=== PATIENT | male | born 1970 | race Caucasian/White ===

== ENCOUNTER 2016-08-21 05:51 | Emergency (ER) | payer OTHER ==
[2016-08-21] VITALS (7 sets, daily range): BP systolic 111–150; BP diastolic 71–100; PULSE 51–78; RESP 16–18; TEMP 97.4; O2SAT 98–100
[~2016-08-21] VITALS: Ht 165.1 cm; Wt 75.0 kg
[~2016-08-21 05:51] MED LIST: PROM25SU8 PO
[2016-08-21] MEDS ORDERED: SODIUM CHLOR 0.9% 1000 ML INJ 1,000 ML IV ONE ×2 (05:57→07:00)
[2016-08-21] MEDS ORDERED: ONDANSETRON HCL 4 MG/2 ML VIAL IVP ONE (06:00)
[2016-08-21] MEDS ORDERED: MECLIZINE HCL 25 MG TAB PO ONE (06:00)
[2016-08-21] MEDS ORDERED: SODIUM CHLORIDE 0.9% FLUSH 5 ML FLUSH IVF PRN (06:00)
[2016-08-21 06:15] LABS: AUTOMATED NEUTROPHIL # 6.2 TH/MM3 (1.8-7.7); BASOPHIL # 0.1 TH/MM3 (0-0.2); BASOPHIL % 1.2 % (0.0-2.0); EOSINOPHIL # 0.7 TH/MM3 (0-0.4); EOSINOPHIL % 6.8 % (0.0-4.0); HEMATOCRIT 44.9 % (39.0-51.0); HEMO FLAGS DIFF FINAL; LYMPH % 31.2 % (9.0-44.0); LYMPHOCYTE # 3.4 TH/MM3 (1.0-4.8); MEAN CELL VOLUME 92.3 FL (80.0-100.0); MEAN CORPUSCULAR HEMOGLOBIN 30.7 PG (27.0-34.0); MEAN CORPUSCULAR HGB CONC 33.2 % (32.0-36.0); MONO % 5.6 % (0.0-8.0); NEUT % 55.2 % (16.0-70.0); PLATELET COUNT 372 TH/MM3 (150-450); RED BLOOD COUNT 4.86 MIL/MM3 (4.50-5.90); RED CELL DISTRIBUTION WIDTH 12.8 % (11.6-17.2)
[2016-08-21 06:21] LABS: CHLORIDE 107 MEQ/L (98-107); POTASSIUM 4.2 MEQ/L (3.5-5.1); SODIUM (NA) 143 MEQ/L (136-145)
[2016-08-21 06:25] LABS: ANION GAP 9 MEQ/L (5-15); APTT (PATIENT) 23.2 SEC (24.3-30.1); BICARBONATE 27.5 MEQ/L (21.0-32.0); BLOOD UREA NITROGEN 10 MG/DL (7-18); INTERNATIONAL NORMALIZED RATIO 0.9 RATIO; MAGNESIUM 2.1 MG/DL (1.5-2.5); PROTHROMBIN TIME - PATIENT 10.4 SEC (9.8-11.6)
[2016-08-21 06:28] LABS: ALT (GPT) 32 U/L (12-78); AST (GOT) 19 U/L (15-37); GLOMERULAR FILTRATION RATE 65 ML/MIN (>89)
[2016-08-21 06:29] LABS: TOTAL BILIRUBIN ADULT 0.2 MG/DL (0.2-1.0)
[2016-08-21 06:30] LABS: ALKALINE PHOSPHATASE 90 U/L (45-117)
--- NOTE | 2016-08-21 06:31 | PD ---
HPI Chief Complaint: General Weakness Time Seen by Provider: 05:57 Travel History International Travel<30 days: No Contact w/Intl Traveler<30days: No Traveled to known affect area: No History of Present Illness HPI 46-year-old male presents to the emergency department from home by EMS transport for complaint of dizziness and nausea. Patient states he has not felt right over the past several weeks since discontinuing tobacco use. Patient denies visual disturbance change in mentation difficulty with swallowing facial droop neck pain upper or lower extremity numbness tingling or weakness or ataxia of gait. Patient's had no chest pain or shortness of breath. Patient states he awakened this morning with left-sided headache. Patient rates headache 10 over 10 intensity. Patient went to bed last night approximately 9 PM and awakened just prior to arrival to the emergency Department with above-mentioned symptoms of dizziness nausea and intermittent left-sided headache. Patient's had no recent febrile illness sinus pressure drainage or sore throat. Patient states he felt off-balance that he nearly fell. Patient denies previous history of headaches. No family history of headaches however patient is adopted at age of 2. Patient denies personal history of hypertension dyslipidemia heart disease diabetes and denies alcohol use or substance use. Patient denies any referred neck jaw back shoulder arm or abdominal pain. PFSH Past Medical History Narrative Medical Adopted negative past medical history tonsillectomy previous tobacco use no alcohol use no substance use nursing notes reviewed Medical History: Denies Significant Hx Diminished Hearing: No Immunizations Current: Yes Tetanus Vaccination: > 5 Years Influenza Vaccination: No Past Surgical History Tonsillectomy: Yes Social History Alcohol Use: No Tobacco Use: No ("Quit 9 weeks ago") Substance Use: No Allergies-Medications (Allergen,Severity, Reaction): Coded Allergies: No Known Allergies (Verified , 08/21/16) Reported Meds & Prescriptions Reported Meds & Active Scripts Active Zofran Odt (Ondansetron Odt) 4 Mg Tab 4 Mg SL Q8HR PRN 5 Days Meclizine (Meclizine HCl) 25 Mg Tab 25 Mg PO TID PRN 3 Days Review of Systems Except as stated in HPI: all other systems reviewed are Neg General / Constitutional: No: Fever, Chills Eyes: No: Diploplia, Blurred Vision, Photophobia HENT: Positive: Headaches, Vertigo, No: Lightheadedness, Congestion, Neck Stiffness, Neck Pain Cardiovascular: No: Chest Pain or Discomfort, Palpitations, Syncope Respiratory: No: Cough, Shortness of Breath, Wheezing Gastrointestinal: Positive: Nausea, No: Vomiting, Abdominal Pain Genitourinary: No: Decreased Urinary Output, Flank Pain Musculoskeletal: No: Myalgias, Arthralgias, Edema Skin: No Rash Neurologic: Positive: Weakness, Dizziness, Headache, No: Syncope, Focal Abnormalities, Coordination Problem, Tremor, Ataxia, Change in Mentation, Slurred Speech, Paresthesia, Incontinence, Seizures Psychiatric: Positive: Anxiety, No: Depression, Substance Abuse Endocrine: No: Heat Intolerance Hematologic/Lymphatic: No: Easy Bruising Physical Exam Narrative GENERAL: Well-developed well-nourished male in no acute distress no respiratory distress; GCS 15. SKIN: Warm and dry. HEAD: Atraumatic. Normocephalic. EYES: Pupils equal and round. No scleral icterus. No injection or drainage. ENT: No nasal bleeding or discharge. Mucous membranes pink and moist. NECK: Trachea midline. No JVD. CARDIOVASCULAR: Regular rate and rhythm. RESPIRATORY: No accessory muscle use. Clear to auscultation. Breath sounds equal bilaterally. GASTROINTESTINAL: Abdomen soft, non-tender, nondistended. Hepatic and splenic margins not palpable. MUSCULOSKELETAL: Extremities without clubbing, cyanosis, or edema. No obvious deformities. NEUROLOGICAL: Awake and alert. No obvious cranial nerve deficits. Motor grossly within normal limits. Five out of 5 muscle strength in the arms and legs. Sensory exam intact motor strength 5 over 5 DTRs 2+ and equal no clonus no pronator drift no limb ataxia Normal speech. PSYCHIATRIC: Appropriate mood and affect; insight and judgment normal. Data Data Last Documented VS Vital Signs Date Time Temp Pulse Resp B/P Pulse Ox O2 Delivery O2 Flow Rate FiO2 08/21/16 10:57 58 16 129/82 100 Room Air 08/21/16 05:55 97.4 Orders Electrocardiogram (08/21/16 05:57) Complete Blood Count With Diff (08/21/16 05:57) Comprehensive Metabolic Panel (08/21/16 05:57) Magnesium (Mg) (08/21/16 05:57) Ckmb (Isoenzyme) Profile (08/21/16 05:57) Troponin I (08/21/16 05:57) Act Partial Throm Time (Ptt) (08/21/16 05:57) Prothrombin Time / Inr (Pt) (08/21/16 05:57) Urinalysis - C+S If Indicated (08/21/16 05:57) Chest, Single Ap (08/21/16 05:57) Ct Brain W/O Iv Contrast(Rout) (08/21/16 05:57) Blood Glucose (08/21/16 05:57) Ecg Monitoring (08/21/16 05:57) Iv Access Insert/Monitor (08/21/16 05:57) Oximetry (08/21/16 05:57) Meclizine (Antivert) (08/21/16 06:00) Ondansetron Inj (Zofran Inj) (08/21/16 06:00) Sodium Chloride 0.9% Flush (Ns Flush) (08/21/16 06:00) Sodium Chlor 0.9% 1000 Ml Inj (Ns 1000 M (08/21/16 05:57) Orthostatic Vital Signs (08/21/16 05:57) Metoclopramide Inj (Reglan Inj) (08/21/16 06:45) Sodium Chlor 0.9% 1000 Ml Inj (Ns 1000 M (08/21/16 07:00) Cta Brain W Iv Contrast W 3d (08/21/16 06:58) Cta Neck W Iv Contrast W 3d (08/21/16 06:58) Iohexol 350 Inj (Omnipaque 350 Inj) (08/21/16 07:43) Ondansetron Inj (Zofran Inj) (08/21/16 09:00) Haloperidol Inj (Haldol Inj) (08/21/16 09:15) Promethazine Inj (Phenergan Inj) (08/21/16 09:45) Labs Laboratory Tests Test 08/21/16 08/21/16 06:00 07:50 White Blood Count 11.0 TH/MM3 Red Blood Count 4.86 MIL/MM3 Hemoglobin 14.9 GM/DL Hematocrit 44.9 % Mean Corpuscular Volume 92.3 FL Mean Corpuscular Hemoglobin 30.7 PG Mean Corpuscular Hemoglobin 33.2 % Concent Red Cell Distribution Width 12.8 % Platelet Count 372 TH/MM3 Mean Platelet Volume 7.9 FL Neutrophils (%) (Auto) 55.2 % Lymphocytes (%) (Auto) 31.2 % Monocytes (%) (Auto) 5.6 % Eosinophils (%) (Auto) 6.8 % Basophils (%) (Auto) 1.2 % Neutrophils # (Auto) 6.2 TH/MM3 Lymphocytes # (Auto) 3.4 TH/MM3 Monocytes # (Auto) 0.6 TH/MM3 Eosinophils # (Auto) 0.7 TH/MM3 Basophils # (Auto) 0.1 TH/MM3 CBC Comment DIFF FINAL Differential Comment Prothrombin Time 10.4 SEC Prothromb Time International 0.9 RATIO Ratio Activated Partial 23.2 SEC Thromboplast Time Sodium Level 143 MEQ/L Potassium Level 4.2 MEQ/L Chloride Level 107 MEQ/L Carbon Dioxide Level 27.5 MEQ/L Anion Gap 9 MEQ/L Blood Urea Nitrogen 10 MG/DL Creatinine 1.20 MG/DL Estimat Glomerular Filtration 65 ML/MIN Rate Random Glucose 112 MG/DL Calcium Level 8.3 MG/DL Magnesium Level 2.1 MG/DL Total Bilirubin 0.2 MG/DL Aspartate Amino Transf 19 U/L (AST/SGOT) Alanine Aminotransferase 32 U/L (ALT/SGPT) Alkaline Phosphatase 90 U/L Total Creatine Kinase 93 U/L Troponin I LESS THAN 0.02 NG/ML Total Protein 7.0 GM/DL Albumin 3.5 GM/DL Urine Collection Type CLEAN CATCH Urine Color YELLOW Urine Turbidity CLEAR Urine pH 5.5 Urine Specific [place] 1.033 Urine Protein NEG mg/dL Urine Glucose (UA) NEG mg/dL Urine Ketones NEG mg/dL Urine Occult Blood SMALL Urine Nitrite NEG Urine Bilirubin NEG Urine Leukocyte Esterase NEG Urine RBC 4-9 /hpf Urine Squamous Epithelial 0-5 /hpf Cells Microscopic Urinalysis Comment CULT NOT INDICATED Urine Collection Time 07:50 [facility] Medical Decision Making Medical Screen Exam Complete: Yes Emergency Medical Condition: Yes Medical Record Reviewed: Yes Interpretation(s) EKG sinus bradycardia rate [address] elevation or injury pattern change or ectopy noted CBC & BMP Diagram 08/21/16 06:[address] 08/21/16 0557 Signed Impressions: Service Date/Time: Sunday, August 21, 2016 06:16 - CONCLUSION: No acute intracranial abnormality. Sinus disease. Ankit Gracia MD Chest X-Ray 08/21/16 0557 Signed Impressions: Service Date/Time: Sunday, August 21, 2016 06:31 - CONCLUSION: No evidence of acute cardiopulmonary disease. Ankit Gracia MD Vital Signs Date Time Temp Pulse Resp B/P Pulse Ox O2 Delivery O2 Flow Rate FiO2 08/21/16 06:46 63 18 128/81 98 Room Air 08/21/16 05:55 97.4 57 18 145/100 100 08/21/16 05:55 16 100 Room Air 08/21/16 05:55 100 Room Air Differential Diagnosis TIA CVA ICH dizziness and vertigo labyrinthitis arrhythmia electrolyte disturbance ACS aortic dissection viral syndrome PE Narrative Course Patient placed on alarm security or surveillance monitor IV access obtained specimens collected and sent for resulting patient administered Zofran 4 mg IV and Antivert 25 mg by mouth Patient return from CT with episode of vomiting given Reglan 10 mg IV Administered normal saline bolus Discussed in detail with patient with spouse at the bedside further evaluation of headache and left sided neck ache with the patient and need for further testing including LP; patient with spouse at the bedside refuses LP to be performed evene with detailed discussion regarding indication and risk of not having it performed as well as benefit of having the procedure performed. He again refuses LP/spinal tap. Will proceed with CTA of the brain and neck to evaluate for aneurysmal and dissection. EKG reveals no acute injury pattern change; troponin I less than 0.02, not elevated CK total 93, not elevated; Coagulation studies and normal range Care ki over to oncoming MD Dr Medina for follow up of imaging results and patient disposition. Diagnosis Primary Impression: Vertigo Scripts Ondansetron Odt (Zofran Odt)4 Mg Tab4 Mg SL Q8HR PRN (Nausea/Vomiting) 5 Days Ref 0 Prov:Danya Medina DO 08/21/16 Meclizine 25 Mg Tab25 Mg PO TID PRN (VERTIGO) 3 Days Ref 0 Prov:Danya Medina DO 08/21/16 Shanna Kearney MD Aug 21, 2016 06:31
[2016-08-21 06:32] LABS: CREATINE KINASE 93 U/L (39-308)
[2016-08-21] MEDS ORDERED: METOCLOPRAMIDE HCL 10 MG/2 ML VIAL IV PUSH ONE (06:45)
--- NOTE | 2016-08-21 06:46 | RADHPO ---
EXAM DATE/TIME: 08/21/2016 06:16 [facility] COMPARISON: No previous studies available for comparison. INDICATIONS : Dizziness with nausea and vomiting. RADIATION DOSE: 63.48 CTDIvol (mGy) MEDICAL HISTORY : None SURGICAL HISTORY : None. ENCOUNTER: Initial ACUITY: 1 day PAIN SCALE: 2/10 LOCATION: cranial TECHNIQUE: Multiple contiguous axial images were obtained of the head. Using automated exposure control and adj ustment of the mA and/or kV according to patient size, radiation dose was kept as low as reasonably a chievable to obtain optimal diagnostic quality images. FINDINGS: CEREBRUM: The ventricles are normal for age. No evidence of midline shift, mass lesion, hemorrhage or acute in farction. No extra-axial fluid collections are seen. POSTERIOR FOSSA: The cerebellum and brainstem are intact. The 4th ventricle is midline. The cerebellopontine angle i s unremarkable. EXTRACRANIAL: There is considerable mucoperiosteal thickening of the sphenoid, ethmoid and visualized maxillary air cells. SKULL: The calvaria is intact. No evidence of skull fracture. CONCLUSION: No acute intracranial abnormality. Sinus disease. Ankit Gracia MD on August 21, 2016 at 6:44 Board Certified Radiologist. This report was verified electronically.
--- NOTE | 2016-08-21 06:47 | RADHPO ---
EXAM DATE/TIME: 08/21/2016 06:31 [facility] COMPARISON: CHEST PA & LAT, December 22, 2014, 12:41. INDICATIONS : Palpitations. MEDICAL HISTORY : None. SURGICAL HISTORY : None. ENCOUNTER: Initial ACUITY: 1 day PAIN SCORE: 7/10 LOCATION: Bilateral chest FINDINGS: A single view of the chest demonstrates the lungs to be symmetrically aerated without evidence of mas s, infiltrate or effusion. The cardiomediastinal contours are unremarkable. Osseous structures are intact. CONCLUSION: No evidence of acute cardiopulmonary disease. Ankit Gracia MD on August 21, 2016 at 6:45 Board Certified Radiologist. This report was verified electronically.
[2016-08-21] MEDS ORDERED: IOHEXOL 350 MG/ML 10 ML VIAL (for RAD DIAG) IV ONE (07:43)
[2016-08-21 08:01] LABS: BLOOD, URINE SMALL (NEG); GLUCOSE,URINE NEG (NEG); KETONE, URINE NEG (NEG); NITRITE,URINE NEG (NEG); PH, URINE 5.5 (5.0-8.5)
[2016-08-21 08:10] LABS: METHOD OF COLLECTION CLEAN CATCH; URINE COLOR YELLOW (YELLW/STRAW)
[2016-08-21 08:11] LABS: COMMENT (UR) CULT NOT INDICATED; CULTURE IF INDICATED CULT NOT INDICATED; SQUAMOUS EPITHELIAL CELL URINE 0-5 /hpf (0-5)
--- NOTE | 2016-08-21 08:38 | RADHPO ---
EXAM DATE/TIME: 08/21/2016 07:25 [facility] COMPARISON: No previous studies available for comparison. INDICATIONS : Dizziness and left sided cephalgia today. IV CONTRAST: 85 cc Omnipaque 350 (iohexol) IV ; Cumulative dose for multiple exams. RADIATION DOSE: 42.28 CTDIvol (mGy) ; Combined studies MEDICAL HISTORY : None SURGICAL HISTORY : Tonsillectomy. ENCOUNTER: Initial ACUITY: 1 day PAIN SCALE: 8/10 LOCATION: Left head TECHNIQUE: Volumetric scanning was performed using a multi-row detector CT scanner. The data was post processed with a variety of visualization algorithms including full volume maximum intensity projection, multi -planar sliding thin slab reformation, curved planar reformation, and surface rendering techniques. Using automated exposure control and adjustment of the mA and/or kV according to patient size, radiat ion dose was kept as low as reasonably achievable to obtain optimal diagnostic quality images. FINDINGS: There is excellent visualization of the major intracranial arteries out to the second-order branch ve ssels. There is no evidence for aneurysm, vessel truncation and no evidence for vascular malformatio n. There appears to be a very short segment focal stenosis involving the M1 segment on the right just before the genu. This appears to be a focal mild to moderate stenosis. The A1 segment on the left is not present. This is a congenital variant. CONCLUSION: 1. Focal short segment mild to moderate stenosis involving the M1 segment on the right just before th e genu. 2. 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 Jomar Heredia MD on August 21, 2016 at 8:30 Board Certified Radiologist. This report was verified electronically.
--- NOTE | 2016-08-21 08:45 | RADHPO ---
EXAM DATE/TIME: 08/21/2016 07:25 [facility] COMPARISON: No previous studies available for comparison. INDICATIONS : Dizziness and left sided cephalgia today. IV CONTRAST: 85 cc Omnipaque 350 (iohexol) IV ; Cumulative dose for multiple exams. RADIATION DOSE: 42.28 CTDIvol (mGy) ; Combined studies MEDICAL HISTORY : None SURGICAL HISTORY : Tonsillectomy. ENCOUNTER: Initial ACUITY: 1 day PAIN SCALE: 8/10 LOCATION: Left head TECHNIQUE: Volumetric scanning was performed using a multirow detector CT scanner. The data was post processed with a variety of visualization algorithms including full-volume maximum intensity projection, multip lanar sliding thin-slab reformation, curved-planar reformation, and surface-rendering techniques. Us ing automated exposure control and adjustment of the mA and/or kV according to patient size, radiatio n dose was kept as low as reasonably achievable to obtain optimal diagnostic quality images. FINDINGS: AORTIC ARCH: There is a three-vessel origin of the great vessels from the aorta. No evidence of ostial narrowing. RIGHT CAROTID: The common carotid artery is intact. The carotid bulb has a normal configuration without ulceration o r narrowing. The internal carotid artery lumen is smooth without stenosis. The external carotid jai ry is intact. LEFT CAROTID: The common carotid artery is intact. The carotid bulb has a normal configuration without ulceration or narrowing. The internal carotid artery lumen is smooth without stenosis. The external carotid ar malka is intact. VERTEBRALS: The vertebral arteries have a symmetric diameter. No stenotic lesions are seen. CONCLUSION: Normal examination for a patient of this age. Jomar Heredia MD on August 21, 2016 at 8:41 Board Certified Radiologist. This report was verified electronically.
[2016-08-21] MEDS ORDERED: ONDANSETRON HCL 4 MG/2 ML VIAL IV PUSH ONE (09:00)
[2016-08-21] MEDS ORDERED: HALOPERIDOL LACTATE 5 MG/ML AMP IV ONE (09:15)
[2016-08-21] MEDS ORDERED: PROMETHAZINE INJ 25 MG/ML VIAL IM ONE (09:45)
[2016-08-21] MEDS ORDERED: MECL-62 PO (10:15)
[2016-08-21] MEDS ORDERED: ZOFR4TAB3 SL (10:15)
--- NOTE | 2016-08-21 10:15 | PD ---
Physical Exam Narrative Received sign out from previous team to follow up CT scans and reevaluate. 46yo M with dizziness and nausea today. States he feels dizzy when he moves too fast. No focal neurologic deficit. Pt did vomit again so haldol 2mg and phenergan 25mg given. Pt has not vomited since I gave him the medications. Pt states headache has resolved and still does not want lumbar puncture. Very low suspicion of SAH given that CTA brain is negative for aneurysm. CTA neck is normal. Return precautions given. Data Data Last Documented VS Vital Signs Date Time Temp Pulse Resp B/P Pulse Ox O2 Delivery O2 Flow Rate FiO2 08/21/16 10:57 58 16 129/82 100 Room Air 08/21/16 05:55 97.4 Orders Electrocardiogram (08/21/16 05:57) Complete Blood Count With Diff (08/21/16 05:57) Comprehensive Metabolic Panel (08/21/16 05:57) Magnesium (Mg) (08/21/16 05:57) Ckmb (Isoenzyme) Profile (08/21/16 05:57) Troponin I (08/21/16 05:57) Act Partial Throm Time (Ptt) (08/21/16 05:57) Prothrombin Time / Inr (Pt) (08/21/16 05:57) Urinalysis - C+S If Indicated (08/21/16 05:57) Chest, Single Ap (08/21/16 05:57) Ct Brain W/O Iv Contrast(Rout) (08/21/16 05:57) Blood Glucose (08/21/16 05:57) Ecg Monitoring (08/21/16 05:57) Iv Access Insert/Monitor (08/21/16 05:57) Oximetry (08/21/16 05:57) Meclizine (Antivert) (08/21/16 06:00) Ondansetron Inj (Zofran Inj) (08/21/16 06:00) Sodium Chloride 0.9% Flush (Ns Flush) (08/21/16 06:00) Sodium Chlor 0.9% 1000 Ml Inj (Ns 1000 M (08/21/16 05:57) Orthostatic Vital Signs (08/21/16 05:57) Metoclopramide Inj (Reglan Inj) (08/21/16 06:45) Sodium Chlor 0.9% 1000 Ml Inj (Ns 1000 M (08/21/16 07:00) Cta Brain W Iv Contrast W 3d (08/21/16 06:58) Cta Neck W Iv Contrast W 3d (08/21/16 06:58) Iohexol 350 Inj (Omnipaque 350 Inj) (08/21/16 07:43) Ondansetron Inj (Zofran Inj) (08/21/16 09:00) Haloperidol Inj (Haldol Inj) (08/21/16 09:15) Promethazine Inj (Phenergan Inj) (08/21/16 09:45) Labs Laboratory Tests Test 08/21/16 08/21/16 06:00 07:50 White Blood Count 11.0 TH/MM3 Red Blood Count 4.86 MIL/MM3 Hemoglobin 14.9 GM/DL Hematocrit 44.9 % Mean Corpuscular Volume 92.3 FL Mean Corpuscular Hemoglobin 30.7 PG Mean Corpuscular Hemoglobin 33.2 % Concent Red Cell Distribution Width 12.8 % Platelet Count 372 TH/MM3 Mean Platelet Volume 7.9 FL Neutrophils (%) (Auto) 55.2 % Lymphocytes (%) (Auto) 31.2 % Monocytes (%) (Auto) 5.6 % Eosinophils (%) (Auto) 6.8 % Basophils (%) (Auto) 1.2 % Neutrophils # (Auto) 6.2 TH/MM3 Lymphocytes # (Auto) 3.4 TH/MM3 Monocytes # (Auto) 0.6 TH/MM3 Eosinophils # (Auto) 0.7 TH/MM3 Basophils # (Auto) 0.1 TH/MM3 CBC Comment DIFF FINAL Differential Comment Prothrombin Time 10.4 SEC Prothromb Time International 0.9 RATIO Ratio Activated Partial 23.2 SEC Thromboplast Time Sodium Level 143 MEQ/L Potassium Level 4.2 MEQ/L Chloride Level 107 MEQ/L Carbon Dioxide Level 27.5 MEQ/L Anion Gap 9 MEQ/L Blood Urea Nitrogen 10 MG/DL Creatinine 1.20 MG/DL Estimat Glomerular Filtration 65 ML/MIN Rate Random Glucose 112 MG/DL Calcium Level 8.3 MG/DL Magnesium Level 2.1 MG/DL Total Bilirubin 0.2 MG/DL Aspartate Amino Transf 19 U/L (AST/SGOT) Alanine Aminotransferase 32 U/L (ALT/SGPT) Alkaline Phosphatase 90 U/L Total Creatine Kinase 93 U/L Troponin I LESS THAN 0.02 NG/ML Total Protein 7.0 GM/DL Albumin 3.5 GM/DL Urine Collection Type CLEAN CATCH Urine Color YELLOW Urine Turbidity CLEAR Urine pH 5.5 Urine Specific [employer] 1.033 Urine Protein NEG mg/dL Urine Glucose (UA) NEG mg/dL Urine Ketones NEG mg/dL Urine Occult Blood SMALL Urine Nitrite NEG Urine Bilirubin NEG Urine Leukocyte Esterase NEG Urine RBC 4-9 /hpf Urine Squamous Epithelial 0-5 /hpf Cells Microscopic Urinalysis Comment CULT NOT INDICATED Urine Collection Time 07:50 MDM Supervised Visit with VENANCIO: No Diagnosis Primary Impression: Vertigo Patient Instructions: General Instructions Departure Forms: Tests/Procedures Additional Instruction: Please follow up with your PMD in 3-7 days. CTA head showed focal short segment mild to moderate stenosis involving M1 segment on the right just before the genu. 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 No evidence of aneurysm or vascular malformation. Please return to the ED if symptoms worsen. Med/Other Pt SpecificInfo: Prescription(s) given Scripts Ondansetron Odt (Zofran Odt)4 Mg Tab4 Mg SL Q8HR PRN (Nausea/Vomiting) 5 Days Ref 0 Prov:Danya Medina DO 08/21/16 Meclizine 25 Mg Tab25 Mg PO TID PRN (VERTIGO) 3 Days Ref 0 Prov:Danya Medina DO 08/21/16 Disposition: 01 DISCHARGE HOME Condition: Stable Danya Medina DO Aug 21, 2016 10:15
--- NOTE | 2016-08-22 09:38 | EKG ---
Date Performed: 08/21/2016 Time Performed: 06:03:36 PTAGE: 46 years EKG: Sinus bradycardia. Poor R wave progression - probable normal variant Borderline ECG NO PREVIOUS TRACING DOCTOR: Geovanni Lopez Interpretating Date/Time 08/22/2016 09:36:15
[2016-10-21] MEDS ORDERED: CIPR-9 PO (09:02)
[2016-11-09] MEDS ORDERED: DOXY100C PO (10:31)
[2016-11-09] MEDS ORDERED: GABA300C5 PO (10:35)
== END 2016-08-21 11:23 | disposition home or self-care (01) ==
LOC: PHED 05:51
DX: R42 Dizziness and giddiness (principal); R11.0 Nausea; R51 Headache; R00.1 Bradycardia, unspecified; R53.1 Weakness; Z87.891 Personal history of nicotine dependence
CPT/HCPCS: 70450; 70496; 70498; 71010; 80053; 81001; 82550; 83735; 84484; 85025; 85610; 85730; 93005; 96361; 96372; 96374; 96375; 96376; 99285; J1630; J2405; J2550; J2765; J7030; Q9967

== ENCOUNTER 2016-08-23 07:45 | Emergency (ER) | payer OTHER ==
[~2016-08-23] VITALS: Ht 152.4 cm; Wt 76.0 kg
[~2016-08-23 07:45] MED LIST changes: +MECL-62 PO; -PROM25SU8 PO; +ZOFR4TAB3 SL
[2016-08-23 07:47] VITALS: BP 142/95; PULSE 84; RESP 16; TEMP 98; O2SAT 97
[2016-08-23] MEDS ORDERED: ONDANSETRON HCL 4 MG/2 ML VIAL IV ONE (10:15)
[2016-08-23] MEDS ORDERED: SODIUM CHLOR 0.9% 1000 ML INJ 1,000 ML IV ONE (10:15)
[2016-08-23] MEDS ORDERED: MECLIZINE HCL 25 MG TAB PO ONE (10:15)
--- NOTE | 2016-08-23 10:20 | PD ---
HPI Chief Complaint: Dizziness Time Seen by Provider: 08:32 Travel History International Travel<30 days: No Contact w/Intl Traveler<30days: No Traveled to known affect area: No History of Present Illness HPI This patient complains of dizziness. He has a room spinning sensation. It's worse when he turns his head to either side or changes position. He also complains of nausea and decreased appetite. He has some generalized weakness. Symptom severity is moderate. Duration 3 days. He was seen here 2 days ago for the same thing and had extensive workup which was negative. He did not fill his prescriptions for Zofran on meclizine. He did try dose of over-the- counter antihistamine which didn't do much. Patient's symptoms are somewhat alleviated when he remains still. PFSH Past Medical History Medical History: Denies Significant Hx Diminished Hearing: No Immunizations Current: Yes Tetanus Vaccination: > 5 Years Influenza Vaccination: No ?: Not Past Surgical History Tonsillectomy: Yes Social History Alcohol Use: No Tobacco Use: No ("Quit 9 weeks ago") Substance Use: No Allergies-Medications (Allergen,Severity, Reaction): Coded Allergies: No Known Allergies (Verified , 08/21/16) Reported Meds & Prescriptions Reported Meds & Active Scripts Active Zofran Odt (Ondansetron Odt) 4 Mg Tab 4 Mg SL Q8HR PRN 5 Days Meclizine (Meclizine HCl) 25 Mg Tab 25 Mg PO TID PRN 3 Days Review of Systems General / Constitutional: No: Fever Eyes: No: Visual changes HENT: Positive: Vertigo, Lightheadedness, No: Headaches Cardiovascular: No: Chest Pain or Discomfort Respiratory: No: Shortness of Breath Gastrointestinal: Positive: Nausea, Loss of Appetite, No: Abdominal Pain Genitourinary: No: Dysuria Musculoskeletal: Positive: Weakness, No: Pain Skin: No Rash Neurologic: Positive: Weakness, Dizziness Psychiatric: No: Depression Endocrine: No: Polydipsia Hematologic/Lymphatic: No: Easy Bruising Physical Exam Narrative GENERAL: Well-nourished, well-developed patient in no apparent distress. SKIN: Warm and dry. HEAD: Atraumatic. Normocephalic. EYES: Pupils equal and round. No scleral icterus. No injection or drainage. ENT: No nasal bleeding or discharge. Mucous membranes pink and moist. NECK: Trachea midline. No JVD. No meningeal signs CARDIOVASCULAR: Regular rate and rhythm. No murmur appreciated. RESPIRATORY: No accessory muscle use. Clear to auscultation. Breath sounds equal bilaterally. GASTROINTESTINAL: Abdomen soft, non-tender, nondistended. Hepatic and splenic margins not palpable. MUSCULOSKELETAL: No obvious deformities. No clubbing. No cyanosis. No edema. NEUROLOGICAL: Awake and alert. No obvious cranial nerve deficits. Motor grossly within normal limits. Normal speech. PSYCHIATRIC: Appropriate mood and affect; insight and judgment normal. Data Data Last Documented VS Vital Signs Date Time Temp Pulse Resp B/P Pulse Ox O2 Delivery O2 Flow Rate FiO2 08/23/16 08:19 18 97 Room Air 08/23/16 07:47 98.0 84 142/95 Orders Electrocardiogram (08/23/16 ) Sodium Chlor 0.9% 1000 Ml Inj (Ns 1000 M (08/23/16 10:15) Ondansetron Inj (Zofran Inj) (08/23/16 10:15) Meclizine (Antivert) (08/23/16 10:15) Complete Blood Count With Diff (08/23/16 10:11) Basic Metabolic Panel (Bmp) (08/23/16 10:11) Labs Laboratory Tests Test 08/23/16 10:00 White Blood Count 15.1 TH/MM3 Red Blood Count 5.12 MIL/MM3 Hemoglobin 15.8 GM/DL Hematocrit 47.5 % Mean Corpuscular Volume 92.8 FL Mean Corpuscular Hemoglobin 30.9 PG Mean Corpuscular Hemoglobin 33.3 % Concent Red Cell Distribution Width 13.5 % Platelet Count 409 TH/MM3 Mean Platelet Volume 8.7 FL Neutrophils (%) (Auto) 65.6 % Lymphocytes (%) (Auto) 25.6 % Monocytes (%) (Auto) 7.9 % Eosinophils (%) (Auto) 0.3 % Basophils (%) (Auto) 0.6 % Neutrophils # (Auto) 9.9 TH/MM3 Lymphocytes # (Auto) 3.9 TH/MM3 Monocytes # (Auto) 1.2 TH/MM3 Eosinophils # (Auto) 0.0 TH/MM3 Basophils # (Auto) 0.1 TH/MM3 CBC Comment DIFF FINAL Differential Comment Sodium Level 138 MEQ/L Potassium Level 4.2 MEQ/L Chloride Level 102 MEQ/L Carbon Dioxide Level 28.2 MEQ/L Anion Gap 8 MEQ/L Blood Urea Nitrogen 12 MG/DL Creatinine 1.10 MG/DL Estimat Glomerular Filtration 72 ML/MIN Rate Random Glucose 101 MG/DL Calcium Level 9.3 MG/DL [facility] Medical Decision Making Medical Screen Exam Complete: Yes Emergency Medical Condition: Yes Medical Record Reviewed: Yes Differential Diagnosis Positional vertigo, meningitis, CVA Narrative Course I have reviewed the patient's electronic medical record. Reviewed his extensive workup from 2 days ago including head and neck CTA and brain CT and labs Patient's headache is much improved that's not the problem at all today. His problem is vertigo with nausea. No neurologic deficit noted. Presentation not consistent with meningitis or stroke. IV placed I gave him a dose of IV Zofran and 1 L normal saline IV bolus as well as a dose of meclizine CBC is normal Metabolic profile is normal Recommend primary care follow-up. Return if worse. Diagnosis Primary Impression: Vertigo Additional Instructions: The patient was advised to follow up with their physician and return if they worsen. Med/Other Pt SpecificInfo: Other Disposition: 01 DISCHARGE HOME Condition: Stable Syed Ramsey MD Aug 23, 2016 10:20
[2016-08-23 10:28] LABS: AUTOMATED NEUTROPHIL # 9.9 TH/MM3 (1.8-7.7); BASOPHIL # 0.1 TH/MM3 (0-0.2); BASOPHIL % 0.6 % (0.0-2.0); EOSINOPHIL % 0.3 % (0.0-4.0); HEMATOCRIT 47.5 % (39.0-51.0); HEMO FLAGS DIFF FINAL; LYMPH % 25.6 % (9.0-44.0); LYMPHOCYTE # 3.9 TH/MM3 (1.0-4.8); MEAN CELL VOLUME 92.8 FL (80.0-100.0); MEAN CORPUSCULAR HEMOGLOBIN 30.9 PG (27.0-34.0); MEAN CORPUSCULAR HGB CONC 33.3 % (32.0-36.0); MONO % 7.9 % (0.0-8.0); NEUT % 65.6 % (16.0-70.0); PLATELET COUNT 409 TH/MM3 (150-450); RED BLOOD COUNT 5.12 MIL/MM3 (4.50-5.90); RED CELL DISTRIBUTION WIDTH 13.5 % (11.6-17.2); WHITE BLOOD COUNT 15.1 TH/MM3 (4.0-11.0)
[2016-08-23 10:45] LABS: BICARBONATE 28.2 MEQ/L (21.0-32.0); POTASSIUM 4.2 MEQ/L (3.5-5.1)
[2016-08-23 12:00] VITALS: BP 137/89; PULSE 84; RESP 16; TEMP 98; O2SAT 97
--- NOTE | 2016-08-23 17:41 | EKG ---
Date Performed: 08/23/2016 Time Performed: 08:25:52 PTAGE: 46 years EKG: Sinus rhythm NORMAL ECG Compared to prior tracing no significant change PREVIOUS TRACING : 08/21/2016 06.03 DOCTOR: Orlando Culp Interpretating Date/Time 08/23/2016 17:40:24
[2016-10-21] MEDS ORDERED: CIPR-9 PO (09:02)
[2016-11-09] MEDS ORDERED: DOXY100C PO (10:31)
[2016-11-09] MEDS ORDERED: GABA300C5 PO (10:35)
== END 2016-08-23 13:27 | disposition home or self-care (01) ==
LOC: NEPE 07:45
DX: R42 Dizziness and giddiness (principal); R11.0 Nausea
CPT/HCPCS: 80048; 85025; 93005; 96361; 96374; 99285; J2405; J7030

== ENCOUNTER 2016-09-02 10:14 | Emergency (ER) | payer OTHER ==
[~2016-09-02] VITALS: Ht 165.1 cm; Wt 74.0 kg
[2016-09-02 10:24] VITALS: BP 139/103; PULSE 79; RESP 16; TEMP 98.1; O2SAT 99
[2016-09-02 11:24] VITALS: BP 140/103; PULSE 66; RESP 16; O2SAT 99
[2016-09-02 11:45] VITALS: RESP 16; O2SAT 100
[2016-09-02] MEDS ORDERED: SODIUM CHLOR 0.9% 1000 ML INJ 1,000 ML IV ONE (11:45)
[2016-09-02] MEDS ORDERED: ONDANSETRON HCL 4 MG/2 ML VIAL IV PUSH ONE (11:45)
--- NOTE | 2016-09-02 11:47 | RADHPO ---
EXAM DATE/TIME: 09/02/2016 11:39 [facility] COMPARISON: CHEST SINGLE AP, August 21, 2016, 6:31. INDICATIONS : Congestion and vertigo MEDICAL HISTORY : None. SURGICAL HISTORY : None. ENCOUNTER: Initial ACUITY: 2 weeks PAIN SCORE: 8/10 LOCATION: Bilateral chest FINDINGS: A single view of the chest demonstrates the lungs to be symmetrically aerated without evidence of mas s, infiltrate or effusion. The cardiomediastinal contours are unremarkable. Osseous structures are intact. CONCLUSION: No acute disease. Miguel Gamble MD FACR on September 02, 2016 at 11:45 Board Certified Radiologist. This report was verified electronically.
[2016-09-02 12:04] LABS: AUTOMATED NEUTROPHIL # 8.8 TH/MM3 (1.8-7.7); BASOPHIL # 0.2 TH/MM3 (0-0.2); BASOPHIL % 1.5 % (0.0-2.0); EOSINOPHIL # 0.4 TH/MM3 (0-0.4); EOSINOPHIL % 2.7 % (0.0-4.0); HEMATOCRIT 46.9 % (39.0-51.0); HEMO FLAGS DIFF FINAL; LYMPH % 26.2 % (9.0-44.0); LYMPHOCYTE # 3.6 TH/MM3 (1.0-4.8); MEAN CELL VOLUME 92.9 FL (80.0-100.0); MEAN CORPUSCULAR HEMOGLOBIN 30.8 PG (27.0-34.0); MEAN CORPUSCULAR HGB CONC 33.1 % (32.0-36.0); MONO % 6.6 % (0.0-8.0); PLATELET COUNT 460 TH/MM3 (150-450); RED BLOOD COUNT 5.05 MIL/MM3 (4.50-5.90); RED CELL DISTRIBUTION WIDTH 12.6 % (11.6-17.2); WHITE BLOOD COUNT 13.9 TH/MM3 (4.0-11.0)
[2016-09-02 12:11] LABS: POTASSIUM 4.2 MEQ/L (3.5-5.1)
[2016-09-02 12:14] LABS: BICARBONATE 31.2 MEQ/L (21.0-32.0); MAGNESIUM 2.4 MG/DL (1.5-2.5)
--- NOTE | 2016-09-02 12:28 | PD ---
HPI Chief Complaint: vomiting Time Seen by Provider: 11:23 Travel History International Travel<30 days: No Contact w/Intl Traveler<30days: No Traveled to known affect area: No History of Present Illness HPI 46-year-old male presents with nonbloody emesis, and general ill feeling, left facial swelling. He states this is been going on for the past couple of days. He confirms he has been here recently for vertigo and that is still intermittently happening. He states that he has no other concurrent complaints. Quality is nonbloody. Severity is multiple episodes per patient. He states the left facial swelling and vomiting are new for him. He states he feels worse when he moves around. He denies other modifying factors. PFSH Past Medical History Diminished Hearing: No Immunizations Current: Yes Tetanus Vaccination: > 5 Years Influenza Vaccination: No Past Surgical History Tonsillectomy: Yes Social History Alcohol Use: No Tobacco Use: No (QUIT 07/2016) Substance Use: No Allergies-Medications (Allergen,Severity, Reaction): Coded Allergies: No Known Allergies (Verified , 09/02/16) Reported Meds & Prescriptions Reported Meds & Active Scripts Active Zofran Odt (Ondansetron Odt) 4 Mg Tab 4 Mg SL Q6HR PRN Penicillin V Potassium 500 Mg Tab 500 Mg PO BID 10 Days Review of Systems Except as stated in HPI: all other systems reviewed are Neg Physical Exam Narrative GENERAL: Well-nourished, well-developed patient. SKIN: Warm and dry. HEAD: Small amount of swelling noted to left mid face that does not extend into neck or upper portion of face, no overlying erythema or induration or crepitus EYES: No injection or drainage. ENT: No nasal drainage noted. Poor dentition noted but no periapical abscess, multiple teeth missing NECK: Supple, trachea midline. No meningeal signs CARDIOVASCULAR: Regular rate and rhythm RESPIRATORY: No increased effort. No accessory muscle use. GASTROINTESTINAL: Abdomen soft, non-tender, nondistended. EXTREMITIES: No edema. NEUROLOGICAL: Awake and alert. Motor and sensory grossly within normal limits. Normal speech. Data Data Last Documented VS Vital Signs Date Time Temp Pulse Resp B/P Pulse Ox O2 Delivery O2 Flow Rate FiO2 09/02/16 14:32 76 16 131/88 99 Room Air 09/02/16 10:24 98.1 Orders Magnesium (Mg) (09/02/16 11:31) Phosphorus (Po4) (09/02/16 11:31) Complete Blood Count With Diff (09/02/16 11:31) Basic Metabolic Panel (Bmp) (09/02/16 11:31) Iv Access Insert/Monitor (09/02/16 11:31) Ecg Monitoring (09/02/16 11:31) Oximetry (09/02/16 11:31) Ct Facial Bones W Iv Contrast (09/02/16 ) Sodium Chlor 0.9% 1000 Ml Inj (Ns 1000 M (09/02/16 11:45) Ondansetron Inj (Zofran Inj) (09/02/16 11:45) Chest, Single Ap (09/02/16 ) Iohexol 350 Inj (Omnipaque 350 Inj) (09/02/16 13:00) Labs Laboratory Tests Test 09/02/16 11:45 White Blood Count 13.9 TH/MM3 Red Blood Count 5.05 MIL/MM3 Hemoglobin 15.5 GM/DL Hematocrit 46.9 % Mean Corpuscular Volume 92.9 FL Mean Corpuscular Hemoglobin 30.8 PG Mean Corpuscular Hemoglobin 33.1 % Concent Red Cell Distribution Width 12.6 % Platelet Count 460 TH/MM3 Mean Platelet Volume 7.8 FL Neutrophils (%) (Auto) 63.0 % Lymphocytes (%) (Auto) 26.2 % Monocytes (%) (Auto) 6.6 % Eosinophils (%) (Auto) 2.7 % Basophils (%) (Auto) 1.5 % Neutrophils # (Auto) 8.8 TH/MM3 Lymphocytes # (Auto) 3.6 TH/MM3 Monocytes # (Auto) 0.9 TH/MM3 Eosinophils # (Auto) 0.4 TH/MM3 Basophils # (Auto) 0.2 TH/MM3 CBC Comment DIFF FINAL Differential Comment Sodium Level 140 MEQ/L Potassium Level 4.2 MEQ/L Chloride Level 101 MEQ/L Carbon Dioxide Level 31.2 MEQ/L Anion Gap 8 MEQ/L Blood Urea Nitrogen 14 MG/DL Creatinine 1.30 MG/DL Estimat Glomerular Filtration 59 ML/MIN Rate Random Glucose 106 MG/DL Calcium Level 9.3 MG/DL Phosphorus Level 3.1 MG/DL Magnesium Level 2.4 MG/DL MDM Medical Decision Making Medical Screen Exam Complete: Yes Emergency Medical Condition: Yes Medical Record Reviewed: Yes (past history confirmed) Interpretation(s) CBC & BMP Diagram 09/02/16 11:45 Last 24 hours Impressions Chest X-Ray 09/02/16 0000 Signed Impressions: Service Date/Time: Friday, September 02, 2016 11:39 - CONCLUSION: No acute disease. Miguel Gamble MD FACR CT face with swelling without abscess Differential Diagnosis Dental abscess, gastroenteritis, URI, dental caries.... Narrative Course Will check blood work, CT and dose with Zofran and IV fluids and reevaluate ED workup no emergent process. Likely swelling from dental source, will sent home on Zofran and penicillin. No emesis here,Patient denies any new complaints and states that they are feeling better. Patient happy with care, all questions answered. Patient knows that follow up is incumbent on them and to return to the emergency room immediately if new or worsening symptoms develop. Patient given strict return precautions, vitals reviewed and are normal , agrees to further workup as an outpatient. Diagnosis Primary Impression: Facial swelling Additional Impression: Vomiting Qualified Code: R11.10 - Vomiting, intractability of vomiting not specified, presence of nausea not specified, unspecified vomiting type Patient Instructions: General Instructions Additional Instructions: return as needed, follow with a dentist, zofran as needed, keep hydrated Med/Other Pt SpecificInfo: Prescription(s) given Scripts Ondansetron Odt (Zofran Odt)4 Mg Tab4 Mg SL Q6HR PRN (Nausea/Vomiting) #10 TAB Prov:Lena Lehman MD 09/02/16 Penicillin V Potassium 500 Mg [id number] Mg PO BID 10 Days Prov:Lena Lehman MD 09/02/16 Disposition: 01 DISCHARGE HOME Condition: Stable Lena Lehman MD Sep 02, 2016 12:28
[2016-09-02] MEDS ORDERED: IOHEXOL 350 MG/ML 10 ML VIAL (for RAD DIAG) IV ONE (13:00)
--- NOTE | 2016-09-02 13:20 | RADHPO ---
EXAM DATE/TIME: 09/02/2016 12:46 [facility] COMPARISON: No previous studies available for comparison. INDICATIONS: Left-mid facial swelling and pain; evaluate for abscess. IV CONTRAST: 59 cc Omnipaque 350 (iohexol) IV RADIATION DOSE: 29.90 CTDIvol (mGy) MEDICAL HISTORY: Vertigo SURGICAL HISTORY: None. ENCOUNTER: Initial ACUITY: 2 weeks PAIN SCALE: 7/10 LOCATION: Left facial TECHNIQUE: Volumetric scanning of the facial bones was performed. Using automated exposure control and adjustme nt of the mA and/or kV according to patient size, radiation dose was kept as low as reasonably achiev able to obtain optimal diagnostic quality images. FINDINGS: There is mucoperiosteal thickening in both maxillary sinuses. There is soft tissue swelling over the left mid face without abscess, adenopathy or fluid. The parot id and submandibular glands are prominent. There is no adenopathy appreciated. CONCLUSION: 1. Benign nonspecific sinus disease. 2. I do not see evidence for an abscess. 3. The portion of the intracranial contents visualized are unremarkable. Miguel Gamble MD FACR on September 02, 2016 at 13:13 Board Certified Radiologist. This report was verified electronically.
[2016-09-02 13:39] VITALS: BP 136/92; PULSE 71; RESP 16; O2SAT 99
[2016-09-02] MEDS ORDERED: ZOFR4TAB3 SL (13:58)
[2016-09-02] MEDS ORDERED: PENI500T PO (13:58)
[2016-09-02 14:32] VITALS: BP 131/88; PULSE 76; RESP 16; O2SAT 99
[2016-10-21] MEDS ORDERED: CIPR-9 PO (09:02)
[2016-11-09] MEDS ORDERED: DOXY100C PO (10:31)
[2016-11-09] MEDS ORDERED: GABA300C5 PO (10:35)
== END 2016-09-02 15:00 | disposition home or self-care (01) ==
LOC: PHED 10:14
DX: R22.0 Localized swelling, mass and lump, head (principal); R11.10 Vomiting, unspecified; R42 Dizziness and giddiness
CPT/HCPCS: 70487; 71010; 80048; 83735; 84100; 85025; 96361; 96374; 99284; J2405; J7030; Q9967

== ENCOUNTER → 2016-10-26 | Outpatient (CLI) | payer OTHER ==
[~2016-10-26] MED LIST changes: +ALPR.5 PO; +ASPI81CH CHEW; +ATOR40TA16 PO; +BEDSIDE COMMODE1 MI1; +CIPR-9 PO; +CLON.5 PO; +DOXY100C PO; +GABA300C5 PO; +GABA600T PO; +LISI-519 PO; -MECL-62 PO; +OXYGEN NAS.CANULA; +PRED20 PO; +QUET5TAB PO; +SERT25TA83 PO; +WALKER WHEELS/F1 MIS; +ZOLO25TA PO
[2016-10-26 14:48] LABS: BICARBONATE 29.4 MEQ/L (21.0-32.0)
== END ==
LOC: CLAB 13:34
PROVIDERS: ATTEND Nurse Practitioner Family
DX: G62.9 Polyneuropathy, unspecified (principal); R68.89 Other general symptoms and signs
CPT/HCPCS: 36415; 80069; 84443

== ENCOUNTER → 2016-11-01 | Outpatient (CLI) | payer OTHER ==
[~2016-11-01] MED LIST changes: +GADODIAMIDE PF 287 MG/ML 5 ML VIAL (for RAD MRI) IV ONE
--- NOTE | 2016-11-01 17:27 | RADRPT ---
EXAM DATE/TIME: 11/01/2016 16:42 [facility] COMPARISON: CT BRAIN W/O CONTRAST, August 21, 2016, 6:16. INDICATIONS : Vertigo. Pain. Memory loss. CONTRAST: 15 cc Omniscan (gadodiamide) IV MEDICAL HISTORY : None. SURGICAL HISTORY : Tonsillectomy. Hand tendon repair. Tooth extraction. ENCOUNTER: Initial ACUITY: 1 day PAIN SCORE: 5/10 LOCATION: cranial TECHNIQUE: Multiplanar, multisequence MRI of the brain was performed both prior to and following the administrat ion of paramagnetic contrast. FINDINGS: CEREBRUM: The ventricles are normal for age. No evidence of midline shift, mass lesion, hemorrhage or acute in farction. No extraaxial fluid collections are seen. The pituitary gland and suprasellar cistern are normal in configuration. WHITE MATTER: No significant signal abnormalities are seen in the white matter. POSTERIOR FOSSA: The cerebellum and brainstem are intact. The 4th ventricle is midline. The cerebellopontine angle is unremarkable. The cerebellar tonsils are normal in position. DIFFUSION IMAGING: No focal areas of restricted diffusion are seen. No evidence of acute infarction. EXTRACRANIAL: The visualized portions of the orbits are unremarkable. There are air-fluid levels in both maxillary sinuses with circumferential mucosal thickening. There is mild mucosal thickening in the ethmoidal ai r cells and sphenoid sinuses. POST-CONTRAST: No abnormal areas of parenchymal or dural enhancement. No evidence of blood-brain barrier breakdown. CONCLUSION: 1. No acute hemorrhage, mass or infarction. 2. Evidence of acute sinusitis. Damián Noe MD on November 01, 2016 at 17:23 Board Certified Radiologist. This report was verified electronically.
== END ==
LOC: HRAD 16:05
PROVIDERS: ATTEND Family Medicine
DX: R41.3 Other amnesia (principal); G62.9 Polyneuropathy, unspecified; R42 Dizziness and giddiness
CPT/HCPCS: 70553; A9579

== ENCOUNTER 2016-12-07 09:46 | Inpatient (IN) | payer OTHER ==
[2016-12-07] VITALS (7 sets, daily range): BP systolic 108–133; BP diastolic 72–95; PULSE 77–97; RESP 12–20; TEMP 98–98.6; O2SAT 94–98
[~2016-12-07] VITALS: Ht 165.1 cm; Wt 90.8 kg
[~2016-12-07 09:46] MED LIST changes: -ALPR.5 PO; -ASPI81CH CHEW; -ATOR40TA16 PO; -BEDSIDE COMMODE1 MI1; -CIPR-9 PO; -CLON.5 PO; -GABA600T PO; -GADODIAMIDE PF 287 MG/ML 5 ML VIAL (for RAD MRI) IV ONE; -LISI-519 PO; -OXYGEN NAS.CANULA; -PRED20 PO; -QUET5TAB PO; -SERT25TA83 PO; -WALKER WHEELS/F1 MIS; -ZOFR4TAB3 SL; -ZOLO25TA PO
[2016-12-07] MEDS ORDERED: SODIUM CHLORIDE 0.9% FLUSH 5 ML FLUSH IV FLUSH PRN (11:00)
[2016-12-07 11:22] LABS: AUTOMATED NEUTROPHIL # 6.7 TH/MM3 (1.8-7.7); BASOPHIL # 0.1 TH/MM3 (0-0.2); BASOPHIL % 0.9 % (0.0-2.0); EOSINOPHIL # 0.4 TH/MM3 (0-0.4); EOSINOPHIL % 3.2 % (0.0-4.0); HEMATOCRIT 45.5 % (39.0-51.0); HEMO FLAGS DIFF FINAL; LYMPH % 28.4 % (9.0-44.0); LYMPHOCYTE # 3.4 TH/MM3 (1.0-4.8); MEAN CELL VOLUME 95.6 FL (80.0-100.0); MEAN CORPUSCULAR HEMOGLOBIN 31.3 PG (27.0-34.0); MEAN CORPUSCULAR HGB CONC 32.8 % (32.0-36.0); MONO % 11.1 % (0.0-8.0); NEUT % 56.4 % (16.0-70.0); PLATELET COUNT 351 TH/MM3 (150-450); RED BLOOD COUNT 4.76 MIL/MM3 (4.50-5.90); RED CELL DISTRIBUTION WIDTH 14.5 % (11.6-17.2)
--- NOTE | 2016-12-07 11:29 | PD ---
HPI Chief Complaint: Neuro Symptoms/ Deficits Time Seen by Provider: 11:25 Travel History International Travel<30 days: No Contact w/Intl Traveler<30days: No Traveled to known affect area: No History of Present Illness HPI 46-year-old male presents to the emergency department for evaluation of neurological symptoms that have been ongoing for approximately 4-5 months. He states he was diagnosed with vertigo. He had a brain MRI done approximately one month ago which showed no abnormality. Over the past month he has been extensively dizziness, difficulty with memory as well as numbness and tingling of his arms and legs. This began in August of this year. The patient states this is ongoing. However, he is now having difficulty speaking. Patient has trouble getting his words out and has started stuttering. He woke up with this yesterday morning. The patient reports pain in his right arm and right leg with paresthesias. He also reports a left-sided headache which has been ongoing for several months. He reports visual changes in the right eye. He states he has been falling more often and has an unsteady gait. He is currently on Seroquel and gabapentin. He denies any history of CVA, cardiac problems. No fevers. Patient reports right low back pain. He reports chronic chest pain and shortness of breath and has been ongoing for several months. Patient went to his appointment today at [facility] to have a Seroquel refilled when they referred him to the emergency department when they noticed his difficulty with his speech. PFSH Past Medical History Anxiety: Yes Depression: Yes Diminished Hearing: No Neurologic: Yes (neuropathy) Psychiatric: Yes Immunizations Current: Yes Tetanus Vaccination: Never Vaccinated Past Surgical History Tonsillectomy: Yes Social History Alcohol Use: No Tobacco Use: Yes (07/11 ppd) Substance Use: No Allergies-Medications (Allergen,Severity, Reaction): Coded Allergies: Penicillin (Verified Allergy, Severe, rash, 12/07/16) Reported Meds & Prescriptions Reported Meds & Active Scripts Active Review of Systems Except as stated in HPI: all other systems reviewed are Neg Physical Exam Narrative GENERAL: Well-nourished, well-developed male patient, Afebrile. Patient is alert and oriented to person, place, but does not know the year. He does know the president. SKIN: Focused skin assessment warm/dry. HEAD: Normocephalic. Atraumatic. EYES: No scleral icterus. No injection or drainage. PERRLA. EOM intact. ENT: Mucosa pink and moist. No erythema or exudates. No uvular edema. No uvular , palatal, or tonsillar deviation. Airway patent. Nasal turbinates appear normal without nasal blood, purulent drainage or septal hematoma. Bilateral tympanic membranes are clear without erythema or perforation. NECK: Supple, trachea midline. No JVD or lymphadenopathy. CARDIOVASCULAR: Regular rate and rhythm without murmurs, gallops, or rubs. RESPIRATORY: Breath sounds equal bilaterally. No accessory muscle use. Lungs sounds are clear to auscultation. GASTROINTESTINAL: Abdomen soft, non-tender, nondistended. MUSCULOSKELETAL: No cyanosis, or edema. Left upper and left lower extremity strength 5/5. Right upper and right lower extremity strength 4/5. However, patient reports pain with movement of the right leg and right arm. BACK: Nontender without obvious deformity. No CVA tenderness. NEUROLOGICAL: Awake and alert. Cranial nerves II through XII intact. Motor and sensory grossly within normal limits. Five out of 5 muscle strength in all muscle groups. Patient has difficulty getting his words out and is stuttering. Data Data Last Documented VS Vital Signs Date Time Temp Pulse Resp B/P Pulse Ox O2 Delivery O2 Flow Rate FiO2 12/07/16 12:43 86 16 118/80 96 12/07/16 11:08 98.6 12/07/16 09:49 Room Air Orders Electrocardiogram (12/07/16 10:50) Complete Blood Count With Diff (12/07/16 10:50) Comprehensive Metabolic Panel (12/07/16 10:50) Prothrombin Time / Inr (Pt) (12/07/16 10:50) Act Partial Throm Time (Ptt) (12/07/16 10:50) Troponin I (12/07/16 10:50) Thyroid Stimulating Hormone (12/07/16 10:50) Urinalysis - C+S If Indicated (12/07/16 10:50) Blood Glucose (12/07/16 10:50) Ecg Monitoring (12/07/16 10:50) Iv Access Insert/Monitor (12/07/16 10:50) Oximetry (12/07/16 10:50) Sodium Chloride 0.9% Flush (Ns Flush) (12/07/16 11:00) Ct Brain W/O Iv Contrast(Rout) (12/07/16 ) Ammonia (12/07/16 11:24) Drug Screen, Random Urine (12/07/16 11:29) Sodium Chlor 0.9% 1000 Ml Inj (Ns 1000 M (12/07/16 12:15) Labs Laboratory Tests Test 12/07/16 12/07/16 12/07/16 10:30 11:45 13:00 White Blood Count 12.0 TH/MM3 Red Blood Count 4.76 MIL/MM3 Hemoglobin 14.9 GM/DL Hematocrit 45.5 % Mean Corpuscular Volume 95.6 FL Mean Corpuscular Hemoglobin 31.3 PG Mean Corpuscular Hemoglobin 32.8 % Concent Red Cell Distribution Width 14.5 % Platelet Count 351 TH/MM3 Mean Platelet Volume 8.9 FL Neutrophils (%) (Auto) 56.4 % Lymphocytes (%) (Auto) 28.4 % Monocytes (%) (Auto) 11.1 % Eosinophils (%) (Auto) 3.2 % Basophils (%) (Auto) 0.9 % Neutrophils # (Auto) 6.7 TH/MM3 Lymphocytes # (Auto) 3.4 TH/MM3 Monocytes # (Auto) 1.3 TH/MM3 Eosinophils # (Auto) 0.4 TH/MM3 Basophils # (Auto) 0.1 TH/MM3 CBC Comment DIFF FINAL Differential Comment Prothrombin Time 10.5 SEC Prothromb Time International 1.0 RATIO Ratio Activated Partial 26.5 SEC Thromboplast Time Sodium Level 137 MEQ/L Potassium Level 4.0 MEQ/L Chloride Level 105 MEQ/L Carbon Dioxide Level 25.4 MEQ/L Anion Gap 7 MEQ/L Blood Urea Nitrogen 10 MG/DL Creatinine 1.10 MG/DL Estimat Glomerular Filtration 72 ML/MIN Rate Random Glucose 89 MG/DL Calcium Level 9.1 MG/DL Total Bilirubin 0.3 MG/DL Aspartate Amino Transf 24 U/L (AST/SGOT) Alanine Aminotransferase 31 U/L (ALT/SGPT) Alkaline Phosphatase 102 U/L Troponin I LESS THAN 0.02 NG/ML Total Protein 7.2 GM/DL Albumin 3.6 GM/DL Thyroid Stimulating Hormone 1.870 uIU/ML 3rd Gen Ammonia 32 MCMOL/L Urine Opiates Screen NEG Urine Barbiturates Screen NEG Urine Amphetamines Screen NEG Urine Benzodiazepines Screen NEG Urine Cocaine Screen NEG Urine Cannabinoids Screen NEG MDM Medical Decision Making Medical Screen Exam Complete: Yes Emergency Medical Condition: Yes Medical Record Reviewed: Yes Interpretation(s) Last Impressions Head CT 12/07/16 0000 Signed Impressions: Service Date/Time: Monday, December 07, 2016 12:58 - CONCLUSION: Moderate severity sinus disease, most prominent at the right sphenoid sinus. No acute intracranial findings. Harjeet Greene MD Differential Diagnosis CVA versus TIA versus intracranial hemorrhage versus electrolyte abnormality Narrative Course 46-year-old male presents to the emergency department for neurological changes. These neurological changes have been ongoing since August, but yesterday woke up with difficulty speaking. EKG, CBC, CMP, PTT, PTT/INR, troponin, TSH, UA, urine drug screen, ammonia level, CT of the brain are ordered and pending. EKG shows sinus rhythm, heart rate 84, no acute ST changes. CBC shows leukocytosis 12.0. CMP is unremarkable. TSH is 1.870. Troponin is less than 0.02. Ammonia level is 32. Coags are unremarkable. CT of the brain shows moderate severity sinus disease, most prominent at the right sphenoid sinus. No acute intracranial findings. Patient will be admitted to [facility] for further evaluation of speech difficulty. He verbalizes agreement to this. The patient was discharged in stable condition with instructions, including return instructions and follow up instructions. Dr. Linton accepted admission. Diagnosis Primary Impression: Speaking difficulty Additional Impression: Neurological abnormality Admitting Information Admitting Physician Requests: Eladia Salomon December 07, 2016 11:29
[2016-12-07 11:40] LABS: ALT (GPT) 31 U/L (12-78); ANION GAP 7 MEQ/L (5-15); AST (GOT) 24 U/L (15-37); BICARBONATE 25.4 MEQ/L (21.0-32.0); BLOOD UREA NITROGEN 10 MG/DL (7-18); CHLORIDE 105 MEQ/L (98-107); GLOMERULAR FILTRATION RATE 72 ML/MIN (>89); SODIUM (NA) 137 MEQ/L (136-145)
[2016-12-07 11:48] LABS: APTT (PATIENT) 26.5 SEC (24.3-30.1); PROTHROMBIN TIME - PATIENT 10.5 SEC (9.8-11.6)
[2016-12-07 11:50] LABS: ALKALINE PHOSPHATASE 102 U/L (45-117); TOTAL BILIRUBIN ADULT 0.3 MG/DL (0.2-1.0)
[2016-12-07] MEDS ORDERED: SODIUM CHLOR 0.9% 1000 ML INJ 1,000 ML IV ONE (12:15)
--- NOTE | 2016-12-07 13:13 | RADRPT ---
EXAM DATE/TIME: 12/07/2016 12:58 [facility] COMPARISON: CT BRAIN W/O CONTRAST, August 21, 2016, 6:16. INDICATIONS : Difficulty speaking, bilateral leg numbness since yesterday. RADIATION DOSE: 56.35 CTDIvol (mGy) MEDICAL HISTORY : None SURGICAL HISTORY : None. ENCOUNTER: Initial ACUITY: 1 day PAIN SCALE: 0/10 LOCATION: cranial TECHNIQUE: Multiple contiguous axial images were obtained of the head. Using automated exposure control and adj ustment of the mA and/or kV according to patient size, radiation dose was kept as low as reasonably a chievable to obtain optimal diagnostic quality images. FINDINGS: CEREBRUM: The ventricles are normal for age. No evidence of midline shift, mass lesion, hemorrhage or acute in farction. No extra-axial fluid collections are seen. POSTERIOR FOSSA: The cerebellum and brainstem are intact. The 4th ventricle is midline. The cerebellopontine angle i s unremarkable. EXTRACRANIAL: Moderate severity petrosal thickening of the right maxillary and bilateral ethmoid sinuses. Near comp lete opacification of right sided sphenoid sinus. SKULL: The calvaria is intact. No evidence of skull fracture. CONCLUSION: Moderate severity sinus disease, most prominent at the right sphenoid sinus. No acute intracranial fi ndings. Harjeet Greene MD on December 07, 2016 at 13:08 Board Certified Radiologist. This report was verified electronically.
[2016-12-07 13:36] LABS: AMPHETAMINE, URINE NEG (NEG); BARBITURATES, URINE NEG (NEG); COCAINE, URINE NEG (NEG)
[2016-12-07] MEDS ORDERED: GABA600T PO (14:16)
[2016-12-07] MEDS ORDERED: QUET5TAB PO (14:20)
[2016-12-07 15:13] LABS: BLOOD, URINE NEG (NEG); GLUCOSE,URINE NEG (NEG); KETONE, URINE NEG (NEG); NITRITE,URINE NEG (NEG); URINE COLOR YELLOW (YELLW/STRAW)
[2016-12-07 15:14] LABS: COMMENT (UR) CATH-CULT NOT IND; CULTURE IF INDICATED CATH CULTURE NOT IND
[2016-12-07] MEDS: ASPIRIN EC 325 MG TABEC PO SCH (16:24)
[2016-12-07] MEDS: SODIUM CHLOR 0.9% 1000 ML INJ 1,000 ML IV SCH (16:26)
[2016-12-07] MEDS: PANTOPRAZOLE SODIUM 40 MG VIAL IV PUSH SCH (16:26)
--- NOTE | 2016-12-07 16:29 | HHI.HP ---
[facility] Primary [facility] Physician Kalpana Valdes MD Admission Diagnosis neurological symptoms, r/o CVA Diagnoses: Chief Complaint: Slurring of speech, right-sided weakness Travel History International Travel<30 Days: No Contact w/Intl Traveler <30 Da: No Traveled to Known Affected Are: No History of Present Illness Patient is a 46-year-old male, right handed who presented to the ER with acute onset of speech difficulty , patient has was noted stuttering and having difficulty expressing words out.. Per patient last August 2016 and was brought in by [facility] after patient fell in the bathroom. head CT was negative. Diagnosed with vertigo. states complain of neck pain and dizziness with turning of the head, progressive weakness on the right side with weakness and numbness and tingling sensation on the right sided extremities. . states reports gradual progressive decline physically unable to get up and whenever he gets up he has this spinning sensation and flashes of light that hits him . Patient still has good control of his bowels and urination. Complains of constipation. Patient also had manifested/expressed frustration and has been more irritable and having diffculty controlling temper with anger outbursts from these frustrations and was prescribed some Seroquel and gabapentin. Past 2 days in addition to above symptoms patient also was noted to be stuttering and with having difficulty expressing himself. Right sided extremity "falling asleep" and complains of numbness of the left side of the face. Patient was brought in here and not admitted for further evaluation and management. On review of medications she was he was placed on Seroqul, and per said that this medications makes him sleepy. Review of Systems Constitutional: DENIES: Diaphoretic episodes, Fatigue, Fever, Weight gain, Weight loss, Chills, Dizziness, Change in appetite, Night Sweats Endocrine: DENIES: Heat/cold intolerance, Polydipsia, Polyuria, Polyphagia Eyes: DENIES: Blurred vision, Diplopia, Eye inflammation, Eye pain, Vision loss , Photosensitivity, Double Vision Ears, nose, mouth, throat: DENIES: Tinnitus, Hearing loss, Vertigo, Nasal discharge, Oral lesions, Throat pain, Hoarseness, Ear Pain, Running Nose, Epistaxis, Sinus Pain, Toothache, Odynophagia Respiratory: DENIES: Apneas, Cough, Snoring, Wheezing, Hemoptysis, Sputum production, Shortness of breath Cardiovascular: DENIES: Chest pain, Palpitations, Syncope, Dyspnea on Exertion , PND, Lower Extremity Edema, Orthopnea, Claudication Gastrointestinal: DENIES: Abdominal pain, Black stools, Bloody stools, Constipation, Diarrhea, Nausea, Vomiting, Difficulty Swallowing, Anorexia Genitourinary: DENIES: Sexual dysfunction, Urinary frequency, Urinary incontinence, Urgency, Hematuria, Dysuria, Nocturia, Penile Discharge, Testicular Pain, Testicular Swelling Musculoskeletal: DENIES: Joint pain, Muscle aches, Stiffness, Joint Swelling, Back pain, Neck pain Integumentary: DENIES: Abnormal pigmentation, Nail changes, Pruritus, Rash Hematologic/lymphatic: DENIES: Bruising, Lymphadenopathy Immunologic/allergic: DENIES: Urticaria Neurologic: COMPLAINS OF: Abnormal gait Psychiatric: COMPLAINS OF: Mood changes Past Family Social History Past Medical History Denies any history of hypertension diabetes hyperlipidemia Questionable history of impulsivity control disorder questionable anxiety disorder was prescribed Seroquel on November 17 as an outpatient. diagnosed with vertigo last febrile needs Past Surgical History Tonsillectomy Right finger surgery Reported Medications Seroquel Neurontin 600 mg 3 times a day Allergies: Coded Allergies: Penicillin (Verified Allergy, Severe, rash, 12/07/16) Family History Noncontributory Social History Half pack per day smoking Denies alcohol or substance abuse or recreational drug use Physical Exam Vital Signs Vital Signs Date Time Temp Pulse Resp B/P Pulse Ox O2 Delivery O2 Flow Rate FiO2 12/07/16 12:43 86 16 118/80 96 12/07/16 11:08 98.6 82 12 108/82 94 12/07/16 09:59 94 12/07/16 09:49 98.0 97 20 133/95 95 Room Air Physical Exam GENERAL: This is a well-nourished, well-developed patient, in no apparent distress. Awake alert speech stuttering with some expressive aphasia SKIN: No rashes, ecchymoses or lesions. Cool and dry. HEAD: Atraumatic. Normocephalic. No temporal or scalp tenderness. EYES: Pupils equal round and reactive. Extraocular motions intact. No scleral icterus. No injection or drainage. ENT: Nose without bleeding, purulent drainage or septal hematoma. Throat without erythema, tonsillar hypertrophy or exudate. Uvula midline. Airway patent. NECK: Trachea midline. No JVD or lymphadenopathy. Supple, nontender, no meningeal signs. CARDIOVASCULAR: Regular rate and rhythm without murmurs, gallops, or rubs. RESPIRATORY: Clear to auscultation. Breath sounds equal bilaterally. No wheezes , rales, or rhonchi. GASTROINTESTINAL: Abdomen soft, non-tender, nondistended. No hepato-splenomegaly , or palpable masses. No guarding. NEUROLOGICAL exam: : Awake and alert. Oriented 3. Speech stuttering mild expressive aphasia Pupils equally reactive to light extraocular muscles full range of motion. No facial asymmetry tongue midline good gag reflex Decreased sensation on the right sided extremities. Motor - weakness on the right upper and right lower extremity. DTRs + Absent Babinski. Gait testing deferred Laboratory Laboratory Tests Test 12/07/16 12/07/16 12/07/16 10:30 11:45 13:00 White Blood Count 12.0 Red Blood Count 4.76 Hemoglobin 14.9 Hematocrit 45.5 Mean Corpuscular Volume 95.6 Mean Corpuscular Hemoglobin 31.3 Mean Corpuscular Hemoglobin 32.8 Concent Red Cell Distribution Width 14.5 Platelet Count 351 Mean Platelet Volume 8.9 Neutrophils (%) (Auto) 56.4 Lymphocytes (%) (Auto) 28.4 Monocytes (%) (Auto) 11.1 Eosinophils (%) (Auto) 3.2 Basophils (%) (Auto) 0.9 Neutrophils # (Auto) 6.7 Lymphocytes # (Auto) 3.4 Monocytes # (Auto) 1.3 Eosinophils # (Auto) 0.4 Basophils # (Auto) 0.1 CBC Comment DIFF FINAL Differential Comment Prothrombin Time 10.5 Prothromb Time International 1.0 Ratio Activated Partial 26.5 Thromboplast Time Sodium Level 137 Potassium Level 4.0 Chloride Level 105 Carbon Dioxide Level 25.4 Anion Gap 7 Blood Urea Nitrogen 10 Creatinine 1.10 Estimat Glomerular Filtration 72 Rate Random Glucose 89 Calcium Level 9.1 Total Bilirubin 0.3 Aspartate Amino Transf 24 (AST/SGOT) Alanine Aminotransferase 31 (ALT/SGPT) Alkaline Phosphatase 102 Troponin I LESS THAN 0.02 Total Protein 7.2 Albumin 3.6 Thyroid Stimulating Hormone 1.870 3rd Gen Ammonia 32 Urine Color YELLOW Urine Turbidity CLEAR Urine pH 5.0 Urine Specific [place] 1.013 Urine Protein NEG Urine Glucose (UA) NEG Urine Ketones NEG Urine Occult Blood NEG Urine Nitrite NEG Urine Bilirubin NEG Urine Urobilinogen LESS THAN 2.0 Urine Leukocyte Esterase NEG Urine RBC LESS THAN 1 Urine WBC LESS THAN 1 Microscopic Urinalysis Comment CATH-CULT NOT IND Urine Opiates Screen NEG Urine Barbiturates Screen NEG Urine Amphetamines Screen NEG Urine Benzodiazepines Screen NEG Urine Cocaine Screen NEG Urine Cannabinoids Screen NEG Result Diagram: 12/07/16 1030 12/07/16 1030 Imaging Last Impressions Head CT 12/07/16 0000 Signed Impressions: Service Date/Time: Monday, December 07, 2016 12:58 - CONCLUSION: Moderate severity sinus disease, most prominent at the right sphenoid sinus. No acute intracranial findings. Harjeet Greene MD Assessment and Plan Assessment and Plan 46-year-old male with history of fall few months ago 2 days acute speech deficit- stuttering - r/o CVA vs adverse med effect from seroquel R/O Cervical myelopathy with right sided weakness with decrease sensation Previous brain MRI negative. but will request for one due to acute speech change. Get MRI and MRA of the brain. MRI of the C spines. Get an EEG. Get an echo . Place on telemetry. Patient had a CTA neck that was negative in August. If MRI positive for infarct- we will get a carotid US. Start patient on aspirin. continue on Gabapentin Neurology consult. Consider Neurosurgery consult if Spines imaging study positive for disc disease PTOT speech therapy consult. ? Underlying psychiatric condition- or Situational depression patient appears very frustrated because of above . will discontinue Seroquel for now consider psychiatry consult in am d/w patient and at length Discussed Condition With Patient and at bedside Physician Certification 2 Midnight Certification Type: Admission for Inpatient Services Order for Inpatient Services The services are ordered in accordance with Medicare regulations or non- Medicare payer requirements, as applicable. In the case of services not specified as inpatient-only, they are appropriately provided as inpatient services in accordance with the 2-midnight benchmark. Estimated LOS (days): 3 days is the estimated time the patient will need to remain in the hospital, assuming treatment plan goals are met and no additional complications. Post-Hospital Plan: Not yet determined Evens Linton MD December 07, 2016 16:29
[2016-12-07] MEDS: GABAPENTIN 300 MG CAP PO SCH (17:14)
--- NOTE | 2016-12-07 18:16 | RADRPT ---
EXAM DATE/TIME: 12/07/2016 17:34 [facility] COMPARISON: MRI BRAIN W & W/O CONTRAST, November 01, 2016, 16:42. INDICATIONS : CVA. Right sided weakness. MEDICAL HISTORY : Anxiety. SURGICAL HISTORY : Tonsillectomy. Right hand. ENCOUNTER: Initial ACUITY: 1 day PAIN SCORE: 0/10 LOCATION: Head. TECHNIQUE: Multiplanar, multisequence MRI of the brain was performed without contrast. FINDINGS: CEREBRUM: The ventricles are normal for age. No evidence of midline shift, mass lesion, hemorrhage or acute in farction. No extraaxial fluid collections are seen. The pituitary gland and suprasellar cistern are normal in configuration. WHITE MATTER: No significant signal abnormalities are seen in the white matter. POSTERIOR FOSSA: The cerebellum and brainstem are intact. The 4th ventricle is midline. The cerebellopontine angle is unremarkable. The cerebellar tonsils are normal in position. DIFFUSION IMAGING: No focal areas of restricted diffusion are seen. No evidence of acute infarction. EXTRACRANIAL: Mild mucosal thickening is seen involving the maxillary sinuses bilaterally as well as the sphenoid s inuses. No air-fluid levels seen on the current study. Mastoid air cells and orbital structures are n ormal. CONCLUSION: 1. No acute intracranial abnormality. 2. Paranasal sinus disease. Ra Rajan Jr., MD on December 07, 2016 at 18:11 Board Certified Radiologist. This report was verified electronically.
--- NOTE | 2016-12-07 18:32 | RADRPT ---
EXAM DATE/TIME: 12/07/2016 17:34 [facility] COMPARISON: No previous studies available for comparison. INDICATIONS : Weakness. Right sided weakness. MEDICAL HISTORY : Anxiety. SURGICAL HISTORY : Tonsillectomy. Right hand. ENCOUNTER: Initial ACUITY: 1 day PAIN SCORE: 0/10 LOCATION: Neck. TECHNIQUE: Multiplanar, multisequence MRI examination of the cervical spine was performed. FINDINGS: VERTEBRAE: Bone marrow signal changes about the C4-5 and C5 disc indicate reactive change from degenerative disc disease. ALIGNMENT: No evidence of subluxation. CORD: Normal configuration and signal. POST FOSSA: The cerebellar tonsils are normal in position. C2-C3: Mild bilateral facet arthrosis. Central canal diameter within normal limits. Neural foraminal diamete rs within normal limits. C3-C4: Mild bilateral facet arthrosis. Central canal diameter within normal limits. Neural foraminal diamete rs within normal limits. C4-C5: Broad-based disc osteophyte complex and bilateral facet arthrosis. Effacement of the CSF anteriorly. Posteriorly CSF remains visible. No evidence of spinal cord deformity. Mild right neural foraminal na rrowing. C5-C6: Broad-based disc osteophyte complex. Effacement of CSF anteriorly and posteriorly. No evidence of spi nal cord deformity. Moderate left and mild right neural foraminal narrowing. C6-C7: Broad-based disc osteophyte complex. Effacement of the CSF anteriorly on the left. Posteriorly CSF re ibeth visible. No evidence of spinal cord deformity. Moderate left neural foraminal narrowing. C7-T1: No evidence of focal disc protrusion. Central canal normal diameter. Neural foraminal diameters withi n normal limits. CONCLUSION: Multilevel degenerative findings of the cervical spine. Broad-based disc bulge at C5-6 results in mod erate severity central canal narrowing. Harjeet Greene MD on December 07, 2016 at 18:27 Board Certified Radiologist. This report was verified electronically.
[2016-12-07] MEDS ORDERED: TEMAZEPAM 7.5 MG CAP PO ONE (20:15)
[2016-12-08] VITALS (8 sets, daily range): BP systolic 107–152; BP diastolic 65–101; PULSE 72–88; RESP 18–20; TEMP 97.3–98.8; O2SAT 92–97
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
--- NOTE | 2016-12-08 09:13 | HHI.PR ---
Subjective Remarks Follow up right sided weakness and slurred speech. Patient seen and examined while sitting up. Still complaining of right sided weakness, now complaining of right facial and tongue numbness with vison loss. Patient states his vision is blurry and is unable to see the amount of fingers held in front of him. Denies any chest pain or sob. Dr. Valverde was made aware of the new neurological changes, orders given for HOB flat, Carotid US and MRA chitina of [place]. Objective Vitals Vital Signs Date Time Temp Pulse Resp B/P Pulse Ox O2 Delivery O2 Flow Rate FiO2 12/08/16 08:32 97.3 75 18 125/77 94 12/08/16 05:10 98.8 72 18 110/72 94 12/07/16 23:41 98.5 77 18 119/76 96 12/07/16 19:27 98.5 80 18 129/72 96 12/07/16 16:50 98.1 89 19 118/81 98 12/07/16 16:27 84 20 109/75 95 12/07/16 12:43 86 16 118/80 96 12/07/16 11:08 98.6 82 12 108/82 94 12/07/16 09:59 94 12/07/16 09:49 98.0 97 20 133/95 95 Room Air I/O 12/07/16 12/07/16 12/07/16 12/08/16 12/08/16 12/08/16 07:00 15:00 23:00 07:00 15:00 23:00 Intake Total 480 ml Output Total 500 ml 1300 ml Balance -20 ml -1300 ml Intake Oral 480 ml Output Urine Total 500 ml 1300 ml # Voids 1 1 # Bowel Movements 0 Result Diagram: 12/07/16 1030 12/07/16 1030 Imaging Last Impressions Head CT 12/07/16 0000 Signed Impressions: Service Date/Time: Wednesday, December 07, 2016 12:58 - CONCLUSION: Moderate severity sinus disease, most prominent at the right sphenoid sinus. No acute intracranial findings. Harjeet Greene MD Cervical Spine MRI 12/07/16 0000 Signed Impressions: Service Date/Time: Wednesday, December 07, 2016 17:34 - CONCLUSION: Multilevel degenerative findings of the cervical spine. Broad-based disc bulge at C5-6 results in moderate severity central canal narrowing. Harjeet Greene MD Brain MRI 12/07/16 0000 Signed Impressions: Service Date/Time: Wednesday, December 07, 2016 17:34 - CONCLUSION: 1. No acute intracranial abnormality. 2. Paranasal sinus disease. Ra Rajan Jr., MD Objective Remarks GENERAL: This is a well-nourished, well-developed patient, in no apparent distress. Awake alert speech stuttering with some expressive aphasia SKIN: No rashes, ecchymoses or lesions. Cool and dry. HEAD: Atraumatic. Normocephalic. No temporal or scalp tenderness. EYES: Pupils equal round and reactive. ENT: Nose without bleeding, purulent drainage or septal hematoma. Throat without erythema, tonsillar hypertrophy or exudate. Uvula midline. Airway patent. NECK: Trachea midline. No JVD or lymphadenopathy. Supple, nontender, no meningeal signs. CARDIOVASCULAR: Regular rate and rhythm without murmurs, gallops, or rubs. RESPIRATORY: Clear to auscultation. Breath sounds equal bilaterally. No wheezes , rales, or rhonchi. GASTROINTESTINAL: Abdomen soft, non-tender, nondistended. No hepato-splenomegaly , or palpable masses. No guarding. NEUROLOGICAL exam: : Awake and alert. Oriented 3. Speech stuttering mild expressive aphasia Pupils equally reactive to light extraocular muscles full range of motion. No facial asymmetry tongue midline good gag reflex. Right Facial numbness with decreased sensation on the right sided extremities. Motor - weakness on the right upper and right lower extremity. Peripheral vision loss. Medications and IVs Current Medications Medications (Trade) Dose Ordered Sig/Ligia Route Start Time Stop Time Status Last Admin IV Flush 2 ml 2 ml UNSCH PRN IV FLUSH 12/07/16 11:00 (NS 1000 ml Inj) 1,000 ml @ 42 mls/hr [id number] IV 12/07/16 15:45 12/07/16 16:26 (Ecotrin Ec) 325 mg DAILY PO 12/07/16 16:00 12/07/16 16:24 (Neurontin) 600 mg TID PO 12/07/16 18:00 12/07/16 17:14 (Protonix Inj) 40 mg DAILY IV PUSH 12/07/16 16:15 12/07/16 16:26 Urinary Catheter: No Vascular Central Line Catheter: No A/P Assessment and Plan 46-year-old male with history of fall few months ago presented with complaints of difficulty speaking and right sided weakness for 2 days Acute speech deficit- stuttering - r/o CVA vs adverse med effect from seroquel R/O Cervical myelopathy with right sided weakness with decrease sensation Images: MRI brain no acute abnormality, Head CT negative, Cervical MRI Broad based disc bulge at c5-5, moderate severity central canal narrowing. EEG and Echo pending MRA chitina of [place] ordered, carotid US ordered Cont aspirin. continue on Gabapentin Neurology following, Dr. Valverde Consult Neurosurgery for weakness and cervical spine disease PT/OT/ST HOB Flat ? Underlying psychiatric condition- or Situational depression Hold Seroquel May need psychiatry consult in future DVT prophylaxis: Delia Hayes Dec 08, 2016 09:13
[2016-12-08] MEDS: ASPIRIN EC 325 MG TABEC PO SCH (09:24)
[2016-12-08] MEDS: GABAPENTIN 300 MG CAP PO SCH ×3 (09:24→17:34)
[2016-12-08] MEDS: PANTOPRAZOLE SODIUM 40 MG VIAL IV PUSH SCH (09:24)
--- NOTE | 2016-12-08 10:10 | RADRPT ---
EXAM DATE/TIME: 12/08/2016 09:51 [facility] COMPARISON: CTA CAROTID ARTERIES W 3D RECON, August 21, 2016, 7:25. MRA BRAIN W/O CONTRAST, December 08, 2016, 9:3 4. INDICATIONS : Syncope. MEDICAL HISTORY : Neuropathy. Gait problems. Mood disorders. Depression. Anxiety. SURGICAL HISTORY : Tonsillectomy. Right index finger repair. Right hand. ENCOUNTER: Initial ACUITY: 1 day PAIN SCORE: 4/10 LOCATION: Bilateral neck PEAK SYSTOLIC VELOCITIES (cm/sec): ICA/CCA RATIO: Right: 1.0 Left: 0.7 ICA: Right: 98 Left: 77 CCA: Right: 98 Left: 112 ECA: Right: 96 Left: 84 VERTEBRAL: Right: 50 antegrade Left not visualized. Elevated flow velocities and ICA/CCA ratios have been found to correlate with increased degrees of vessel stenosis, calculated as percentage of diameter relative to a normal segment of distal ICA/CCA FINDINGS: RIGHT CAROTID: No significant stenosis is visualized. The waveforms are within normal limits. LEFT CAROTID: No significant stenosis is visualized. The waveforms are within normal limits. VERTEBRAL ARTERIES: Antegrade flow is seen in the right vertebral artery. Left vertebral artery blood flow is not visuali zed. MISCELLANEOUS: None. CONCLUSION: 1. Normal appearance of the internal carotid arteries any significant atherosclerotic disease or sten osis. 2. The left vertebral artery is not visualized. However, it had a normal appearance on the 08/21/2016 carotid CTA examination. Ankit Gutiérrez MD on December 08, 2016 at 10:05 Board Certified Radiologist. This report was verified electronically.
--- NOTE | 2016-12-08 10:38 | RADRPT ---
EXAM DATE/TIME: 12/08/2016 09:34 [facility] COMPARISON: No previous studies available for comparison. INDICATIONS : CVA. Aphasia. Dizziness. MEDICAL HISTORY : None. SURGICAL HISTORY : Tonsillectomy. Right hand surgery. ENCOUNTER: Subsequent ACUITY: 2 day PAIN SCORE: 6/10 LOCATION: head. Please note a normal MRA of the brain does not entirely exclude the possibility of a small aneurysm, nor the possibility of distal intracranial vessel disease. TECHNIQUE: 3D time of flight MRA was performed. Source images, multiplanar STS MIP, and 3D volume MIP reconstru ctions were reviewed. FINDINGS: There is excellent visualization of the major intracranial arteries out to the second-order branch ve ssels. A left vertebral artery is not visualized. The right vertebral artery is very small. The basilar jai ry is very small diffusely. Intracranial portions of the internal carotid arteries are widely patent. The middle cerebral arterie s are widely patent. Patent posterior communicating arteries feed the posterior cerebral arteries bilaterally. There is a prominent A1 segment of the right anterior cerebral artery. A1 segment of the left anterior cerebral artery is absent. The left SARAH is fed by a patent anterior communicating artery. No evidence of aneur ysm, truncation, or high-grade stenosis. CONCLUSION: 1. Diffusely attenuated basilar artery and visualized portion of the right vertebral artery. A patent left vertebral artery is not seen. 2. 3. Anatomic variants: 4. Prominent posterior communicating arteries bilaterally. Prominent A1 segment right SARAH right. Abse nt A1 segment left SARAH. Harjeet Greene MD on December 08, 2016 at 10:22 Board Certified Radiologist. This report was verified electronically.
--- NOTE | 2016-12-08 12:03 | EKG ---
Date Performed: 12/07/2016 Time Performed: 11:24:14 PTAGE: 46 years EKG: Sinus rhythm NORMAL ECG PREVIOUS TRACING : 08/23/2016 08.25 DOCTOR: Graham Hopkins Interpretating Date/Time 12/08/2016 12:02:12
[2016-12-08 14:24] LABS: AUTOMATED NEUTROPHIL # 5.8 TH/MM3 (1.8-7.7); BASOPHIL # 0.1 TH/MM3 (0-0.2); BASOPHIL % 1.2 % (0.0-2.0); EOSINOPHIL # 0.4 TH/MM3 (0-0.4); EOSINOPHIL % 3.6 % (0.0-4.0); HEMATOCRIT 43.2 % (39.0-51.0); HEMO FLAGS DIFF FINAL; LYMPH % 33.4 % (9.0-44.0); LYMPHOCYTE # 3.6 TH/MM3 (1.0-4.8); MEAN CORPUSCULAR HEMOGLOBIN 31.3 PG (27.0-34.0); MONO % 7.9 % (0.0-8.0); NEUT % 53.9 % (16.0-70.0); PLATELET COUNT 341 TH/MM3 (150-450); RED BLOOD COUNT 4.55 MIL/MM3 (4.50-5.90); RED CELL DISTRIBUTION WIDTH 14.2 % (11.6-17.2); WHITE BLOOD COUNT 10.8 TH/MM3 (4.0-11.0)
[2016-12-08 14:38] LABS: ANION GAP 8 MEQ/L (5-15); AST (GOT) 19 U/L (15-37); BLOOD UREA NITROGEN 10 MG/DL (7-18); CHLORIDE 106 MEQ/L (98-107); GLOMERULAR FILTRATION RATE 77 ML/MIN (>89); POTASSIUM 3.8 MEQ/L (3.5-5.1); SODIUM (NA) 138 MEQ/L (136-145)
[2016-12-08 14:39] LABS: ALT (GPT) 28 U/L (12-78)
--- NOTE | 2016-12-08 15:04 | PD.CONS ---
HPI Service Critical Care Medicine Consult Requested By Neurosurgery Service Reason for Consult CVA Primary Care Physician Kalpana Valdes MD History of Present Illness 46 y/o man presents with several day history of stuttering and difficulty finding words. Past admission to [place] in August 2016 for vertigo. MRI brain is normal. MRI spine with C5-6 bulging disc and canal narrowing. Recently started on atypical antipsychotic for outbursts and anger. Review of Systems Constitutional: COMPLAINS OF: Dizziness, DENIES: Diaphoretic episodes, Fatigue , Fever, Weight gain, Weight loss, Chills, Change in appetite, Night Sweats Endocrine: DENIES: Heat/cold intolerance, Polydipsia, Polyuria, Polyphagia Respiratory: DENIES: Apneas, Cough, Snoring, Wheezing, Hemoptysis, Sputum production, Shortness of breath Cardiovascular: DENIES: Chest pain, Palpitations, Syncope, Dyspnea on Exertion , PND, Lower Extremity Edema, Orthopnea, Claudication Gastrointestinal: COMPLAINS OF: Constipation, DENIES: Abdominal pain, Black stools, Bloody stools, Diarrhea, Nausea, Vomiting, Difficulty Swallowing, Anorexia Musculoskeletal: COMPLAINS OF: Neck pain Hematologic/lymphatic: DENIES: Bruising, Lymphadenopathy Past Family Social History Allergies: Coded Allergies: Penicillin (Verified Allergy, Severe, rash, 12/07/16) Past Medical History Past Medical History Anxiety: Yes Depression: Yes Diminished Hearing: No Neurologic: Yes (neuropathy) Psychiatric: Yes Immunizations Current: Yes Tetanus Vaccination: Never Vaccinated Past Surgical History Tonsillectomy: Yes Social History Alcohol Use: No Tobacco Use: Yes (1/2 ppd) Substance Use: No Allergies-Medications Allergies-Medications (Allergen,Severity, Reaction): Coded Allergies: Penicillin (Verified Allergy, Severe, rash, 12/07/16) Reported Meds & Prescriptions Reported Meds & Active Scripts Active Physical Exam Vital Signs Vital Signs Date Time Temp Pulse Resp B/P Pulse Ox O2 Delivery O2 Flow Rate FiO2 12/08/16 11:55 98.4 75 20 107/65 95 12/08/16 08:32 97.3 75 18 125/77 94 12/08/16 05:10 98.8 72 18 110/72 94 12/07/16 23:41 98.5 77 18 119/76 96 12/07/16 19:27 98.5 80 18 129/72 96 12/07/16 16:50 98.1 89 19 118/81 98 12/07/16 16:27 84 20 109/75 95 Physical Exam Gen: Alert. Head: Atraumatic, airway widely patent. Lungs: Clear, comfortable pattern. Heart: NL S1S2, rrr. Abdoemn: Soft, no guarding. Extremities: Warm, well perfused. Neuro: JOSE, EOMs intact. Speech repetitive, garbled. Moves 4 limbs to command. Decreased sensation right side. Laboratory Laboratory Tests Test 12/08/16 14:13 White Blood Count 10.8 Red Blood Count 4.55 Hemoglobin 14.2 Hematocrit 43.2 Mean Corpuscular Volume 95.0 Mean Corpuscular Hemoglobin 31.3 Mean Corpuscular Hemoglobin 33.0 Concent Red Cell Distribution Width 14.2 Platelet Count 341 Mean Platelet Volume 8.1 Neutrophils (%) (Auto) 53.9 Lymphocytes (%) (Auto) 33.4 Monocytes (%) (Auto) 7.9 Eosinophils (%) (Auto) 3.6 Basophils (%) (Auto) 1.2 Neutrophils # (Auto) 5.8 Lymphocytes # (Auto) 3.6 Monocytes # (Auto) 0.9 Eosinophils # (Auto) 0.4 Basophils # (Auto) 0.1 CBC Comment DIFF FINAL Differential Comment Sodium Level 138 Potassium Level 3.8 Chloride Level 106 Carbon Dioxide Level 24.0 Anion Gap 8 Blood Urea Nitrogen 10 Creatinine 1.04 Estimat Glomerular Filtration 77 Rate Random Glucose 130 Calcium Level 8.7 Aspartate Amino Transf 19 (AST/SGOT) Alanine Aminotransferase 28 (ALT/SGPT) Albumin 3.5 Result Diagram: 12/08/16 1413 12/08/16 1413 Assessment and Plan Assessment and Plan Assessment: 1. Dysarthria. 2. Right sided sensory deficit. 3. Posterior brain circulation insufficiency, symptomatic. 4. Recent addition seroquel for temper control. Plan: 1. Bed rest, flat. 2. Increase systolic blood pressure to > 160. 3. Protonix. 4. SCDs. 5. Full anticoagulation with heparin infusion. 6. Hold seroquel. Overall impression: He is critically ill with symptomatic basilar artery distribution insufficiency. Considerable brain territory is affected. Hopefully we can improve perfusion and maintain patency. Discussed with Dr. Valverde at the bedside. Critical care 39 mins. Hernán Ocmapo MD Dec 08, 2016 15:04
[2016-12-08 15:05] LABS: ALKALINE PHOSPHATASE 91 U/L (45-117); TOTAL BILIRUBIN ADULT 0.3 MG/DL (0.2-1.0)
[2016-12-08] MEDS ORDERED: LACTULOSE SYRUP 20 GM/30 ML CUP PO PRN (15:15)
[2016-12-08] MEDS ORDERED: POTASSIUM PHOSPHATE MONOBASIC 500 MG TAB PO PRN (15:15)
[2016-12-08] MEDS ORDERED: ACETAMINOPHEN 325 MG TAB PO PRN (15:15)
[2016-12-08] MEDS ORDERED: MAGNESIUM SULFATE INJ 2 GM in SODIUM CHLORIDE 0.9% INJ 96 ML IV PRN (15:15)
[2016-12-08] MEDS ORDERED: MAGNESIUM OXIDE 400 MG TAB PO PRN (15:15)
[2016-12-08] MEDS ORDERED: SENNOSIDES 8.6 MG TAB PO PRN (15:15)
[2016-12-08] MEDS ORDERED: CHLORHEXIDINE GLUCONATE 2 % 1 PACK (2 CLOTHS) TOP PRN (15:15)
[2016-12-08] MEDS ORDERED: POTASSIUM CHLORIDE 25 MEQ EFFERVESCENT TAB PO PRN (15:15)
[2016-12-08] MEDS ORDERED: POTASSIUM PHOSPHATE INJ 30 MMOL in SODIUM CHLOR 0.9% 250 ML INJ 250 ML IV PRN (15:15)
[2016-12-08] MEDS ORDERED: RESP: ALBUTEROL 2.5 MG/IPRATROPIUM 0.5 MG NEB (PRN) INH (15:15)
[2016-12-08] MEDS ORDERED: POTASSIUM CHLOR 20 MEQ PREMIX 100 ML IV PRN ×2 (15:15)
[2016-12-08] MEDS ORDERED: ONDANSETRON HCL 4 MG/2 ML VIAL IV PRN (15:15)
[2016-12-08] MEDS ORDERED: SODIUM PHOSPHATE INJ 30 MMOL in SODIUM CHLOR 0.9% 250 ML INJ 240 ML IV PRN (15:15)
[2016-12-08] MEDS ORDERED: MAGNESIUM HYDROXIDE SUSP 30 ML CUP PO PRN (15:15)
[2016-12-08] MEDS ORDERED: MAGNESIUM SULFATE INJ 4 GM in SODIUM CHLORIDE 0.9% INJ 92 ML IV PRN (15:15)
[2016-12-08] MEDS ORDERED: MISCELLANEOUS NURSING INFORMATION XX SCH (15:15)
[2016-12-08] MEDS ORDERED: POTASSIUM CHLOR 40 MEQ PREMIX 100 ML IV PRN ×2 (15:15)
[2016-12-08] MEDS ORDERED: POTASSIUM PHOSPHATE MONOBASIC 500 MG TAB PO/TUBE PRN (15:15)
[2016-12-08] MEDS ORDERED: BISACODYL 10 MG SUPP RECTAL PRN (15:15)
--- NOTE | 2016-12-08 15:29 | MB ---
cc: KRISTIN BUSTAMANTE M.D., DALIA M.D. MCNISH, KARLA A. MD DATE OF CONSULTATION: 12/08/2016. REASON FOR CONSULTATION: Cervical stenosis. HISTORY OF PRESENT ILLNESS: A 46-year-old gentleman who presented to the emergency room on 12/07/2016 in the a.m. with complaints of worsening speech and right-sided weakness along with numbness to also involve the face and vertigo. He has apparently had these symptoms for the past year to four months, although states that it progressively worsening. He also relates back pain and neck pain although the back hurts him more than the neck. Other complaint is some visual spots bilaterally. He underwent a workup for these symptoms in August 21, 2016 including a CTA of the head which showed the basilar artery to be patent, although the left vertebral artery could not be visualized well. More recently he has also undergone workup including MRI scan of the brain which did not reveal any obvious ischemic or stroke areas. Subsequently MR angiogram of the brain obtained reveals decreased flow in the basilar artery with the areas of attenuation. He also had an MRI of the cervical spine which reveals moderate stenosis at the C5-C6 level from degenerate changes but no cord compression. Distal CSF space posteriorly in the spinal canal noted. Neurosurgery has been consulted to render an opinion regarding the cervical stenosis. He has been seen by the neurology service who is currently participating in his workup also. PAST MEDICAL HISTORY: 1. Anxiety. 2. Tonsillectomy. 3. Right finger surgery. 4. His relates that he has had tremors and shakes in the upper and lower extremities for the last several months and was placed on Neurontin for this. MEDICATIONS: 1. Gabapentin 600 milligrams three times a day. 2. Seroquel 50 milligrams daily. ALLERGIES: PENICILLIN. SOCIAL HISTORY: He is . The is here with him. He smokes half-a-pack of cigarettes a day. He denies alcohol use. REVIEW OF SYSTEMS: Pertinent positives include vertigo, visual spots intermittently in both eyes, unsteadiness, weakness in the right arm and leg, slurred speech, numbness in the right face. No bowel or bladder incontinence. He complains of tremors in the upper and lower extremities. Chronic neck and back pain although the back pain bothers him more. Otherwise negative multisystem review of systems. LABORATORY FINDINGS: White blood cell count 12, hemoglobin 14.9, platelet count is 351,000. PT 10.5, INR 1.0, PTT 26.5. Sodium 137, potassium 4.0, BUN 10, creatinine 1.1, glucose 89. Toxicology screen is negative. Urinalysis is negative. PHYSICAL EXAMINATION: VITAL SIGNS: Temperature 98.4, pulse is 75, respiratory rate 20, blood pressure 107/65, oxygen saturation 95% on room air. HEAD: Normocephalic, atraumatic. NECK: No guarding or rigidity. CHEST: Clear bilaterally. HEART: Regular rate rhythm. Normal S1 and S2. ABDOMEN: Abdomen soft and nontender. EXTREMITIES: No cyanosis or edema. NEUROLOGIC: He is awake, alert, pupils are equal and reactive. Extraocular muscles are intact. Face is symmetric. Missing several teeth. Tongue is midline. He does have decreased sensation in the right side of the face compared to the left side to light touch. His speech is very dysarthric with word-finding difficulty at times. He has right-sided weakness about 4-/5. He has positive Babinski on the left side. He has decreased sensation on the right arm and leg. Negative Patsy's. IMPRESSION: 1. 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 His current symptoms are reflective of this. 2. C5-6 disc protrusion with moderate spinal stenosis, although no significant cord compression is noted. This is an incidental finding and does not correlate with his current neurologic presentation. PLAN: 1. I recommend that he be monitored closely in the intensive care unit. 2. His blood pressure should be kept elevated to allow perfusion to the brain stem and small vessels. 3. He may also need anticoagulation / antiplatelet therapy as well as any further intervention deemed appropriate by the neurology service. 4. I have discussed this with and his . I informed the nurse to inform the medical and neurology staff my concerns. 5. He will also require physical therapy, occupational therapy and speech therapy and rehabilitation. 6. He is at risk for progressive basilar thrombosis and ischemia with declining level of alertness and comatose state and he needs to be monitored closely for this. There is not much I can offer from a neurosurgical standpoint. MD LILY Stacy/SHANIKA /1:06 PM /3:17 PM
[2016-12-08] MEDS ORDERED: MORPHINE SULFATE 4 MG/ML INJ IV PUSH ONE (15:30)
[2016-12-08] MEDS: SODIUM CHLOR 0.9% 1000 ML INJ 1,000 ML IV SCH ×2 (15:34→17:00)
--- NOTE | 2016-12-08 16:41 | OTSOAPIP ---
PATIENT OFF FLOOR X 2 ATTEMPTS AM AND PM. WILL REATTEMPT IN AM. Therapist: Gaye Leger OTR/L Signature on file
[2016-12-08] MEDS ORDERED: IOHEXOL 350 MG/ML 10 ML VIAL (for RAD DIAG) IV ONE (16:47)
--- NOTE | 2016-12-08 17:15 | EC ---
Study Study Date:12/08/2016 STUDY CONCLUSIONS SUMMARY - Left ventricle: The cavity size was normal. Wall thickness was normal. Systolic function was normal. The estimated ejection fraction was in the range of 55% to 60%. Wall motion was normal; there were no regional wall motion abnormalities. - Aortic valve: Valve area: 2.64cm^2 (Vmax). - Tricuspid valve: Mild regurgitation. If LV function is below 40, please consider prescribing an ACEI or ARB or document rationale for non-use. PROCEDURE DATA STUDY STATUS: Elective. Procedure: Transthoracic echocardiography. Image quality was good. Scanning was performed from the parasternal, apical, and subcostal acoustic windows. Study completion: The patient tolerated the procedure well. Transthoracic echocardiography. M-mode, complete 2D, complete spectral Doppler, and color Doppler. Height: Height: 65in. Weight: Weight: 186.6lb. Body mass index: BMI: 31.1kg/m^2. Body surface area: BSA: 1.92m^2. Patient status: Inpatient. CARDIAC ANATOMY LEFT VENTRICLE: The cavity size was normal. Wall thickness was normal. Systolic function was normal. The estimated ejection fraction was in the range of 55% to 60%. Wall motion was normal; there were no regional wall motion abnormalities. AORTIC VALVE: Trileaflet; normal thickness leaflets. Doppler: Transvalvular velocity was within the normal range. There was no stenosis. No regurgitation. Valve area: 2.64cm^2 (Vmax). Indexed valve area: 1.38cm^2/m^2 (Vmax). AORTA: Aortic root: The aortic root was normal in size. MITRAL VALVE: Structurally normal valve. Doppler: Transvalvular velocity was within the normal range. There was no evidence for stenosis. No regurgitation. Peak gradient: 2mm Hg (D). LEFT ATRIUM: The atrium was normal in size. RIGHT VENTRICLE: The cavity size was normal. Wall thickness was normal. PULMONIC VALVE: Doppler: Transvalvular velocity was within the normal range. There was no evidence for stenosis. No regurgitation. TRICUSPID VALVE: Structurally normal valve. Doppler: Transvalvular velocity was within the normal range. Mild regurgitation. PULMONARY ARTERY: The main pulmonary artery was normal-sized. Systolic pressure was within the normal range. RIGHT ATRIUM: The atrium was normal in size. PERICARDIUM: There was no pericardial effusion. SYSTEMIC VEINS: Inferior vena cava: The vessel was normal in size. Patient weight: 186.6lb _Ejection fraction:_ 65-75% _Fractional shortening:_ 32% up to 5Kg 5-11.5Kg 11.6-22.9Kg 23-45Kg 45-57Kg Aortic Root 7-13 <17 13-22 17-27 17-27 LA diam 6-13 <23 24-38 33-47 37-40 RVID 10-17 7-15 7-15 7-18 8-17 LVIDd 12-22 <32 24-38 33-47 37-40 LVPW 2-4 3-6 5-7 6-8 7-8 IVS 2-4 3-6 5-7 6-8 7-8 BASIC MEASUREMENTS ADULT NORMAL Left ventricle LV internal dimension, ED, chordal 43 mm 43-52 level, PLAX LV internal dimension, ES, chordal 33.7 mm 23-38 level, PLAX Fractional shortening, chordal level, *22 % >29 PLAX LV posterior wall thickness, ED 9.86 mm IVS/LVPW ratio, ED 0.97 <1.3 Ventricular septum Septal thickness, ED 9.52 mm Aortic valve Leaflet separation 21 mm 15-26 BASIC MEASUREMENTS ADULT NORMAL Aortic valve Leaflet separation 21 mm 15-26 Aorta Root diameter, ED 31 mm 20-37 Left atrium Anterior-posterior dimension, ES 28 mm 19-40 Anterior-posterior dimension index, ES 1.46 cm/m^2 <2.2 LA/aortic root ratio 0.9 DOPPLER MEASUREMENTS ADULT NORMAL Main pulmonary artery Pressure, S 29 mm Hg =30 Aortic valve Peak velocity, S 125 cm/s Valve area, Vmax 2.64 cm^2 Valve area index, Vmax 1.38 cm^2/m^2 Mitral valve Peak E-wave velocity 75.5 cm/s Peak A-wave velocity 65.6 cm/s Deceleration time 215 ms 150-230 Peak gradient, D 2 mm Hg Peak E/A ratio 1.2 Tricuspid valve Regurgitant peak velocity 240 cm/s Peak RV-RA gradient, S 23 mm Hg Maximal regurgitant velocity 240 cm/s Systemic veins Estimated CVP 10 mm Hg Right ventricle RV pressure, S *33 mm Hg <30 Pulmonic valve Peak velocity, S 102 cm/s LEGEND: Mean values are shown as u=mean value. Asterisk (*) jean values outside specified normal range. Prepared and signed by Yassine Pena [id number]
--- NOTE | 2016-12-08 17:20 | HHI.PR ---
Subjective Remarks right side weak and slurred speech abnl basilar and vert on mra cow so cta done result pending -concerning for basilar dz/thrombosis -he is in icu now for close monitoring and placed in IV heparin. Objective Vital Signs Date Time Temp Pulse Resp B/P Pulse Ox O2 Delivery O2 Flow Rate FiO2 12/08/16 15:18 98.6 88 20 133/74 97 12/08/16 11:55 98.4 75 20 107/65 95 12/08/16 08:32 97.3 75 18 125/77 94 12/08/16 05:10 98.8 72 18 110/72 94 12/07/16 23:41 98.5 77 18 119/76 96 12/07/16 19:27 98.5 80 18 129/72 96 I/O 12/07/16 12/07/16 12/07/16 12/08/16 12/08/16 12/08/16 07:00 15:00 23:00 07:00 15:00 23:00 Intake Total 480 ml 1020 ml Output Total 500 ml 1900 ml Balance -20 ml -880 ml Intake Oral 480 ml 720 ml IV Total 300 ml Output Urine Total 500 ml 1900 ml # Voids 1 1 # Bowel Movements 0 1 Result Diagram: 12/08/16 1413 12/08/16 1413 Imaging cta cow pending result mra cow diminutive basilar and right va mri brain yesterday neg for ac cva. Objective Remarks awake alert follow commands mild decreased right nlf slurred perrla,eomi motor mild weakness right ue/le can not feel lt,t pain on right ue-le only pressure toes left w/d right neutral a/p basilar artery stenosis?thrombis hepain drip per protocol monitor ptt bedrest hob flat keep bp higher >140 fluids nss may need repeat scans in 24hrs-stat if change in mental status or neuro exam. Genevieve Valverde MD Dec 08, 2016 17:20
[2016-12-08] MEDS ORDERED: TERBUTALINE INJ 1 MG/ML AMP SQ PRN (17:30)
[2016-12-08] MEDS ORDERED: SODIUM CHLOR 0.9% 1000 ML INJ 1,000 ML IV ONE (17:30)
[2016-12-08] MEDS: PANTOPRAZOLE SOD 40 MG DELAYED RELEASE TAB PO SCH (17:34)
[2016-12-08] MEDS: HEPARIN-D5W INJ 250 ML IV SCH (17:35)
[2016-12-08 17:48] LABS: HEMATOCRIT 43.5 % (39.0-51.0); MEAN CELL VOLUME 95.4 FL (80.0-100.0); MEAN CORPUSCULAR HEMOGLOBIN 31.1 PG (27.0-34.0); MEAN CORPUSCULAR HGB CONC 32.6 % (32.0-36.0); PLATELET COUNT 347 TH/MM3 (150-450); RED BLOOD COUNT 4.55 MIL/MM3 (4.50-5.90); RED CELL DISTRIBUTION WIDTH 14.1 % (11.6-17.2); REVIEW FLAG FINAL; WHITE BLOOD COUNT 11.3 TH/MM3 (4.0-11.0)
--- NOTE | 2016-12-08 17:49 | RADRPT ---
EXAM DATE/TIME: 12/08/2016 15:56 [facility] COMPARISON: CTA BRAIN W 3D RECON, August 21, 2016, 7:25. INDICATIONS : Neurological symptoms; evaluate for occlusion. IV CONTRAST: 75 cc Omnipaque 350 (iohexol) IV RADIATION DOSE: 25.51 CTDIvol (mGy) MEDICAL HISTORY : Neuropathy. SURGICAL HISTORY : None. ENCOUNTER: Initial ACUITY: 1 day PAIN SCALE: 0/10 LOCATION: Bilateral cranial TECHNIQUE: Volumetric scanning was performed using a multi-row detector CT scanner. The data was post processed with a variety of visualization algorithms including full volume maximum intensity projection, multi -planar sliding thin slab reformation, curved planar reformation, and surface rendering techniques. Using automated exposure control and adjustment of the mA and/or kV according to patient size, radiat ion dose was kept as low as reasonably achievable to obtain optimal diagnostic quality images. FINDINGS: There is adequate visualization of the major intracranial arteries out to the second-order branch ves sels. There is no evidence for aneurysm or vascular malformation vascular malformation. Detailed dameon ges as follows: Anterior circulation: Inflow vessels are patent. 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 Persistent area of narrowing at the junction of the M1 and M2 segment on the right which is probably not flow li miting. Widely patent anterior communicating artery. Anterior and middle cerebral arteries are otherw ise patent. Posterior circulation: The vertebral arteries are nonvisualized on the current study. However, the proximal basilar is occlu ded, similar to the prior exam. The basilar is atretic throughout its course and I believe is retrogr sherley filling through the right posterior cerebral artery via the P-comm. The right posterior cerebral artery is otherwise widely patent. 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 CONCLUSION: 1. 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 Ther e is progressive atresia/narrowing of the basilar when compared to the prior exam, however. 2. The left posterior commuting artery is supplied solely from the anterior circulation via the left posterior to indicating artery. 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 3. 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 Anterior circulation is otherwise patent without aneurysmal d isease. Aashish Calderón MD on December 08, 2016 at 17:15 Board Certified Radiologist. This report was verified electronically.
[2016-12-08 17:57] LABS: HDL CHOLESTEROL 22.9 MG/DL (40.0-60.0)
[2016-12-08 17:57] LABS: APTT (PATIENT) 25.8 SEC (24.3-30.1)
[2016-12-08 18:14] LABS: PROTHROMBIN TIME - PATIENT 10.7 SEC (9.8-11.6)
[2016-12-08] MEDS ORDERED: PHENYLEPHRINE HCL 10 MG/ML VIAL ONE (18:25)
[2016-12-08] MEDS: PHENYLEPHRINE INJ 80 MG in DEXTROSE 5% IN WATE 500 ML INJ 492 ML IV SCH ×2 (18:44)
[2016-12-08] MEDS: DOCUSATE SODIUM 50 MG/SENNA 8.6 MG TAB PO SCH (21:00)
[2016-12-09] VITALS (11 sets, daily range): BP systolic 146–170; BP diastolic 75–105; PULSE 54–68; RESP 16–20; TEMP 98–98.9; O2SAT 96–99
[2016-12-09] MEDS: PHENYLEPHRINE INJ 80 MG in DEXTROSE 5% IN WATE 500 ML INJ 492 ML IV SCH ×4 (00:22→11:02)
[2016-12-09] MEDS: SODIUM CHLOR 0.9% 1000 ML INJ 1,000 ML IV SCH ×2 (01:34→10:54)
[2016-12-09 02:42] LABS: APTT (PATIENT) 29.7 SEC (24.3-30.1)
[2016-12-09] MEDS: CHLORHEXIDINE GLUCONATE 2 % 1 PACK (2 CLOTHS) TOP SCH (04:00)
[2016-12-09 09:29] LABS: APTT (PATIENT) 29.7 SEC (24.3-30.1)
[2016-12-09] MEDS: ASPIRIN EC 325 MG TABEC PO SCH (10:52)
[2016-12-09] MEDS: DOCUSATE SODIUM 50 MG/SENNA 8.6 MG TAB PO SCH ×2 (10:52→19:47)
[2016-12-09] MEDS: PANTOPRAZOLE SOD 40 MG DELAYED RELEASE TAB PO SCH (10:53)
[2016-12-09] MEDS: GABAPENTIN 300 MG CAP PO SCH ×3 (10:53→17:36)
[2016-12-09] MEDS: ACETAMINOPHEN/HYDROcodone 325 MG/5 MG TAB PO PRN ×2 (11:02→19:46)
--- NOTE | 2016-12-09 15:23 | HHI.CCPN ---
Subjective Remarks/Hospital Course 46 y/o man presents with several day history of stuttering and difficulty finding words. Past admission to [place] in August 2016 for vertigo. MRI brain is normal. MRI spine with C5-6 bulging disc and canal narrowing. Recently started on atypical antipsychotic for outbursts and anger. 12/09: BP nicely elevated for improved cerebral collateral circulation. Neuro workup in progress. Objective Vital Signs Date Time Temp Pulse Resp B/P Pulse Ox O2 Delivery O2 Flow Rate FiO2 12/09/16 12:43 98 21 12/09/16 12:02 15 12/09/16 04:00 98.8 58 146/95 12/07/16 09:49 Room Air Intake and Output 12/08/16 12/08/16 12/09/16 08:00 16:00 00:00 Intake Total 480 ml 1020 ml 2930 ml Output Total 1800 ml 600 ml 800 ml Balance -1320 ml 420 ml 2130 ml Result Diagram: 12/08/16 1723 12/08/16 1413 Objective Remarks Gen: Alert. Head: Atraumatic, airway widely patent. Lungs: Clear, comfortable pattern. Heart: NL S1S2, rrr. Abdoemn: Soft, no guarding. Extremities: Warm, well perfused. Neuro: JOSE, EOMs intact. Speech repetitive, garbled. Moves 4 limbs to command. Decreased sensation right side. A/P Assessment and Plan Assessment: 1. Dysarthria. 2. Right sided sensory deficit. 3. Posterior brain circulation insufficiency, symptomatic. 4. Recent addition seroquel for temper control. Plan: 1. Bed rest, flat. 2. Increase systolic blood pressure to > 160. 3. Protonix. 4. SCDs. 5. Full anticoagulation with heparin infusion. 6. Hold seroquel. Overall impression: He is critically ill with symptomatic basilar artery distribution insufficiency. Considerable brain territory is affected. Hopefully we can improve perfusion and maintain patency. Discussed with Dr. Valverde at the bedside. Continue heparin gtt, adjust upward. Critical care 34 mins. Hernán Ocampo MD Dec 09, 2016 15:23
--- NOTE | 2016-12-09 17:33 | HHI.PR ---
Subjective Remarks still slurred with sensory loss right side pending mri brain Objective Vital Signs Date Time Temp Pulse Resp B/P Pulse Ox O2 Delivery O2 Flow Rate FiO2 12/09/16 12:43 98 21 12/09/16 12:02 15 12/09/16 04:00 98.8 58 20 146/95 96 12/09/16 00:00 98.9 59 20 169/105 96 12/08/16 23:57 92 21 12/08/16 23:00 80 12/08/16 20:00 98.2 78 20 152/101 95 I/O 12/08/16 12/08/16 12/08/16 12/09/16 12/09/16 12/09/16 06:59 14:59 22:59 06:59 14:59 22:59 Intake Total 480 ml 1020 ml 2930 ml 1070 ml Output Total 500 ml 1900 ml 800 ml 850 ml Balance -20 ml -880 ml 2130 ml 220 ml Intake Oral 480 ml 720 ml 480 ml IV Total 300 ml 2450 ml 1070 ml Output Urine Total 500 ml 1900 ml 800 ml 850 ml # Voids 1 1 # Bowel Movements 0 1 Result Diagram: 12/08/16 1723 12/08/16 1413 Objective Remarks awake alert follow commands mild decreased right nlf slurred perrla,eomi motor mild weakness right ue/le can not feel lt,t pain on right ue-le only pressure toes left w/d right neutral a/p basilar artery stenosis hepain drip per protocol monitor ptt bedrest hob flat keep bp higher >140 fluids nss mri brain pending today. Genevieve Valverde MD Dec 09, 2016 17:33
[2016-12-09 18:01] LABS: APTT (PATIENT) 33.4 SEC (24.3-30.1)
--- NOTE | 2016-12-09 20:52 | RADRPT ---
EXAM DATE/TIME: 12/09/2016 20:19 [facility] COMPARISON: MRI BRAIN W/O CONTRAST, December 07, 2016, 17:34. INDICATIONS : Right sided weakness. MEDICAL HISTORY : None. SURGICAL HISTORY : Tonsillectomy. ENCOUNTER: Initial ACUITY: 1 day PAIN SCORE: 0/10 LOCATION: cranial TECHNIQUE: Multiplanar, multisequence MRI of the brain was performed without contrast. FINDINGS: CEREBRUM: The ventricles are normal for age. No evidence of midline shift, mass lesion, hemorrhage or acute in farction. No extraaxial fluid collections are seen. The pituitary gland and suprasellar cistern are normal in configuration. WHITE MATTER: No significant signal abnormalities are seen in the white matter. POSTERIOR FOSSA: The cerebellum and brainstem are intact. The 4th ventricle is midline. The cerebellopontine angle is unremarkable. The cerebellar tonsils are normal in position. DIFFUSION IMAGING: No focal areas of restricted diffusion are seen. No evidence of acute infarction. EXTRACRANIAL: The visualized portions of the orbits are unremarkable. Mild mucosal thickening without air-fluid lev els involving the maxillary and sphenoid sinuses bilaterally. CONCLUSION: 1. No acute intracranial abnormality. 2. Chronic paranasal sinus disease. Ra Rajan Jr., MD on December 09, 2016 at 20:47 Board Certified Radiologist. This report was verified electronically.
[2016-12-10] VITALS (7 sets, daily range): BP systolic 112–156; BP diastolic 64–97; PULSE 54–66; RESP 15–26; TEMP 98–98.4; O2SAT 96–99
[2016-12-10 00:49] LABS: APTT (PATIENT) 33.8 SEC (24.3-30.1)
[2016-12-10] MEDS: SODIUM CHLOR 0.9% 1000 ML INJ 1,000 ML IV SCH ×4 (02:24→20:52)
[2016-12-10] MEDS: PHENYLEPHRINE INJ 80 MG in DEXTROSE 5% IN WATE 500 ML INJ 492 ML IV SCH ×6 (02:24→20:52)
[2016-12-10] MEDS: CHLORHEXIDINE GLUCONATE 2 % 1 PACK (2 CLOTHS) TOP SCH (04:00)
--- NOTE | 2016-12-10 06:40 | MG ---
cc: ESTEFANIA RANKIN MD Lab No: Date: 12/09/2016 Age: Sex: M Race: DATE OF [address] Linton. READING PHYSICIAN: Dr. Rankin. MEDICAL HISTORY: Dizziness, numbness, vertigo, difficulty in memory, difficulty with speech, stuttering, visual changes, right arm and leg parasthesia, history of neuropathy and gait problems. MEDICATIONS 1. Neurontin. 2. Protonix. 3. Aspirin ELECTROENCEPHALOGRAM DESCRIPTION: The patient's background activity is 8-9 Hz alpha bilateral symmetrical, located posteriorly. There is some muscle and movement artifact. Photic stimulation did elicit a good driving response. There was no electrographic seizures or epileptiform discharges during the recording. INTERPRETATION This is a normal awake EEG. Absence of radiographic seizures or epileptiform discharges. There is no true diagnosis of epilepsy. Clinical correlation is recommended. Estefania Rankin MD [facility]/mihir /11:48 PM /6:29 AM [facility]
--- NOTE | 2016-12-10 07:19 | HHI.CCPN ---
Subjective Remarks/Hospital Course 46 y/o man presents with several day history of stuttering and difficulty finding words. Past admission to [place] in August 2016 for vertigo. MRI brain is normal. MRI spine with C5-6 bulging disc and canal narrowing. Recently started on atypical antipsychotic for outbursts and anger. 12/09: BP nicely elevated for improved cerebral collateral circulation. Neuro workup in progress. 12/10: BP support good - hios speech improves with higher SBP. Resistant to heparin, will bolus now. Objective Vital Signs Date Time Temp Pulse Resp B/P Pulse Ox O2 Delivery O2 Flow Rate FiO2 12/10/16 04:00 98.4 60 20 156/97 97 12/09/16 22:03 21 12/07/16 09:49 Room Air Intake and Output 12/09/16 12/09/16 12/10/16 08:00 16:00 00:00 Intake Total 1070 ml 1672 ml 1546 ml Output Total 850 ml 1175 ml 800 ml Balance 220 ml 497 ml 746 ml Result Diagram: 12/08/16 1723 12/08/16 1413 Objective Remarks Gen: Alert. Head: Atraumatic, airway widely patent. Lungs: Clear, comfortable pattern. Heart: NL S1S2, rrr. No JVD. Abdomen: Soft, no guarding. BS active. Extremities: Warm, well perfused. Neuro: Hyper-alert, JOSE, EOMs intact. Speech still repetitive, garbled. Moves 4 limbs to command. Decreased sensation right side. A/P Assessment and Plan Assessment: 1. Dysarthria. 2. Right sided sensory deficit. 3. Posterior brain circulation insufficiency, symptomatic. 4. Recent addition seroquel for temper control. Plan: 1. Bed rest, flat. 2. Increase systolic blood pressure to > 160. 3. Protonix. 4. SCDs. 5. Full anticoagulation with heparin infusion. 6. Hold seroquel. 7. Bolus heparin 4000 and continue dripp. Overall impression: He is critically ill with symptomatic basilar artery distribution insufficiency. Considerable brain territory is affected. Hopefully we can improve perfusion and maintain patency. Continue heparin gtt, adjust upward and bolus X 1. Continued unstable neurologic condition. Critical care 37 mins. Hernán Ocampo MD Dec 10, 2016 07:19
[2016-12-10] MEDS ORDERED: HEPARIN SODIUM - IV 10,000 UNITS/10 ML VIAL IV ONE (07:30)
[2016-12-10] MEDS: DOCUSATE SODIUM 50 MG/SENNA 8.6 MG TAB PO SCH ×2 (09:00→20:12)
[2016-12-10] MEDS: ASPIRIN EC 325 MG TABEC PO SCH (09:20)
[2016-12-10] MEDS: GABAPENTIN 300 MG CAP PO SCH ×3 (09:20→16:55)
[2016-12-10] MEDS: PANTOPRAZOLE SOD 40 MG DELAYED RELEASE TAB PO SCH (09:21)
[2016-12-10 15:47] LABS: APTT (PATIENT) 51.7 SEC (24.3-30.1)
[2016-12-10] MEDS: CYCLOBENZAPRINE HCL 10 MG TAB PO PRN (16:55)
--- NOTE | 2016-12-10 18:22 | HHI.PR ---
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 Plan -Neurochecks Q1h - Heparin drip/infusion per protocol - Head of bed flat - Maintain BP > 140mm Hg - DVT prophylaxis, SCDs' Diagnosis/Plan: Subjective Subjective Comments No acute events reported MRI brain with no acute intracranial abnormality EEG is unremarkable Patient less dysarthria, ataxic on the right side UE&LE Still on Neosynophrine and heparin drip Active Medications Current Medications Medications (Trade) Dose Ordered Sig/Ligia Route Start Time Stop Time Status Last Admin (NS Flush) 2 ml UNSCH PRN IV FLUSH 12/07/16 11:00 (Ecotrin Ec) 325 mg DAILY PO 12/07/16 16:00 12/10/16 09:20 (Neurontin) 600 mg TID PO 12/07/16 18:00 12/10/16 16:55 Acetaminophen/ Hydrocodone Bitart 1 tab 1 tab Q6H PRN PO 12/08/16 15:15 12/09/16 19:46 (NS 1000 ml Inj) 1,000 ml @ 100 mls/hr Q10H IV 12/08/16 15:13 12/10/16 16:07 (Tylenol) 650 mg Q6H PRN PO 12/08/16 15:15 12/10/16 15:04 (Protonix) 40 mg DAILY PO 12/08/16 16:00 12/10/16 09:21 (Zofran Inj) 4 mg Q6H PRN IV 12/08/16 15:15 12/10/16 09:21 Miscellaneous Information 1 Q361D XX 12/08/16 15:15 (Chlorhexidine 2% Cloth) 3 pack Taper DAILY@04 TOP 12/09/16 04:00 12/05/17 03:59 12/10/16 04:00 (Chlorhexidine 2% Cloth) 3 pack UNSCH PRN TOP 12/08/16 15:15 (Libby-Colace) 1 tab BID PO 12/08/16 21:00 12/09/16 19:47 (Milk Of Magnesia Liq) 30 ml Q12H PRN PO 12/08/16 15:15 (Senokot) 17.2 mg Q12H PRN PO 12/08/16 15:15 (Dulcolax Supp) 10 mg DAILY PRN RECTAL 12/08/16 15:15 Lactulose 30 ml 30 ml DAILY PRN PO 12/08/16 15:15 Potassium Chloride 100 ml @ 50 mls/hr Q2H PRN IV 12/08/16 15:15 (KCl 20 Meq Premix Inj) 100 ml @ 50 mls/hr Q2H PRN IV 12/08/16 15:15 Potassium Bicarb/ Potassium Chloride 50 meq 50 meq UNSCH PRN PO 12/08/16 15:15 Potassium Chloride 100 ml @ 25 mls/hr UNSCH PRN IV 12/08/16 15:15 Potassium Chloride 100 ml @ 50 mls/hr Q2H PRN IV 12/08/16 15:15 (Magnesium Sulfate Inj/NS Inj) 100 ml @ 50 mls/hr UNSCH PRN IV 12/08/16 15:15 Magnesium Oxide 800 mg 800 mg UNSCH PRN PO 12/08/16 15:15 (Magnesium Sulfate Inj/NS Inj) 100 ml @ 50 mls/hr UNSCH PRN IV 12/08/16 15:15 Potassium Phosphate 2000 mg 2,000 mg Q4H PRN PO 12/08/16 15:15 (Sodium Phosphate Inj/NS 250 ml Inj) 250 ml @ 42 mls/hr UNSCH PRN IV 12/08/16 15:15 Potassium Phosphate 2000 mg 2,000 mg UNSCH PRN PO/TUBE 12/08/16 15:15 Potassium Phosphate 30 mmol/ Sodium Chloride 260 ml @ 42 mls/hr UNSCH PRN IV 12/08/16 15:15 (Heparin-D5W Inj) 250 ml @ 0 mls/hr TITRATE IV 12/08/16 17:15 12/08/16 17:35 Terbutaline Sulfate 1 mg 1 mg UNSCH PRN SQ 12/08/16 17:30 (Neosynephrine Inj/D5W 500 ml Inj) 500 ml @ 0 mls/hr TITRATE IV 12/08/16 17:30 12/10/16 08:20 (Flexeril) 5 mg Q8H PRN PO 12/10/16 16:30 12/10/16 16:55 Allergies Allergies Coded Allergies Penicillin (Verified Allergy, Severe, rash, 12/07/16) Exam I&O / VS 12/09/16 12/09/16 12/10/16 15:00 23:00 07:00 Intake Total 1672 ml 1546 ml 1304 ml Output Total 1175 ml 800 ml 800 ml Balance 497 ml 746 ml 504 ml Intake Oral 250 ml 450 ml 250 ml IV Total 1422 ml 1096 ml 1054 ml Output Urine Total 1175 ml 800 ml 800 ml Vital Signs Date Time Temp Pulse Resp B/P Pulse Ox O2 Delivery O2 Flow Rate FiO2 12/10/16 16:04 16 12/10/16 16:00 98.0 62 16 112/67 98 12/10/16 12:00 60 12/10/16 12:00 98.2 60 15 140/73 96 12/10/16 08:00 98.4 54 20 128/75 99 12/10/16 08:00 54 12/10/16 04:00 98.4 60 20 156/97 97 12/10/16 00:00 98.0 66 23 139/64 99 12/09/16 23:00 59 12/09/16 22:03 97 21 12/09/16 20:46 15 12/09/16 20:00 98.1 59 17 167/99 99 General: Alert and Oriented, Mild distress Eye: PERRL, Normal conjuctiva, Vision unchanged Respiratory: Lungs CTA, Non-labored respirations Cardiology: Normal rate, No murmur Musculoskeletal: ROM Neurologic: Alert, Oriented, Other (Dysarthria, diplopia, right ataxia abnormal finger nose and unable to do right heel polk due to wekaness, abnrmal sensation on the right side of the body) Psychiatric: Cooperative, Appropriate mood & affect, Normal judgement Objective Radiology Results Last 72 hours Impressions Brain MRI 12/09/16 0000 Signed Impressions: Service Date/Time: Friday, December 09, 2016 20:19 - CONCLUSION: 1. No acute intracranial abnormality. 2. Chronic paranasal sinus disease. Ra Rajan Jr., MD Micro and Labs Laboratory Tests Test 12/10/16 12/10/16 12/10/16 00:17 08:03 15:17 Activated Partial 33.8 39.0 51.7 Thromboplast Time Mallorie Raknin MD Dec 10, 2016 18:22
[2016-12-10 22:20] LABS: APTT (PATIENT) 53.5 SEC (24.3-30.1)
[2016-12-11] VITALS (9 sets, daily range): BP systolic 124–158; BP diastolic 65–96; PULSE 52–86; RESP 10–22; TEMP 98.1–98.4; O2SAT 94–99
[2016-12-11] MEDS: PHENYLEPHRINE INJ 80 MG in DEXTROSE 5% IN WATE 500 ML INJ 492 ML IV SCH ×8 (00:25→22:54)
[2016-12-11] MEDS: HEPARIN-D5W INJ 250 ML IV SCH ×2 (00:36→15:11)
[2016-12-11] MEDS: CHLORHEXIDINE GLUCONATE 2 % 1 PACK (2 CLOTHS) TOP SCH (03:29)
[2016-12-11 04:18] LABS: HEMATOCRIT 46.7 % (39.0-51.0); MEAN CELL VOLUME 95.3 FL (80.0-100.0); MEAN CORPUSCULAR HEMOGLOBIN 32.1 PG (27.0-34.0); MEAN CORPUSCULAR HGB CONC 33.7 % (32.0-36.0); PLATELET COUNT 400 TH/MM3 (150-450); RED CELL DISTRIBUTION WIDTH 14.5 % (11.6-17.2); REVIEW FLAG FINAL; WHITE BLOOD COUNT 17.8 TH/MM3 (4.0-11.0)
[2016-12-11 04:29] LABS: APTT (PATIENT) 43.4 SEC (24.3-30.1)
[2016-12-11 04:49] LABS: BICARBONATE 27.8 MEQ/L (21.0-32.0); POTASSIUM 3.6 MEQ/L (3.5-5.1)
[2016-12-11] MEDS: DOCUSATE SODIUM 50 MG/SENNA 8.6 MG TAB PO SCH ×2 (09:35→20:32)
[2016-12-11] MEDS: GABAPENTIN 300 MG CAP PO SCH ×3 (09:35→18:24)
[2016-12-11] MEDS: PANTOPRAZOLE SOD 40 MG DELAYED RELEASE TAB PO SCH (09:35)
[2016-12-11] MEDS: ASPIRIN EC 325 MG TABEC PO SCH (09:36)
--- NOTE | 2016-12-11 10:19 | HHI.CCPN ---
Subjective Remarks/Hospital Course 46 y/o man presents with several day history of stuttering and difficulty finding words. Past admission to [place] in August 2016 for vertigo. MRI brain is normal. MRI spine with C5-6 bulging disc and canal narrowing. Recently started on atypical antipsychotic for outbursts and anger. 12/09: BP nicely elevated for improved cerebral collateral circulation. Neuro workup in progress. 12/10: BP support good - his speech improves with higher SBP. Resistant to heparin, will bolus now. 12/11: Speech still better today. There appears to be an emotional component - if he gets anxious his speech deteriorates. Objective Vital Signs Date Time Temp Pulse Resp B/P Pulse Ox O2 Delivery O2 Flow Rate FiO2 12/11/16 08:14 99 21 12/11/16 04:00 98.2 60 10 133/68 12/07/16 09:49 Room Air Intake and Output 12/10/16 12/10/16 12/11/16 08:00 16:00 00:00 Intake Total 1304 ml 1666 ml 2528 ml Output Total 800 ml 1780 ml 2010 ml Balance 504 ml -114 ml 518 ml Result Diagram: 12/11/16 0341 12/11/16 0341 Objective Remarks Gen: Alert. Head: Atraumatic, airway widely patent. Lungs: Clear, comfortable pattern. Heart: NL S1S2, rrr. No JVD. Abdomen: Soft, no guarding. BS active. Extremities: Warm, well perfused. Neuro: Hyper-alert, JOSE, EOMs intact. Speech still repetitive but clarity much improved. Moves 4 limbs to command. Decreased sensation persists right side. A/P Assessment and Plan Assessment: 1. Dysarthria. 2. Right sided sensory deficit. 3. Posterior brain circulation insufficiency, symptomatic. 4. Recent addition seroquel for temper control. Plan: 1. Bed rest, HOB up 30 OK. 2. Increase systolic blood pressure to > 160 with neosynephrine. 3. Protonix. 4. SCDs. 5. Full anticoagulation with heparin infusion. 6. Hold seroquel. 7. Heparin bolus again. Overall impression: He has symptomatic basilar artery distribution insufficiency. Considerable brain territory is affected. We are trying improve perfusion and maintain patency. Continue heparin gtt, adjust upward and bolus X 1. Continued unstable neurologic condition. Convert to chronic oral anticoagulation soon. Hernán Ocampo MD Dec 11, 2016 10:19
--- NOTE | 2016-12-11 12:44 | HHI.PR ---
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 - GI prophylaxis, Protonix Diagnosis/Plan: Subjective Subjective Comments No acute events reported Less dysarthria Still on heparin and Neosynphrine drip Active Medications Current Medications Medications (Trade) Dose Ordered Sig/Ligia Route Start Time Stop Time Status Last Admin (NS Flush) 2 ml UNSCH PRN IV FLUSH 12/07/16 11:00 (Ecotrin Ec) 325 mg DAILY PO 12/07/16 16:00 12/11/16 09:36 (Neurontin) 600 mg TID PO 12/07/16 18:00 12/11/16 09:35 Acetaminophen/ Hydrocodone Bitart 1 tab 1 tab Q6H PRN PO 12/08/16 15:15 12/09/16 19:46 (NS 1000 ml Inj) 1,000 ml @ 100 mls/hr Q10H IV 12/08/16 15:13 12/10/16 20:52 (Tylenol) 650 mg Q6H PRN PO 12/08/16 15:15 12/10/16 15:04 (Protonix) 40 mg DAILY PO 12/08/16 16:00 12/11/16 09:35 (Zofran Inj) 4 mg Q6H PRN IV 12/08/16 15:15 12/10/16 09:21 Miscellaneous Information 1 Q361D XX 12/08/16 15:15 (Chlorhexidine 2% Cloth) 3 pack Taper DAILY@04 TOP 12/09/16 04:00 12/05/17 03:59 12/11/16 03:29 (Chlorhexidine 2% Cloth) 3 pack UNSCH PRN TOP 12/08/16 15:15 (Libby-Colace) 1 tab BID PO 12/08/16 21:00 12/11/16 09:35 (Milk Of Magnesia Liq) 30 ml Q12H PRN PO 12/08/16 15:15 (Senokot) 17.2 mg Q12H PRN PO 12/08/16 15:15 (Dulcolax Supp) 10 mg DAILY PRN RECTAL 12/08/16 15:15 Lactulose 30 ml 30 ml DAILY PRN PO 12/08/16 15:15 Potassium Chloride 100 ml @ 50 mls/hr Q2H PRN IV 12/08/16 15:15 (KCl 20 Meq Premix Inj) 100 ml @ 50 mls/hr Q2H PRN IV 12/08/16 15:15 Potassium Bicarb/ Potassium Chloride 50 meq 50 meq UNSCH PRN PO 12/08/16 15:15 Potassium Chloride 100 ml @ 25 mls/hr UNSCH PRN IV 12/08/16 15:15 Potassium Chloride 100 ml @ 50 mls/hr Q2H PRN IV 12/08/16 15:15 (Magnesium Sulfate Inj/NS Inj) 100 ml @ 50 mls/hr UNSCH PRN IV 12/08/16 15:15 Magnesium Oxide 800 mg 800 mg UNSCH PRN PO 12/08/16 15:15 (Magnesium Sulfate Inj/NS Inj) 100 ml @ 50 mls/hr UNSCH PRN IV 12/08/16 15:15 Potassium Phosphate 2000 mg 2,000 mg Q4H PRN PO 12/08/16 15:15 (Sodium Phosphate Inj/NS 250 ml Inj) 250 ml @ 42 mls/hr UNSCH PRN IV 12/08/16 15:15 Potassium Phosphate 2000 mg 2,000 mg UNSCH PRN PO/TUBE 12/08/16 15:15 Potassium Phosphate 30 mmol/ Sodium Chloride 260 ml @ 42 mls/hr UNSCH PRN IV 12/08/16 15:15 (Heparin-D5W Inj) 250 ml @ 0 mls/hr TITRATE IV 12/08/16 17:15 12/11/16 00:36 Terbutaline Sulfate 1 mg 1 mg UNSCH PRN SQ 12/08/16 17:30 (Neosynephrine Inj/D5W 500 ml Inj) 500 ml @ 0 mls/hr TITRATE IV 12/08/16 17:30 12/11/16 06:02 (Flexeril) 5 mg Q8H PRN PO 12/10/16 16:30 12/10/16 16:55 Allergies Allergies Coded Allergies Penicillin (Verified Allergy, Severe, rash, 12/07/16) Exam I&O / VS 12/10/16 12/10/16 12/11/16 15:00 23:00 07:00 Intake Total 1666 ml 2528 ml 2005 ml Output Total 1780 ml 2010 ml 1070 ml Balance -114 ml 518 ml 935 ml Intake Oral 946 ml 473 ml IV Total 1666 ml 1582 ml 1532 ml Output Urine Total 1780 ml 2010 ml 1070 ml # Voids 6 5 3 # Bowel Movements 0 0 0 Vital Signs Date Time Temp Pulse Resp B/P Pulse Ox O2 Delivery O2 Flow Rate FiO2 12/11/16 12:00 98.2 58 21 146/96 97 12/11/16 08:14 99 21 12/11/16 08:00 98.1 86 17 124/65 97 12/11/16 07:00 52 12/11/16 04:00 98.2 60 10 133/68 94 12/11/16 00:00 98.2 54 21 158/74 96 12/10/16 23:00 56 12/10/16 20:00 98.2 66 26 128/78 98 12/10/16 16:04 16 12/10/16 16:00 60 12/10/16 16:00 98.0 62 16 112/67 98 General: Alert and Oriented, No acute distress Eye: PERRL, Normal conjuctiva Respiratory: Lungs CTA, Non-labored respirations Cardiology: Normal rate, Intact pulses Neurologic: Alert, Oriented, Other (mild dysarthria, right sided ataxia, right LE weakness and diminished sensation) Objective Radiology Results Last 72 hours Impressions Chest X-Ray 12/12/16 0000 Signed Impressions: Service Date/Time: Monday, December 12, 2016 10:49 - CONCLUSION: 1. Left PICC line tip in good position near the atriocaval junction. Stuart Vieyra MD Micro and Labs Laboratory Tests Test 12/10/16 12/10/16 12/11/16 15:17 21:00 03:41 Activated Partial 51.7 53.5 43.4 Thromboplast Time White Blood Count 17.8 Red Blood Count 4.90 Hemoglobin 15.7 Hematocrit 46.7 Mean Corpuscular Volume 95.3 Mean Corpuscular Hemoglobin 32.1 Mean Corpuscular Hemoglobin 33.7 Concent Red Cell Distribution Width 14.5 Platelet Count 400 Mean Platelet Volume 8.9 Sodium Level 144 Potassium Level 3.6 Chloride Level 106 Carbon Dioxide Level 27.8 Anion Gap 10 Blood Urea Nitrogen 8 Creatinine 1.20 Estimat Glomerular Filtration 65 Rate Random Glucose 117 Calcium Level 8.6 Mallorie Rankin MD Dec 11, 2016 12:44
[2016-12-11] MEDS: CYCLOBENZAPRINE HCL 10 MG TAB PO PRN (14:31)
[2016-12-11] MEDS: SODIUM CHLOR 0.9% 1000 ML INJ 1,000 ML IV SCH ×2 (15:09→20:33)
[2016-12-12] VITALS (10 sets, daily range): BP systolic 146–177; BP diastolic 78–109; PULSE 54–78; RESP 10–22; TEMP 97.7–99.1; O2SAT 93–99
[2016-12-12] MEDS: CHLORHEXIDINE GLUCONATE 2 % 1 PACK (2 CLOTHS) TOP SCH (03:33)
[2016-12-12 04:27] LABS: APTT (PATIENT) 51.7 SEC (24.3-30.1)
[2016-12-12] MEDS: CYCLOBENZAPRINE HCL 10 MG TAB PO PRN (05:54)
[2016-12-12] MEDS: PHENYLEPHRINE INJ 80 MG in DEXTROSE 5% IN WATE 500 ML INJ 492 ML IV SCH ×6 (05:55→18:47)
[2016-12-12] MEDS: HEPARIN-D5W INJ 250 ML IV SCH (07:09)
[2016-12-12] MEDS: GABAPENTIN 300 MG CAP PO SCH ×3 (08:36→16:53)
[2016-12-12] MEDS: PANTOPRAZOLE SOD 40 MG DELAYED RELEASE TAB PO SCH (08:36)
[2016-12-12] MEDS: DOCUSATE SODIUM 50 MG/SENNA 8.6 MG TAB PO SCH ×3 (08:36→20:48)
[2016-12-12] MEDS: ASPIRIN EC 325 MG TABEC PO SCH (08:36)
[2016-12-12] MEDS: SODIUM CHLOR 0.9% 1000 ML INJ 1,000 ML IV SCH ×2 (08:39→20:29)
[2016-12-12] MEDS ORDERED: TERBUTALINE INJ 1 MG/ML AMP SQ PRN (09:45)
--- NOTE | 2016-12-12 09:47 | HHI.CCPN ---
Subjective Remarks/Hospital Course 46 y/o man presents with several day history of stuttering and difficulty finding words. Past admission to [place] in August 2016 for vertigo. MRI brain is normal. MRI spine with C5-6 bulging disc and canal narrowing. Recently started on atypical antipsychotic for outbursts and anger. 12/09: BP nicely elevated for improved cerebral collateral circulation. Neuro workup in progress. 12/10: BP support good - his speech improves with higher SBP. Resistant to heparin, will bolus now. 12/11: Speech still better today. There appears to be an emotional component - if he gets anxious his speech deteriorates. Subjective 12/12: Currently on Handy-Synephrine 300 mics grams per minute to maintain systolic blood pressure greater than 160. Very anxious. Tolerating diet. One bowel movement. Objective Vital Signs Date Time Temp Pulse Resp B/P Pulse Ox O2 Delivery O2 Flow Rate FiO2 12/12/16 08:42 99 21 12/12/16 08:00 78 12/12/16 04:00 98.8 10 157/99 Intake and Output 12/11/16 12/11/16 12/11/16 07:59 15:59 23:59 Intake Total 2005 ml 2788 ml 2084 ml Output Total 1070 ml 1850 ml 1620 ml Balance 935 ml 938 ml 464 ml Result Diagram: 12/11/16 0341 12/11/16 0341 Imaging Last Impressions Brain MRI 12/09/16 0000 Signed Impressions: Service Date/Time: Friday, December 09, 2016 20:19 - CONCLUSION: 1. No acute intracranial abnormality. 2. Chronic paranasal sinus disease. Ra Rajan Jr., MD Head Magnetic Resonance Angiography 12/08/16 0000 Signed Impressions: Service Date/Time: December 09:34 - CONCLUSION: 1. Diffusely attenuated basilar artery and visualized portion of the right vertebral artery. A patent left vertebral artery is not seen. 2. 3. Anatomic variants: 4. Prominent posterior communicating arteries bilaterally. Prominent A1 segment right SARAH right. Absent A1 segment left SARAH. Harjeet Greene MD Head CTA 12/08/16 0000 Signed Impressions: Service Date/Time: December 15:56 - CONCLUSION: 1. 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 There is progressive atresia/narrowing of the basilar when compared to the prior exam, however. 2. The left posterior commuting artery is supplied solely from the anterior circulation via the left posterior to indicating artery. 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 3. 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 Anterior circulation is otherwise patent without aneurysmal disease. Aashish Calderón MD Carotid Artery Ultrasound 12/08/16 0000 Signed Impressions: Service Date/Time: December 09:51 - CONCLUSION: 1. Normal appearance of the internal carotid arteries any significant atherosclerotic disease or stenosis. 2. The left vertebral artery is not visualized. However, it had a normal appearance on the 08/21/2016 carotid CTA examination. Ankit Gutiérrez MD Head CT 12/07/16 0000 Signed Impressions: Service Date/Time: Wednesday, December 07, 2016 12:58 - CONCLUSION: Moderate severity sinus disease, most prominent at the right sphenoid sinus. No acute intracranial findings. Harjeet Greene MD Cervical Spine MRI 12/07/16 0000 Signed Impressions: Service Date/Time: Wednesday, December 07, 2016 17:34 - CONCLUSION: Multilevel degenerative findings of the cervical spine. Broad-based disc bulge at C5-6 results in moderate severity central canal narrowing. Harjeet Greene MD Objective Remarks GENERAL: 46 year old male, critically ill currently resting in bed in no acute distress SKIN: Warm and dry. Multiple tattoos right upper extremity, left upper extremity HEAD: Atraumatic. Normocephalic. EYES: Pupils equal and round about 3 mm bilaterally and reactive. No scleral icterus. No injection or drainage. ENT: No nasal bleeding or discharge. Mucous membranes pink and moist. NECK: Trachea midline. No JVD. CARDIOVASCULAR: Regular rate and rhythm. S1, S2. No S4. Without murmur RESPIRATORY: Clear to auscultation. Breath sounds equal bilaterally. GASTROINTESTINAL: Abdomen soft, non-tender, nondistended. Hepatic and splenic margins not palpable. MUSCULOSKELETAL: Extremities without difficulty and peripheral edema. No obvious deformities. NEUROLOGICAL: Awake and alert. No obvious cranial nerve deficits. Motor grossly within normal limits. Five out of 5 muscle strength in the arms and legs. Decreased sensation right lower extremity. Normal speech currently. A/P Assessment and Plan Neuro/Psych: VBI Posterior circulation insufficiency Anxiety disorder NOS Peripheral neuropathy MRA brain revealed very small basilar artery, small left vertebral artery. Absent L A1 SARAH and MRI brain 12/09 revealed no acute intracranial findings Followed by Dr. Rankin - neurology Neurosurgery Dr. Zacarias has seen. No intervention Holding Seroquel 50 mill grams as needed Continue Neurontin 600 3 times a day for neuropathy Currently on Handy-Synephrine see below Acetaminophen/[place] as needed for pain Continue with aspirin 325 mill grams daily EEG 12/10 no seizure 2-D CV: Elevated LDL Elevated triglycerides Currently on Handy-Synephrine at 300 mu./m to keep systolic blood pressure greater than 160. Currently normal saline at 100 cc an hour Start Lipitor 10 mg daily Echocardiogram 12/06 revealed EF 55-60%. Mild TR. Resp: Nasal cannula to maintain saturations greater than equal to 82% Incentive spirometry while awake GI: Heart healthy diet Protonix for GI prophylaxis Libby-Colace for bowel regimen : Mulligan catheter if indicated Endo: Hyperglycemia of critical illness Sliding-scale insulin if indicated to maintain euglycemia Renal: Monitor urine output Accurate I's and O's Heme: Leukocytosis Follow CBC daily. Monitor trends Likely transition to Coumadin once more hemodynamically stable ID: Monitor for infection FEN: Replace electrolytes as clinically indicated MSK: Physical therapy evaluate and treat Access - Will need central access. PICC versus CVL Prophylaxis - GI - Protonix - DVT - heparin drip Critical Care: The total critical care time was 35 minutes. Time to perform other separately billable procedures was not included in the critical care time. Ezra Medellin MD Dec 12, 2016 09:47 3. Posterior brain circulation insufficiency, symptomatic. 4. Recent addition seroquel for temper control. Plan: 1. Bed rest, HOB up 30 OK. 2. Increase systolic blood pressure to > 160 with neosynephrine. 3. Protonix. 4. SCDs. 5. Full anticoagulation with heparin infusion. 6. Hold seroquel. 7. Heparin bolus again. Overall impression: He has symptomatic basilar artery distribution insufficiency. Considerable brain territory is affected. We are trying improve perfusion and maintain patency. Continue heparin gtt, adjust upward and bolus X 1. Continued unstable neurologic condition. Convert to chronic oral anticoagulation soon. Ezra Medellin MD Dec 12, 2016 09:47
[2016-12-12] MEDS ORDERED: SODIUM CHLORIDE 0.9% FLUSH 10 ML FLUSH IV FLUSH PRN (11:15)
[2016-12-12] MEDS: NOREPINEPHRINE INJ 4 MG in SODIUM CHLOR 0.9% 250 ML INJ 246 ML IV SCH (11:34)
--- NOTE | 2016-12-12 12:17 | RADRPT ---
EXAM DATE/TIME: 12/12/2016 10:49 [facility] COMPARISON: CHEST SINGLE AP, September 02, 2016, 11:39. INDICATIONS : Picc placement verification. MEDICAL HISTORY : neuropathy SURGICAL HISTORY : None. ENCOUNTER: Initial ACUITY: 4 - 6 days PAIN SCORE: 0/10 LOCATION: Bilateral chest FINDINGS: Interval placement of left-sided PICC line with tip near the atriocaval junction. No significant foca l pleural or parenchymal opacities. Cardiomediastinal contours are within normal limits. Remainder of the exam is unchanged. CONCLUSION: 1. Left PICC line tip in good position near the atriocaval junction. Stuart Vieyra MD on December 12, 2016 at 12:14 Board Certified Radiologist. This report was verified electronically.
[2016-12-12] MEDS: ATORVASTATIN 10 MG TAB PO SCH (20:30)
[2016-12-13] VITALS (9 sets, daily range): BP systolic 134–181; BP diastolic 87–110; PULSE 70–134; RESP 12–24; TEMP 98.1–98.6; O2SAT 94–99
[2016-12-13] MEDS: PHENYLEPHRINE INJ 80 MG in DEXTROSE 5% IN WATE 500 ML INJ 492 ML IV SCH ×4 (00:36→07:09)
[2016-12-13] MEDS: NOREPINEPHRINE INJ 4 MG in SODIUM CHLOR 0.9% 250 ML INJ 246 ML IV SCH ×4 (00:41→23:25)
[2016-12-13] MEDS: HEPARIN-D5W INJ 250 ML IV SCH ×2 (00:43→19:54)
[2016-12-13] MEDS: CHLORHEXIDINE GLUCONATE 2 % 1 PACK (2 CLOTHS) TOP SCH (03:18)
[2016-12-13 03:24] LABS: MEAN CORPUSCULAR HEMOGLOBIN 31.6 PG (27.0-34.0); MEAN CORPUSCULAR HGB CONC 32.2 % (32.0-36.0); PLATELET COUNT 302 TH/MM3 (150-450); RED BLOOD COUNT 4.19 MIL/MM3 (4.50-5.90); RED CELL DISTRIBUTION WIDTH 14.7 % (11.6-17.2); REVIEW FLAG FINAL; WHITE BLOOD COUNT 13.5 TH/MM3 (4.0-11.0)
[2016-12-13 03:31] LABS: APTT (PATIENT) 45.2 SEC (24.3-30.1)
[2016-12-13 04:02] LABS: BICARBONATE 23.7 MEQ/L (21.0-32.0)
[2016-12-13 04:13] LABS: POTASSIUM 2.7 MEQ/L (3.5-5.1)
[2016-12-13] MEDS ORDERED: MAGNESIUM OXIDE 400 MG TAB PO PRN (04:30)
[2016-12-13] MEDS ORDERED: MAGNESIUM SULFATE INJ 2 GM in SODIUM CHLORIDE 0.9% INJ 96 ML IV PRN (04:30)
[2016-12-13] MEDS ORDERED: POTASSIUM PHOSPHATE MONOBASIC 500 MG TAB PO/TUBE PRN (04:30)
[2016-12-13] MEDS ORDERED: DEXTROSE 50% IN WATER 50 ML VIAL(D50) IV PUSH PRN (04:30)
[2016-12-13] MEDS ORDERED: MISC INFORMATION OTHER ONE (04:30)
[2016-12-13] MEDS ORDERED: MAGNESIUM SULFATE INJ 4 GM in SODIUM CHLORIDE 0.9% INJ 92 ML IV PRN (04:30)
[2016-12-13] MEDS ORDERED: POTASSIUM PHOSPHATE INJ 30 MMOL in SODIUM CHLOR 0.9% 250 ML INJ 250 ML IV PRN (04:30)
[2016-12-13] MEDS ORDERED: INSULIN REGULAR (IV INFUSION) 100 UNITS in SODIUM CHLORIDE 0.9% INJ 99 ML IV SCH (04:30)
[2016-12-13] MEDS ORDERED: POTASSIUM CHLOR 20 MEQ PREMIX 100 ML IV PRN ×2 (04:30)
[2016-12-13] MEDS ORDERED: POTASSIUM PHOSPHATE MONOBASIC 500 MG TAB PO PRN (04:30)
[2016-12-13] MEDS ORDERED: POTASSIUM CHLORIDE 25 MEQ EFFERVESCENT TAB PO PRN (04:30)
[2016-12-13] MEDS ORDERED: SODIUM PHOSPHATE INJ 30 MMOL in SODIUM CHLOR 0.9% 250 ML INJ 240 ML IV PRN (04:30)
[2016-12-13 05:05] LABS: CALCIUM-PROTEIN CORRECTED 7.4 MG/DL (8.5-10.1)
[2016-12-13] MEDS: SODIUM CHLOR 0.9% 1000 ML INJ 1,000 ML IV SCH ×2 (05:34→07:47)
[2016-12-13 06:31] LABS: BICARBONATE 26.2 MEQ/L (21.0-32.0)
[2016-12-13 06:34] LABS: POTASSIUM 4.2 MEQ/L (3.5-5.1)
[2016-12-13] MEDS: DOCUSATE SODIUM 50 MG/SENNA 8.6 MG TAB PO SCH ×2 (07:49→19:53)
[2016-12-13] MEDS: PANTOPRAZOLE SOD 40 MG DELAYED RELEASE TAB PO SCH (08:00)
[2016-12-13] MEDS: GABAPENTIN 300 MG CAP PO SCH ×3 (08:00→16:23)
[2016-12-13] MEDS: ASPIRIN EC 325 MG TABEC PO SCH (08:00)
[2016-12-13] MEDS ORDERED: SODIUM CHLORIDE 0.9% FLUSH 10 ML FLUSH IV FLUSH SCH (09:00)
[2016-12-13] MEDS: CYCLOBENZAPRINE HCL 10 MG TAB PO PRN (11:14)
[2016-12-13] MEDS: PHENYLEPHRINE INJ 80 MG in SODIUM CHLORID 0.9% 500 ML INJ 492 ML IV SCH (11:46)
--- NOTE | 2016-12-13 13:21 | HHI.CCPN ---
Subjective Remarks/Hospital Course 46 y/o man presents with several day history of stuttering and difficulty finding words. Past admission to [place] in August 2016 for vertigo. MRI brain is normal. MRI spine with C5-6 bulging disc and canal narrowing. Recently started on atypical antipsychotic for outbursts and anger. 12/09: BP nicely elevated for improved cerebral collateral circulation. Neuro workup in progress. 12/10: BP support good - his speech improves with higher SBP. Resistant to heparin, will bolus now. 12/11: Speech still better today. There appears to be an emotional component - if he gets anxious his speech deteriorates. 12/12: Currently on Handy-Synephrine 300 mics grams per minute to maintain systolic blood pressure greater than 160. Very anxious. Tolerating diet. One bowel movement. Subjective 12/13: Continues on Handy-Synephrine norepinephrine to maintain systolic greater than 160. Becomes symptomatic when less than this. Tolerating diet. Objective Vital Signs Date Time Temp Pulse Resp B/P Pulse Ox O2 Delivery O2 Flow Rate FiO2 12/13/16 12:00 98.1 80 16 181/88 97 12/12/16 20:04 21 Intake and Output 12/12/16 12/12/16 12/13/16 08:00 16:00 00:00 Intake Total 2015 ml 1865 ml 2166 ml Output Total 1350 ml 1675 ml 2525 ml Balance 665 ml 190 ml -359 ml Result Diagram: 12/13/16 0300 12/13/16 0529 Imaging Last Impressions Brain MRI 12/09/16 0000 Signed Impressions: Service Date/Time: Friday, December 09, 2016 20:19 - CONCLUSION: 1. No acute intracranial abnormality. 2. Chronic paranasal sinus disease. Ra Rajan Jr., MD Head Magnetic Resonance Angiography 12/08/16 0000 Signed Impressions: Service Date/Time: December 09:34 - CONCLUSION: 1. Diffusely attenuated basilar artery and visualized portion of the right vertebral artery. A patent left vertebral artery is not seen. 2. 3. Anatomic variants: 4. Prominent posterior communicating arteries bilaterally. Prominent A1 segment right SARAH right. Absent A1 segment left SARAH. Harjeet Greene MD Head CTA 12/08/16 0000 Signed Impressions: Service Date/Time: December 15:56 - CONCLUSION: 1. 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 There is progressive atresia/narrowing of the basilar when compared to the prior exam, however. 2. The left posterior commuting artery is supplied solely from the anterior circulation via the left posterior to indicating artery. 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 3. 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 Anterior circulation is otherwise patent without aneurysmal disease. Aashish Calderón MD Carotid Artery Ultrasound 12/08/16 0000 Signed Impressions: Service Date/Time: December 09:51 - CONCLUSION: 1. Normal appearance of the internal carotid arteries any significant atherosclerotic disease or stenosis. 2. The left vertebral artery is not visualized. However, it had a normal appearance on the 08/21/2016 carotid CTA examination. Ankit Gutiérrez MD Head CT 12/07/16 0000 Signed Impressions: Service Date/Time: Wednesday, December 07, 2016 12:58 - CONCLUSION: Moderate severity sinus disease, most prominent at the right sphenoid sinus. No acute intracranial findings. Harjeet Greene MD Cervical Spine MRI 12/07/16 0000 Signed Impressions: Service Date/Time: Wednesday, December 07, 2016 17:34 - CONCLUSION: Multilevel degenerative findings of the cervical spine. Broad-based disc bulge at C5-6 results in moderate severity central canal narrowing. Harjeet Greene MD Objective Remarks GENERAL: 46 year old male, critically ill currently resting in bed in no acute distress SKIN: Warm and dry. Multiple tattoos right upper extremity, left upper extremity HEAD: Atraumatic. Normocephalic. EYES: Pupils equal and round about 3 mm bilaterally and reactive. No scleral icterus. No injection or drainage. ENT: No nasal bleeding or discharge. Mucous membranes pink and moist. NECK: Trachea midline. No JVD. CARDIOVASCULAR: Regular rate and rhythm. S1, S2. No S4. Without murmur RESPIRATORY: Clear to auscultation. Breath sounds equal bilaterally. GASTROINTESTINAL: Abdomen soft, non-tender, nondistended. Hepatic and splenic margins not palpable. MUSCULOSKELETAL: Extremities without difficulty and peripheral edema. No obvious deformities. NEUROLOGICAL: Awake and alert. No obvious cranial nerve deficits. Motor grossly within normal limits. Five out of 5 muscle strength in the arms and legs. Decreased sensation right lower extremity. Normal speech currently. 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 Absent L A1 SARAH and MRI brain 12/09 revealed no acute intracranial findings Followed by Dr. Rankin - neurology Neurosurgery Dr. Zacarias has seen. No intervention Holding Seroquel 50 mill grams as needed Continue Neurontin 600 3 times a day for neuropathy Currently on Handy-Synephrine see below Acetaminophen/[place] as needed for pain Continue with aspirin 325 mill grams daily EEG 12/10 no seizure CV: Elevated LDL Elevated triglycerides Currently on Handy-Synephrine at 180 mu./m and levothyroid at 4 mics grams per minute to keep systolic blood pressure greater than 160. Currently normal saline at 100 cc an hour Start Lipitor 10 mg daily Echocardiogram 12/06 revealed EF 55-60%. Mild TR. Resp: Nasal cannula to maintain saturations greater than equal to 82% Incentive spirometry while awake GI: Heart healthy diet Protonix for GI prophylaxis Libby-Colace for bowel regimen : Mulligan catheter if indicated Endo: Hyperglycemia of critical illness Sliding-scale insulin if indicated to maintain euglycemia Renal: Monitor urine output Accurate I's and O's Heme: Leukocytosis Follow CBC daily. Monitor trends Likely transition to Coumadin once more hemodynamically stable ID: Monitor for infection FEN: Replace electrolytes as clinically indicated MSK: Physical therapy evaluate and treat Access -Left antecubital PICC placed 12/12 Prophylaxis - GI - Protonix - DVT - heparin drip Critical Care: The total care time was 35 minutes. Time to perform other separately billable procedures was not included in the critical care time. Level III Ezra Medellin MD Dec 13, 2016 13:21
[2016-12-13] MEDS: MIDODRINE 5 MG TAB PO SCH (16:23)
[2016-12-13] MEDS: ATORVASTATIN 10 MG TAB PO SCH (19:52)
[2016-12-14] VITALS (9 sets, daily range): BP systolic 155–183; BP diastolic 90–109; PULSE 67–122; RESP 10–25; TEMP 98.2–99; O2SAT 96–99
[2016-12-14] MEDS: SODIUM CHLOR 0.9% 1000 ML INJ 1,000 ML IV SCH (00:13)
[2016-12-14] MEDS: CHLORHEXIDINE GLUCONATE 2 % 1 PACK (2 CLOTHS) TOP SCH ×2 (03:02→23:28)
[2016-12-14 03:45] LABS: HEMATOCRIT 39.2 % (39.0-51.0); MEAN CELL VOLUME 94.6 FL (80.0-100.0); MEAN CORPUSCULAR HEMOGLOBIN 30.7 PG (27.0-34.0); MEAN CORPUSCULAR HGB CONC 32.5 % (32.0-36.0); PLATELET COUNT 272 TH/MM3 (150-450); RED BLOOD COUNT 4.14 MIL/MM3 (4.50-5.90); RED CELL DISTRIBUTION WIDTH 14.1 % (11.6-17.2); REVIEW FLAG FINAL; WHITE BLOOD COUNT 13.6 TH/MM3 (4.0-11.0)
[2016-12-14 04:00] LABS: APTT (PATIENT) 50.6 SEC (24.3-30.1)
[2016-12-14 04:19] LABS: BICARBONATE 23.6 MEQ/L (21.0-32.0)
[2016-12-14 04:25] LABS: POTASSIUM 2.6 MEQ/L (3.5-5.1)
[2016-12-14 04:38] LABS: CALCIUM-PROTEIN CORRECTED 7.7 MG/DL (8.5-10.1)
[2016-12-14] MEDS: NOREPINEPHRINE INJ 4 MG in SODIUM CHLOR 0.9% 250 ML INJ 246 ML IV SCH ×3 (05:44→18:14)
[2016-12-14] MEDS: PHENYLEPHRINE INJ 80 MG in SODIUM CHLORID 0.9% 500 ML INJ 492 ML IV SCH ×2 (05:45→13:56)
[2016-12-14 06:30] LABS: BICARBONATE 25.4 MEQ/L (21.0-32.0); POTASSIUM 3.5 MEQ/L (3.5-5.1)
[2016-12-14] MEDS: MIDODRINE 5 MG TAB PO SCH ×3 (07:15→16:21)
[2016-12-14] MEDS: GABAPENTIN 300 MG CAP PO SCH (08:05)
[2016-12-14] MEDS: PANTOPRAZOLE SOD 40 MG DELAYED RELEASE TAB PO SCH (08:06)
[2016-12-14] MEDS: DOCUSATE SODIUM 50 MG/SENNA 8.6 MG TAB PO SCH ×2 (08:06→20:04)
[2016-12-14] MEDS: ASPIRIN EC 325 MG TABEC PO SCH (08:06)
--- NOTE | 2016-12-14 09:03 | HHI.PR ---
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 Plan -Neurochecks Q1h - Heparin drip/infusion per protocol - Head of bed 30 degrees - Maintain BP > 140mm Hg - Continue Midodrin - DVT prophylaxis, SCDs' - Increase Gabapentin to 300mg Q6h Diagnosis/Plan: Subjective Subjective Comments Patient feels better Speech is more clear,mild improvement of right LE movement Complains of " hypersensitive" right UE and a burning sensation Started on Midodrin Active Medications Current Medications Medications (Trade) Dose Ordered Sig/Ligia Route Start Time Stop Time Status Last Admin (Ecotrin Ec) 325 mg DAILY PO 12/07/16 16:00 12/14/16 08:06 (Neurontin) 600 mg TID PO 12/07/16 18:00 12/14/16 08:05 Acetaminophen/ Hydrocodone Bitart 1 tab 1 tab Q6H PRN PO 12/08/16 15:15 12/09/16 19:46 (NS 1000 ml Inj) 1,000 ml @ 100 mls/hr Q10H IV 12/08/16 15:13 12/14/16 00:13 (Tylenol) 650 mg Q6H PRN PO 12/08/16 15:15 12/10/16 15:04 (Protonix) 40 mg DAILY PO 12/08/16 16:00 12/14/16 08:06 (Zofran Inj) 4 mg Q6H PRN IV 12/08/16 15:15 12/10/16 09:21 Miscellaneous Information 1 Q361D XX 12/08/16 15:15 (Chlorhexidine 2% Cloth) Taper DAILY@04 TOP 12/09/16 04:00 12/05/17 03:59 12/14/16 03:02 (Chlorhexidine 2% Cloth) 3 pack UNSCH PRN TOP 12/08/16 15:15 (Libby-Colace) 1 tab BID PO 12/08/16 21:00 12/14/16 08:06 (Milk Of Magnesia Liq) 30 ml Q12H PRN PO 12/08/16 15:15 (Senokot) 17.2 mg Q12H PRN PO 12/08/16 15:15 (Dulcolax Supp) 10 mg DAILY PRN RECTAL 12/08/16 15:15 Lactulose 30 ml 30 ml DAILY PRN PO 12/08/16 15:15 (Heparin-D5W Inj) 250 ml @ 0 mls/hr TITRATE IV 12/08/16 17:15 12/13/16 19:54 Cyclobenzaprine HCl 5 mg 5 mg Q8H PRN PO 12/10/16 16:30 12/13/16 11:14 (Levophed Inj/NS 250 ml Inj) 250 ml @ 0 mls/hr TITRATE IV 12/12/16 09:45 12/14/16 05:44 (Brethine Inj) 1 mg UNSCH PRN SQ 12/12/16 09:45 Atorvastatin Calcium 10 mg 10 mg HS PO 12/12/16 21:00 12/13/16 19:52 Potassium Chloride 100 ml @ 50 mls/hr Q2H PRN IV 12/13/16 04:30 (KCl 20 Meq Premix Inj) 100 ml @ 50 mls/hr Q2H PRN IV 12/13/16 04:30 Potassium Bicarb/ Potassium Chloride 50 meq 50 meq UNSCH PRN PO 12/13/16 04:30 Potassium Chloride 100 ml @ 25 mls/hr UNSCH PRN IV 12/13/16 04:30 Potassium Chloride 100 ml @ 50 mls/hr Q2H PRN IV 12/13/16 04:30 (Magnesium Sulfate Inj/NS Inj) 100 ml @ 50 mls/hr UNSCH PRN IV 12/13/16 04:30 Magnesium Oxide 800 mg 800 mg UNSCH PRN PO 12/13/16 04:30 (Magnesium Sulfate Inj/NS Inj) 100 ml @ 50 mls/hr UNSCH PRN IV 12/13/16 04:30 Potassium Phosphate 2000 mg 2,000 mg Q4H PRN PO 12/13/16 04:30 (Sodium Phosphate Inj/NS 250 ml Inj) 250 ml @ 42 mls/hr UNSCH PRN IV 12/13/16 04:30 Potassium Phosphate 2000 mg 2,000 mg UNSCH PRN PO/TUBE 12/13/16 04:30 (Potassium Phosphate Inj/NS 250 ml Inj) 260 ml @ 42 mls/hr UNSCH PRN IV 12/13/16 04:30 Dextrose 50 ml 50 ml UNSCH PRN IV PUSH 12/13/16 04:30 (Neosynephrine Inj/NS 500 ml Inj) 500 ml @ 0 mls/hr TITRATE IV 12/13/16 11:30 12/14/16 05:45 (Proamatine) 5 mg TID@07,12,17 PO 12/13/16 17:00 12/14/16 07:15 Allergies Allergies Coded Allergies Penicillin (Verified Allergy, Severe, rash, 12/07/16) Exam I&O / VS 12/13/16 12/13/16 12/14/16 15:00 23:00 07:00 Intake Total 2035 ml 1875 ml 1694 ml Output Total 1525 ml 1500 ml 1750 ml Balance 510 ml 375 ml -56 ml Intake Oral 460 ml 240 ml 120 ml IV Total 1575 ml 1635 ml 1574 ml Output Urine Total 1525 ml 1500 ml 1750 ml # Bowel Movements 1 0 Vital Signs Date Time Temp Pulse Resp B/P Pulse Ox O2 Delivery O2 Flow Rate FiO2 12/14/16 08:00 98.5 91 14 177/90 99 12/14/16 07:00 67 12/14/16 04:00 98.2 72 16 169/97 96 12/14/16 00:00 98.4 72 10 183/98 96 12/13/16 23:00 71 12/13/16 20:30 94 21 12/13/16 20:00 98.6 90 23 170/87 96 12/13/16 16:00 98.4 77 24 160/98 99 12/13/16 15:00 75 12/13/16 12:00 98.1 80 16 181/88 97 General: Alert and Oriented, No acute distress Eye: PERRL, Normal conjuctiva Respiratory: Lungs CTA, Non-labored respirations Cardiology: Normal rate, Intact pulses Musculoskeletal: ROM Neurologic: Alert, Oriented, Other (mild dysarthria, right sided UE ataxia, right LE weakness hip flex 3/6, foot dorsiflex 2/5, and diminished sensation) Psychiatric: Cooperative, Appropriate mood & affect, Normal judgement Objective Radiology Results Last 72 hours Impressions Chest X-Ray 12/12/16 0000 Signed Impressions: Service Date/Time: Monday, December 12, 2016 10:49 - CONCLUSION: 1. Left PICC line tip in good position near the atriocaval junction. Stuart Vieyra MD Micro and Labs Laboratory Tests Test 12/13/16 12/14/16 12/14/16 20:45 03:32 05:46 Random Cortisol 2.6 White Blood Count 13.6 Red Blood Count 4.14 Hemoglobin 12.7 Hematocrit 39.2 Mean Corpuscular Volume 94.6 Mean Corpuscular Hemoglobin 30.7 Mean Corpuscular Hemoglobin 32.5 Concent Red Cell Distribution Width 14.1 Platelet Count 272 Mean Platelet Volume 8.5 Activated Partial 50.6 Thromboplast Time Sodium Level 149 143 Potassium Level 2.6 3.5 Chloride Level 115 107 Carbon Dioxide Level 23.6 25.4 Anion Gap 10 11 Blood Urea Nitrogen 4 5 Creatinine 0.76 1.00 Estimat Glomerular Filtration 110 80 Rate Random Glucose 104 119 Calcium Level 6.6 8.8 Protein Corrected Calcium 7.7 Total Protein 5.0 Mallorie Rankin MD Dec 14, 2016 09:03
--- NOTE | 2016-12-14 09:41 | HHI.CCPN ---
Subjective Remarks/Hospital Course 46 y/o man presents with several day history of stuttering and difficulty finding words. Past admission to [place] in August 2016 for vertigo. MRI brain is normal. MRI spine with C5-6 bulging disc and canal narrowing. Recently started on atypical antipsychotic for outbursts and anger. 12/09: BP nicely elevated for improved cerebral collateral circulation. Neuro workup in progress. 12/10: BP support good - his speech improves with higher SBP. Resistant to heparin, will bolus now. 12/11: Speech still better today. There appears to be an emotional component - if he gets anxious his speech deteriorates. 12/12: Currently on Handy-Synephrine 300 mics grams per minute to maintain systolic blood pressure greater than 160. Very anxious. Tolerating diet. One bowel movement. 12/13: Continues on Handy-Synephrine norepinephrine to maintain systolic greater than 160. Becomes symptomatic when less than this. Tolerating diet. Subjective 12/14: Afebrile. Remains on norepinephrine at 8 mics grams per minute Handy- Synephrine 110 mics grams per minute to maintain systolic pressure is 150. Added midodrine 5 mill grams 3 times a day yesterday. Complaining of pain in his inguinal region likely from decreased mobility. Objective Vital Signs Date Time Temp Pulse Resp B/P Pulse Ox O2 Delivery O2 Flow Rate FiO2 12/14/16 08:00 98.5 91 14 177/90 99 12/13/16 20:30 21 Intake and Output 12/13/16 12/13/16 12/14/16 08:00 16:00 00:00 Intake Total 1945 ml 2035 ml 1875 ml Output Total 1700 ml 1525 ml 1500 ml Balance 245 ml 510 ml 375 ml Result Diagram: 12/14/16 0332 12/14/16 0546 Imaging Last Impressions Chest X-Ray 12/12/16 0000 Signed Impressions: Service Date/Time: Monday, December 12, 2016 10:49 - CONCLUSION: 1. Left PICC line tip in good position near the atriocaval junction. Stuart Vieyra MD Brain MRI 12/09/16 0000 Signed Impressions: Service Date/Time: Friday, December 09, 2016 20:19 - CONCLUSION: 1. No acute intracranial abnormality. 2. Chronic paranasal sinus disease. Ra Rajan Jr., MD Head Magnetic Resonance Angiography 12/08/16 Signed Impressions: Service Date/Time: December 09:34 - CONCLUSION: 1. Diffusely attenuated basilar artery and visualized portion of the right vertebral artery. A patent left vertebral artery is not seen. 2. 3. Anatomic variants: 4. Prominent posterior communicating arteries bilaterally. Prominent A1 segment right SARAH right. Absent A1 segment left SARAH. Harjeet Greene MD Head CTA 12/08/16 Signed Impressions: Service Date/Time: December 15:56 - CONCLUSION: 1. 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 There is progressive atresia/narrowing of the basilar when compared to the prior exam, however. 2. The left posterior commuting artery is supplied solely from the anterior circulation via the left posterior to indicating artery. 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 3. 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 Anterior circulation is otherwise patent without aneurysmal disease. Aashish Calderón MD Carotid Artery Ultrasound 12/08/16 Signed Impressions: Service Date/Time: December 09:51 - CONCLUSION: 1. Normal appearance of the internal carotid arteries any significant atherosclerotic disease or stenosis. 2. The left vertebral artery is not visualized. However, it had a normal appearance on the 08/21/2016 carotid CTA examination. Ankit Gutiérrez MD Head CT 12/07/16 Signed Impressions: Service Date/Time: Wednesday, December 07, 2016 12:58 - CONCLUSION: Moderate severity sinus disease, most prominent at the right sphenoid sinus. No acute intracranial findings. Harjeet Greene MD Cervical Spine MRI 12/07/16 0000 Signed Impressions: Service Date/Time: Wednesday, December 07, 2016 17:34 - CONCLUSION: Multilevel degenerative findings of the cervical spine. Broad-based disc bulge at C5-6 results in moderate severity central canal narrowing. Harjeet Greene MD Objective Remarks GENERAL: 46 year old male, critically ill currently resting in bed in no acute distress SKIN: Warm and dry. Multiple tattoos right upper extremity, left upper extremity HEAD: Atraumatic. Normocephalic. EYES: Pupils equal and round about 3 mm bilaterally and reactive. No scleral icterus. No injection or drainage. ENT: No nasal bleeding or discharge. Mucous membranes pink and moist. NECK: Trachea midline. No JVD. CARDIOVASCULAR: Regular rate and rhythm. S1, S2. No S4. Without murmur RESPIRATORY: Clear to auscultation. Breath sounds equal bilaterally. GASTROINTESTINAL: Abdomen soft, non-tender, nondistended. Hepatic and splenic margins not palpable. MUSCULOSKELETAL: Extremities without difficulty and peripheral edema. No obvious deformities. NEUROLOGICAL: Awake and alert. No obvious cranial nerve deficits. Motor grossly within normal limits. Strength 4-5 right lower extremity, 5 out of 5 right lower x-ray. Decreased movement right hip flexor. Decreased sensation right lower extremity. Normal speech currently. 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 Absent L A1 SARAH and MRI brain 12/09 revealed no acute intracranial findings Followed by Dr. Rankin - neurology Neurosurgery Dr. Zacarias has seen. No intervention Holding Seroquel 50 mill grams as needed Continue Neurontin 600 3 times a day for neuropathy will increase to 800 mg 3 times daily Currently on Handy-Synephrine and norepinephrine see below Acetaminophen/[place] as needed for pain Continue with aspirin 325 mill grams daily EEG 12/10 no seizure CV: Elevated LDL Elevated triglycerides Currently on Handy-Synephrine at 110 mu./m and norepinephrine at 8 mics grams per minute to keep systolic blood pressure greater than 150. Added Mdodrine 5 mg 3 times a day yesterday Continue Lipitor 10 mg daily for dyslipidemia/elevated LDL Echocardiogram 12/06 revealed EF 55-60%. Mild TR. Resp: Nasal cannula to maintain saturations greater than equal to 82% Incentive spirometry while awake GI: Heart healthy diet Protonix for GI prophylaxis Libby-Colace for bowel regimen : Mulligan catheter if indicated Endo: Hyperglycemia of critical illness Sliding-scale insulin if indicated to maintain euglycemia Renal: Monitor urine output Accurate I's and O's Heme: Leukocytosis Normocytic anemia Follow CBC daily. Monitor trends Likely transition to Coumadin once more hemodynamically stable ID: Monitor for infection FEN: Hypokalemia Replace electrolytes as clinically indicated Receive 60 mEq KCl by mouth 1 today. MSK: Physical therapy evaluate and treat Access -Left antecubital PICC placed 12/12 Prophylaxis - GI - Protonix - DVT - heparin drip Critical Care: The total care time was 35 minutes. Time to perform other separately billable procedures was not included in the critical care time. Level II Ezra Medellin MD Dec 14, 2016 09:41
[2016-12-14] MEDS: POTASSIUM CHLORIDE 10 MEQ CONTROLLED RELEASE TAB PO SCH ×2 (09:42→20:05)
[2016-12-14] MEDS: GABAPENTIN 400 MG CAP PO SCH ×2 (12:00→16:21)
[2016-12-14] MEDS: HEPARIN-D5W INJ 250 ML IV SCH (12:18)
[2016-12-14] MEDS: CYCLOBENZAPRINE HCL 10 MG TAB PO PRN (13:56)
[2016-12-14] MEDS: ATORVASTATIN 10 MG TAB PO SCH (20:04)
[2016-12-15] VITALS (10 sets, daily range): BP systolic 156–193; BP diastolic 91–110; PULSE 77–123; RESP 12–26; TEMP 97.7–98.5; O2SAT 94–97
[2016-12-15] MEDS: PHENYLEPHRINE INJ 80 MG in SODIUM CHLORID 0.9% 500 ML INJ 492 ML IV SCH ×2 (02:01→14:17)
[2016-12-15 04:09] LABS: MEAN CELL VOLUME 94.9 FL (80.0-100.0); MEAN CORPUSCULAR HEMOGLOBIN 31.4 PG (27.0-34.0); MEAN CORPUSCULAR HGB CONC 33.1 % (32.0-36.0); PLATELET COUNT 292 TH/MM3 (150-450); RED BLOOD COUNT 4.63 MIL/MM3 (4.50-5.90); RED CELL DISTRIBUTION WIDTH 14.3 % (11.6-17.2); REVIEW FLAG FINAL; WHITE BLOOD COUNT 14.5 TH/MM3 (4.0-11.0)
[2016-12-15] MEDS: NOREPINEPHRINE INJ 4 MG in SODIUM CHLOR 0.9% 250 ML INJ 246 ML IV SCH ×3 (04:14→17:44)
[2016-12-15 04:18] LABS: APTT (PATIENT) 35.7 SEC (24.3-30.1)
[2016-12-15] MEDS: HEPARIN-D5W INJ 250 ML IV SCH ×2 (04:19→21:05)
[2016-12-15 04:59] LABS: MAGNESIUM 2.1 MG/DL (1.5-2.5); POTASSIUM 3.7 MEQ/L (3.5-5.1)
[2016-12-15] MEDS: MIDODRINE 5 MG TAB PO SCH ×3 (06:53→17:01)
[2016-12-15] MEDS ORDERED: POTASSIUM CHLORIDE 10 MEQ CONTROLLED RELEASE TAB PO ONE (08:00)
--- NOTE | 2016-12-15 08:00 | HHI.CCPN ---
Subjective Remarks/Hospital Course 46 y/o man presents with several day history of stuttering and difficulty finding words. Past admission to [facility] in August 2016 for vertigo. MRI brain is normal. MRI spine with C5-6 bulging disc and canal narrowing. Recently started on atypical antipsychotic for outbursts and anger. 12/09: BP nicely elevated for improved cerebral collateral circulation. Neuro workup in progress. 12/10: BP support good - his speech improves with higher SBP. Resistant to heparin, will bolus now. 12/11: Speech still better today. There appears to be an emotional component - if he gets anxious his speech deteriorates. 12/12: Currently on Handy-Synephrine 300 mics grams per minute to maintain systolic blood pressure greater than 160. Very anxious. Tolerating diet. One bowel movement. 12/13: Continues on Handy-Synephrine norepinephrine to maintain systolic greater than 160. Becomes symptomatic when less than this. Tolerating diet. 12/14: Afebrile. Remains on norepinephrine at 8 mics grams per minute Handy- Synephrine 110 mics grams per minute to maintain systolic pressure is 150. Added midodrine 5 mill grams 3 times a day yesterday. Complaining of pain in his inguinal region likely from decreased mobility. Subjective 12/15: Afebrile. Remains on norepinephrine at 11 g per min and Handy-Synephrine 40 mu./m to maintain systolic blood pressure greater than 140. MIDODRINE increased to 10 Mg 3 times a day and Florinef 0.1 mg daily added today. Increase strength in right upper extremity. Objective Vital Signs Date Time Temp Pulse Resp B/P Pulse Ox O2 Delivery O2 Flow Rate FiO2 12/15/16 04:00 98.5 92 23 193/106 97 12/13/16 20:30 21 Intake and Output 12/14/16 12/14/16 12/15/16 08:00 16:00 00:00 Intake Total 1694 ml 1910 ml 960 ml Output Total 1750 ml 1650 ml 1575 ml Balance -56 ml 260 ml -615 ml Result Diagram: 12/15/16 0350 12/15/16 0350 Imaging Last Impressions Chest X-Ray 12/12/16 0000 Signed Impressions: Service Date/Time: Monday, December 12, 2016 10:49 - CONCLUSION: 1. Left PICC line tip in good position near the atriocaval junction. Stuart Vieyra MD Brain MRI 12/09/16 Signed Impressions: Service Date/Time: Friday, December 09, 2016 20:19 - CONCLUSION: 1. No acute intracranial abnormality. 2. Chronic paranasal sinus disease. Ra Rajan Jr., MD Head Magnetic Resonance Angiography 12/08/16 Signed Impressions: Service Date/Time: December 09:34 - CONCLUSION: 1. Diffusely attenuated basilar artery and visualized portion of the right vertebral artery. A patent left vertebral artery is not seen. 2. 3. Anatomic variants: 4. Prominent posterior communicating arteries bilaterally. Prominent A1 segment right SARAH right. Absent A1 segment left SARAH. Harjeet Greene MD Head CTA 12/08/16 Signed Impressions: Service Date/Time: December 15:56 - CONCLUSION: 1. 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 There is progressive atresia/narrowing of the basilar when compared to the prior exam, however. 2. The left posterior commuting artery is supplied solely from the anterior circulation via the left posterior to indicating artery. 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 3. 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 Anterior circulation is otherwise patent without aneurysmal disease. Aashish Calderón MD Carotid Artery Ultrasound 12/08/16 Signed Impressions: Service Date/Time: December 09:51 - CONCLUSION: 1. Normal appearance of the internal carotid arteries any significant atherosclerotic disease or stenosis. 2. The left vertebral artery is not visualized. However, it had a normal appearance on the 08/21/2016 carotid CTA examination. Ankit Gutiérrez MD Head CT 12/07/16 Signed Impressions: Service Date/Time: Wednesday, December 07, 2016 12:58 - CONCLUSION: Moderate severity sinus disease, most prominent at the right sphenoid sinus. No acute intracranial findings. Harjeet Greene MD Cervical Spine MRI 12/07/16 Signed Impressions: Service Date/Time: Wednesday, December 07, 2016 17:34 - CONCLUSION: Multilevel degenerative findings of the cervical spine. Broad-based disc bulge at C5-6 results in moderate severity central canal narrowing. Harjeet Greene MD Objective Remarks GENERAL: 46 year old male, critically ill currently resting in bed in no acute distress SKIN: Warm and dry. Multiple tattoos right upper extremity, left upper extremity HEAD: Atraumatic. Normocephalic. EYES: Pupils equal and round about 3 mm bilaterally and reactive. No scleral icterus. No injection or drainage. ENT: No nasal bleeding or discharge. Mucous membranes pink and moist. NECK: Trachea midline. No JVD. CARDIOVASCULAR: Regular rate and rhythm. S1, S2. No S4. Without murmur RESPIRATORY: Clear to auscultation. Breath sounds equal bilaterally. GASTROINTESTINAL: Abdomen soft, non-tender, nondistended. Hepatic and splenic margins not palpable. MUSCULOSKELETAL: Extremities without difficulty and peripheral edema. No obvious deformities. NEUROLOGICAL: Awake and alert. No obvious cranial nerve deficits. Motor grossly within normal limits. Strength 4-5 right upper extremity. 3-5 right lower extremity. 5 out of 5 left upper and lower extremity. Decreased sensation to light touch and pinprick right upper and lower extremity. 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 Absent L A1 SARAH and MRI brain 12/09 revealed no acute intracranial findings Followed by Dr. Rankin - neurology Neurosurgery Dr. Zacarias has seen. No intervention Holding Seroquel 50 mill grams as needed Continue Neurontin increase to 800 mg 3 times daily Currently on Handy-Synephrine and norepinephrine see below Acetaminophen/[place] as needed for pain Continue with aspirin 325 mill grams daily EEG 12/10 no seizure CV: Elevated LDL Elevated triglycerides Currently on Handy-Synephrine at 110 mu./m and norepinephrine at 8 mics grams per minute to keep systolic blood pressure greater than 150. Increased MIdodrine 10 mg 3 times a day yesterday and added Florinef 0.1 mg daily today Continue Lipitor 10 mg daily for dyslipidemia/elevated LDL Echocardiogram 12/06 revealed EF 55-60%. Mild TR. Resp: Nasal cannula to maintain saturations greater than equal to 92% Incentive spirometry while awake GI: Heart healthy diet Protonix for GI prophylaxis Libby-Colace for bowel regimen : Mulligan catheter if indicated Endo: Hyperglycemia of critical illness Sliding-scale insulin if indicated to maintain euglycemia Renal: Monitor urine output Accurate I's and O's Heme: Leukocytosis Follow CBC daily. Monitor trends Likely transition to Coumadin once more hemodynamically stable recurrently heparin drip ID: Monitor for infection FEN: Hypokalemia Replace electrolytes as clinically indicated Receive 30 mEq KCl by mouth 1 today. MSK: Physical therapy evaluate and treat Access -Left antecubital PICC placed 12/12 Prophylaxis - GI - Protonix - DVT - heparin drip Critical Care: The total care time was 35 minutes. Time to perform other separately billable procedures was not included in the critical care time. Level II Ezra Medellin MD Dec 15, 2016 07:59
[2016-12-15] MEDS ORDERED: FLUDROCORTISONE ACETATE 0.1 MG TAB PO SCH (09:00)
[2016-12-15] MEDS: GABAPENTIN 400 MG CAP PO SCH ×3 (09:29→17:01)
[2016-12-15] MEDS: DOCUSATE SODIUM 50 MG/SENNA 8.6 MG TAB PO SCH ×2 (09:29→20:22)
[2016-12-15] MEDS: ASPIRIN EC 325 MG TABEC PO SCH (09:29)
[2016-12-15] MEDS: PANTOPRAZOLE SOD 40 MG DELAYED RELEASE TAB PO SCH (09:29)
[2016-12-15 10:58] LABS: APTT (PATIENT) 37.8 SEC (24.3-30.1)
[2016-12-15] MEDS: ATORVASTATIN 10 MG TAB PO SCH (20:22)
[2016-12-15] MEDS: CYCLOBENZAPRINE HCL 10 MG TAB PO PRN (20:23)
[2016-12-16] VITALS (14 sets, daily range): BP systolic 138–182; BP diastolic 87–117; PULSE 66–117; RESP 13–22; TEMP 98.1–98.5; O2SAT 94–98
[2016-12-16] MEDS: NOREPINEPHRINE INJ 4 MG in SODIUM CHLOR 0.9% 250 ML INJ 246 ML IV SCH ×4 (01:37→19:45)
[2016-12-16] MEDS: PHENYLEPHRINE INJ 80 MG in SODIUM CHLORID 0.9% 500 ML INJ 492 ML IV SCH ×3 (01:37→19:45)
[2016-12-16] MEDS: CHLORHEXIDINE GLUCONATE 2 % 1 PACK (2 CLOTHS) TOP SCH (03:47)
--- NOTE | 2016-12-16 05:37 | HHI.CCPN ---
Subjective Remarks/Hospital Course 46 y/o man presents with several day history of stuttering and difficulty finding words. Past admission to [facility] in August 2016 for vertigo. MRI brain is normal. MRI spine with C5-6 bulging disc and canal narrowing. Recently started on atypical antipsychotic for outbursts and anger. 12/09: BP nicely elevated for improved cerebral collateral circulation. Neuro workup in progress. 12/10: BP support good - his speech improves with higher SBP. Resistant to heparin, will bolus now. 12/11: Speech still better today. There appears to be an emotional component - if he gets anxious his speech deteriorates. 12/12: Currently on Handy-Synephrine 300 mics grams per minute to maintain systolic blood pressure greater than 160. Very anxious. Tolerating diet. One bowel movement. 12/13: Continues on Handy-Synephrine norepinephrine to maintain systolic greater than 160. Becomes symptomatic when less than this. Tolerating diet. 12/14: Afebrile. Remains on norepinephrine at 8 mics grams per minute Handy- Synephrine 110 mics grams per minute to maintain systolic pressure is 150. Added midodrine 5 mill grams 3 times a day yesterday. Complaining of pain in his inguinal region likely from decreased mobility. 12/15: Afebrile. Remains on norepinephrine at 11 g per min and Handy-Synephrine 40 mu./m to maintain systolic blood pressure greater than 140. MIDODRINE increased to 10 Mg 3 times a day and Florinef 0.1 mg daily added today. Increase strength in right upper extremity. Subjective 12/16: Afebrile. Appears comfortable at bedside. Strength in right hand has improved. Remains on norepinephrine 12 g per minute Handy-Synephrine at 110 mg/ m to maintain systolic prescription greater than 140. One bowel movement yesterday Objective Vital Signs Date Time Temp Pulse Resp B/P Pulse Ox O2 Delivery O2 Flow Rate FiO2 12/16/16 04:00 110 12/16/16 04:00 98.2 15 165/100 96 12/13/16 20:30 21 Intake and Output 12/15/16 12/15/16 12/16/16 08:00 16:00 00:00 Intake Total 683 ml 1993 ml 1349 ml Output Total 1275 ml 1600 ml 1900 ml Balance -592 ml 393 ml -551 ml Result Diagram: 12/15/16 0350 12/15/16 0350 Imaging Last Impressions Chest X-Ray 12/12/16 0000 Signed Impressions: Service Date/Time: Monday, December 12, 2016 10:49 - CONCLUSION: 1. Left PICC line tip in good position near the atriocaval junction. Stuart Vieyra MD Brain MRI 12/09/16 0000 Signed Impressions: Service Date/Time: Friday, December 09, 2016 20:19 - CONCLUSION: 1. No acute intracranial abnormality. 2. Chronic paranasal sinus disease. Ra Rajan Jr., MD Head Magnetic Resonance Angiography 12/08/16 0000 Signed Impressions: Service Date/Time: December 09:34 - CONCLUSION: 1. Diffusely attenuated basilar artery and visualized portion of the right vertebral artery. A patent left vertebral artery is not seen. 2. 3. Anatomic variants: 4. Prominent posterior communicating arteries bilaterally. Prominent A1 segment right SARAH right. Absent A1 segment left SARAH. Harjeet Greene MD Head CTA 12/08/16 Signed Impressions: Service Date/Time: December 15:56 - CONCLUSION: 1. 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 There is progressive atresia/narrowing of the basilar when compared to the prior exam, however. 2. The left posterior commuting artery is supplied solely from the anterior circulation via the left posterior to indicating artery. 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 3. 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 Anterior circulation is otherwise patent without aneurysmal disease. Aashish Calderón MD Carotid Artery Ultrasound 12/08/16 0000 Signed Impressions: Service Date/Time: December 09:51 - CONCLUSION: 1. Normal appearance of the internal carotid arteries any significant atherosclerotic disease or stenosis. 2. The left vertebral artery is not visualized. However, it had a normal appearance on the 08/21/2016 carotid CTA examination. Ankit Gutiérrez MD Head CT 12/07/16 0000 Signed Impressions: Service Date/Time: Wednesday, December 07, 2016 12:58 - CONCLUSION: Moderate severity sinus disease, most prominent at the right sphenoid sinus. No acute intracranial findings. Harjeet Greene MD Cervical Spine MRI 12/07/16 0000 Signed Impressions: Service Date/Time: Wednesday, December 07, 2016 17:34 - CONCLUSION: Multilevel degenerative findings of the cervical spine. Broad-based disc bulge at C5-6 results in moderate severity central canal narrowing. Harjeet Greene MD Objective Remarks GENERAL: 46 year old male, critically ill currently resting in bed in no acute distress SKIN: Warm and dry. Multiple tattoos right upper extremity, left upper extremity HEAD: Atraumatic. Normocephalic. EYES: Pupils equal and round about 3 mm bilaterally and reactive. No scleral icterus. No injection or drainage. ENT: No nasal bleeding or discharge. Mucous membranes pink and moist. NECK: Trachea midline. No JVD. CARDIOVASCULAR: Sinus Tachycardia, RR. S1, S2. No S4. Without murmur RESPIRATORY: Clear to auscultation. Breath sounds equal bilaterally. GASTROINTESTINAL: Abdomen soft, non-tender, nondistended. Hepatic and splenic margins not palpable. MUSCULOSKELETAL: Extremities without difficulty and peripheral edema. No obvious deformities. NEUROLOGICAL: Awake and alert. No obvious cranial nerve deficits. Motor grossly within normal limits. Strength 4-5 right upper extremity. 3.5 -5 right lower extremity. 5 out of 5 left upper and lower extremity. Decreased sensation to light touch and pinprick right upper and lower extremity. 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 Absent L A1 SARAH and MRI brain 12/09 revealed no acute intracranial findings Followed by Dr. Rankin - neurology Neurosurgery Dr. Zacarias has seen. No intervention Holding Seroquel 50 mill grams as needed Continue Neurontin increase to 800 mg 3 times daily Currently on Handy-Synephrine and norepinephrine see below Acetaminophen/[place] as needed for pain Continue with aspirin 325 mill grams daily EEG 12/10 no seizure CV: Elevated LDL Elevated triglycerides Currently on Handy-Synephrine at 110 mu./m and norepinephrine at 12 mics grams per minute to keep systolic blood pressure greater than 140. Increased MIdodrine 10 mg 3 times a day yesterday and added Florinef 0.1 mg daily today Continue Lipitor 10 mg daily for dyslipidemia/elevated LDL Echocardiogram 12/06 revealed EF 55-60%. Mild TR. Resp: Nasal cannula to maintain saturations greater than equal to 92% Incentive spirometry while awake GI: Heart healthy diet Protonix for GI prophylaxis Libby-Colace for bowel regimen : Mulligan catheter if indicated Endo: Hyperglycemia of critical illness Sliding-scale insulin if indicated to maintain euglycemia Renal: Monitor urine output Accurate I's and O's Heme: Leukocytosis Follow CBC daily. Monitor trends Likely transition to Coumadin once more hemodynamically stable recurrently heparin drip ID: Monitor for infection FEN: Hypokalemia - resolving Replace electrolytes as clinically indicated A.m. BMP pending MSK: Physical therapy evaluate and treat Access -Left antecubital PICC placed 12/12 Prophylaxis - GI - Protonix - DVT - heparin drip Critical Care: The total care time was 35 minutes. Time to perform other separately billable procedures was not included in the critical care time. Level II Ezra Medellin MD Dec 16, 2016 05:37
[2016-12-16] MEDS: MIDODRINE 5 MG TAB PO SCH ×3 (05:43→17:50)
[2016-12-16 05:52] LABS: AUTOMATED NEUTROPHIL # 7.1 TH/MM3 (1.8-7.7); BASOPHIL # 0.2 TH/MM3 (0-0.2); BASOPHIL % 1.1 % (0.0-2.0); EOSINOPHIL # 0.6 TH/MM3 (0-0.4); HEMO FLAGS DIFF FINAL; LYMPH % 33.9 % (9.0-44.0); LYMPHOCYTE # 4.8 TH/MM3 (1.0-4.8); MEAN CELL VOLUME 95.7 FL (80.0-100.0); MEAN CORPUSCULAR HGB CONC 32.4 % (32.0-36.0); PLATELET COUNT 258 TH/MM3 (150-450); RED BLOOD COUNT 4.39 MIL/MM3 (4.50-5.90); RED CELL DISTRIBUTION WIDTH 14.3 % (11.6-17.2); WHITE BLOOD COUNT 14.1 TH/MM3 (4.0-11.0)
[2016-12-16 06:00] LABS: APTT (PATIENT) 53.1 SEC (24.3-30.1)
[2016-12-16 06:19] LABS: POTASSIUM 3.3 MEQ/L (3.5-5.1)
[2016-12-16] MEDS: ASPIRIN EC 325 MG TABEC PO SCH (08:57)
[2016-12-16] MEDS: PANTOPRAZOLE SOD 40 MG DELAYED RELEASE TAB PO SCH (08:58)
[2016-12-16] MEDS: FLUDROCORTISONE ACETATE 0.1 MG TAB PO SCH ×2 (08:58→19:44)
[2016-12-16] MEDS: GABAPENTIN 400 MG CAP PO SCH ×3 (08:58→17:50)
[2016-12-16] MEDS: DOCUSATE SODIUM 50 MG/SENNA 8.6 MG TAB PO SCH ×2 (08:58→19:44)
[2016-12-16] MEDS: POTASSIUM CHLOR 40 MEQ PREMIX 100 ML IV PRN (08:59)
[2016-12-16] MEDS ORDERED: HYDROCORTISONE 10 MG TAB PO SCH (09:00)
[2016-12-16] MEDS ORDERED: COSYNTROPIN 0.25 MG VIAL IV PUSH ONE (10:00)
--- NOTE | 2016-12-16 10:16 | RADRPT ---
EXAM DATE/TIME: 12/16/2016 10:00 [facility] COMPARISON: CT BRAIN W/O CONTRAST, December 07, 2016, 12:58. INDICATIONS : Blurry vision, stroke like symptoms. RADIATION DOSE: 56.38 CTDIvol (mGy) MEDICAL HISTORY : Neuropathy SURGICAL HISTORY : Tonsillectomy. ENCOUNTER: Subsequent ACUITY: 1 day PAIN SCALE: 1/10 LOCATION: cranial TECHNIQUE: Multiple contiguous axial images were obtained of the head. Using automated exposure control and adjustment of the mA and/or kV according to patient size, radiation dose was kept as low as reasonably achievable to obtain optimal diagnostic quality images. FINDINGS: CEREBRUM: The ventricles are normal for age. No evidence of midline shift, mass lesion, hemorrha ge or acute infarction. No extra-axial fluid collections are seen. POSTERIOR FOSSA: The cerebellum and brainstem are intact. The 4th ventricle is midline. The cer ebellopontine angle is unremarkable. EXTRACRANIAL: The visualized portion of the orbits is intact. SKULL: Mild apical posterior thickening and small amount of fluid in the right maxillary and sphe noid sinuses. Remaining paranasal sinuses and mastoid air cells are clear. The calvaria is intact. N o evidence of skull fracture. CONCLUSION: 1. No intracranial abnormality 2. Right paranasal sinusitis. Stuart Vieyra MD on December 16, 2016 at 10:11 Board Certified Radiologist. This report was verified electronically.
[2016-12-16] MEDS: HEPARIN-D5W INJ 250 ML IV SCH ×2 (10:21→19:43)
[2016-12-16] MEDS: POTASSIUM CHLORIDE 10 MEQ CONTROLLED RELEASE TAB PO SCH ×2 (10:29→19:44)
[2016-12-16] MEDS: HYDROCORTISONE SOD SUCCINATE 100 MG VIAL IV PUSH SCH ×2 (15:24→21:18)
[2016-12-16] MEDS: ATORVASTATIN 10 MG TAB PO SCH (19:44)
[2016-12-16] MEDS: CYCLOBENZAPRINE HCL 10 MG TAB PO PRN (21:46)
[2016-12-17] VITALS (13 sets, daily range): BP systolic 151–189; BP diastolic 77–117; PULSE 13–110; RESP 10–16; TEMP 98.1–98.6; O2SAT 95–97
[2016-12-17] MEDS: CHLORHEXIDINE GLUCONATE 2 % 1 PACK (2 CLOTHS) TOP SCH (04:00)
[2016-12-17 04:04] LABS: HEMATOCRIT 41.7 % (39.0-51.0); MEAN CELL VOLUME 96.4 FL (80.0-100.0); MEAN CORPUSCULAR HGB CONC 32.2 % (32.0-36.0); PLATELET COUNT 254 TH/MM3 (150-450); RED BLOOD COUNT 4.32 MIL/MM3 (4.50-5.90); RED CELL DISTRIBUTION WIDTH 14.2 % (11.6-17.2); REVIEW FLAG FINAL; WHITE BLOOD COUNT 20.9 TH/MM3 (4.0-11.0)
[2016-12-17 04:25] LABS: POTASSIUM 3.5 MEQ/L (3.5-5.1)
[2016-12-17 04:38] LABS: APTT (PATIENT) 45.3 SEC (24.3-30.1)
[2016-12-17] MEDS: HYDROCORTISONE SOD SUCCINATE 100 MG VIAL IV PUSH SCH ×3 (05:55→21:07)
[2016-12-17] MEDS: MIDODRINE 5 MG TAB PO SCH ×3 (05:55→16:37)
[2016-12-17] MEDS ORDERED: FUROSEMIDE 20 MG/2 ML VIAL IV PUSH ONE (07:15)
--- NOTE | 2016-12-17 07:39 | HHI.CCPN ---
Subjective Remarks/Hospital Course 46 y/o man presents with several day history of stuttering and difficulty finding words. Past admission to [facility] in August 2016 for vertigo. MRI brain is normal. MRI spine with C5-6 bulging disc and canal narrowing. Recently started on atypical antipsychotic for outbursts and anger. 12/09: BP nicely elevated for improved cerebral collateral circulation. Neuro workup in progress. 12/10: BP support good - his speech improves with higher SBP. Resistant to heparin, will bolus now. 12/11: Speech still better today. There appears to be an emotional component - if he gets anxious his speech deteriorates. 12/12: Currently on Handy-Synephrine 300 mics grams per minute to maintain systolic blood pressure greater than 160. Very anxious. Tolerating diet. One bowel movement. 12/13: Continues on Handy-Synephrine norepinephrine to maintain systolic greater than 160. Becomes symptomatic when less than this. Tolerating diet. 12/14: Afebrile. Remains on norepinephrine at 8 mics grams per minute Handy- Synephrine 110 mics grams per minute to maintain systolic pressure is 150. Added midodrine 5 mill grams 3 times a day yesterday. Complaining of pain in his inguinal region likely from decreased mobility. 12/15: Afebrile. Remains on norepinephrine at 11 g per min and Handy-Synephrine 40 mu./m to maintain systolic blood pressure greater than 140. MIDODRINE increased to 10 Mg 3 times a day and Florinef 0.1 mg daily added today. Increase strength in right upper extremity. 12/16: Afebrile. Appears comfortable at bedside. Strength in right hand has improved. Remains on norepinephrine 12 g per minute Handy-Synephrine at 110 mg/ m to maintain systolic blood pressure greater than 140. One bowel movement yesterday Subjective 12/17: Afebrile. Handy-Synephrine at 100 mcg/m and norepinephrine at 7 mcg/m. Mentating fine. Plan for MRI/MRA brain today. Objective Vital Signs Date Time Temp Pulse Resp B/P Pulse Ox O2 Delivery O2 Flow Rate FiO2 12/17/16 06:00 110 12/17/16 04:00 98.6 10 159/88 97 12/16/16 19:52 21 Intake and Output 12/16/16 12/16/16 12/17/16 08:00 16:00 00:00 Intake Total 1022 ml 1960 ml 1430 ml Output Total 1500 ml 1800 ml 700 ml Balance -478 ml 160 ml 730 ml Result Diagram: 12/17/1632912/17/16 033 Imaging Last Impressions Head CT 12/16/16 0000 Signed Impressions: Service Date/Time: Friday, December 16, 2016 10:00 - CONCLUSION: 1. No intracranial abnormality 2. Right paranasal sinusitis. Stuart Vieyra MD Chest X-Ray 12/12/16 0000 Signed Impressions: Service Date/Time: Monday, December 12, 2016 10:49 - CONCLUSION: 1. Left PICC line tip in good position near the atriocaval junction. Stuart Vieyra MD Brain MRI 12/09/16 0000 Signed Impressions: Service Date/Time: Friday, December 09, 2016 20:19 - CONCLUSION: 1. No acute intracranial abnormality. 2. Chronic paranasal sinus disease. Ra Rajan Jr., MD Head Magnetic Resonance Angiography 12/08/16 0000 Signed Impressions: Service Date/Time: December 09:34 - CONCLUSION: 1. Diffusely attenuated basilar artery and visualized portion of the right vertebral artery. A patent left vertebral artery is not seen. 2. 3. Anatomic variants: 4. Prominent posterior communicating arteries bilaterally. Prominent A1 segment right SARAH right. Absent A1 segment left SARAH. Harjeet Greene MD Head CTA 12/08/16 0000 Signed Impressions: Service Date/Time: December 15:56 - CONCLUSION: 1. 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 There is progressive atresia/narrowing of the basilar when compared to the prior exam, however. 2. The left posterior commuting artery is supplied solely from the anterior circulation via the left posterior to indicating artery. 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 3. 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 Anterior circulation is otherwise patent without aneurysmal disease. Aashish Calderón MD Carotid Artery Ultrasound 12/08/16 0000 Signed Impressions: Service Date/Time: December 09:51 - CONCLUSION: 1. Normal appearance of the internal carotid arteries any significant atherosclerotic disease or stenosis. 2. The left vertebral artery is not visualized. However, it had a normal appearance on the 08/21/2016 carotid CTA examination. Ankit Gutiérrez MD Cervical Spine MRI 12/07/16 0000 Signed Impressions: Service Date/Time: Wednesday, December 07, 2016 17:34 - CONCLUSION: Multilevel degenerative findings of the cervical spine. Broad-based disc bulge at C5-6 results in moderate severity central canal narrowing. Harjeet Greene MD Objective Remarks GENERAL: 46 year old male, critically ill currently resting in bed in no acute distress SKIN: Warm and dry. Multiple tattoos right upper extremity, left upper extremity HEAD: Atraumatic. Normocephalic. EYES: Pupils equal and round about 3 mm bilaterally and reactive. No scleral icterus. No injection or drainage. ENT: No nasal bleeding or discharge. Mucous membranes pink and moist. NECK: Trachea midline. No JVD. CARDIOVASCULAR: Sinus Tachycardia, RR. S1, S2. No S4. Without murmur RESPIRATORY: Clear to auscultation. Breath sounds equal bilaterally. GASTROINTESTINAL: Abdomen soft, non-tender, nondistended. Hepatic and splenic margins not palpable. MUSCULOSKELETAL: Extremities without difficulty and peripheral edema. No obvious deformities. NEUROLOGICAL: Awake and alert. No obvious cranial nerve deficits. Motor grossly within normal limits. Strength 4-5 right upper extremity. 3.5 -5 right lower extremity. 5 out of 5 left upper and lower extremity. Decreased sensation to light touch and pinprick right upper and lower extremity. 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 Absent L A1 SARAH and MRI brain 12/09 revealed no acute intracranial findings Repeat CT head 01/06 revealed no acute cranial findings. Followed by Dr. Rankin - neurology Neurosurgery Dr. Zacarias has seen. No intervention Holding Seroquel 50 mill grams as needed Continue Neurontin increase to 800 mg 3 times daily for neuropathy pain Currently on Handy-Synephrine and norepinephrine see below Acetaminophen/Borup as needed for pain Continue with aspirin 325 mill grams daily EEG 6/3 no seizure CV: Elevated LDL Elevated triglycerides Currently on Handy-Synephrine at 100 mu./m and norepinephrine at 7 mics grams per minute to keep systolic blood pressure greater than 140. Increased MIdodrine 10 mg 3 times a day yesterday and increased Florinef 0.2 mg daily On Solu-Cortef 100 mg IV every 8 hours Continue Lipitor 10 mg daily for dyslipidemia/elevated LDL Echocardiogram 12/06 revealed EF 55-60%. Mild TR. Resp: Nasal cannula to maintain saturations greater than equal to 92% Incentive spirometry while awake GI: Heart healthy diet Protonix for GI prophylaxis Libby-Colace for bowel regimen : Mulligan catheter if indicated Endo: Hyperglycemia of critical illness Low cortisol Sliding-scale insulin if indicated to maintain euglycemia Noted cortisol .6. Cosyntropin test 8-40. Grade and 4-point increase. We' ll continue hydrocortisone as above currently. Check MRI brain specifically pituitary gland. Will also check MRA for basilar artery thrombus Renal: Monitor urine output Accurate I's and O's Heme: Leukocytosis Follow CBC daily. Monitor trends. Leukocytosis possibly secondary to steroids now currently versus reactive. No signs infectious etiology Likely transition to Coumadin once more hemodynamically stable recurrently heparin drip ID: Monitor for infection FEN: Hypokalemia - resolving Replace electrolytes as clinically indicated A.m. BMP pending MSK: Physical therapy evaluate and treat Access -Left antecubital PICC placed 12/12 Prophylaxis - GI - Protonix - DVT - heparin drip Critical Care: The total care time was 35 minutes. Time to perform other separately billable procedures was not included in the critical care time. Level II Ezra Medellin MD Dec 17, 2016 07:39
[2016-12-17] MEDS: DOCUSATE SODIUM 50 MG/SENNA 8.6 MG TAB PO SCH ×2 (09:00→20:05)
[2016-12-17] MEDS: ASPIRIN EC 325 MG TABEC PO SCH (09:56)
[2016-12-17] MEDS: PANTOPRAZOLE SOD 40 MG DELAYED RELEASE TAB PO SCH (09:56)
[2016-12-17] MEDS: FLUDROCORTISONE ACETATE 0.1 MG TAB PO SCH ×2 (09:56→20:05)
[2016-12-17] MEDS: GABAPENTIN 400 MG CAP PO SCH ×3 (09:56→18:32)
[2016-12-17] MEDS: POTASSIUM CHLORIDE 10 MEQ CONTROLLED RELEASE TAB PO SCH ×2 (09:57→20:05)
[2016-12-17] MEDS ORDERED: GADODIAMIDE PF 287 MG/ML 20 ML VIAL (for RAD MRI) IV ONE (15:35)
--- NOTE | 2016-12-17 16:18 | RADRPT ---
EXAM DATE/TIME: 12/17/2016 15:19 [facility] COMPARISON: MRI BRAIN W & W/O CONTRAST, November 01, 2016, 16:42. INDICATIONS : Vertigo. CONTRAST: 17 cc Omniscan (gadodiamide) IV MEDICAL HISTORY : None. SURGICAL HISTORY : Tonsillectomy. ENCOUNTER: Initial ACUITY: 1 day PAIN SCORE: 0/10 LOCATION: cranial TECHNIQUE: Multiplanar, multisequence MRI of the brain was performed both prior to and following the administrat ion of paramagnetic contrast. FINDINGS: CEREBRUM: The ventricles are normal for age. No evidence of midline shift, mass lesion, hemorrhage or acute in farction. No extraaxial fluid collections are seen. The pituitary gland and suprasellar cistern are normal in configuration.WHITE MATTER: No significant signal abnormalities are seen in the white matter. POSTERIOR FOSSA: The cerebellum and brainstem are intact. The 4th ventricle is midline. The cerebellopontine angle is unremarkable. The cerebellar tonsils are normal in position. DIFFUSION IMAGING: No focal areas of restricted diffusion are seen. No evidence of acute infarction. EXTRACRANIAL: The visualized portions of the orbits and paranasal sinuses are unremarkable. POST-CONTRAST: No abnormal areas of parenchymal or dural enhancement. No evidence of blood-brain barrier breakdown. CONCLUSION: 1. No acute intracranial abnormalities. 2. Resolution of previous fluid in the maxillary sinuses with mild residual mucosal thickening. Chito Roldan MD on December 17, 2016 at 16:10 Board Certified Radiologist. This report was verified electronically.
--- NOTE | 2016-12-17 16:57 | RADRPT ---
EXAM DATE/TIME: 12/17/2016 15:19 [facility] COMPARISON: No previous studies available for comparison. INDICATIONS : Vertigo. MEDICAL HISTORY : None. SURGICAL HISTORY : Tonsillectomy. ENCOUNTER: Initial ACUITY: 1 day PAIN SCORE: 0/10 LOCATION: cranial Please note a normal MRA of the brain does not entirely exclude the possibility of a small aneurysm, nor the possibility of distal intracranial vessel disease. TECHNIQUE: 3D time of flight MRA was performed. Source images, multiplanar STS MIP, and 3D volume MIP reconstru ctions were reviewed. FINDINGS: Compared to December 08, 2016. Left vertebral artery is again not visualized and right vertebral artery is very small. Basilar artery is very small. Internal carotid arteries and middle cerebral arteries are patent. Posterior communicating arteries a re patent feeding the posterior cerebral arteries. Left A1 segment is absent. No discrete aneurysm. CONCLUSION: 1. Stable MRA of brain since December 08. Left vertebral artery not visualized. Basilar artery is very att enuated and possibly stenotic. Anterior, middle and posterior cerebral arteries are patent. Chito Roldan MD on December 17, 2016 at 16:51 Board Certified Radiologist. This report was verified electronically.
[2016-12-17] MEDS: CYCLOBENZAPRINE HCL 10 MG TAB PO PRN (20:05)
[2016-12-17] MEDS: ATORVASTATIN 10 MG TAB PO SCH (20:05)
[2016-12-17] MEDS: HEPARIN-D5W INJ 250 ML IV SCH (20:19)
[2016-12-17] MEDS: PHENYLEPHRINE INJ 80 MG in SODIUM CHLORID 0.9% 500 ML INJ 492 ML IV SCH (20:31)
[2016-12-17] MEDS: NOREPINEPHRINE INJ 4 MG in SODIUM CHLOR 0.9% 250 ML INJ 246 ML IV SCH (20:32)
[2016-12-17] MEDS ORDERED: AMIODARONE INJ 150 MG in DEXTROSE 5% IN WATER 100ML INJ 97 ML IV ONE ×2 (23:45)
[2016-12-17] MEDS ORDERED: AMIODARONE INJ 450 MG in DEXTROSE 5% IN WATE(EXCEL) INJ 250 ML IV SCH ×2 (23:45)
[2016-12-18] VITALS (13 sets, daily range): BP systolic 131–161; BP diastolic 63–98; PULSE 65–170; RESP 11–18; TEMP 98.1–98.7; O2SAT 95–97
[2016-12-18 00:32] LABS: BICARBONATE 29.5 MEQ/L (21.0-32.0); MAGNESIUM 2.1 MG/DL (1.5-2.5); POTASSIUM 3.4 MEQ/L (3.5-5.1)
[2016-12-18] MEDS ORDERED: POTASSIUM CHLORIDE 20 MEQ CONTROLLED RELEASE TAB PO ONE ×2 (01:30→13:30)
[2016-12-18] MEDS: CHLORHEXIDINE GLUCONATE 2 % 1 PACK (2 CLOTHS) TOP SCH (04:00)
[2016-12-18 04:12] LABS: HEMATOCRIT 39.2 % (39.0-51.0); MEAN CELL VOLUME 95.4 FL (80.0-100.0); MEAN CORPUSCULAR HEMOGLOBIN 31.8 PG (27.0-34.0); MEAN CORPUSCULAR HGB CONC 33.3 % (32.0-36.0); PLATELET COUNT 253 TH/MM3 (150-450); RED BLOOD COUNT 4.11 MIL/MM3 (4.50-5.90); RED CELL DISTRIBUTION WIDTH 14.8 % (11.6-17.2); REVIEW FLAG FINAL; WHITE BLOOD COUNT 22.9 TH/MM3 (4.0-11.0)
[2016-12-18 04:20] LABS: APTT (PATIENT) 41.9 SEC (24.3-30.1)
[2016-12-18 04:42] LABS: BICARBONATE 29.3 MEQ/L (21.0-32.0); POTASSIUM 3.3 MEQ/L (3.5-5.1)
[2016-12-18] MEDS: HYDROCORTISONE SOD SUCCINATE 100 MG VIAL IV PUSH SCH ×3 (05:17→21:11)
[2016-12-18] MEDS: MIDODRINE 5 MG TAB PO SCH ×3 (05:17→16:53)
[2016-12-18] MEDS: PHENYLEPHRINE INJ 80 MG in SODIUM CHLORID 0.9% 500 ML INJ 492 ML IV SCH (06:16)
[2016-12-18] MEDS ORDERED: POTASSIUM CHLORIDE INJ 30 MEQ in SODIUM CHLORIDE 0.9% INJ 100 ML IV-CENTRAL ONE (07:00)
--- NOTE | 2016-12-18 07:18 | HHI.CCPN ---
Subjective Remarks/Hospital Course 46 y/o man presents with several day history of stuttering and difficulty finding words. Past admission to [facility] in August 2016 for vertigo. MRI brain is normal. MRI spine with C5-6 bulging disc and canal narrowing. Recently started on atypical antipsychotic for outbursts and anger. 12/09: BP nicely elevated for improved cerebral collateral circulation. Neuro workup in progress. 12/10: BP support good - his speech improves with higher SBP. Resistant to heparin, will bolus now. 12/11: Speech still better today. There appears to be an emotional component - if he gets anxious his speech deteriorates. 12/12: Currently on Handy-Synephrine 300 mics grams per minute to maintain systolic blood pressure greater than 160. Very anxious. Tolerating diet. One bowel movement. 12/13: Continues on Handy-Synephrine norepinephrine to maintain systolic greater than 160. Becomes symptomatic when less than this. Tolerating diet. 12/14: Afebrile. Remains on norepinephrine at 8 mics grams per minute Handy- Synephrine 110 mics grams per minute to maintain systolic pressure is 150. Added midodrine 5 mill grams 3 times a day yesterday. Complaining of pain in his inguinal region likely from decreased mobility. 12/15: Afebrile. Remains on norepinephrine at 11 g per min and Handy-Synephrine 40 mu./m to maintain systolic blood pressure greater than 140. MIDODRINE increased to 10 Mg 3 times a day and Florinef 0.1 mg daily added today. Increase strength in right upper extremity. 12/16: Afebrile. Appears comfortable at bedside. Strength in right hand has improved. Remains on norepinephrine 12 g per minute Handy-Synephrine at 110 mg/ m to maintain systolic blood pressure greater than 140. One bowel movement yesterday 12/17: Afebrile. Handy-Synephrine at 100 mcg/m and norepinephrine at 7 mcg/m. Mentating fine. Plan for MRI/MRA brain today. Subjective 12/18: Afebrile. Handy-Synephrine currently in 150 g. Epinephrine discontinued. Overnight, brief episode of atrial fibrillation. Started on amiodarone drip due to vasopressor requirements for cerebral perfusion with basal artery stenosis/thrombosis. Potassium is noted to be low and continues to be low. This will be aggressively replaced. EKG with questionable delta wave Objective Vital Signs Date Time Temp Pulse Resp B/P Pulse Ox O2 Delivery O2 Flow Rate FiO2 12/18/16 06:00 65 12/18/16 04:00 98.1 11 131/63 95 12/17/16 19:54 21 Intake and Output 12/17/16 12/17/16 12/18/16 08:00 16:00 00:00 Intake Total 1313 ml 1204 ml 1648 ml Output Total 900 ml 2510 ml 1550 ml Balance 413 ml -1306 ml 98 ml Result Diagram: 12/18/16 0400 12/18/16 0400 Imaging Last Impressions Head Magnetic Resonance Angiography 12/17/16 0000 Signed Impressions: Service Date/Time: Saturday, December 17, 2016 15:19 - CONCLUSION: 1. Stable MRA of brain since December 08. Left vertebral artery not visualized. Basilar artery is very attenuated and possibly stenotic. Anterior, middle and posterior cerebral arteries are patent. Chito Roldan MD Brain MRI 12/17/16 0000 Signed Impressions: Service Date/Time: Saturday, December 17, 2016 15:19 - CONCLUSION: 1. No acute intracranial abnormalities. 2. Resolution of previous fluid in the maxillary sinuses with mild residual mucosal thickening. Chito Roldan MD Head CT 12/16/16 0000 Signed Impressions: Service Date/Time: Friday, December 16, 2016 10:00 - CONCLUSION: 1. No intracranial abnormality 2. Right paranasal sinusitis. Stuart Vieyra MD Chest X-Ray 12/12/16 0000 Signed Impressions: Service Date/Time: Monday, December 12, 2016 10:49 - CONCLUSION: 1. Left PICC line tip in good position near the atriocaval junction. Stuart Vieyra MD Head CTA 12/08/16 0000 Signed Impressions: Service Date/Time: December 15:56 - CONCLUSION: 1. 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 There is progressive atresia/narrowing of the basilar when compared to the prior exam, however. 2. The left posterior commuting artery is supplied solely from the anterior circulation via the left posterior to indicating artery. 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 3. 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 Anterior circulation is otherwise patent without aneurysmal disease. Aashish Calderón MD Carotid Artery Ultrasound 12/08/16 0000 Signed Impressions: Service Date/Time: December 09:51 - CONCLUSION: 1. Normal appearance of the internal carotid arteries any significant atherosclerotic disease or stenosis. 2. The left vertebral artery is not visualized. However, it had a normal appearance on the 08/21/2016 carotid CTA examination. Ankit Gutiérrez MD Cervical Spine MRI 12/07/16 0000 Signed Impressions: Service Date/Time: Wednesday, December 07, 2016 17:34 - CONCLUSION: Multilevel degenerative findings of the cervical spine. Broad-based disc bulge at C5-6 results in moderate severity central canal narrowing. Harjeet Greene MD Objective Remarks GENERAL: 46 year old male, critically ill currently resting in bed in no acute distress SKIN: Warm and dry. Multiple tattoos right upper extremity, left upper extremity HEAD: Atraumatic. Normocephalic. EYES: Pupils equal and round about 3 mm bilaterally and reactive. No scleral icterus. No injection or drainage. ENT: No nasal bleeding or discharge. Mucous membranes pink and moist. Oropharynx without erythema or exudates NECK: Trachea midline. No JVD. CARDIOVASCULAR: RRR. S1, S2. No S4. Without murmur RESPIRATORY: Clear to auscultation. Breath sounds equal bilaterally. GASTROINTESTINAL: Abdomen soft, non-tender, nondistended. Hepatic and splenic margins not palpable. MUSCULOSKELETAL: Extremities without difficulty and peripheral edema. No obvious deformities. NEUROLOGICAL: Awake and alert. No obvious cranial nerve deficits. Motor grossly within normal limits. Strength 4-5 right upper extremity. 3.5 -5 right lower extremity. 5 out of 5 left upper and lower extremity. Decreased sensation to light touch and pinprick right upper and lower extremity. Vascular Central Line Catheter: Yes Assessment to: Continue Date of Insertion: Dec 12, 2016 Line: PICC Side: Left A/P Assessment and Plan Neuro/Psych: VBI Posterior circulation insufficiency intra-and extracranial Basilar artery thrombosis/stenosis Anxiety disorder NOS Peripheral neuropathy MRA brain revealed very small basilar artery, small left vertebral artery. Absent L A1 SARAH and MRI brain 6/2 revealed no acute intracranial findings Repeat MRI brain 12/16 no intrarenal findings and resolution of sinusitis. Repeat MRA brain 12/16 revealed absent left vertebral artery. The basilar artery with significant attenuation with stenosis Followed by Dr. Rankin - neurology Neurosurgery Dr. Zacarias has seen. No intervention Holding Seroquel 50 milligrams as needed/home medication Continue Neurontin increase to 800 mg 3 times daily for neuropathy pain Currently on Handy-Synephrine to maintain cerebral perfusion pressures as patient symptomatically with systolic blood pressure less than 140 see below Acetaminophen/[place] as needed for pain Continue with aspirin 325 mill grams daily EEG 12/10 no seizure CV: Elevated LDL Elevated triglycerides Atrial fibrillation - currently in sinus tachycardia Currently on Handy-Synephrine at 150 mu./m and norepinephrine at 7 mics grams per minute to keep systolic blood pressure greater than 140. Increased MIdodrine 10 mg 3 times a day yesterday and increased Florinef 0. milligram by mouth twice a day On Solu-Cortef 100 mg IV every 8 hours with initial abnormal cortisol see below Continue Lipitor 80 mg daily for dyslipidemia/elevated LDL Echocardiogram 12/06 revealed EF 55-60%. Mild TR. Overnights bolus of amiodarone and start amiodarone drip. This will be discontinued and will replace electrolytes specifically potassium and discontinue norepinephrine Likely outpatient evaluation once clinically stabilized Resp: Nasal cannula to maintain saturations greater than equal to 92% Incentive spirometry while awake GI: Heart healthy diet Protonix for GI prophylaxis Libby-Colace for bowel regimen : Mulligan catheter if indicated Endo: Hyperglycemia of critical illness Low cortisol Sliding-scale insulin if indicated to maintain euglycemia Noted cortisol 12/13 was 2.6. Cosyntropin test 8-40 response. We'll continue hydrocortisone 100 mg IV every 8 hours as above currently. 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 Pituitary shows no signs of ischemia or abnormality on MRI. Renal: Monitor urine output Accurate I's and O's Heme: Leukocytosis Follow CBC daily. Monitor trends. Leukocytosis possibly secondary to steroids now currently versus reactive. No signs infectious etiology Likely transition to Coumadin once more hemodynamically stable recurrently heparin drip ID: Monitor for infection FEN: Hypokalemia Received 72 milliequivalent potassium chloride this a.m. Replace electrolytes as clinically indicated Check potassium at noon MSK: Physical therapy evaluate and treat Access -Left antecubital PICC placed 12/12 Prophylaxis - GI - Protonix - DVT - heparin drip Critical Care: The total care time was 35 minutes. Time to perform other separately billable procedures was not included in the critical care time. Level II Ezra Medellin MD Dec 18, 2016 07:18
[2016-12-18] MEDS: PANTOPRAZOLE SOD 40 MG DELAYED RELEASE TAB PO SCH (08:46)
[2016-12-18] MEDS: GABAPENTIN 400 MG CAP PO SCH ×3 (08:46→16:53)
[2016-12-18] MEDS: DOCUSATE SODIUM 50 MG/SENNA 8.6 MG TAB PO SCH ×2 (08:46→21:00)
[2016-12-18] MEDS: ASPIRIN EC 325 MG TABEC PO SCH (08:46)
[2016-12-18] MEDS: FLUDROCORTISONE ACETATE 0.1 MG TAB PO SCH ×2 (08:46→21:07)
--- NOTE | 2016-12-18 09:29 | EKG ---
Date Performed: 12/18/2016 Time Performed: 05:47:08 PTAGE: 46 years EKG: Ectopic atrial rhythm Left bundle branch block Septal ST-T changes are nonspecific Abnormal ECG NO PREVIOUS TRACING DOCTOR: Yassine Pena Interpretating Date/Time 12/18/2016 09:28:01
--- NOTE | 2016-12-18 09:32 | EKG ---
Date Performed: 12/18/2016 Time Performed: 01:11:16 PTAGE: 46 years EKG: --- Warning: Data quality may affect interpretation --- Sinus rhythm . WPW pattern Abnormal ECG NO PREVIOUS TRACING DOCTOR: Yassine Pena Interpretating Date/Time 12/18/2016 09:28:57
--- NOTE | 2016-12-18 09:34 | EKG ---
Date Performed: 12/17/2016 Time Performed: 23:42:06 PTAGE: 46 years EKG: Atrial fibrillation with rapid ventricular response. Extensive ST-T changes may be due to m yocardial ischemia Abnormal ECG NO PREVIOUS TRACING DOCTOR: Yassine Pena Interpretating Date/Time 12/18/2016 09:29:44
[2016-12-18] MEDS: CYCLOBENZAPRINE HCL 10 MG TAB PO PRN (12:19)
[2016-12-18 12:51] LABS: POTASSIUM 3.7 MEQ/L (3.5-5.1)
[2016-12-18] MEDS ORDERED: GLUCAGON 1 MG/ML VIAL OTHER PRN (13:45)
[2016-12-18] MEDS ORDERED: POTASSIUM PHOSPHATE/SODIUM PHOSPHATE 250 MG TAB PO ONE (13:45)
[2016-12-18] MEDS ORDERED: DEXTROSE 50% IN WATER 50 ML VIAL(D50) IV PRN (13:45)
[2016-12-18] MEDS ORDERED: POTASSIUM CHLOR 40 MEQ PREMIX 100 ML IV ONE (14:00)
[2016-12-18] MEDS: INSULIN NovoLIN REGULAR SUPPLEMENTAL SCALE SQ SCH ×2 (16:00→21:00)
[2016-12-18] MEDS: ATORVASTATIN 10 MG TAB PO SCH (21:08)
[2016-12-19] VITALS (13 sets, daily range): BP systolic 150–195; BP diastolic 74–113; PULSE 60–95; RESP 11–18; TEMP 97.7–98.7; O2SAT 94–97
[2016-12-19] MEDS: ACETAMINOPHEN/HYDROcodone 325 MG/5 MG TAB PO PRN (01:06)
[2016-12-19] MEDS: PHENYLEPHRINE INJ 80 MG in SODIUM CHLORID 0.9% 500 ML INJ 492 ML IV SCH (01:07)
[2016-12-19] MEDS: HEPARIN-D5W INJ 250 ML IV SCH (01:08)
[2016-12-19] MEDS: CHLORHEXIDINE GLUCONATE 2 % 1 PACK (2 CLOTHS) TOP SCH (04:00)
[2016-12-19] MEDS: MIDODRINE 5 MG TAB PO SCH ×3 (05:28→17:07)
[2016-12-19] MEDS: HYDROCORTISONE SOD SUCCINATE 100 MG VIAL IV PUSH SCH ×3 (05:28→21:39)
[2016-12-19 06:08] LABS: AUTOMATED NEUTROPHIL # 16.7 TH/MM3 (1.8-7.7); BASOPHIL # 0.1 TH/MM3 (0-0.2); BASOPHIL % 0.6 % (0.0-2.0); EOSINOPHIL % 0.1 % (0.0-4.0); HEMATOCRIT 38.6 % (39.0-51.0); HEMO FLAGS DIFF FINAL; LYMPH % 19.4 % (9.0-44.0); LYMPHOCYTE # 4.4 TH/MM3 (1.0-4.8); MEAN CORPUSCULAR HEMOGLOBIN 30.8 PG (27.0-34.0); MEAN CORPUSCULAR HGB CONC 32.1 % (32.0-36.0); MONO % 6.8 % (0.0-8.0); NEUT % 73.1 % (16.0-70.0); PLATELET COUNT 237 TH/MM3 (150-450); RED BLOOD COUNT 4.02 MIL/MM3 (4.50-5.90); RED CELL DISTRIBUTION WIDTH 14.3 % (11.6-17.2); WHITE BLOOD COUNT 22.9 TH/MM3 (4.0-11.0)
[2016-12-19 06:15] LABS: APTT (PATIENT) 52.7 SEC (24.3-30.1)
[2016-12-19 06:33] LABS: BICARBONATE 26.3 MEQ/L (21.0-32.0); CALCIUM-PROTEIN CORRECTED 7.8 MG/DL (8.5-10.1); MAGNESIUM 2.1 MG/DL (1.5-2.5); POTASSIUM 3.1 MEQ/L (3.5-5.1); TOTAL BILIRUBIN ADULT 0.2 MG/DL (0.2-1.0)
[2016-12-19] MEDS: INSULIN NovoLIN REGULAR SUPPLEMENTAL SCALE SQ SCH ×4 (07:00→21:26)
[2016-12-19] MEDS: ASPIRIN EC 325 MG TABEC PO SCH (08:36)
[2016-12-19] MEDS: GABAPENTIN 400 MG CAP PO SCH ×3 (08:36→17:07)
[2016-12-19] MEDS: FLUDROCORTISONE ACETATE 0.1 MG TAB PO SCH ×2 (08:36→21:38)
[2016-12-19] MEDS: PANTOPRAZOLE SOD 40 MG DELAYED RELEASE TAB PO SCH (08:36)
[2016-12-19] MEDS: DOCUSATE SODIUM 50 MG/SENNA 8.6 MG TAB PO SCH ×2 (08:37→21:38)
--- NOTE | 2016-12-19 09:21 | HHI.PR ---
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 Plan -Neuro checks Q1h - Heparin drip/infusion per protocol - Replenish Potassium - When potassium level is normalized , may bridge to oral anticoagulation - Head of bed 30 degrees - Maintain BP > 140mm Hg - Continue Midodrine - DVT prophylaxis, SCDs' - Increase Gabapentin to 300mg Q6h Diagnosis/Plan: Subjective Subjective Comments No acute events reported Off Levophed On Neosynophrine and Midodrine Improved speech, right UE coordination and muscle strength, right LE weakness, and swallowing A reported transient episode of A fib Low Potassium level Repeated imaging revealed Active Medications Current Medications Medications (Trade) Dose Ordered Sig/Ligia Route Start Time Stop Time Status Last Admin (Ecotrin Ec) 325 mg DAILY PO 12/07/16 16:00 12/19/16 08:36 ([place] 5-325 Mg) 1 tab Q6H PRN PO 12/08/16 15:15 12/19/16 01:06 (Tylenol) 650 mg Q6H PRN PO 12/08/16 15:15 12/10/16 15:04 (Protonix) 40 mg DAILY PO 12/08/16 16:00 12/19/16 08:36 (Zofran Inj) 4 mg Q6H PRN IV 12/08/16 15:15 12/10/16 09:21 Miscellaneous Information 1 Q361D XX 12/08/16 15:15 (Chlorhexidine 2% Cloth) Taper DAILY@04 TOP 12/09/16 04:00 12/05/17 03:59 12/18/16 04:00 (Chlorhexidine 2% Cloth) 3 pack UNSCH PRN TOP 12/08/16 15:15 (Libby-Colace) 1 tab BID PO 12/08/16 21:00 12/18/16 08:46 (Milk Of Magnesia Liq) 30 ml Q12H PRN PO 12/08/16 15:15 (Senokot) 17.2 mg Q12H PRN PO 12/08/16 15:15 (Dulcolax Supp) 10 mg DAILY PRN RECTAL 12/08/16 15:15 Lactulose 30 ml 30 ml DAILY PRN PO 12/08/16 15:15 (Heparin-D5W Inj) 250 ml @ 0 mls/hr TITRATE IV 12/08/16 17:15 12/19/16 01:08 (Flexeril) 5 mg Q8H PRN PO 12/10/16 16:30 12/18/16 12:19 Terbutaline Sulfate 1 mg 1 mg UNSCH PRN SQ 12/12/16 09:45 Potassium Chloride 100 ml @ 50 mls/hr Q2H PRN IV 12/13/16 04:30 12/16/16 08:59 (KCl 20 Meq Premix Inj) 100 ml @ 50 mls/hr Q2H PRN IV 12/13/16 04:30 Potassium Bicarb/ Potassium Chloride 50 meq 50 meq UNSCH PRN PO 12/13/16 04:30 Potassium Chloride 100 ml @ 25 mls/hr UNSCH PRN IV 12/13/16 04:30 Potassium Chloride 100 ml @ 50 mls/hr Q2H PRN IV 12/13/16 04:30 (Magnesium Sulfate Inj/NS Inj) 100 ml @ 50 mls/hr UNSCH PRN IV 12/13/16 04:30 Magnesium Oxide 800 mg 800 mg UNSCH PRN PO 12/13/16 04:30 (Magnesium Sulfate Inj/NS Inj) 100 ml @ 50 mls/hr UNSCH PRN IV 12/13/16 04:30 Potassium Phosphate 2000 mg 2,000 mg Q4H PRN PO 12/13/16 04:30 (Sodium Phosphate Inj/NS 250 ml Inj) 250 ml @ 42 mls/hr UNSCH PRN IV 12/13/16 04:30 Potassium Phosphate 2000 mg 2,000 mg UNSCH PRN PO/TUBE 12/13/16 04:30 (Potassium Phosphate Inj/NS 250 ml Inj) 260 ml @ 42 mls/hr UNSCH PRN IV 12/13/16 04:30 Dextrose 50 ml 50 ml UNSCH PRN IV PUSH 12/13/16 04:30 (Neosynephrine Inj/NS 500 ml Inj) 500 ml @ 0 mls/hr TITRATE IV 12/13/16 11:30 12/19/16 01:07 (Neurontin) 800 mg TID PO 12/14/16 13:00 12/19/16 08:36 (Proamatine) 10 mg TID@, PO 12/14/16 17:00 12/19/16 05:28 (Florinef) 0.1 mg BID PO 12/16/16 09:00 12/19/16 08:36 (SoluCORTEF INJ) 100 mg Q8HR IV PUSH 12/16/16 15:00 12/19/16 05:28 (Lipitor) 80 mg HS PO 12/18/16 21:00 12/18/16 21:08 (D50w (Vial) Inj) 50 ml UNSCH PRN IV 12/18/16 13:45 (Glucagon Inj) 1 mg UNSCH PRN OTHER 12/18/16 13:45 Allergies Allergies Coded Allergies Penicillin (Verified Allergy, Severe, rash, 12/07/16) Exam I&O / VS 12/18/16 12/18/16 12/19/16 15:00 23:00 07:00 Intake Total 1054 ml 1104 ml 778 ml Output Total 1125 ml 1100 ml 1400 ml Balance -71 ml 4 ml -622 ml Intake Oral 250 ml 420 ml 200 ml IV Total 804 ml 684 ml 578 ml Output Urine Total 1125 ml 1100 ml 1400 ml # Bowel Movements 1 0 0 Vital Signs Date Time Temp Pulse Resp B/P Pulse Ox O2 Delivery O2 Flow Rate FiO2 12/19/16 08:00 85 12/19/16 06:00 68 12/19/16 04:00 60 12/19/16 04:00 97.7 60 12 166/109 97 12/19/16 02:00 62 12/19/16 00:00 97.7 71 11 150/95 94 12/19/16 00:00 71 12/18/16 22:00 65 12/18/16 20:00 98.7 75 17 161/97 97 12/18/16 20:00 74 12/18/16 18:00 73 12/18/16 16:00 72 12/18/16 16:00 98.1 74 14 138/97 97 12/18/16 14:00 72 12/18/16 12:00 76 12/18/16 12:00 98.6 76 18 157/90 97 12/18/16 10:36 97 21 12/18/16 10:00 84 General: Alert and Oriented, No acute distress Eye: PERRL, Normal conjuctiva Respiratory: Lungs CTA, Non-labored respirations Cardiology: Normal rate, Intact pulses Musculoskeletal: ROM Neurologic: Alert, Oriented, Other (mild dysarthria, right sided UE ataxia, right LE weakness hip flex 3/6, foot dorsiflex 2/5, and diminished sensation) Psychiatric: Cooperative, Appropriate mood & affect, Normal judgement Objective Radiology Results Last 72 hours Impressions Head Magnetic Resonance Angiography 12/17/16 0000 Signed Impressions: Service Date/Time: Saturday, December 17, 2016 15:19 - CONCLUSION: 1. Stable MRA of brain since December 08. Left vertebral artery not visualized. Basilar artery is very attenuated and possibly stenotic. Anterior, middle and posterior cerebral arteries are patent. Chito Roldan MD Brain MRI 12/17/16 0000 Signed Impressions: Service Date/Time: Saturday, December 17, 2016 15:19 - CONCLUSION: 1. No acute intracranial abnormalities. 2. Resolution of previous fluid in the maxillary sinuses with mild residual mucosal thickening. Chito Roldan MD Micro and Labs Laboratory Tests Test 12/18/16 12/18/16 12/19/16 12:00 22:40 05:50 Potassium Level 3.7 3.4 3.1 Troponin I 0.04 White Blood Count 22.9 Red Blood Count 4.02 Hemoglobin 12.4 Hematocrit 38.6 Mean Corpuscular Volume 96.0 Mean Corpuscular Hemoglobin 30.8 Mean Corpuscular Hemoglobin 32.1 Concent Red Cell Distribution Width 14.3 Platelet Count 237 Mean Platelet Volume 9.2 Neutrophils (%) (Auto) 73.1 Lymphocytes (%) (Auto) 19.4 Monocytes (%) (Auto) 6.8 Eosinophils (%) (Auto) 0.1 Basophils (%) (Auto) 0.6 Neutrophils # (Auto) 16.7 Lymphocytes # (Auto) 4.4 Monocytes # (Auto) 1.6 Eosinophils # (Auto) 0.0 Basophils # (Auto) 0.1 CBC Comment DIFF FINAL Differential Comment Activated Partial 52.7 Thromboplast Time Sodium Level 143 Chloride Level 108 Carbon Dioxide Level 26.3 Anion Gap 9 Blood Urea Nitrogen 9 Creatinine 0.77 Estimat Glomerular Filtration 109 Rate Random Glucose 122 Calcium Level 7.2 Protein Corrected Calcium 7.8 Phosphorus Level 4.1 Magnesium Level 2.1 Total Bilirubin 0.2 Aspartate Amino Transf 27 (AST/SGOT) Alanine Aminotransferase 52 (ALT/SGPT) Alkaline Phosphatase 69 Total Protein 5.9 Albumin 2.9 Mallorie Rankin MD Dec 19, 2016 09:20
[2016-12-19] MEDS ORDERED: POTASSIUM CHLOR 40 MEQ PREMIX 100 ML IV ONE (11:00)
[2016-12-19] MEDS ORDERED: POTASSIUM CHLORIDE 25 MEQ EFFERVESCENT TAB PO ONE (11:00)
[2016-12-19 15:21] LABS: POTASSIUM 3.2 MEQ/L (3.5-5.1)
[2016-12-19 15:23] LABS: HDL CHOLESTEROL 47.3 MG/DL (40.0-60.0); LDL CHOLESTEROL 85 MG/DL (0-99)
--- NOTE | 2016-12-19 15:45 | HHI.CCPN ---
Subjective Remarks/Hospital Course 46 y/o man presents with several day history of stuttering and difficulty finding words. Past admission to [facility] in August 2016 for vertigo. MRI brain is normal. MRI spine with C5-6 bulging disc and canal narrowing. Recently started on atypical antipsychotic for outbursts and anger. 12/09: BP nicely elevated for improved cerebral collateral circulation. Neuro workup in progress. 12/10: BP support good - his speech improves with higher SBP. Resistant to heparin, will bolus now. 12/11: Speech still better today. There appears to be an emotional component - if he gets anxious his speech deteriorates. 12/12: Currently on Handy-Synephrine 300 mics grams per minute to maintain systolic blood pressure greater than 160. Very anxious. Tolerating diet. One bowel movement. 12/13: Continues on Handy-Synephrine norepinephrine to maintain systolic greater than 160. Becomes symptomatic when less than this. Tolerating diet. 12/14: Afebrile. Remains on norepinephrine at 8 mics grams per minute Handy- Synephrine 110 mics grams per minute to maintain systolic pressure is 150. Added midodrine 5 mill grams 3 times a day yesterday. Complaining of pain in his inguinal region likely from decreased mobility. 12/15: Afebrile. Remains on norepinephrine at 11 g per min and Handy-Synephrine 40 mu./m to maintain systolic blood pressure greater than 140. MIDODRINE increased to 10 Mg 3 times a day and Florinef 0.1 mg daily added today. Increase strength in right upper extremity. 12/16: Afebrile. Appears comfortable at bedside. Strength in right hand has improved. Remains on norepinephrine 12 g per minute Handy-Synephrine at 110 mg/ m to maintain systolic blood pressure greater than 140. One bowel movement yesterday 12/17: Afebrile. Handy-Synephrine at 100 mcg/m and norepinephrine at 7 mcg/m. Mentating fine. Plan for MRI/MRA brain today. Subjective 12/18: Afebrile. Handy-Synephrine currently in 150 g. Epinephrine discontinued. Overnight, brief episode of atrial fibrillation. Started on amiodarone drip due to vasopressor requirements for cerebral perfusion with basal artery stenosis/thrombosis. Potassium is noted to be low and continues to be low. This will be aggressively replaced. EKG with questionable delta wave 12/19: Awake and alert. On Handy-Synephrine 175 mics per minute. Potassium being replaced. Tolerating by mouth diet. Remained on heparin for anticoagulation. Objective Vital Signs Date Time Temp Pulse Resp B/P Pulse Ox O2 Delivery O2 Flow Rate FiO2 12/19/16 14:00 72 12/19/16 12:00 98.3 17 157/96 97 12/18/16 10:36 21 Intake and Output 12/18/16 12/18/16 12/19/16 08:00 16:00 00:00 Intake Total 1062 ml 1054 ml 1104 ml Output Total 900 ml 1125 ml 1100 ml Balance 162 ml -71 ml 4 ml Result Diagram: 12/19/16 0550 12/19/16 0550 Other Results Laboratory Tests Test 12/18/16 12/19/16 22:40 05:50 Potassium Level 3.4 MEQ/L 3.2 MEQ/L White Blood Count 22.9 TH/MM3 Red Blood Count 4.02 MIL/MM3 Hemoglobin 12.4 GM/DL Hematocrit 38.6 % Mean Corpuscular Volume 96.0 FL Mean Corpuscular Hemoglobin 30.8 PG Mean Corpuscular Hemoglobin 32.1 % Concent Red Cell Distribution Width 14.3 % Platelet Count 237 TH/MM3 Mean Platelet Volume 9.2 FL Neutrophils (%) (Auto) 73.1 % Lymphocytes (%) (Auto) 19.4 % Monocytes (%) (Auto) 6.8 % Eosinophils (%) (Auto) 0.1 % Basophils (%) (Auto) 0.6 % Neutrophils # (Auto) 16.7 TH/MM3 Lymphocytes # (Auto) 4.4 TH/MM3 Monocytes # (Auto) 1.6 TH/MM3 Eosinophils # (Auto) 0.0 TH/MM3 Basophils # (Auto) 0.1 TH/MM3 CBC Comment DIFF FINAL Differential Comment Activated Partial 52.7 SEC Thromboplast Time Sodium Level 143 MEQ/L Chloride Level 108 MEQ/L Carbon Dioxide Level 26.3 MEQ/L Anion Gap 9 MEQ/L Blood Urea Nitrogen 9 MG/DL Creatinine 0.77 MG/DL Estimat Glomerular Filtration 109 ML/MIN Rate Random Glucose 122 MG/DL Calcium Level 7.2 MG/DL Protein Corrected Calcium 7.8 MG/DL Phosphorus Level 4.1 MG/DL Magnesium Level 2.1 MG/DL Total Bilirubin 0.2 MG/DL Aspartate Amino Transf 27 U/L (AST/SGOT) Alanine Aminotransferase 52 U/L (ALT/SGPT) Alkaline Phosphatase 69 U/L Total Protein 5.9 GM/DL Albumin 2.9 GM/DL Triglycerides Level 139 MG/DL Cholesterol Level 160 MG/DL LDL Cholesterol 85 MG/DL HDL Cholesterol 47.3 MG/DL Cholesterol/HDL Ratio 3.38 RATIO Imaging Last Impressions Head Magnetic Resonance Angiography 12/17/16 Signed Impressions: Service Date/Time: Saturday, December 17, 2016 15:19 - CONCLUSION: 1. Stable MRA of brain since December 08. Left vertebral artery not visualized. Basilar artery is very attenuated and possibly stenotic. Anterior, middle and posterior cerebral arteries are patent. Chito Roldan MD Brain MRI 12/17/16 Signed Impressions: Service Date/Time: Saturday, December 17, 2016 15:19 - CONCLUSION: 1. No acute intracranial abnormalities. 2. Resolution of previous fluid in the maxillary sinuses with mild residual mucosal thickening. Chito Roldan MD Head CT 12/16/16 Signed Impressions: Service Date/Time: Friday, December 16, 2016 10:00 - CONCLUSION: 1. No intracranial abnormality 2. Right paranasal sinusitis. Stuart Vieyra MD Chest X-Ray 12/12/16 Signed Impressions: Service Date/Time: Monday, December 12, 2016 10:49 - CONCLUSION: 1. Left PICC line tip in good position near the atriocaval junction. Stuart Vieyra MD Head CTA 12/08/16 Signed Impressions: Service Date/Time: December 15:56 - CONCLUSION: 1. 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 There is progressive atresia/narrowing of the basilar when compared to the prior exam, however. 2. The left posterior commuting artery is supplied solely from the anterior circulation via the left posterior to indicating artery. 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 3. 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 Anterior circulation is otherwise patent without aneurysmal disease. Aashish Calderón MD Carotid Artery Ultrasound 12/08/16 0000 Signed Impressions: Service Date/Time: December 09:51 - CONCLUSION: 1. Normal appearance of the internal carotid arteries any significant atherosclerotic disease or stenosis. 2. The left vertebral artery is not visualized. However, it had a normal appearance on the 08/21/2016 carotid CTA examination. Ankit Gutiérrez MD Cervical Spine MRI 12/07/16 0000 Signed Impressions: Service Date/Time: Wednesday, December 07, 2016 17:34 - CONCLUSION: Multilevel degenerative findings of the cervical spine. Broad-based disc bulge at C5-6 results in moderate severity central canal narrowing. Harejet Greene MD Objective Remarks GENERAL: 46 year old male, critically ill currently resting in bed in no acute distress SKIN: Warm and dry. Multiple tattoos right upper extremity, left upper extremity HEAD: Atraumatic. Normocephalic. EYES: Pupils equal and round about 3 mm bilaterally and reactive. No scleral icterus. No injection or drainage. ENT: No nasal bleeding or discharge. Mucous membranes pink and moist. Oropharynx without erythema or exudates NECK: Trachea midline. No JVD. CARDIOVASCULAR: RRR. S1, S2. No S4. Without murmur RESPIRATORY: Clear to auscultation. Breath sounds equal bilaterally. GASTROINTESTINAL: Abdomen soft, non-tender, nondistended. Hepatic and splenic margins not palpable. MUSCULOSKELETAL: Extremities without difficulty and peripheral edema. No obvious deformities. NEUROLOGICAL: Awake and alert. No obvious cranial nerve deficits. Motor grossly within normal limits. Strength 4-5 right upper extremity. 3.5 -5 right lower extremity. 5 out of 5 left upper and lower extremity. Decreased sensation to light touch and pinprick right upper and lower extremity. 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 Absent L A1 SARAH and MRI brain 12/09 revealed no acute intracranial findings Repeat MRI brain 12/16 no intrarenal findings and resolution of sinusitis. Repeat MRA brain 12/16 revealed absent left vertebral artery. The basilar artery with significant attenuation with stenosis Followed by Dr. Rankin - neurology Neurosurgery Dr. Zacarias has seen. No intervention Holding Seroquel 50 milligrams as needed/home medication Continue Neurontin increase to 800 mg 3 times daily for neuropathy pain Currently on Handy-Synephrine to maintain cerebral perfusion pressures as patient symptomatically with systolic blood pressure less than 140 see below Acetaminophen/[place] as needed for pain Continue with aspirin 325 mill grams daily EEG 12/10 no seizure CV: Elevated LDL Elevated triglycerides Atrial fibrillation - currently in sinus tachycardia Currently on Handy-Synephrine at 150 mu./m and norepinephrine at 7 mics grams per minute to keep systolic blood pressure greater than 140. Increased MIdodrine 10 mg 3 times a day yesterday and increased Florinef 0. milligram by mouth twice a day On Solu-Cortef 100 mg IV every 8 hours with initial abnormal cortisol see below Continue Lipitor 80 mg daily for dyslipidemia/elevated LDL Echocardiogram 12/06 revealed EF 55-60%. Mild TR. Overnights bolus of amiodarone and start amiodarone drip. This will be discontinued and will replace electrolytes specifically potassium and discontinue norepinephrine Likely outpatient evaluation once clinically stabilized Resp: Nasal cannula to maintain saturations greater than equal to 92% Incentive spirometry while awake GI: Heart healthy diet Protonix for GI prophylaxis Libby-Colace for bowel regimen : Mulligan catheter if indicated Endo: Hyperglycemia of critical illness Low cortisol Sliding-scale insulin if indicated to maintain euglycemia Noted cortisol 12/13 was 2.6. Cosyntropin test 8-40 response. We'll continue hydrocortisone 100 mg IV every 8 hours as above currently. 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 Pituitary shows no signs of ischemia or abnormality on MRI. Renal: Monitor urine output Accurate I's and O's Heme: Leukocytosis Follow CBC daily. Monitor trends. Leukocytosis possibly secondary to steroids now currently versus reactive. No signs infectious etiology On heparin drip, will initiate coumadin for anticoagulation. ID: Monitor for infection FEN: Hypokalemia Replace electrolytes as clinically indicated Check potassium at 3PM MSK: Physical therapy evaluate and treat Access -Left antecubital PICC placed 12/12 Prophylaxis - GI - Protonix - DVT - heparin drip Lenin Dsouza MD Dec 19, 2016 15:45
[2016-12-19] MEDS: WARFARIN SOD 3 MG TAB PO SCH (17:07)
[2016-12-19 17:12] LABS: HEMOGLOBIN A1a 1.5 %; HEMOGLOBIN A1b 1.1 %; HEMOGLOBIN Ao 85.5 %; HEMOGLOBIN F 0.7 %; HEMOGLOBIN LA1C 1.8 %; HEMOGLOBIN P3 3.6 %
[2016-12-19 18:17] LABS: AUTOMATED NEUTROPHIL # 19.7 TH/MM3 (1.8-7.7); BASOPHIL # 0.2 TH/MM3 (0-0.2); BASOPHIL % 0.8 % (0.0-2.0); EOSINOPHIL % 0.1 % (0.0-4.0); HEMATOCRIT 40.1 % (39.0-51.0); LYMPH % 16.5 % (9.0-44.0); LYMPHOCYTE # 4.4 TH/MM3 (1.0-4.8); MEAN CORPUSCULAR HEMOGLOBIN 30.9 PG (27.0-34.0); MEAN CORPUSCULAR HGB CONC 31.9 % (32.0-36.0); MONO % 8.3 % (0.0-8.0); NEUT % 74.3 % (16.0-70.0); PLATELET COUNT 276 TH/MM3 (150-450); RED BLOOD COUNT 4.14 MIL/MM3 (4.50-5.90); RED CELL DISTRIBUTION WIDTH 15.2 % (11.6-17.2); WHITE BLOOD COUNT 26.4 TH/MM3 (4.0-11.0)
[2016-12-19 18:18] LABS: HEMO FLAGS AUTO DIFF
[2016-12-19 18:37] LABS: ALKALINE PHOSPHATASE 78 U/L (45-117); ALT (GPT) 65 U/L (12-78); ANION GAP 8 MEQ/L (5-15); AST (GOT) 39 U/L (15-37); BICARBONATE 30.2 MEQ/L (21.0-32.0); BLOOD UREA NITROGEN 10 MG/DL (7-18); CHLORIDE 104 MEQ/L (98-107); GLOMERULAR FILTRATION RATE 73 ML/MIN (>89); POTASSIUM 3.6 MEQ/L (3.5-5.1); SODIUM (NA) 142 MEQ/L (136-145); TOTAL BILIRUBIN ADULT 0.2 MG/DL (0.2-1.0)
[2016-12-19 18:43] LABS: NEUTROPHIL # MANUAL DIFF 19.8 TH/MM3 (1.8-7.7); POLYS (SEG NEUTROPHILS) 75 % (16-70); WBC DIFF SAMPLE 100
[2016-12-19 18:44] LABS: PLATELET ESTIMATE SMEAR NORMAL (NORMAL); PLATELET MORPHOLOGY NORMAL (NORMAL); SCAN/DIFF FINAL DIFF MANUAL
[2016-12-19] MEDS: ATORVASTATIN 10 MG TAB PO SCH (21:38)
[2016-12-20] VITALS (14 sets, daily range): BP systolic 137–174; BP diastolic 67–107; PULSE 62–82; RESP 10–18; TEMP 95.3–98.7; O2SAT 95–97
[2016-12-20] MEDS: ACETAMINOPHEN/HYDROcodone 325 MG/5 MG TAB PO PRN (01:11)
[2016-12-20] MEDS: CHLORHEXIDINE GLUCONATE 2 % 1 PACK (2 CLOTHS) TOP SCH ×2 (04:00→20:29)
[2016-12-20] MEDS: HEPARIN-D5W INJ 250 ML IV SCH (04:46)
[2016-12-20] MEDS: HYDROCORTISONE SOD SUCCINATE 100 MG VIAL IV PUSH SCH ×3 (05:15→21:33)
[2016-12-20 05:26] LABS: AUTOMATED NEUTROPHIL # 20.1 TH/MM3 (1.8-7.7); BASOPHIL # 0.2 TH/MM3 (0-0.2); BASOPHIL % 0.8 % (0.0-2.0); HEMATOCRIT 40.6 % (39.0-51.0); LYMPH % 20.8 % (9.0-44.0); LYMPHOCYTE # 5.9 TH/MM3 (1.0-4.8); MEAN CELL VOLUME 94.7 FL (80.0-100.0); MEAN CORPUSCULAR HEMOGLOBIN 31.5 PG (27.0-34.0); MEAN CORPUSCULAR HGB CONC 33.3 % (32.0-36.0); NEUT % 70.4 % (16.0-70.0); PLATELET COUNT 298 TH/MM3 (150-450); RED BLOOD COUNT 4.28 MIL/MM3 (4.50-5.90); RED CELL DISTRIBUTION WIDTH 14.7 % (11.6-17.2); WHITE BLOOD COUNT 28.6 TH/MM3 (4.0-11.0)
[2016-12-20 05:33] LABS: HEMO FLAGS AUTO DIFF
[2016-12-20 05:42] LABS: ALT (GPT) 64 U/L (12-78); ANION GAP 8 MEQ/L (5-15); AST (GOT) 36 U/L (15-37); BICARBONATE 30.9 MEQ/L (21.0-32.0); BLOOD UREA NITROGEN 9 MG/DL (7-18); CHLORIDE 104 MEQ/L (98-107); GLOMERULAR FILTRATION RATE 85 ML/MIN (>89); POTASSIUM 3.2 MEQ/L (3.5-5.1); SODIUM (NA) 143 MEQ/L (136-145)
[2016-12-20 05:45] LABS: ALKALINE PHOSPHATASE 79 U/L (45-117); TOTAL BILIRUBIN ADULT 0.2 MG/DL (0.2-1.0)
[2016-12-20 06:01] LABS: APTT (PATIENT) 53.4 SEC (24.3-30.1); PROTHROMBIN TIME - PATIENT 10.8 SEC (9.8-11.6)
[2016-12-20] MEDS: INSULIN NovoLIN REGULAR SUPPLEMENTAL SCALE SQ SCH ×4 (07:00→22:11)
[2016-12-20] MEDS: MIDODRINE 5 MG TAB PO SCH ×3 (07:15→16:26)
[2016-12-20] MEDS: POTASSIUM CHLOR 40 MEQ PREMIX 100 ML IV PRN (07:16)
[2016-12-20 07:23] LABS: BANDS 2 % (0-6); POLYS (SEG NEUTROPHILS) 61 % (16-70); WBC DIFF SAMPLE 100
[2016-12-20 07:25] LABS: PLATELET ESTIMATE SMEAR NORMAL (NORMAL); PLATELET MORPHOLOGY NORMAL (NORMAL); SCAN/DIFF FINAL DIFF MANUAL
[2016-12-20] MEDS: GABAPENTIN 400 MG CAP PO SCH ×3 (08:24→17:53)
[2016-12-20] MEDS: FLUDROCORTISONE ACETATE 0.1 MG TAB PO SCH ×2 (08:24→21:32)
[2016-12-20] MEDS: PANTOPRAZOLE SOD 40 MG DELAYED RELEASE TAB PO SCH (08:24)
[2016-12-20] MEDS: DOCUSATE SODIUM 50 MG/SENNA 8.6 MG TAB PO SCH ×2 (08:24→21:32)
[2016-12-20] MEDS: ASPIRIN EC 325 MG TABEC PO SCH (08:24)
[2016-12-20] MEDS: PHENYLEPHRINE INJ 80 MG in SODIUM CHLORID 0.9% 500 ML INJ 492 ML IV SCH (15:21)
--- NOTE | 2016-12-20 15:48 | HHI.CCPN ---
Subjective Remarks/Hospital Course 46 y/o man presents with several day history of stuttering and difficulty finding words. Past admission to [place] in August 2016 for vertigo. MRI brain is normal. MRI spine with C5-6 bulging disc and canal narrowing. Recently started on atypical antipsychotic for outbursts and anger. 12/09: BP nicely elevated for improved cerebral collateral circulation. Neuro workup in progress. 12/10: BP support good - his speech improves with higher SBP. Resistant to heparin, will bolus now. 12/11: Speech still better today. There appears to be an emotional component - if he gets anxious his speech deteriorates. 12/12: Currently on Handy-Synephrine 300 mics grams per minute to maintain systolic blood pressure greater than 160. Very anxious. Tolerating diet. One bowel movement. 12/13: Continues on Handy-Synephrine norepinephrine to maintain systolic greater than 160. Becomes symptomatic when less than this. Tolerating diet. 12/14: Afebrile. Remains on norepinephrine at 8 mics grams per minute Handy- Synephrine 110 mics grams per minute to maintain systolic pressure is 150. Added midodrine 5 mill grams 3 times a day yesterday. Complaining of pain in his inguinal region likely from decreased mobility. 12/15: Afebrile. Remains on norepinephrine at 11 g per min and Handy-Synephrine 40 mu./m to maintain systolic blood pressure greater than 140. MIDODRINE increased to 10 Mg 3 times a day and Florinef 0.1 mg daily added today. Increase strength in right upper extremity. 12/16: Afebrile. Appears comfortable at bedside. Strength in right hand has improved. Remains on norepinephrine 12 g per minute Handy-Synephrine at 110 mg/ m to maintain systolic blood pressure greater than 140. One bowel movement yesterday 12/17: Afebrile. Handy-Synephrine at 100 mcg/m and norepinephrine at 7 mcg/m. Mentating fine. Plan for MRI/MRA brain today. Subjective 12/18: Afebrile. Handy-Synephrine currently in 150 g. Epinephrine discontinued. Overnight, brief episode of atrial fibrillation. Started on amiodarone drip due to vasopressor requirements for cerebral perfusion with basal artery stenosis/thrombosis. Potassium is noted to be low and continues to be low. This will be aggressively replaced. EKG with questionable delta wave 12/19: Awake and alert. On Hadny-Synephrine 175 mics per minute. Potassium being replaced. Tolerating by mouth diet. Remained on heparin for anticoagulation. 12/20: Awake, alert, following commands. Remains on Handy-Synephrine and 150 mics per minute. Symptomatic on attempting to titrate down on Handy-Synephrine if his systolic blood pressure drops below 140. Objective Vital Signs Date Time Temp Pulse Resp B/P Pulse Ox O2 Delivery O2 Flow Rate FiO2 12/20/16 14:00 78 12/20/16 12:00 98.1 11 137/86 95 12/18/16 10:36 21 Intake and Output 12/19/16 12/19/16 12/19/16 07:59 15:59 23:59 Intake Total 778 ml 1246 ml 1151 ml Output Total 1400 ml 675 ml 1500 ml Balance -622 ml 571 ml -349 ml Result Diagram: 12/20/16 0500 12/20/16 0500 Imaging Last Impressions Head Magnetic Resonance Angiography 12/17/16 0000 Signed Impressions: Service Date/Time: Saturday, December 17, 2016 15:19 - CONCLUSION: 1. Stable MRA of brain since December 08. Left vertebral artery not visualized. Basilar artery is very attenuated and possibly stenotic. Anterior, middle and posterior cerebral arteries are patent. Chito Roldan MD Brain MRI 12/17/16 0000 Signed Impressions: Service Date/Time: Saturday, December 17, 2016 15:19 - CONCLUSION: 1. No acute intracranial abnormalities. 2. Resolution of previous fluid in the maxillary sinuses with mild residual mucosal thickening. Chito Roldan MD Head CT 12/16/16 0000 Signed Impressions: Service Date/Time: Friday, December 16, 2016 10:00 - CONCLUSION: 1. No intracranial abnormality 2. Right paranasal sinusitis. Stuart Vieyra MD Chest X-Ray 12/12/16 0000 Signed Impressions: Service Date/Time: Monday, December 12, 2016 10:49 - CONCLUSION: 1. Left PICC line tip in good position near the atriocaval junction. Stuart Vieyra MD Head CTA 12/08/16 0000 Signed Impressions: Service Date/Time: December 15:56 - CONCLUSION: 1. 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 There is progressive atresia/narrowing of the basilar when compared to the prior exam, however. 2. The left posterior commuting artery is supplied solely from the anterior circulation via the left posterior to indicating artery. 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 3. 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 Anterior circulation is otherwise patent without aneurysmal disease. Aashish Calderón MD Carotid Artery Ultrasound 12/08/16 0000 Signed Impressions: Service Date/Time: December 09:51 - CONCLUSION: 1. Normal appearance of the internal carotid arteries any significant atherosclerotic disease or stenosis. 2. The left vertebral artery is not visualized. However, it had a normal appearance on the 08/21/2016 carotid CTA examination. Ankit Gutiérrez MD Cervical Spine MRI 12/07/16 0000 Signed Impressions: Service Date/Time: Wednesday, December 07, 2016 17:34 - CONCLUSION: Multilevel degenerative findings of the cervical spine. Broad-based disc bulge at C5-6 results in moderate severity central canal narrowing. Harjeet Greene MD Objective Remarks GENERAL: 46 year old male, critically ill currently resting in bed in no acute distress SKIN: Warm and dry. Multiple tattoos right upper extremity, left upper extremity HEAD: Atraumatic. Normocephalic. EYES: Pupils equal and round about 3 mm bilaterally and reactive. No scleral icterus. No injection or drainage. ENT: No nasal bleeding or discharge. Mucous membranes pink and moist. Oropharynx without erythema or exudates NECK: Trachea midline. No JVD. CARDIOVASCULAR: RRR. S1, S2. No S4. Without murmur RESPIRATORY: Clear to auscultation. Breath sounds equal bilaterally. GASTROINTESTINAL: Abdomen soft, non-tender, nondistended. Hepatic and splenic margins not palpable. MUSCULOSKELETAL: Extremities without difficulty and peripheral edema. No obvious deformities. NEUROLOGICAL: Awake and alert. No obvious cranial nerve deficits. Motor grossly within normal limits. Strength 4-5 right upper extremity. 3.5 -5 right lower extremity. 5 out of 5 left upper and lower extremity. Decreased sensation to light touch and pinprick right upper and lower extremity. 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 Absent L A1 SARAH and MRI brain 12/09 revealed no acute intracranial findings Repeat MRI brain 12/16 no intrarenal findings and resolution of sinusitis. Repeat MRA brain 12/16 revealed absent left vertebral artery. The basilar artery with significant attenuation with stenosis Followed by Dr. Rankin - neurology Neurosurgery Dr. Zacarias has seen. No intervention Holding Seroquel 50 milligrams as needed/home medication Continue Neurontin increase to 800 mg 3 times daily for neuropathy pain Currently on Handy-Synephrine to maintain cerebral perfusion pressures as patient symptomatically with systolic blood pressure less than 140 see below Acetaminophen/[place] as needed for pain Continue with aspirin 325 mill grams daily EEG 12/10 no seizure CV: Elevated LDL Elevated triglycerides Atrial fibrillation - currently in sinus tachycardia Currently on Handy-Synephrine at 150 mu./m to keep systolic blood pressure greater than 140. On Midodrine 10 mg 3 times a day yesterday and increased Florinef On Solu-Cortef 100 mg IV every 8 hours with initial abnormal cortisol see below Continue Lipitor 80 mg daily for dyslipidemia/elevated LDL Echocardiogram 12/06 revealed EF 55-60%. Mild TR. Off amiodarone. Likely outpatient evaluation once clinically stabilized Resp: Nasal cannula to maintain saturations greater than equal to 92% Incentive spirometry while awake GI: Heart healthy diet Protonix for GI prophylaxis Libyb-Colace for bowel regimen : Mulligan catheter if indicated Endo: Hyperglycemia of critical illness Low cortisol Sliding-scale insulin if indicated to maintain euglycemia Noted cortisol 12/13 was 2.6. Cosyntropin test 8-40 response. We'll continue hydrocortisone 100 mg IV every 8 hours as above currently. 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 Pituitary shows no signs of ischemia or abnormality on MRI. Renal: Monitor urine output Accurate I's and O's Heme: Leukocytosis Follow CBC daily. Monitor trends. Leukocytosis possibly secondary to steroids now currently versus reactive. No signs infectious etiology On heparin drip, Started coumadin for anticoagulation on 12/20. ID: Monitor for infection FEN: Hypokalemia Replace electrolytes as clinically indicated Check potassium at 3PM MSK: Physical therapy evaluate and treat Access -Left antecubital PICC placed 12/12 Prophylaxis - GI - Protonix - DVT - heparin drip Lenin Dsouza MD Dec 20, 2016 15:48
[2016-12-20] MEDS: WARFARIN SOD 3 MG TAB PO SCH (16:26)
--- NOTE | 2016-12-20 16:54 | HHI.PR ---
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 Hypotension Plan -Neuro checks Q1h - Heparin drip/infusion per protocol - Bridge to oral anticoagulation - Head of bed 30 degrees - Maintain BP > 140mm Hg - Continue Midodrine 10mg tid - Fludrocortisone 0.1 mg bid - DVT prophylaxis, SCDs' - Decreased Gabapentin to 400mg Q 8h, from 800 mg Q8h Diagnosis/Plan: Subjective Subjective Comments Fluctuating BP reading with a drop noticed by RN when patient receives Gabapentin Patient is anxious and asks for anti-anxiety medications Improved neurologic status when BP is elevated On Heparin drip, bridging to oral anticoagulation Active Medications Current Medications Medications (Trade) Dose Ordered Sig/Ligia Route Start Time Stop Time Status Last Admin (Ecotrin Ec) 325 mg DAILY PO 12/07/16 16:00 12/20/16 08:24 (Ackerman 5-325 Mg) 1 tab Q6H PRN PO 12/08/16 15:15 12/20/16 01:11 (Tylenol) 650 mg Q6H PRN PO 12/08/16 15:15 12/10/16 15:04 (Protonix) 40 mg DAILY PO 12/08/16 16:00 12/20/16 08:24 (Zofran Inj) 4 mg Q6H PRN IV 12/08/16 15:15 12/10/16 09:21 Miscellaneous Information 1 Q361D XX 12/08/16 15:15 (Chlorhexidine 2% Cloth) Taper DAILY@04 TOP 12/09/16 04:00 12/05/17 03:59 12/18/16 04:00 (Chlorhexidine 2% Cloth) 3 pack UNSCH PRN TOP 12/08/16 15:15 (Libby-Colace) 1 tab BID PO 12/08/16 21:00 12/20/16 08:24 (Milk Of Magnesia Liq) 30 ml Q12H PRN PO 12/08/16 15:15 (Senokot) 17.2 mg Q12H PRN PO 12/08/16 15:15 (Dulcolax Supp) 10 mg DAILY PRN RECTAL 12/08/16 15:15 Lactulose 30 ml 30 ml DAILY PRN PO 12/08/16 15:15 (Heparin-D5W Inj) 250 ml @ 0 mls/hr TITRATE IV 12/08/16 17:15 12/20/16 04:46 (Flexeril) 5 mg Q8H PRN PO 12/10/16 16:30 12/18/16 12:19 Terbutaline Sulfate 1 mg 1 mg UNSCH PRN SQ 12/12/16 09:45 Potassium Chloride 100 ml @ 50 mls/hr Q2H PRN IV 12/13/16 04:30 12/20/16 07:16 (KCl 20 Meq Premix Inj) 100 ml @ 50 mls/hr Q2H PRN IV 12/13/16 04:30 Potassium Bicarb/ Potassium Chloride 50 meq 50 meq UNSCH PRN PO 12/13/16 04:30 Potassium Chloride 100 ml @ 25 mls/hr UNSCH PRN IV 12/13/16 04:30 Potassium Chloride 100 ml @ 50 mls/hr Q2H PRN IV 12/13/16 04:30 (Magnesium Sulfate Inj/NS Inj) 100 ml @ 50 mls/hr UNSCH PRN IV 12/13/16 04:30 Magnesium Oxide 800 mg 800 mg UNSCH PRN PO 12/13/16 04:30 (Magnesium Sulfate Inj/NS Inj) 100 ml @ 50 mls/hr UNSCH PRN IV 12/13/16 04:30 Potassium Phosphate 2000 mg 2,000 mg Q4H PRN PO 12/13/16 04:30 (Sodium Phosphate Inj/NS 250 ml Inj) 250 ml @ 42 mls/hr UNSCH PRN IV 12/13/16 04:30 Potassium Phosphate 2000 mg 2,000 mg UNSCH PRN PO/TUBE 12/13/16 04:30 (Potassium Phosphate Inj/NS 250 ml Inj) 260 ml @ 42 mls/hr UNSCH PRN IV 12/13/16 04:30 Dextrose 50 ml 50 ml UNSCH PRN IV PUSH 12/13/16 04:30 (Neosynephrine Inj/NS 500 ml Inj) 500 ml @ 0 mls/hr TITRATE IV 12/13/16 11:30 12/20/16 15:21 (Neurontin) 800 mg TID PO 12/14/16 13:00 12/20/16 13:34 (Proamatine) 10 mg TID@,12,17 PO 12/14/16 17:00 12/20/16 16:26 (Florinef) 0.1 mg BID PO 12/16/16 09:00 12/20/16 08:24 (SoluCORTEF INJ) 100 mg Q8HR IV PUSH 12/16/16 15:00 12/20/16 13:34 (Lipitor) 80 mg HS PO 12/18/16 21:00 12/19/16 21:38 (D50w (Vial) Inj) 50 ml UNSCH PRN IV 12/18/16 13:45 Glucagon 1 mg 1 mg UNSCH PRN OTHER 12/18/16 13:45 (Coumadin Consult Pharmacy) 0 ml @ 0 mls/hr UNSCH OTHER 12/19/16 15:45 (Coumadin) 3 mg DAILY@16 PO 12/19/16 16:00 12/20/16 16:26 Allergies Allergies Coded Allergies Penicillin (Verified Allergy, Severe, rash, 12/07/16) Exam I&O / VS 12/19/16 12/19/16 12/20/16 15:00 23:00 07:00 Intake Total 1246 ml 1151 ml 1072 ml Output Total 675 ml 1500 ml 1100 ml Balance 571 ml -349 ml -28 ml Intake Oral 300 ml 460 ml 420 ml IV Total 946 ml 691 ml 652 ml Output Urine Total 675 ml 1500 ml 1100 ml # Bowel Movements 1 0 Vital Signs Date Time Temp Pulse Resp B/P Pulse Ox O2 Delivery O2 Flow Rate FiO2 12/20/16 16:00 98.2 66 10 174/93 96 12/20/16 16:00 66 12/20/16 14:00 78 12/20/16 12:00 98.1 71 11 137/86 95 12/20/16 12:00 71 12/20/16 11:00 76 12/20/16 10:00 70 12/20/16 09:00 64 12/20/16 08:00 98.3 68 16 162/107 97 12/20/16 08:00 68 12/20/16 07:37 74 12/20/16 06:00 63 12/20/16 04:00 76 12/20/16 04:00 98.2 76 18 146/67 95 12/20/16 02:00 62 12/20/16 00:00 98.5 64 12 166/92 97 12/20/16 00:00 64 12/19/16 22:00 76 12/19/16 20:00 78 12/19/16 20:00 98.7 74 14 180/101 97 12/19/16 18:00 76 General: Alert and Oriented, No acute distress Eye: PERRL, Normal conjuctiva Respiratory: Lungs CTA, Non-labored respirations Cardiology: Normal rate, Intact pulses Musculoskeletal: ROM Neurologic: Alert, Oriented, Other (mild dysarthria, right sided UE ataxia, right LE weakness hip flex 3/6, foot dorsiflex 2/5, and diminished sensation) Psychiatric: Cooperative, Appropriate mood & affect, Normal judgement Objective Micro and Labs Laboratory Tests Test 12/19/16 12/20/16 17:21 05:00 White Blood Count 26.4 28.6 Red Blood Count 4.14 4.28 Hemoglobin 12.8 13.5 Hematocrit 40.1 40.6 Mean Corpuscular Volume 97.0 94.7 Mean Corpuscular Hemoglobin 30.9 31.5 Mean Corpuscular Hemoglobin 31.9 33.3 Concent Red Cell Distribution Width 15.2 14.7 Platelet Count 276 298 Mean Platelet Volume 9.9 9.3 Neutrophils (%) (Auto) 74.3 70.4 Lymphocytes (%) (Auto) 16.5 20.8 Monocytes (%) (Auto) 8.3 8.0 Eosinophils (%) (Auto) 0.1 0.0 Basophils (%) (Auto) 0.8 0.8 Neutrophils # (Auto) 19.7 20.1 Lymphocytes # (Auto) 4.4 5.9 Monocytes # (Auto) 2.2 2.3 Eosinophils # (Auto) 0.0 0.0 Basophils # (Auto) 0.2 0.2 CBC Comment AUTO DIFF AUTO DIFF Differential Total Cells 100 100 Counted Neutrophils % (Manual) 75 61 Lymphocytes % 22 32 Monocytes % 3 5 Neutrophils # (Manual) 19.8 18.0 Differential Comment FINAL DIFF FINAL DIFF MANUAL MANUAL Platelet Estimate NORMAL NORMAL Platelet Morphology Comment NORMAL NORMAL Red Cell Morphology Comment NORMAL NORMAL Sodium Level 142 143 Potassium Level 3.6 3.2 Chloride Level 104 104 Carbon Dioxide Level 30.2 30.9 Anion Gap 8 8 Blood Urea Nitrogen 10 9 Creatinine 1.09 0.95 Estimat Glomerular Filtration 73 85 Rate Random Glucose 139 129 Calcium Level 8.8 8.6 Total Bilirubin 0.2 0.2 Aspartate Amino Transf 39 36 (AST/SGOT) Alanine Aminotransferase 65 64 (ALT/SGPT) Alkaline Phosphatase 78 79 Total Protein 6.7 6.6 Albumin 3.4 3.3 Band Neutrophils % 2 Prothrombin Time 10.8 Prothromb Time International 1.0 Ratio Activated Partial 53.4 Thromboplast Time Mallorie Rankin MD Dec 20, 2016 16:54
[2016-12-20] MEDS: ATORVASTATIN 80 MG TAB PO SCH (22:08)
[2016-12-21] VITALS (13 sets, daily range): BP systolic 150–187; BP diastolic 86–104; PULSE 56–82; RESP 12–19; TEMP 97.4–99.1; O2SAT 95–97
[2016-12-21] MEDS: PHENYLEPHRINE INJ 80 MG in SODIUM CHLORID 0.9% 500 ML INJ 492 ML IV SCH ×3 (03:23→21:24)
[2016-12-21] MEDS: HYDROCORTISONE SOD SUCCINATE 100 MG VIAL IV PUSH SCH ×3 (05:57→19:42)
[2016-12-21] MEDS: INSULIN NovoLIN REGULAR SUPPLEMENTAL SCALE SQ SCH ×4 (05:58→19:46)
[2016-12-21] MEDS: MIDODRINE 5 MG TAB PO SCH ×3 (05:58→16:07)
[2016-12-21 06:25] LABS: HEMATOCRIT 39.7 % (39.0-51.0); MEAN CELL VOLUME 96.2 FL (80.0-100.0); MEAN CORPUSCULAR HEMOGLOBIN 30.8 PG (27.0-34.0); PLATELET COUNT 307 TH/MM3 (150-450); RED BLOOD COUNT 4.12 MIL/MM3 (4.50-5.90); RED CELL DISTRIBUTION WIDTH 14.7 % (11.6-17.2); WHITE BLOOD COUNT 30.2 TH/MM3 (4.0-11.0)
[2016-12-21 06:26] LABS: HEMO FLAGS AUTO DIFF
[2016-12-21 06:38] LABS: INTERNATIONAL NORMALIZED RATIO 1.1 RATIO; PROTHROMBIN TIME - PATIENT 12.2 SEC (9.8-11.6)
[2016-12-21 06:54] LABS: ALT (GPT) 74 U/L (12-78); ANION GAP 9 MEQ/L (5-15); AST (GOT) 44 U/L (15-37); BICARBONATE 29.5 MEQ/L (21.0-32.0); BLOOD UREA NITROGEN 9 MG/DL (7-18); CHLORIDE 106 MEQ/L (98-107); GLOMERULAR FILTRATION RATE 100 ML/MIN (>89); SODIUM (NA) 144 MEQ/L (136-145)
[2016-12-21 06:56] LABS: ALKALINE PHOSPHATASE 74 U/L (45-117); TOTAL BILIRUBIN ADULT 0.2 MG/DL (0.2-1.0)
[2016-12-21 06:57] LABS: POTASSIUM 2.8 MEQ/L (3.5-5.1)
[2016-12-21 07:13] LABS: BANDS 3 % (0-6); MYELOCYTES 1 % (0-0); NEUTROPHIL # MANUAL DIFF 20.5 TH/MM3 (1.8-7.7); PLATELET ESTIMATE SMEAR NORMAL (NORMAL); PLATELET MORPHOLOGY NORMAL (NORMAL); POLYS (SEG NEUTROPHILS) 64 % (16-70); SCAN/DIFF FINAL DIFF MANUAL; WBC DIFF SAMPLE 100
[2016-12-21] MEDS: DOCUSATE SODIUM 50 MG/SENNA 8.6 MG TAB PO SCH ×3 (08:27→19:53)
[2016-12-21] MEDS: PANTOPRAZOLE SOD 40 MG DELAYED RELEASE TAB PO SCH (08:27)
[2016-12-21] MEDS: POTASSIUM CHLOR 40 MEQ PREMIX 100 ML IV PRN ×2 (08:27→11:21)
[2016-12-21] MEDS: GABAPENTIN 400 MG CAP PO SCH ×3 (08:28→18:14)
[2016-12-21] MEDS: ASPIRIN EC 325 MG TABEC PO SCH (08:28)
[2016-12-21] MEDS: FLUDROCORTISONE ACETATE 0.1 MG TAB PO SCH ×2 (08:28→19:42)
[2016-12-21] MEDS: ALPRAZolam 0.5 MG TAB PO PRN ×2 (08:41→19:42)
--- NOTE | 2016-12-21 09:16 | HHI.CCPN ---
Subjective Remarks/Hospital Course 46 y/o man presents with several day history of stuttering and difficulty finding words. Past admission to [facility] in August 2016 for vertigo. MRI brain is normal. MRI spine with C5-6 bulging disc and canal narrowing. Recently started on atypical antipsychotic for outbursts and anger. 12/09: BP nicely elevated for improved cerebral collateral circulation. Neuro workup in progress. 12/10: BP support good - his speech improves with higher SBP. Resistant to heparin, will bolus now. 12/11: Speech still better today. There appears to be an emotional component - if he gets anxious his speech deteriorates. 12/12: Currently on Handy-Synephrine 300 mics grams per minute to maintain systolic blood pressure greater than 160. Very anxious. Tolerating diet. One bowel movement. 12/13: Continues on Handy-Synephrine norepinephrine to maintain systolic greater than 160. Becomes symptomatic when less than this. Tolerating diet. 12/14: Afebrile. Remains on norepinephrine at 8 mics grams per minute Handy- Synephrine 110 mics grams per minute to maintain systolic pressure is 150. Added midodrine 5 mill grams 3 times a day yesterday. Complaining of pain in his inguinal region likely from decreased mobility. 12/15: Afebrile. Remains on norepinephrine at 11 g per min and Handy-Synephrine 40 mu./m to maintain systolic blood pressure greater than 140. MIDODRINE increased to 10 Mg 3 times a day and Florinef 0.1 mg daily added today. Increase strength in right upper extremity. 12/16: Afebrile. Appears comfortable at bedside. Strength in right hand has improved. Remains on norepinephrine 12 g per minute Handy-Synephrine at 110 mg/ m to maintain systolic blood pressure greater than 140. One bowel movement yesterday 12/17: Afebrile. Handy-Synephrine at 100 mcg/m and norepinephrine at 7 mcg/m. Mentating fine. Plan for MRI/MRA brain today. Subjective 12/18: Afebrile. Handy-Synephrine currently in 150 g. Epinephrine discontinued. Overnight, brief episode of atrial fibrillation. Started on amiodarone drip due to vasopressor requirements for cerebral perfusion with basal artery stenosis/thrombosis. Potassium is noted to be low and continues to be low. This will be aggressively replaced. EKG with questionable delta wave 12/19: Awake and alert. On Handy-Synephrine 175 mics per minute. Potassium being replaced. Tolerating by mouth diet. Remained on heparin for anticoagulation. 12/20: Awake, alert, following commands. Remains on Handy-Synephrine and 150 mics per minute. Symptomatic on attempting to titrate down on Handy-Synephrine if his systolic blood pressure drops below 140. 12/21: Awake and alert. Having anxiety episodes. Remains on Handy-Synephrine. Objective Vital Signs Date Time Temp Pulse Resp B/P Pulse Ox O2 Delivery O2 Flow Rate FiO2 12/21/16 06:00 59 12/21/16 04:00 98.7 16 186/104 97 12/18/16 10:36 21 Intake and Output 12/20/16 12/20/16 12/21/16 08:00 16:00 00:00 Intake Total 1072 ml 1073 ml 1189 ml Output Total 1100 ml 1100 ml 1400 ml Balance -28 ml -27 ml -211 ml Result Diagram: 12/21/16 0610 12/21/16 0725 Imaging Last Impressions Head Magnetic Resonance Angiography 12/17/16 0000 Signed Impressions: Service Date/Time: Saturday, December 17, 2016 15:19 - CONCLUSION: 1. Stable MRA of brain since December 08. Left vertebral artery not visualized. Basilar artery is very attenuated and possibly stenotic. Anterior, middle and posterior cerebral arteries are patent. Chito Roldan MD Brain MRI 12/17/16 0000 Signed Impressions: Service Date/Time: Saturday, December 17, 2016 15:19 - CONCLUSION: 1. No acute intracranial abnormalities. 2. Resolution of previous fluid in the maxillary sinuses with mild residual mucosal thickening. Chito Roldan MD Head CT 12/16/16 0000 Signed Impressions: Service Date/Time: Friday, December 16, 2016 10:00 - CONCLUSION: 1. No intracranial abnormality 2. Right paranasal sinusitis. Stuart Vieyra MD Chest X-Ray 12/12/16 0000 Signed Impressions: Service Date/Time: Monday, December 12, 2016 10:49 - CONCLUSION: 1. Left PICC line tip in good position near the atriocaval junction. Stuart Vieyra MD Head CTA 12/08/16 0000 Signed Impressions: Service Date/Time: December 15:56 - CONCLUSION: 1. 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 There is progressive atresia/narrowing of the basilar when compared to the prior exam, however. 2. The left posterior commuting artery is supplied solely from the anterior circulation via the left posterior to indicating artery. 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 3. 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 Anterior circulation is otherwise patent without aneurysmal disease. Aashish Calderón MD Carotid Artery Ultrasound 12/08/16 0000 Signed Impressions: Service Date/Time: December 09:51 - CONCLUSION: 1. Normal appearance of the internal carotid arteries any significant atherosclerotic disease or stenosis. 2. The left vertebral artery is not visualized. However, it had a normal appearance on the 08/21/2016 carotid CTA examination. Ankit Gutiérrez MD Cervical Spine MRI 12/07/16 0000 Signed Impressions: Service Date/Time: Wednesday, December 07, 2016 17:34 - CONCLUSION: Multilevel degenerative findings of the cervical spine. Broad-based disc bulge at C5-6 results in moderate severity central canal narrowing. Harjeet Greene MD Objective Remarks GENERAL: 46 year old male, currently resting in bed in no acute distress SKIN: Warm and dry. Multiple tattoos right upper extremity, left upper extremity HEAD: Atraumatic. Normocephalic. EYES: Pupils equal and round about 3 mm bilaterally and reactive. No scleral icterus. No injection or drainage. ENT: No nasal bleeding or discharge. Mucous membranes pink and moist. Oropharynx without erythema or exudates NECK: Trachea midline. No JVD. CARDIOVASCULAR: RRR. S1, S2. No S4. Without murmur RESPIRATORY: Clear to auscultation. Breath sounds equal bilaterally. GASTROINTESTINAL: Abdomen soft, non-tender, nondistended. Hepatic and splenic margins not palpable. MUSCULOSKELETAL: Extremities without difficulty and peripheral edema. No obvious deformities. NEUROLOGICAL: Awake and alert. No obvious cranial nerve deficits. Motor grossly within normal limits. Strength 4-5 right upper extremity. 3.5 -5 right lower extremity. 5 out of 5 left upper and lower extremity. Decreased sensation to light touch and pinprick right upper and lower extremity. 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 Absent L A1 SARAH and MRI brain 12/09 revealed no acute intracranial findings Repeat MRI brain 12/16 no intrarenal findings and resolution of sinusitis. Repeat MRA brain 12/16 revealed absent left vertebral artery. The basilar artery with significant attenuation with stenosis Followed by Dr. Rankin - neurology Neurosurgery Dr. Zacarias has seen. No intervention Holding Seroquel 50 milligrams as needed/home medication Neurontin decreased to 400 mg 3 times daily for neuropathy pain on 12/20 Currently on Handy-Synephrine to maintain cerebral perfusion pressures as patient symptomatically with systolic blood pressure less than 140 see below. On Midodrine. Acetaminophen/[place] as needed for pain Continue with aspirin 325 mill grams daily EEG 12/10 no seizure CV: Elevated LDL Elevated triglycerides Atrial fibrillation - currently in sinus tachycardia Currently on Handy-Synephrine to keep systolic blood pressure greater than 140. On Midodrine 10 mg 3 times a day Florinef On Solu-Cortef 100 mg IV every 8 hours with initial abnormal cortisol see below Continue Lipitor 80 mg daily for dyslipidemia/elevated LDL Echocardiogram 12/06 revealed EF 55-60%. Mild TR. Off amiodarone. Likely outpatient evaluation once clinically stabilized Resp: Nasal cannula to maintain saturations greater than equal to 92% Incentive spirometry while awake GI: Heart healthy diet Protonix for GI prophylaxis Libby-Colace for bowel regimen : Mulligan catheter if indicated Endo: Hyperglycemia of critical illness Low cortisol Sliding-scale insulin if indicated to maintain euglycemia Noted cortisol 12/13 was 2.6. Cosyntropin test 8-40 response. We'll continue hydrocortisone 100 mg IV every 8 hours as above currently. 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 Pituitary shows no signs of ischemia or abnormality on MRI. Renal: Monitor urine output Accurate I's and O's Heme: Leukocytosis Follow CBC daily. Monitor trends. Leukocytosis possibly secondary to steroids now currently versus reactive. No signs infectious etiology On heparin drip, Started coumadin for anticoagulation on 12/20. ID: Monitor for infection FEN: Hypokalemia Replace electrolytes as clinically indicated MSK: Physical therapy evaluate and treat Access -Left antecubital PICC placed 12/12 Prophylaxis - GI - Protonix - DVT - heparin drip Lenin Dsouza MD Dec 21, 2016 09:16
[2016-12-21 10:05] LABS: APTT (PATIENT) 71.1 SEC (24.3-30.1)
[2016-12-21] MEDS: HEPARIN-D5W INJ 250 ML IV SCH (12:18)
[2016-12-21] MEDS ORDERED: WARFARIN SOD 3 MG TAB PO SCH (16:00)
[2016-12-21] MEDS: WARFARIN SOD 3 MG TAB PO SCH (16:07)
[2016-12-21 17:03] LABS: APTT (PATIENT) 73.2 SEC (24.3-30.1)
[2016-12-21] MEDS: ATORVASTATIN 80 MG TAB PO SCH (19:42)
[2016-12-21 23:20] LABS: APTT (PATIENT) 54.6 SEC (24.3-30.1)
[2016-12-22] VITALS (12 sets, daily range): BP systolic 140–166; BP diastolic 63–88; PULSE 60–75; RESP 9–24; TEMP 97–98.6; O2SAT 97–98
[2016-12-22] MEDS: HEPARIN-D5W INJ 250 ML IV SCH ×2 (01:31→17:14)
[2016-12-22] MEDS: CHLORHEXIDINE GLUCONATE 2 % 1 PACK (2 CLOTHS) TOP SCH (04:00)
[2016-12-22 04:39] LABS: APTT (PATIENT) 57.6 SEC (24.3-30.1); INTERNATIONAL NORMALIZED RATIO 1.4 RATIO; PROTHROMBIN TIME - PATIENT 15.5 SEC (9.8-11.6)
[2016-12-22] MEDS: HYDROCORTISONE SOD SUCCINATE 100 MG VIAL IV PUSH SCH ×3 (05:02→21:15)
[2016-12-22] MEDS: MIDODRINE 5 MG TAB PO SCH ×3 (05:02→16:02)
[2016-12-22] MEDS: INSULIN NovoLIN REGULAR SUPPLEMENTAL SCALE SQ SCH ×4 (05:16→21:00)
[2016-12-22] MEDS: ALPRAZolam 0.5 MG TAB PO PRN ×3 (05:19→21:16)
[2016-12-22] MEDS: DOCUSATE SODIUM 50 MG/SENNA 8.6 MG TAB PO SCH ×2 (09:45→21:15)
[2016-12-22] MEDS: ASPIRIN EC 325 MG TABEC PO SCH (09:45)
[2016-12-22] MEDS: GABAPENTIN 400 MG CAP PO SCH ×3 (09:45→17:14)
[2016-12-22] MEDS: ACETAMINOPHEN/HYDROcodone 325 MG/5 MG TAB PO PRN ×2 (09:45→16:02)
[2016-12-22] MEDS: FLUDROCORTISONE ACETATE 0.1 MG TAB PO SCH ×2 (09:45→21:16)
[2016-12-22] MEDS: PANTOPRAZOLE SOD 40 MG DELAYED RELEASE TAB PO SCH (09:45)
--- NOTE | 2016-12-22 15:13 | HHI.CCPN ---
Subjective Remarks/Hospital Course 46 y/o man presents with several day history of stuttering and difficulty finding words. Past admission to [facility] in August 2016 for vertigo. MRI brain is normal. MRI spine with C5-6 bulging disc and canal narrowing. Recently started on atypical antipsychotic for outbursts and anger. 12/09: BP nicely elevated for improved cerebral collateral circulation. Neuro workup in progress. 12/10: BP support good - his speech improves with higher SBP. Resistant to heparin, will bolus now. 12/11: Speech still better today. There appears to be an emotional component - if he gets anxious his speech deteriorates. 12/12: Currently on Handy-Synephrine 300 mics grams per minute to maintain systolic blood pressure greater than 160. Very anxious. Tolerating diet. One bowel movement. 12/13: Continues on Handy-Synephrine norepinephrine to maintain systolic greater than 160. Becomes symptomatic when less than this. Tolerating diet. 12/14: Afebrile. Remains on norepinephrine at 8 mics grams per minute Handy- Synephrine 110 mics grams per minute to maintain systolic pressure is 150. Added midodrine 5 mill grams 3 times a day yesterday. Complaining of pain in his inguinal region likely from decreased mobility. 12/15: Afebrile. Remains on norepinephrine at 11 g per min and Handy-Synephrine 40 mu./m to maintain systolic blood pressure greater than 140. MIDODRINE increased to 10 Mg 3 times a day and Florinef 0.1 mg daily added today. Increase strength in right upper extremity. 12/16: Afebrile. Appears comfortable at bedside. Strength in right hand has improved. Remains on norepinephrine 12 g per minute Handy-Synephrine at 110 mg/ m to maintain systolic blood pressure greater than 140. One bowel movement yesterday 12/17: Afebrile. Handy-Synephrine at 100 mcg/m and norepinephrine at 7 mcg/m. Mentating fine. Plan for MRI/MRA brain today. Subjective 12/18: Afebrile. Handy-Synephrine currently in 150 g. Epinephrine discontinued. Overnight, brief episode of atrial fibrillation. Started on amiodarone drip due to vasopressor requirements for cerebral perfusion with basal artery stenosis/thrombosis. Potassium is noted to be low and continues to be low. This will be aggressively replaced. EKG with questionable delta wave 12/19: Awake and alert. On Handy-Synephrine 175 mics per minute. Potassium being replaced. Tolerating by mouth diet. Remained on heparin for anticoagulation. 12/20: Awake, alert, following commands. Remains on Handy-Synephrine and 150 mics per minute. Symptomatic on attempting to titrate down on Handy-Synephrine if his systolic blood pressure drops below 140. 12/21: Awake and alert. Having anxiety episodes. Remains on Handy-Synephrine. 12/22: Awake and alert. Still remains on Handy-Synephrine and 80 mics per minute. Gets symptomatic on attempting to titrate down if his systolic blood pressure drops below 120. Objective Vital Signs Date Time Temp Pulse Resp B/P Pulse Ox O2 Delivery O2 Flow Rate FiO2 12/22/16 12:00 97.0 66 19 152/85 98 12/18/16 10:36 21 Intake and Output 12/21/16 12/21/16 12/22/16 08:00 16:00 00:00 Intake Total 989 ml 1322 ml 477 ml Output Total 1300 ml 1400 ml 925 ml Balance -311 ml -78 ml -448 ml Result Diagram: 12/21/16 0610 12/21/16 0725 Imaging Last Impressions Head Magnetic Resonance Angiography 12/17/16 0000 Signed Impressions: Service Date/Time: Saturday, December 17, 2016 15:19 - CONCLUSION: 1. Stable MRA of brain since December 08. Left vertebral artery not visualized. Basilar artery is very attenuated and possibly stenotic. Anterior, middle and posterior cerebral arteries are patent. Chito Roldan MD Brain MRI 12/17/16 0000 Signed Impressions: Service Date/Time: Saturday, December 17, 2016 15:19 - CONCLUSION: 1. No acute intracranial abnormalities. 2. Resolution of previous fluid in the maxillary sinuses with mild residual mucosal thickening. Chito Roldan MD Head CT 12/16/16 0000 Signed Impressions: Service Date/Time: Friday, December 16, 2016 10:00 - CONCLUSION: 1. No intracranial abnormality 2. Right paranasal sinusitis. Stuart Vieyra MD Chest X-Ray 12/12/16 0000 Signed Impressions: Service Date/Time: Monday, December 12, 2016 10:49 - CONCLUSION: 1. Left PICC line tip in good position near the atriocaval junction. Stuart Vieyra MD Head CTA 12/08/16 0000 Signed Impressions: Service Date/Time: December 15:56 - CONCLUSION: 1. 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 There is progressive atresia/narrowing of the basilar when compared to the prior exam, however. 2. The left posterior commuting artery is supplied solely from the anterior circulation via the left posterior to indicating artery. 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 3. 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 Anterior circulation is otherwise patent without aneurysmal disease. Aashish Calderón MD Carotid Artery Ultrasound 12/08/16 0000 Signed Impressions: Service Date/Time: December 09:51 - CONCLUSION: 1. Normal appearance of the internal carotid arteries any significant atherosclerotic disease or stenosis. 2. The left vertebral artery is not visualized. However, it had a normal appearance on the 08/21/2016 carotid CTA examination. Ankit Gutiérrez MD Cervical Spine MRI 12/07/16 0000 Signed Impressions: Service Date/Time: Wednesday, December 07, 2016 17:34 - CONCLUSION: Multilevel degenerative findings of the cervical spine. Broad-based disc bulge at C5-6 results in moderate severity central canal narrowing. Harjeet Greene MD Objective Remarks GENERAL: 46 year old male, currently resting in bed in no acute distress SKIN: Warm and dry. Multiple tattoos right upper extremity, left upper extremity HEAD: Atraumatic. Normocephalic. EYES: Pupils equal and round about 3 mm bilaterally and reactive. No scleral icterus. No injection or drainage. ENT: No nasal bleeding or discharge. Mucous membranes pink and moist. Oropharynx without erythema or exudates NECK: Trachea midline. No JVD. CARDIOVASCULAR: RRR. S1, S2. No S4. Without murmur RESPIRATORY: Clear to auscultation. Breath sounds equal bilaterally. GASTROINTESTINAL: Abdomen soft, non-tender, nondistended. Hepatic and splenic margins not palpable. MUSCULOSKELETAL: Extremities without difficulty and peripheral edema. No obvious deformities. NEUROLOGICAL: Awake and alert. No obvious cranial nerve deficits. Motor grossly within normal limits. Strength 4-5 right upper extremity. 3.5 -5 right lower extremity. 5 out of 5 left upper and lower extremity. Decreased sensation to light touch and pinprick right upper and lower extremity. 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 Absent L A1 SARAH and MRI brain 12/09 revealed no acute intracranial findings Repeat MRI brain 12/16 no intrarenal findings and resolution of sinusitis. Repeat MRA brain 12/16 revealed absent left vertebral artery. The basilar artery with significant attenuation with stenosis Followed by Dr. Rankin - neurology Neurosurgery Dr. Zacarias has seen. No intervention Holding Seroquel 50 milligrams as needed/home medication Neurontin decreased to 400 mg 3 times daily for neuropathy pain on 12/20 Currently on Handy-Synephrine to maintain cerebral perfusion pressures as patient symptomatically with systolic blood pressure less than 120-130 see below. On Midodrine. Acetaminophen/[place] as needed for pain Continue with aspirin 325 mill grams daily EEG 12/10 no seizure CV: Elevated LDL Elevated triglycerides Atrial fibrillation - currently in sinus tachycardia Currently on Handy-Synephrine to keep systolic blood pressure greater than 140. On Midodrine 10 mg 3 times a day Florinef On Solu-Cortef 100 mg IV every 8 hours with initial abnormal cortisol see below Continue Lipitor 80 mg daily for dyslipidemia/elevated LDL Echocardiogram 12/06 revealed EF 55-60%. Mild TR. Off amiodarone. Likely outpatient evaluation once clinically stabilized Resp: Nasal cannula to maintain saturations greater than equal to 92% Incentive spirometry while awake GI: Heart healthy diet Protonix for GI prophylaxis Libby-Colace for bowel regimen : Mulligan catheter if indicated Endo: Hyperglycemia of critical illness Low cortisol Sliding-scale insulin if indicated to maintain euglycemia Noted cortisol 12/13 was 2.6. Cosyntropin test 8-40 response. We'll continue hydrocortisone 100 mg IV every 8 hours as above currently. 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 Pituitary shows no signs of ischemia or abnormality on MRI. Renal: Monitor urine output Accurate I's and O's Heme: Leukocytosis Follow CBC daily. Monitor trends. Leukocytosis possibly secondary to steroids now currently versus reactive. No signs infectious etiology On heparin drip, Started coumadin for anticoagulation on 12/20. Pharmacy adjusting Coumadin dosing. ID: Monitor for infection FEN: Hypokalemia Replace electrolytes as clinically indicated MSK: Physical therapy evaluate and treat Access -Left antecubital PICC placed 12/12 Prophylaxis - GI - Protonix - DVT - heparin drip Lenin Dsouza MD Dec 22, 2016 15:13
[2016-12-22] MEDS ORDERED: WARFARIN SOD 2 MG TAB PO SCH (16:00)
[2016-12-22] MEDS: WARFARIN SOD 3 MG TAB PO SCH (16:03)
[2016-12-22] MEDS: CYCLOBENZAPRINE HCL 10 MG TAB PO PRN (18:41)
[2016-12-22] MEDS: ATORVASTATIN 80 MG TAB PO SCH (21:15)
[2016-12-23] VITALS (12 sets, daily range): BP systolic 129–164; BP diastolic 79–92; PULSE 60–100; RESP 10–22; TEMP 97.7–98.7; O2SAT 90–99
[2016-12-23] MEDS: CHLORHEXIDINE GLUCONATE 2 % 1 PACK (2 CLOTHS) TOP SCH (04:00)
[2016-12-23 05:55] LABS: INTERNATIONAL NORMALIZED RATIO 1.8 RATIO; PROTHROMBIN TIME - PATIENT 20.6 SEC (9.8-11.6)
[2016-12-23] MEDS: MIDODRINE 5 MG TAB PO SCH ×3 (06:08→17:22)
[2016-12-23] MEDS: INSULIN NovoLIN REGULAR SUPPLEMENTAL SCALE SQ SCH ×4 (06:09→20:36)
[2016-12-23] MEDS: HYDROCORTISONE SOD SUCCINATE 100 MG VIAL IV PUSH SCH ×3 (06:09→17:21)
[2016-12-23] MEDS: PHENYLEPHRINE INJ 80 MG in SODIUM CHLORID 0.9% 500 ML INJ 492 ML IV SCH (06:13)
[2016-12-23 06:19] LABS: APTT (PATIENT) 138.5 SEC (24.3-30.1)
[2016-12-23] MEDS: GABAPENTIN 400 MG CAP PO SCH ×3 (08:42→17:21)
[2016-12-23] MEDS: PANTOPRAZOLE SOD 40 MG DELAYED RELEASE TAB PO SCH (08:42)
[2016-12-23] MEDS: DOCUSATE SODIUM 50 MG/SENNA 8.6 MG TAB PO SCH ×2 (08:42→20:00)
[2016-12-23] MEDS: ASPIRIN EC 325 MG TABEC PO SCH (08:43)
[2016-12-23] MEDS: FLUDROCORTISONE ACETATE 0.1 MG TAB PO SCH ×2 (08:43→19:59)
[2016-12-23] MEDS: ALPRAZolam 0.5 MG TAB PO PRN ×2 (08:49→17:22)
--- NOTE | 2016-12-23 10:13 | HHI.PR ---
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 Hypotension Plan -Neuro checks Q1h - Heparin drip/infusion per protocol - Bridge to oral anticoagulation - Head of bed 30 degrees - Maintain BP > 140mm Hg - Continue Midodrine 10mg tid - Fludrocortisone 0.1 mg bid - DVT prophylaxis, SCDs' - Decreased Gabapentin to 400mg Q 8h, from 800 mg Q8h Diagnosis/Plan: Subjective Subjective Comments No acute events reported elevated PTT, Heparin held No new complaint Still fluctuating BP Active Medications Current Medications Medications (Trade) Dose Ordered Sig/Ligia Route Start Time Stop Time Status Last Admin (Ecotrin Ec) 325 mg DAILY PO 12/07/16 16:00 12/22/16 09:45 ([place] 5-325 Mg) 1 tab Q6H PRN PO 12/08/16 15:15 12/22/16 16:02 (Tylenol) 650 mg Q6H PRN PO 12/08/16 15:15 12/10/16 15:04 (Protonix) 40 mg DAILY PO 12/08/16 16:00 12/23/16 08:42 (Zofran Inj) 4 mg Q6H PRN IV 12/08/16 15:15 12/10/16 09:21 Miscellaneous Information 1 Q361D XX 12/08/16 15:15 (Chlorhexidine 2% Cloth) Taper DAILY@04 TOP 12/09/16 04:00 12/05/17 03:59 12/22/16 04:00 (Chlorhexidine 2% Cloth) 3 pack UNSCH PRN TOP 12/08/16 15:15 (Libby-Colace) 1 tab BID PO 12/08/16 21:00 12/23/16 08:42 (Milk Of Magnesia Liq) 30 ml Q12H PRN PO 12/08/16 15:15 (Senokot) 17.2 mg Q12H PRN PO 12/08/16 15:15 (Dulcolax Supp) 10 mg DAILY PRN RECTAL 12/08/16 15:15 Lactulose 30 ml 30 ml DAILY PRN PO 12/08/16 15:15 (Heparin-D5W Inj) 250 ml @ 0 mls/hr TITRATE IV 12/08/16 17:15 12/22/16 17:14 (Flexeril) 5 mg Q8H PRN PO 12/10/16 16:30 12/22/16 18:41 Terbutaline Sulfate 1 mg 1 mg UNSCH PRN SQ 12/12/16 09:45 Potassium Chloride 100 ml @ 50 mls/hr Q2H PRN IV 12/13/16 04:30 12/21/16 11:21 (KCl 20 Meq Premix Inj) 100 ml @ 50 mls/hr Q2H PRN IV 12/13/16 04:30 Potassium Bicarb/ Potassium Chloride 50 meq 50 meq UNSCH PRN PO 12/13/16 04:30 Potassium Chloride 100 ml @ 25 mls/hr UNSCH PRN IV 12/13/16 04:30 Potassium Chloride 100 ml @ 50 mls/hr Q2H PRN IV 12/13/16 04:30 (Magnesium Sulfate Inj/NS Inj) 100 ml @ 50 mls/hr UNSCH PRN IV 12/13/16 04:30 Magnesium Oxide 800 mg 800 mg UNSCH PRN PO 12/13/16 04:30 (Magnesium Sulfate Inj/NS Inj) 100 ml @ 50 mls/hr UNSCH PRN IV 12/13/16 04:30 Potassium Phosphate 2000 mg 2,000 mg Q4H PRN PO 12/13/16 04:30 (Sodium Phosphate Inj/NS 250 ml Inj) 250 ml @ 42 mls/hr UNSCH PRN IV 12/13/16 04:30 Potassium Phosphate 2000 mg 2,000 mg UNSCH PRN PO/TUBE 12/13/16 04:30 (Potassium Phosphate Inj/NS 250 ml Inj) 260 ml @ 42 mls/hr UNSCH PRN IV 12/13/16 04:30 Dextrose 50 ml 50 ml UNSCH PRN IV PUSH 12/13/16 04:30 (Neosynephrine Inj/NS 500 ml Inj) 500 ml @ 0 mls/hr TITRATE IV 12/13/16 11:30 12/23/16 06:13 (Proamatine) 10 mg TID@,,17 PO 12/14/16 17:00 12/23/16 06:08 (Florinef) 0.1 mg BID PO 12/16/16 09:00 12/23/16 08:43 (SoluCORTEF INJ) 100 mg Q8HR IV PUSH 12/16/16 15:00 12/23/16 06:09 (D50w (Vial) Inj) 50 ml UNSCH PRN IV 12/18/16 13:45 Glucagon 1 mg 1 mg UNSCH PRN OTHER 12/18/16 13:45 (Coumadin Consult Pharmacy) 0 ml @ 0 mls/hr UNSCH OTHER 12/19/16 15:45 (Coumadin) 3 mg DAILY@16 PO 12/19/16 16:00 12/22/16 16:03 (Neurontin) 400 mg TID PO 12/20/16 18:00 12/23/16 08:42 (Lipitor) 80 mg HS PO 12/20/16 21:45 12/22/16 21:15 (Xanax) 0.5 mg Q8H PRN PO 12/21/16 08:30 12/23/16 08:49 Allergies Allergies Coded Allergies Penicillin (Verified Allergy, Severe, rash, 12/07/16) Exam I&O / VS 12/22/16 12/22/16 12/23/16 15:00 23:00 07:00 Intake Total 2285 ml 606 ml Output Total 2325 ml 1450 ml Balance -40 ml -844 ml Intake Oral 960 ml 240 ml IV Total 1325 ml 366 ml Output Urine Total 2325 ml 1450 ml # Bowel Movements 1 0 Vital Signs Date Time Temp Pulse Resp B/P Pulse Ox O2 Delivery O2 Flow Rate FiO2 12/23/16 06:00 62 12/23/16 04:00 61 12/23/16 04:00 98.5 61 10 129/80 97 12/23/16 02:00 62 12/23/16 00:00 98.7 68 10 139/90 99 12/23/16 00:00 68 12/22/16 22:00 65 12/22/16 20:00 71 12/22/16 20:00 98.6 75 24 153/84 97 12/22/16 18:00 68 12/22/16 17:02 20 12/22/16 16:00 97.0 70 19 140/82 98 12/22/16 16:00 68 12/22/16 14:00 68 12/22/16 12:00 97.0 66 19 152/85 98 12/22/16 12:00 68 General: Alert and Oriented, No acute distress Eye: PERRL, Normal conjuctiva Respiratory: Lungs CTA, Non-labored respirations Cardiology: Normal rate, Intact pulses Musculoskeletal: ROM Neurologic: Alert, Oriented, Other (mild dysarthria, right sided UE ataxia, right LE weakness hip flex 3/6, foot dorsiflex 2/5, and diminished sensation) Psychiatric: Cooperative, Appropriate mood & affect, Normal judgement Objective Radiology Results Last 72 hours Impressions Chest X-Ray 12/23/16 0000 Signed Impressions: Service Date/Time: Friday, December 23, 2016 11:21 - CONCLUSION: PICC line in good position. Miguel Gamble MD [facility] Laboratory Tests Test 12/23/16 05:00 Prothrombin Time 20.6 Prothromb Time International 1.8 Ratio Activated Partial 138.5 Thromboplast Time Mallorie Rankin MD Dec 23, 2016 10:13
[2016-12-23 10:26] LABS: APTT (PATIENT) 32.9 SEC (24.3-30.1)
--- NOTE | 2016-12-23 11:38 | HHI.CCPN ---
Subjective Remarks/Hospital Course 46 y/o man presents with several day history of stuttering and difficulty finding words. Past admission to [facility] in August 2016 for vertigo. MRI brain is normal. MRI spine with C5-6 bulging disc and canal narrowing. Recently started on atypical antipsychotic for outbursts and anger. 12/09: BP nicely elevated for improved cerebral collateral circulation. Neuro workup in progress. 12/10: BP support good - his speech improves with higher SBP. Resistant to heparin, will bolus now. 12/11: Speech still better today. There appears to be an emotional component - if he gets anxious his speech deteriorates. 12/12: Currently on Handy-Synephrine 300 mics grams per minute to maintain systolic blood pressure greater than 160. Very anxious. Tolerating diet. One bowel movement. 12/13: Continues on Handy-Synephrine norepinephrine to maintain systolic greater than 160. Becomes symptomatic when less than this. Tolerating diet. 12/14: Afebrile. Remains on norepinephrine at 8 mics grams per minute Handy- Synephrine 110 mics grams per minute to maintain systolic pressure is 150. Added midodrine 5 mill grams 3 times a day yesterday. Complaining of pain in his inguinal region likely from decreased mobility. 12/15: Afebrile. Remains on norepinephrine at 11 g per min and Handy-Synephrine 40 mu./m to maintain systolic blood pressure greater than 140. MIDODRINE increased to 10 Mg 3 times a day and Florinef 0.1 mg daily added today. Increase strength in right upper extremity. 12/16: Afebrile. Appears comfortable at bedside. Strength in right hand has improved. Remains on norepinephrine 12 g per minute Handy-Synephrine at 110 mg/ m to maintain systolic blood pressure greater than 140. One bowel movement yesterday 12/17: Afebrile. Handy-Synephrine at 100 mcg/m and norepinephrine at 7 mcg/m. Mentating fine. Plan for MRI/MRA brain today. Subjective 12/18: Afebrile. Handy-Synephrine currently in 150 g. Epinephrine discontinued. Overnight, brief episode of atrial fibrillation. Started on amiodarone drip due to vasopressor requirements for cerebral perfusion with basal artery stenosis/thrombosis. Potassium is noted to be low and continues to be low. This will be aggressively replaced. EKG with questionable delta wave 12/19: Awake and alert. On Handy-Synephrine 175 mics per minute. Potassium being replaced. Tolerating by mouth diet. Remained on heparin for anticoagulation. 12/20: Awake, alert, following commands. Remains on Handy-Synephrine and 150 mics per minute. Symptomatic on attempting to titrate down on Handy-Synephrine if his systolic blood pressure drops below 140. 12/21: Awake and alert. Having anxiety episodes. Remains on Handy-Synephrine. 12/22: Awake and alert. Still remains on Handy-Synephrine and 80 mics per minute. Gets symptomatic on attempting to titrate down if his systolic blood pressure drops below 120. 12/23: Awake and alert. Still requiring Handy-Synephrine at 80 mics per minute. On heparin and Coumadin for anticoagulation. Unable to titrate off Handy- Synephrine as he becomes symptomatic with lowering of his systolic blood pressure below 130-140 Objective Vital Signs Date Time Temp Pulse Resp B/P Pulse Ox O2 Delivery O2 Flow Rate FiO2 12/23/16 06:00 62 12/23/16 04:00 98.5 10 129/80 97 Intake and Output 12/22/16 12/22/16 12/23/16 08:00 16:00 00:00 Intake Total 351 ml 2285 ml Output Total 1000 ml 2325 ml Balance -649 ml -40 ml Result Diagram: 12/21/16 0610 12/21/16 0725 Imaging Last Impressions Head Magnetic Resonance Angiography 12/17/16 0000 Signed Impressions: Service Date/Time: Saturday, December 17, 2016 15:19 - CONCLUSION: 1. Stable MRA of brain since December 08. Left vertebral artery not visualized. Basilar artery is very attenuated and possibly stenotic. Anterior, middle and posterior cerebral arteries are patent. Chito Roldan MD Brain MRI 12/17/16 0000 Signed Impressions: Service Date/Time: Saturday, December 17, 2016 15:19 - CONCLUSION: 1. No acute intracranial abnormalities. 2. Resolution of previous fluid in the maxillary sinuses with mild residual mucosal thickening. Chito Roldan MD Head CT 12/16/16 0000 Signed Impressions: Service Date/Time: Friday, December 16, 2016 10:00 - CONCLUSION: 1. No intracranial abnormality 2. Right paranasal sinusitis. Stuart Vieyra MD Chest X-Ray 12/12/16 0000 Signed Impressions: Service Date/Time: Monday, December 12, 2016 10:49 - CONCLUSION: 1. Left PICC line tip in good position near the atriocaval junction. Stuart Vieyra MD Head CTA 12/08/16 0000 Signed Impressions: Service Date/Time: December 15:56 - CONCLUSION: 1. 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 There is progressive atresia/narrowing of the basilar when compared to the prior exam, however. 2. The left posterior commuting artery is supplied solely from the anterior circulation via the left posterior to indicating artery. 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 3. 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 Anterior circulation is otherwise patent without aneurysmal disease. Aashish Calderón MD Carotid Artery Ultrasound 12/08/16 0000 Signed Impressions: Service Date/Time: December 09:51 - CONCLUSION: 1. Normal appearance of the internal carotid arteries any significant atherosclerotic disease or stenosis. 2. The left vertebral artery is not visualized. However, it had a normal appearance on the 08/21/2016 carotid CTA examination. Ankit Gutiérrez MD Cervical Spine MRI 12/07/16 0000 Signed Impressions: Service Date/Time: Wednesday, December 07, 2016 17:34 - CONCLUSION: Multilevel degenerative findings of the cervical spine. Broad-based disc bulge at C5-6 results in moderate severity central canal narrowing. Harjeet Greene MD Objective Remarks GENERAL: 46 year old male, currently resting in bed in no acute distress SKIN: Warm and dry. Multiple tattoos right upper extremity, left upper extremity HEAD: Atraumatic. Normocephalic. EYES: Pupils equal and round about 3 mm bilaterally and reactive. No scleral icterus. No injection or drainage. ENT: No nasal bleeding or discharge. Mucous membranes pink and moist. Oropharynx without erythema or exudates NECK: Trachea midline. No JVD. CARDIOVASCULAR: RRR. S1, S2. No S4. Without murmur RESPIRATORY: Clear to auscultation. Breath sounds equal bilaterally. GASTROINTESTINAL: Abdomen soft, non-tender, nondistended. Hepatic and splenic margins not palpable. MUSCULOSKELETAL: Extremities without difficulty and peripheral edema. No obvious deformities. NEUROLOGICAL: Awake and alert. No obvious cranial nerve deficits. Motor grossly within normal limits. Strength 4-5 right upper extremity. 3.5 -5 right lower extremity. 5 out of 5 left upper and lower extremity. Decreased sensation to light touch and pinprick right upper and lower extremity. 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 Absent L A1 SARAH and MRI brain 12/09 revealed no acute intracranial findings Repeat MRI brain 12/16 no intrarenal findings and resolution of sinusitis. Repeat MRA brain 12/16 revealed absent left vertebral artery. The basilar artery with significant attenuation with stenosis Followed by Dr. Rankin - neurology Neurosurgery Dr. Zacarias has seen. No intervention Holding Seroquel 50 milligrams as needed/home medication Neurontin decreased to 400 mg 3 times daily for neuropathy pain on 12/20 Currently on Handy-Synephrine to maintain cerebral perfusion pressures as patient symptomatically with systolic blood pressure less than 120-130 see below. On Midodrine. I am increasingly red and jimmy to 15 mg every 6 hourly in order to attempt titrating off Handy-Synephrine. I have explained to the patient that we are going over maximum recommended dose for Midodrin since we are unable to titrate off Handy-Synephrine at this time and he voiced understanding and was agreeable. Acetaminophen/[place] as needed for pain Continue with aspirin 325 mill grams daily EEG 12/10 no seizure CV: Elevated LDL Elevated triglycerides Atrial fibrillation - currently in sinus tachycardia Currently on Handy-Synephrine to keep systolic blood pressure greater than 140. On Midodrine 10 mg 3 times a day -. Increased to 15 mg every 6 hourly. Continue Florinef Decrease Solu-Cortef to 50 mg IV every 6 hours with initial abnormal cortisol see below Continue Lipitor 80 mg daily for dyslipidemia/elevated LDL Echocardiogram 12/06 revealed EF 55-60%. Mild TR. Off amiodarone. Likely outpatient evaluation once clinically stabilized Resp: Nasal cannula to maintain saturations greater than equal to 92% Incentive spirometry while awake GI: Heart healthy diet Protonix for GI prophylaxis Libby-Colace for bowel regimen : Mulligan catheter if indicated Endo: Hyperglycemia of critical illness Low cortisol Sliding-scale insulin if indicated to maintain euglycemia Noted cortisol 12/13 was 2.6. Cosyntropin test 8-40 response. Decreased hydrocortisone to 50 mg IV every 6 hourly. ACTH and aldosterone will be altered result secondary to hydrocortisone use Appears to be relative adrenal insufficiency. Pituitary shows no signs of ischemia or abnormality on MRI. Renal: Monitor urine output Accurate I's and O's Heme: Leukocytosis Follow CBC daily. Monitor trends. Leukocytosis possibly secondary to steroids now currently versus reactive. No signs infectious etiology On heparin drip, Started coumadin for anticoagulation on 12/20. Pharmacy adjusting Coumadin dosing. ID: Monitor for infection FEN: Hypokalemia Replace electrolytes as clinically indicated MSK: Physical therapy evaluate and treat Access -Left antecubital PICC placed 12/12 Prophylaxis - GI - Protonix - DVT - heparin drip Discussed with Dr. Rankin. He is going to see if any center does intervention on basilar artery in order to attempt getting patient transferred to a tertiary care center for basilar artery intervention. Lenin Dsouza MD Dec 23, 2016 11:38
--- NOTE | 2016-12-23 11:47 | RADRPT ---
EXAM DATE/TIME: 12/23/2016 11:21 [facility] COMPARISON: CHEST SINGLE AP, December 12, 2016, 10:49. INDICATIONS : Left side PICC line placement. Patient states shortness of breath and chest tightne ss for 4 months. MEDICAL HISTORY : None. SURGICAL HISTORY : None. ENCOUNTER: Initial ACUITY: 1 day PAIN SCORE: 0/10 LOCATION: Bilateral chest FINDINGS: PICC line is in good position. Lungs are clear. The heart and pulmonary vascularity are normal. The portion of the bony skeleton visualized is unremarkable. CONCLUSION: PICC line in good position. Miguel Gamble MD FACR Board Certified Radiologist. This report was verified electronically.
[2016-12-23] MEDS: WARFARIN SOD 3 MG TAB PO SCH (17:22)
[2016-12-23] MEDS: HEPARIN-D5W INJ 250 ML IV SCH (17:26)
[2016-12-23] MEDS: ATORVASTATIN 80 MG TAB PO SCH (19:59)
[2016-12-23 20:05] LABS: APTT (PATIENT) 42.2 SEC (24.3-30.1)
[2016-12-23] MEDS: CYCLOBENZAPRINE HCL 10 MG TAB PO PRN (20:35)
[2016-12-24] VITALS (13 sets, daily range): BP systolic 138–153; BP diastolic 39–111; PULSE 60–84; RESP 11–24; TEMP 97.6–99; O2SAT 96–98
[2016-12-24] MEDS: HYDROCORTISONE SOD SUCCINATE 100 MG VIAL IV PUSH SCH ×4 (00:21→18:18)
[2016-12-24] MEDS: MIDODRINE 5 MG TAB PO SCH ×4 (00:21→18:18)
[2016-12-24 01:06] LABS: INTERNATIONAL NORMALIZED RATIO 2.4 RATIO; PROTHROMBIN TIME - PATIENT 27.8 SEC (9.8-11.6)
[2016-12-24 01:55] LABS: APTT (PATIENT) 55.9 SEC (24.3-30.1)
[2016-12-24] MEDS: PHENYLEPHRINE INJ 80 MG in SODIUM CHLORID 0.9% 500 ML INJ 492 ML IV SCH ×2 (03:06→15:48)
[2016-12-24] MEDS: CHLORHEXIDINE GLUCONATE 2 % 1 PACK (2 CLOTHS) TOP SCH (03:52)
[2016-12-24] MEDS: ALPRAZolam 0.5 MG TAB PO PRN ×3 (04:13→20:48)
[2016-12-24] MEDS: INSULIN NovoLIN REGULAR SUPPLEMENTAL SCALE SQ SCH ×4 (06:24→20:50)
[2016-12-24 07:38] LABS: APTT (PATIENT) 63.6 SEC (24.3-30.1)
[2016-12-24] MEDS: ASPIRIN EC 325 MG TABEC PO SCH (09:31)
[2016-12-24] MEDS: GABAPENTIN 400 MG CAP PO SCH ×3 (09:31→18:18)
[2016-12-24] MEDS: DOCUSATE SODIUM 50 MG/SENNA 8.6 MG TAB PO SCH ×2 (09:31→20:48)
[2016-12-24] MEDS: CYCLOBENZAPRINE HCL 10 MG TAB PO PRN (09:32)
[2016-12-24] MEDS: FLUDROCORTISONE ACETATE 0.1 MG TAB PO SCH ×2 (09:32→23:41)
[2016-12-24] MEDS: PANTOPRAZOLE SOD 40 MG DELAYED RELEASE TAB PO SCH (09:32)
--- NOTE | 2016-12-24 10:39 | HHI.CCPN ---
Subjective Remarks/Hospital Course 46 y/o man presents with several day history of stuttering and difficulty finding words. Past admission to [facility] in August 2016 for vertigo. MRI brain is normal. MRI spine with C5-6 bulging disc and canal narrowing. Recently started on atypical antipsychotic for outbursts and anger. 12/09: BP nicely elevated for improved cerebral collateral circulation. Neuro workup in progress. 12/10: BP support good - his speech improves with higher SBP. Resistant to heparin, will bolus now. 12/11: Speech still better today. There appears to be an emotional component - if he gets anxious his speech deteriorates. 12/12: Currently on Handy-Synephrine 300 mics grams per minute to maintain systolic blood pressure greater than 160. Very anxious. Tolerating diet. One bowel movement. 12/13: Continues on Handy-Synephrine norepinephrine to maintain systolic greater than 160. Becomes symptomatic when less than this. Tolerating diet. 12/14: Afebrile. Remains on norepinephrine at 8 mics grams per minute Handy- Synephrine 110 mics grams per minute to maintain systolic pressure is 150. Added midodrine 5 mill grams 3 times a day yesterday. Complaining of pain in his inguinal region likely from decreased mobility. 12/15: Afebrile. Remains on norepinephrine at 11 g per min and Handy-Synephrine 40 mu./m to maintain systolic blood pressure greater than 140. MIDODRINE increased to 10 Mg 3 times a day and Florinef 0.1 mg daily added today. Increase strength in right upper extremity. 12/16: Afebrile. Appears comfortable at bedside. Strength in right hand has improved. Remains on norepinephrine 12 g per minute Handy-Synephrine at 110 mg/ m to maintain systolic blood pressure greater than 140. One bowel movement yesterday 12/17: Afebrile. Handy-Synephrine at 100 mcg/m and norepinephrine at 7 mcg/m. Mentating fine. Plan for MRI/MRA brain today. Subjective 12/18: Afebrile. Handy-Synephrine currently in 150 g. Epinephrine discontinued. Overnight, brief episode of atrial fibrillation. Started on amiodarone drip due to vasopressor requirements for cerebral perfusion with basal artery stenosis/thrombosis. Potassium is noted to be low and continues to be low. This will be aggressively replaced. EKG with questionable delta wave 12/19: Awake and alert. On Handy-Synephrine 175 mics per minute. Potassium being replaced. Tolerating by mouth diet. Remained on heparin for anticoagulation. 12/20: Awake, alert, following commands. Remains on Handy-Synephrine and 150 mics per minute. Symptomatic on attempting to titrate down on Handy-Synephrine if his systolic blood pressure drops below 140. 12/21: Awake and alert. Having anxiety episodes. Remains on Handy-Synephrine. 12/22: Awake and alert. Still remains on Handy-Synephrine and 80 mics per minute. Gets symptomatic on attempting to titrate down if his systolic blood pressure drops below 120. 12/23: Awake and alert. Still requiring Handy-Synephrine at 80 mics per minute. On heparin and Coumadin for anticoagulation. Unable to titrate off Handy- Synephrine as he becomes symptomatic with lowering of his systolic blood pressure below 130-140 12/24: Awake and alert. On Handy-Synephrine 50 mics per minute this morning. Remains on heparin and Coumadin for anticoagulation. Objective Vital Signs Date Time Temp Pulse Resp B/P Pulse Ox O2 Delivery O2 Flow Rate FiO2 12/24/16 10:00 68 12/24/16 08:00 97.6 11 138/39 96 Intake and Output 12/23/16 12/23/16 12/24/16 08:00 16:00 00:00 Intake Total 606 ml 915 ml 480 ml Output Total 1450 ml 900 ml 500 ml Balance -844 ml 15 ml -20 ml Result Diagram: 12/21/16 0610 12/21/16 0725 Imaging Last Impressions Head Magnetic Resonance Angiography 12/17/16 0000 Signed Impressions: Service Date/Time: Saturday, December 17, 2016 15:19 - CONCLUSION: 1. Stable MRA of brain since December 08. Left vertebral artery not visualized. Basilar artery is very attenuated and possibly stenotic. Anterior, middle and posterior cerebral arteries are patent. Chito Roldan MD Brain MRI 12/17/16 0000 Signed Impressions: Service Date/Time: Saturday, December 17, 2016 15:19 - CONCLUSION: 1. No acute intracranial abnormalities. 2. Resolution of previous fluid in the maxillary sinuses with mild residual mucosal thickening. Chito Roldan MD Head CT 12/16/16 0000 Signed Impressions: Service Date/Time: Friday, December 16, 2016 10:00 - CONCLUSION: 1. No intracranial abnormality 2. Right paranasal sinusitis. Stuart Vieyra MD Chest X-Ray 12/12/16 0000 Signed Impressions: Service Date/Time: Monday, December 12, 2016 10:49 - CONCLUSION: 1. Left PICC line tip in good position near the atriocaval junction. Stuart Vieyra MD Head CTA 12/08/16 0000 Signed Impressions: Service Date/Time: December 15:56 - CONCLUSION: 1. 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 There is progressive atresia/narrowing of the basilar when compared to the prior exam, however. 2. The left posterior commuting artery is supplied solely from the anterior circulation via the left posterior to indicating artery. 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 3. 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 Anterior circulation is otherwise patent without aneurysmal disease. Aashish Calderón MD Carotid Artery Ultrasound 12/08/16 0000 Signed Impressions: Service Date/Time: December 09:51 - CONCLUSION: 1. Normal appearance of the internal carotid arteries any significant atherosclerotic disease or stenosis. 2. The left vertebral artery is not visualized. However, it had a normal appearance on the 08/21/2016 carotid CTA examination. Ankit Gutiérrez MD Cervical Spine MRI 12/07/16 0000 Signed Impressions: Service Date/Time: Wednesday, December 07, 2016 17:34 - CONCLUSION: Multilevel degenerative findings of the cervical spine. Broad-based disc bulge at C5-6 results in moderate severity central canal narrowing. Harjeet Greene MD Objective Remarks GENERAL: 46 year old male, currently resting in bed in no acute distress SKIN: Warm and dry. Multiple tattoos right upper extremity, left upper extremity HEAD: Atraumatic. Normocephalic. EYES: Pupils equal and round about 3 mm bilaterally and reactive. No scleral icterus. No injection or drainage. ENT: No nasal bleeding or discharge. Mucous membranes pink and moist. Oropharynx without erythema or exudates NECK: Trachea midline. No JVD. CARDIOVASCULAR: RRR. S1, S2. No S4. Without murmur RESPIRATORY: Clear to auscultation. Breath sounds equal bilaterally. GASTROINTESTINAL: Abdomen soft, non-tender, nondistended. Hepatic and splenic margins not palpable. MUSCULOSKELETAL: Extremities without difficulty and peripheral edema. No obvious deformities. NEUROLOGICAL: Awake and alert. No obvious cranial nerve deficits. Motor grossly within normal limits. Strength 4-5 right upper extremity. 3.5 -5 right lower extremity. 5 out of 5 left upper and lower extremity. Decreased sensation to light touch and pinprick right upper and lower extremity. 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 Absent L A1 SARAH and MRI brain 12/09 revealed no acute intracranial findings Repeat MRI brain 12/16 no intrarenal findings and resolution of sinusitis. Repeat MRA brain 12/16 revealed absent left vertebral artery. The basilar artery with significant attenuation with stenosis Followed by Dr. Rankin - neurology. Dr. Rankin trying to find out if patient can have any intervention performed at [facility] or [facility] Neurosurgery Dr. Zacarias has seen. No intervention Holding Seroquel 50 milligrams as needed/home medication Neurontin decreased to 400 mg 3 times daily for neuropathy pain on 12/20 Currently on Handy-Synephrine to maintain cerebral perfusion pressures as patient symptomatically with systolic blood pressure less than 120-130 see below. On Midodrine. I am increasingly red and jimmy to 15 mg every 6 hourly in order to attempt titrating off Handy-Synephrine. I have explained to the patient that we are going over maximum recommended dose for Midodrin since we are unable to titrate off Handy-Synephrine at this time and he voiced understanding and was agreeable. Acetaminophen/[place] as needed for pain Continue with aspirin 325 mill grams daily EEG 12/10 no seizure CV: Elevated LDL Elevated triglycerides Atrial fibrillation - currently in sinus tachycardia Currently on Handy-Synephrine to keep systolic blood pressure greater than 140. On Midodrine 10 mg 3 times a day -. Increased to 15 mg every 6 hourly on 12/23. Continue Florinef Decrease Solu-Cortef to 50 mg IV every 6 hours on 12/23 with initial abnormal cortisol see below Continue Lipitor 80 mg daily for dyslipidemia/elevated LDL Echocardiogram 12/06 revealed EF 55-60%. Mild TR. Off amiodarone. Likely outpatient evaluation once clinically stabilized Resp: Nasal cannula to maintain saturations greater than equal to 92% Incentive spirometry while awake GI: Heart healthy diet Protonix for GI prophylaxis Libby-Colace for bowel regimen : Mulligan catheter if indicated Endo: Hyperglycemia of critical illness Low cortisol Sliding-scale insulin if indicated to maintain euglycemia Noted cortisol 12/13 was 2.6. Cosyntropin test 8-40 response. Decreased hydrocortisone to 50 mg IV every 6 hourly. ACTH and aldosterone will be altered result secondary to hydrocortisone use Appears to be relative adrenal insufficiency. Pituitary shows no signs of ischemia or abnormality on MRI. Renal: Monitor urine output Accurate I's and O's Heme: Leukocytosis Follow CBC daily. Monitor trends. Leukocytosis possibly secondary to steroids now currently versus reactive. No signs infectious etiology On heparin drip, Started coumadin for anticoagulation on 12/20. Pharmacy adjusting Coumadin dosing. ID: Monitor for infection FEN: Hypokalemia Replace electrolytes as clinically indicated MSK: Physical therapy evaluate and treat Access -Left antecubital PICC placed 12/12 Prophylaxis - GI - Protonix - DVT - heparin drip Discussed with Dr. Rankin. He is going to see if any center does intervention on basilar artery in order to attempt getting patient transferred to a tertiary care center for basilar artery intervention. Lenin Dsouza MD Dec 24, 2016 10:39
[2016-12-24 13:13] LABS: AUTOMATED NEUTROPHIL # 21.6 TH/MM3 (1.8-7.7); BASOPHIL # 0.3 TH/MM3 (0-0.2); EOSINOPHIL # 0.1 TH/MM3 (0-0.4); EOSINOPHIL % 0.2 % (0.0-4.0); HEMATOCRIT 39.7 % (39.0-51.0); LYMPH % 17.9 % (9.0-44.0); LYMPHOCYTE # 5.3 TH/MM3 (1.0-4.8); MEAN CELL VOLUME 96.3 FL (80.0-100.0); MEAN CORPUSCULAR HGB CONC 32.1 % (32.0-36.0); MONO % 7.8 % (0.0-8.0); NEUT % 73.1 % (16.0-70.0); PLATELET COUNT 351 TH/MM3 (150-450); RED BLOOD COUNT 4.12 MIL/MM3 (4.50-5.90); RED CELL DISTRIBUTION WIDTH 15.8 % (11.6-17.2); WHITE BLOOD COUNT 29.5 TH/MM3 (4.0-11.0)
[2016-12-24 13:18] LABS: HEMO FLAGS AUTO DIFF
[2016-12-24 13:31] LABS: BICARBONATE 32.1 MEQ/L (21.0-32.0)
[2016-12-24 13:47] LABS: BANDS 2 % (0-6); EOSINOPHILS 1 % (0-4); MYELOCYTES 3 % (0-0); NEUTROPHIL # MANUAL DIFF 22.7 TH/MM3 (1.8-7.7); POLYS (SEG NEUTROPHILS) 72 % (16-70); WBC DIFF SAMPLE 100
[2016-12-24 13:49] LABS: SCAN/DIFF FINAL DIFF MANUAL
[2016-12-24] MEDS: POTASSIUM CHLOR 40 MEQ PREMIX 100 ML IV PRN ×2 (14:46→16:56)
[2016-12-24] MEDS: SODIUM CHLORIDE 1 GRAM TAB PO SCH ×2 (14:46→20:48)
[2016-12-24] MEDS: WARFARIN SOD 3 MG TAB PO SCH (15:48)
[2016-12-24] MEDS: ATORVASTATIN 80 MG TAB PO SCH (20:48)
[2016-12-25] VITALS (14 sets, daily range): BP systolic 156–173; BP diastolic 83–96; PULSE 58–89; RESP 10–20; TEMP 98.1–98.6; O2SAT 95–98
[2016-12-25] MEDS: HYDROCORTISONE SOD SUCCINATE 100 MG VIAL IV PUSH SCH ×4 (00:10→22:20)
[2016-12-25] MEDS: POTASSIUM CHLOR 40 MEQ PREMIX 100 ML IV PRN (00:10)
[2016-12-25] MEDS: MIDODRINE 5 MG TAB PO SCH ×5 (00:10→22:12)
[2016-12-25] MEDS: CYCLOBENZAPRINE HCL 10 MG TAB PO PRN (02:52)
[2016-12-25] MEDS: CHLORHEXIDINE GLUCONATE 2 % 1 PACK (2 CLOTHS) TOP SCH ×2 (04:00→19:08)
[2016-12-25 06:09] LABS: APTT (PATIENT) 27.8 SEC (24.3-30.1)
[2016-12-25 06:17] LABS: INTERNATIONAL NORMALIZED RATIO 2.5 RATIO; PROTHROMBIN TIME - PATIENT 28.4 SEC (9.8-11.6)
[2016-12-25] MEDS: ALPRAZolam 0.5 MG TAB PO PRN ×2 (06:29→11:19)
[2016-12-25 06:39] LABS: POTASSIUM 3.4 MEQ/L (3.5-5.1)
[2016-12-25] MEDS: INSULIN NovoLIN REGULAR SUPPLEMENTAL SCALE SQ SCH ×4 (07:00→21:00)
[2016-12-25] MEDS: SODIUM CHLORIDE 1 GRAM TAB PO SCH ×2 (09:00→22:12)
[2016-12-25] MEDS: ASPIRIN EC 325 MG TABEC PO SCH (10:15)
[2016-12-25] MEDS: DOCUSATE SODIUM 50 MG/SENNA 8.6 MG TAB PO SCH ×2 (10:15→22:12)
[2016-12-25] MEDS: GABAPENTIN 400 MG CAP PO SCH ×3 (10:15→18:36)
[2016-12-25] MEDS: FLUDROCORTISONE ACETATE 0.1 MG TAB PO SCH ×2 (10:15→22:12)
[2016-12-25] MEDS: PANTOPRAZOLE SOD 40 MG DELAYED RELEASE TAB PO SCH (10:15)
--- NOTE | 2016-12-25 11:18 | HHI.CCPN ---
Subjective Remarks/Hospital Course 46 y/o man presents with several day history of stuttering and difficulty finding words. Past admission to [facility] in August 2016 for vertigo. MRI brain is normal. MRI spine with C5-6 bulging disc and canal narrowing. Recently started on atypical antipsychotic for outbursts and anger. 12/09: BP nicely elevated for improved cerebral collateral circulation. Neuro workup in progress. 12/10: BP support good - his speech improves with higher SBP. Resistant to heparin, will bolus now. 12/11: Speech still better today. There appears to be an emotional component - if he gets anxious his speech deteriorates. 12/12: Currently on Handy-Synephrine 300 mics grams per minute to maintain systolic blood pressure greater than 160. Very anxious. Tolerating diet. One bowel movement. 12/13: Continues on Handy-Synephrine norepinephrine to maintain systolic greater than 160. Becomes symptomatic when less than this. Tolerating diet. 12/14: Afebrile. Remains on norepinephrine at 8 mics grams per minute Handy- Synephrine 110 mics grams per minute to maintain systolic pressure is 150. Added midodrine 5 mill grams 3 times a day yesterday. Complaining of pain in his inguinal region likely from decreased mobility. 12/15: Afebrile. Remains on norepinephrine at 11 g per min and Handy-Synephrine 40 mu./m to maintain systolic blood pressure greater than 140. MIDODRINE increased to 10 Mg 3 times a day and Florinef 0.1 mg daily added today. Increase strength in right upper extremity. 12/16: Afebrile. Appears comfortable at bedside. Strength in right hand has improved. Remains on norepinephrine 12 g per minute Handy-Synephrine at 110 mg/ m to maintain systolic blood pressure greater than 140. One bowel movement yesterday 12/17: Afebrile. Handy-Synephrine at 100 mcg/m and norepinephrine at 7 mcg/m. Mentating fine. Plan for MRI/MRA brain today. Subjective 12/18: Afebrile. Hadny-Synephrine currently in 150 g. Epinephrine discontinued. Overnight, brief episode of atrial fibrillation. Started on amiodarone drip due to vasopressor requirements for cerebral perfusion with basal artery stenosis/thrombosis. Potassium is noted to be low and continues to be low. This will be aggressively replaced. EKG with questionable delta wave 12/19: Awake and alert. On Handy-Synephrine 175 mics per minute. Potassium being replaced. Tolerating by mouth diet. Remained on heparin for anticoagulation. 12/20: Awake, alert, following commands. Remains on Handy-Synephrine and 150 mics per minute. Symptomatic on attempting to titrate down on Handy-Synephrine if his systolic blood pressure drops below 140. 12/21: Awake and alert. Having anxiety episodes. Remains on Handy-Synephrine. 12/22: Awake and alert. Still remains on Handy-Synephrine and 80 mics per minute. Gets symptomatic on attempting to titrate down if his systolic blood pressure drops below 120. 12/23: Awake and alert. Still requiring Handy-Synephrine at 80 mics per minute. On heparin and Coumadin for anticoagulation. Unable to titrate off Handy- Synephrine as he becomes symptomatic with lowering of his systolic blood pressure below 130-140 12/24: Awake and alert. On Handy-Synephrine 50 mics per minute this morning. Remains on heparin and Coumadin for anticoagulation. 12/25: Awake and alert. On Handy-Synephrine 50 mics per minute. Off heparin. Continue Coumadin. Complained of some left-sided facial numbness and left leg numbness off and on. Objective Vital Signs Date Time Temp Pulse Resp B/P Pulse Ox O2 Delivery O2 Flow Rate FiO2 12/25/16 07:29 96 Nasal Cannula 2.00 12/25/16 06:00 76 12/25/16 04:00 98.1 10 158/87 Intake and Output 12/24/16 12/24/16 12/25/16 08:00 16:00 00:00 Intake Total 1092 ml 1419 ml 888 ml Output Total 1300 ml 825 ml 1100 ml Balance -208 ml 594 ml -212 ml Result Diagram: 12/24/16 1255 12/25/16 0550 Imaging Last Impressions Head Magnetic Resonance Angiography 12/17/16 0000 Signed Impressions: Service Date/Time: Saturday, December 17, 2016 15:19 - CONCLUSION: 1. Stable MRA of brain since December 08. Left vertebral artery not visualized. Basilar artery is very attenuated and possibly stenotic. Anterior, middle and posterior cerebral arteries are patent. Chito Roldan MD Brain MRI 12/17/16 0000 Signed Impressions: Service Date/Time: Saturday, December 17, 2016 15:19 - CONCLUSION: 1. No acute intracranial abnormalities. 2. Resolution of previous fluid in the maxillary sinuses with mild residual mucosal thickening. Chito Roldan MD Head CT 12/16/16 Signed Impressions: Service Date/Time: Friday, December 16, 2016 10:00 - CONCLUSION: 1. No intracranial abnormality 2. Right paranasal sinusitis. Stuart Vieyra MD Chest X-Ray 12/12/16 Signed Impressions: Service Date/Time: Monday, December 12, 2016 10:49 - CONCLUSION: 1. Left PICC line tip in good position near the atriocaval junction. Stuart Vieyra MD Head CTA 12/08/16 Signed Impressions: Service Date/Time: December 15:56 - CONCLUSION: 1. 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 There is progressive atresia/narrowing of the basilar when compared to the prior exam, however. 2. The left posterior commuting artery is supplied solely from the anterior circulation via the left posterior to indicating artery. 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 3. 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 Anterior circulation is otherwise patent without aneurysmal disease. Aashish Calderón MD Carotid Artery Ultrasound 12/08/16 Signed Impressions: Service Date/Time: December 09:51 - CONCLUSION: 1. Normal appearance of the internal carotid arteries any significant atherosclerotic disease or stenosis. 2. The left vertebral artery is not visualized. However, it had a normal appearance on the 08/21/2016 carotid CTA examination. Ankit Gutiérrez MD Cervical Spine MRI 12/07/16 0000 Signed Impressions: Service Date/Time: Wednesday, December 07, 2016 17:34 - CONCLUSION: Multilevel degenerative findings of the cervical spine. Broad-based disc bulge at C5-6 results in moderate severity central canal narrowing. Harjeet Greene MD Objective Remarks GENERAL: 46 year old male, currently resting in bed in no acute distress SKIN: Warm and dry. Multiple tattoos right upper extremity, left upper extremity HEAD: Atraumatic. Normocephalic. EYES: Pupils equal and round about 3 mm bilaterally and reactive. No scleral icterus. No injection or drainage. ENT: No nasal bleeding or discharge. Mucous membranes pink and moist. Oropharynx without erythema or exudates NECK: Trachea midline. No JVD. CARDIOVASCULAR: RRR. S1, S2. No S4. Without murmur RESPIRATORY: Clear to auscultation. Breath sounds equal bilaterally. GASTROINTESTINAL: Abdomen soft, non-tender, nondistended. Hepatic and splenic margins not palpable. MUSCULOSKELETAL: Extremities without difficulty and peripheral edema. No obvious deformities. NEUROLOGICAL: Awake and alert. No obvious cranial nerve deficits. Motor grossly within normal limits. Strength 4-5 right upper extremity. 3.5 -5 right lower extremity. 5 out of 5 left upper and lower extremity. Decreased sensation to light touch and pinprick right upper and lower extremity. 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 Absent L A1 SARAH and MRI brain 12/09 revealed no acute intracranial findings Repeat MRI brain 12/16 no intrarenal findings and resolution of sinusitis. Repeat MRA brain 12/16 revealed absent left vertebral artery. The basilar artery with significant attenuation with stenosis Followed by Dr. Rankin - neurology. Dr. Rankin trying to find out if patient can have any intervention performed at [place] or [facility] Neurosurgery Dr. Zacarias has seen. No intervention Holding Seroquel 50 milligrams as needed/home medication Neurontin decreased to 400 mg 3 times daily for neuropathy pain on 12/20 Currently on Handy-Synephrine to maintain cerebral perfusion pressures as patient symptomatically with systolic blood pressure less than 120-130 see below. On Midodrine. I am increasingly red and jimmy to 15 mg every 6 hourly in order to attempt titrating off Handy-Synephrine. I have explained to the patient that we are going over maximum recommended dose for Midodrin since we are unable to titrate off Handy-Synephrine at this time and he voiced understanding and was agreeable. Acetaminophen/[place] as needed for pain Continue with aspirin 325 mill grams daily EEG 12/10 no seizure CV: Elevated LDL Elevated triglycerides Atrial fibrillation - currently in sinus tachycardia Currently on Handy-Synephrine to keep systolic blood pressure greater than 130 as long as patient is asymptomatic. On Midodrine 10 mg 3 times a day -. Increased to 15 mg every 6 hourly on 12/23. Continue Florinef Decrease Solu-Cortef to 50 mg IV every 6 hours on 12/23 with initial abnormal cortisol see below Continue Lipitor 80 mg daily for dyslipidemia/elevated LDL Echocardiogram 12/06 revealed EF 55-60%. Mild TR. Off amiodarone. Likely outpatient evaluation once clinically stabilized Resp: Nasal cannula to maintain saturations greater than equal to 92% Incentive spirometry while awake GI: Heart healthy diet Protonix for GI prophylaxis Libby-Colace for bowel regimen : Mulligan catheter if indicated Endo: Hyperglycemia of critical illness Low cortisol Sliding-scale insulin if indicated to maintain euglycemia Noted cortisol 12/13 was 2.6. Cosyntropin test 8-40 response. Decreased hydrocortisone to 50 mg IV every 6 hourly. ACTH and aldosterone will be altered result secondary to hydrocortisone use Appears to be relative adrenal insufficiency. Pituitary shows no signs of ischemia or abnormality on MRI. Renal: Monitor urine output Accurate I's and O's Heme: Leukocytosis Follow CBC daily. Monitor trends. Leukocytosis possibly secondary to steroids now currently versus reactive. No signs infectious etiology Started coumadin for anticoagulation on 12/20. Pharmacy adjusting Coumadin dosing. Heparin stopped 12/24 ID: Monitor for infection FEN: Hypokalemia Replace electrolytes as clinically indicated MSK: Physical therapy evaluate and treat Access -Left antecubital PICC placed 12/12 Prophylaxis - GI - Protonix - DVT - coumadin Discussed with Dr. Rankin. He is going to see if any center does intervention on basilar artery in order to attempt getting patient transferred to a tertiary care center for basilar artery intervention. Lenin Dsouza MD Dec 25, 2016 11:18
--- NOTE | 2016-12-25 12:22 | EKG ---
Date Performed: 12/24/2016 Time Performed: 18:51:58 PTAGE: 46 years EKG: Possible ectopic atrial rhythm Poor R wave progression - probable normal variant Borderline ECG PREVIOUS TRACING : 12/18/2016 05.47 Compared to prior tracing no significant change DOCTOR: Reynaldo Dejesus Interpretating Date/Time 12/25/2016 12:19:02
[2016-12-25] MEDS: PHENYLEPHRINE INJ 80 MG in SODIUM CHLORID 0.9% 500 ML INJ 492 ML IV SCH (13:56)
[2016-12-25] MEDS: WARFARIN SOD 3 MG TAB PO SCH (15:46)
--- NOTE | 2016-12-25 16:48 | HHI.PR ---
Subjective Remarks he is worried about his disability left leg pain concerned what to do next. Objective Vital Signs Date Time Temp Pulse Resp B/P Pulse Ox O2 Delivery O2 Flow Rate FiO2 12/25/16 16:00 70 12/25/16 14:00 76 12/25/16 12:00 72 12/25/16 10:00 75 12/25/16 08:00 74 12/25/16 07:29 96 Nasal Cannula 2.00 12/25/16 06:00 76 12/25/16 04:00 98.1 69 10 158/87 98 12/25/16 04:00 70 12/25/16 02:00 59 12/25/16 00:00 58 12/25/16 00:00 98.4 58 10 160/86 96 12/24/16 22:00 66 12/24/16 20:00 98.3 70 19 150/81 98 12/24/16 20:00 72 12/24/16 18:56 80 12/24/16 18:00 82 I/O 12/24/16 12/24/16 12/24/16 12/25/16 12/25/16 12/25/16 07:00 15:00 23:00 07:00 15:00 23:00 Intake Total 1092 ml 1419 ml 888 ml 693 ml 874 ml Output Total 1300 ml 825 ml 1100 ml 1000 ml 950 ml Balance -208 ml 594 ml -212 ml -307 ml -76 ml Intake Oral 360 ml 1150 ml 480 ml 360 ml 600 ml IV Total 732 ml 269 ml 408 ml 333 ml 274 ml Output Urine Total 1300 ml 825 ml 1100 ml 1000 ml 950 ml # Voids 2 # Bowel Movements 0 1 0 0 awake and alert speech is more slow than slurred moves all 4 extremities tender left leg no cords a/p basilar stenosis ?partial occlusion warfarin inr 2.5 keep bp >140-150 on solucortef,florinef and midodrine check us left leg on warfarin if dvt ask rn case management to see if he can be sent to a tertiary center to vascular neurology for eval of his basilar artery for any possible intervention?stent- can consult our radiologist as well for input repeat cta cow Result Diagram: 12/24/16 1255 12/25/16 0550 Objective Remarks awake alert follow commands mild decreased right nlf slurred perrla,eomi motor mild weakness right ue/le can not feel lt,t pain on right ue-le only pressure toes left w/d right neutral a/p basilar artery stenosis hepain drip per protocol monitor ptt bedrest hob flat keep bp higher >140 fluids nss mri brain pending today. Genevieve Valverde MD Dec 25, 2016 16:48
--- NOTE | 2016-12-25 19:21 | RADRPT ---
EXAM DATE/TIME: 12/25/2016 18:24 [facility] COMPARISON: No previous studies available for comparison. INDICATIONS : Left leg pain and swelling. MEDICAL HISTORY : Neuropathy. Left leg pain. SURGICAL HISTORY : Tonsillectomy. ENCOUNTER: Initial ACUITY: 1 month PAIN SCORE: 3/10 LOCATION: Left leg. TECHNIQUE: Venous ultrasound of the leg was performed from the inguinal ligament to the proximal calf. Real-wesley e, color Doppler and spectral tracing, compression and augmentation techniques were used. FINDINGS: There is normal compressibility of the deep venous system from the inguinal region to the proximal ca lf. No echogenic clot is seen in the lumen of the common femoral, femoral, popliteal, and posterior tibial veins. There is a normal response of the venous system to proximal and distal augmentation an d respiration. CONCLUSION: 1. No sonographic evidence for left lower extremity DVT. Stuart Vieyra MD on December 25, 2016 at 19:18 Board Certified Radiologist. This report was verified electronically.
[2016-12-25] MEDS ORDERED: IOHEXOL 350 MG/ML 10 ML VIAL (for RAD DIAG) IV ONE (20:47)
--- NOTE | 2016-12-25 21:29 | RADRPT ---
EXAM DATE/TIME: 12/25/2016 20:42 [facility] COMPARISON: MRI BRAIN W & W/O CONTRAST, December 17, 2016, 15:19. CTA BRAIN W 3D RECON, December 08, 2016, 15:56. INDICATIONS : Abnormal MRI; basilar artery occlusion. IV CONTRAST: 75 cc Omnipaque 350 (iohexol) IV RADIATION DOSE: 27.85 CTDIvol (mGy) MEDICAL HISTORY : Neuropathy SURGICAL HISTORY : None. ENCOUNTER: Subsequent ACUITY: 2 weeks PAIN SCALE: Non-responsive LOCATION: cranial TECHNIQUE: Volumetric scanning was performed using a multi-row detector CT scanner. The data was post processed with a variety of visualization algorithms including full volume maximum intensity projection, multi -planar sliding thin slab reformation, curved planar reformation, and surface rendering techniques. Using automated exposure control and adjustment of the mA and/or kV according to patient size, radiat ion dose was kept as low as reasonably achievable to obtain optimal diagnostic quality images. FINDINGS: Anterior circulation: The internal carotid arteries are patent, right larger than left. 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 Stable area of mild narrowing at the right M1 and M2 segment is again visualized. Th e anterior cerebral and middle cerebral arteries are otherwise within normal limits. Posterior circulation: Left vertebral artery is occluded. Right vertebral artery is diminutive in size. Basilar artery is al so diminutive in size. Posterior cerebral arteries are patent. Findings a large similar to the prior study. CONCLUSION: No interval change is appreciated. The basilar artery is diminutive as is the right vertebral artery. Left vertebral artery is occluded. Ankit Gutiérrez MD on December 25, 2016 at 21:19 Board Certified Radiologist. This report was verified electronically.
[2016-12-25] MEDS: ATORVASTATIN 80 MG TAB PO SCH (22:12)
[2016-12-26] VITALS (13 sets, daily range): BP systolic 157–190; BP diastolic 91–112; PULSE 54–94; RESP 12–20; TEMP 97.8–98.9; O2SAT 95–98
[2016-12-26] MEDS: PHENYLEPHRINE INJ 80 MG in SODIUM CHLORID 0.9% 500 ML INJ 492 ML IV SCH ×2 (02:32→20:20)
[2016-12-26 05:16] LABS: INTERNATIONAL NORMALIZED RATIO 2.5 RATIO; PROTHROMBIN TIME - PATIENT 28.8 SEC (9.8-11.6)
[2016-12-26] MEDS: INSULIN NovoLIN REGULAR SUPPLEMENTAL SCALE SQ SCH ×4 (05:51→20:29)
[2016-12-26] MEDS: HYDROCORTISONE SOD SUCCINATE 100 MG VIAL IV PUSH SCH ×3 (05:51→20:21)
[2016-12-26] MEDS: MIDODRINE 5 MG TAB PO SCH ×3 (05:51→18:00)
[2016-12-26] MEDS: ACETAMINOPHEN/HYDROcodone 325 MG/5 MG TAB PO PRN ×2 (05:55→18:00)
[2016-12-26] MEDS: PANTOPRAZOLE SOD 40 MG DELAYED RELEASE TAB PO SCH (10:35)
[2016-12-26] MEDS: SODIUM CHLORIDE 1 GRAM TAB PO SCH ×2 (10:35→20:21)
[2016-12-26] MEDS: ASPIRIN EC 325 MG TABEC PO SCH (10:35)
[2016-12-26] MEDS: FLUDROCORTISONE ACETATE 0.1 MG TAB PO SCH ×2 (10:35→20:21)
[2016-12-26] MEDS: DOCUSATE SODIUM 50 MG/SENNA 8.6 MG TAB PO SCH ×2 (10:36→20:21)
[2016-12-26] MEDS: GABAPENTIN 400 MG CAP PO SCH ×3 (10:36→18:00)
[2016-12-26] MEDS: ALPRAZolam 0.5 MG TAB PO PRN ×2 (10:45→20:29)
[2016-12-26] MEDS: CYCLOBENZAPRINE HCL 10 MG TAB PO PRN ×2 (10:45→20:29)
--- NOTE | 2016-12-26 12:05 | HHI.CCPN ---
Subjective Remarks/Hospital Course 46 y/o man presents with several day history of stuttering and difficulty finding words. Past admission to [place] in August 2016 for vertigo. MRI brain is normal. MRI spine with C5-6 bulging disc and canal narrowing. Recently started on atypical antipsychotic for outbursts and anger. 12/09: BP nicely elevated for improved cerebral collateral circulation. Neuro workup in progress. 12/10: BP support good - his speech improves with higher SBP. Resistant to heparin, will bolus now. 12/11: Speech still better today. There appears to be an emotional component - if he gets anxious his speech deteriorates. 12/12: Currently on Handy-Synephrine 300 mics grams per minute to maintain systolic blood pressure greater than 160. Very anxious. Tolerating diet. One bowel movement. 12/13: Continues on Handy-Synephrine norepinephrine to maintain systolic greater than 160. Becomes symptomatic when less than this. Tolerating diet. 12/14: Afebrile. Remains on norepinephrine at 8 mics grams per minute Handy- Synephrine 110 mics grams per minute to maintain systolic pressure is 150. Added midodrine 5 mill grams 3 times a day yesterday. Complaining of pain in his inguinal region likely from decreased mobility. 12/15: Afebrile. Remains on norepinephrine at 11 g per min and Handy-Synephrine 40 mu./m to maintain systolic blood pressure greater than 140. MIDODRINE increased to 10 Mg 3 times a day and Florinef 0.1 mg daily added today. Increase strength in right upper extremity. 12/16: Afebrile. Appears comfortable at bedside. Strength in right hand has improved. Remains on norepinephrine 12 g per minute Handy-Synephrine at 110 mg/ m to maintain systolic blood pressure greater than 140. One bowel movement yesterday 12/17: Afebrile. Handy-Synephrine at 100 mcg/m and norepinephrine at 7 mcg/m. Mentating fine. Plan for MRI/MRA brain today. 12/18: Afebrile. Handy-Synephrine currently in 150 g. Epinephrine discontinued. Overnight, brief episode of atrial fibrillation. Started on amiodarone drip due to vasopressor requirements for cerebral perfusion with basal artery stenosis/thrombosis. Potassium is noted to be low and continues to be low. This will be aggressively replaced. EKG with questionable delta wave 12/19: Awake and alert. On Handy-Synephrine 175 mics per minute. Potassium being replaced. Tolerating by mouth diet. Remained on heparin for anticoagulation. 12/20: Awake, alert, following commands. Remains on Handy-Synephrine and 150 mics per minute. Symptomatic on attempting to titrate down on Handy-Synephrine if his systolic blood pressure drops below 140. 12/21: Awake and alert. Having anxiety episodes. Remains on Handy-Synephrine. 12/22: Awake and alert. Still remains on Handy-Synephrine and 80 mics per minute. Gets symptomatic on attempting to titrate down if his systolic blood pressure drops below 120. 12/23: Awake and alert. Still requiring Handy-Synephrine at 80 mics per minute. On heparin and Coumadin for anticoagulation. Unable to titrate off Handy- Synephrine as he becomes symptomatic with lowering of his systolic blood pressure below 130-140 12/24: Awake and alert. On Handy-Synephrine 50 mics per minute this morning. Remains on heparin and Coumadin for anticoagulation. 12/25: Awake and alert. On Handy-Synephrine 50 mics per minute. Off heparin. Continue Coumadin. Complained of some left-sided facial numbness and left leg numbness off and on. Subjective 12/26: awake and alert. remains on phenylephrine. off heparin and on coumadin. INR 2.5. no complaints this morning. will discuss with neuro plan for possible send-out stent. all other review of systems and daily complaints negative. Objective Vital Signs Date Time Temp Pulse Resp B/P Pulse Ox O2 Delivery O2 Flow Rate FiO2 12/26/16 10:00 81 12/26/16 08:00 97.8 18 157/92 98 12/26/16 07:32 21 12/25/16 19:20 Nasal Cannula 2.00 Intake and Output 12/25/16 12/25/16 12/26/16 08:00 16:00 00:00 Intake Total 693 ml 874 ml 676 ml Output Total 1000 ml 950 ml 1750 ml Balance -307 ml -76 ml -1074 ml Result Diagram: 12/24/16 1255 12/25/16 0550 Imaging Last Impressions Head Magnetic Resonance Angiography 12/17/16 0000 Signed Impressions: Service Date/Time: Saturday, December 17, 2016 15:19 - CONCLUSION: 1. Stable MRA of brain since December 08. Left vertebral artery not visualized. Basilar artery is very attenuated and possibly stenotic. Anterior, middle and posterior cerebral arteries are patent. Chito Roldan MD Brain MRI 12/17/16 0000 Signed Impressions: Service Date/Time: Saturday, December 17, 2016 15:19 - CONCLUSION: 1. No acute intracranial abnormalities. 2. Resolution of previous fluid in the maxillary sinuses with mild residual mucosal thickening. Chito Roldan MD Head CT 12/16/16 0000 Signed Impressions: Service Date/Time: Friday, December 16, 2016 10:00 - CONCLUSION: 1. No intracranial abnormality 2. Right paranasal sinusitis. Stuart Vieyra MD Chest X-Ray 12/12/16 0000 Signed Impressions: Service Date/Time: Monday, December 12, 2016 10:49 - CONCLUSION: 1. Left PICC line tip in good position near the atriocaval junction. Stuart Vieyra MD Head CTA 12/08/16 0000 Signed Impressions: Service Date/Time: December 15:56 - CONCLUSION: 1. 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 There is progressive atresia/narrowing of the basilar when compared to the prior exam, however. 2. The left posterior commuting artery is supplied solely from the anterior circulation via the left posterior to indicating artery. 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 3. 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 Anterior circulation is otherwise patent without aneurysmal disease. Aashish Calderón MD Carotid Artery Ultrasound 12/08/16 0000 Signed Impressions: Service Date/Time: December 09:51 - CONCLUSION: 1. Normal appearance of the internal carotid arteries any significant atherosclerotic disease or stenosis. 2. The left vertebral artery is not visualized. However, it had a normal appearance on the 08/21/2016 carotid CTA examination. Ankit Gutiérrez MD Cervical Spine MRI 12/07/16 0000 Signed Impressions: Service Date/Time: Wednesday, December 07, 2016 17:34 - CONCLUSION: Multilevel degenerative findings of the cervical spine. Broad-based disc bulge at C5-6 results in moderate severity central canal narrowing. Harjeet Greene MD Objective Remarks GENERAL: 46 year old male, currently resting in bed in no acute distress SKIN: Warm and dry. Multiple tattoos right upper extremity, left upper extremity HEAD: Atraumatic. Normocephalic. EYES: Pupils equal and round about 3 mm bilaterally and reactive. ENT: No nasal bleeding or discharge. Mucous membranes pink and moist. Oropharynx without erythema or exudates NECK: Trachea midline. No JVD. CARDIOVASCULAR: RRR. sinus by tele. RESPIRATORY: unlabored. equal chest rise. GASTROINTESTINAL: Abdomen soft, non-tender, nondistended. MUSCULOSKELETAL: Extremities without peripheral edema. No obvious deformities. NEUROLOGICAL: Awake and alert. No obvious cranial nerve deficits. Motor grossly within normal limits. IZABEL 5/5 all 4 extremities. Date of Insertion: Dec 12, 2016 Line: PICC Side: Left A/P Assessment and Plan Assessment: 46yM with severe symptomatic vertebral-basilar insufficiency. Clearly, we have demonstrated that weaning of vasopressors results in symptomatic cerebral ischemia. we cannot pull these off or he would . He remains critically ill in need of close monitoring and ongoing vasopressor support. Will discuss again with neurology and attempt to find facility that can perform high-risk posterior circulation stenting. Neuro/Psych: Vertebral-Basilar insufficiency Posterior circulation insufficiency intra-and extracranial Basilar artery thrombosis/stenosis Anxiety disorder NOS Peripheral neuropathy- chronic, stable. MRA brain revealed very small basilar artery, small left vertebral artery. Absent L A1 SARAH and MRI brain 12/09 revealed no acute intracranial findings Repeat MRI brain 12/16 no intrarenal findings and resolution of sinusitis. Repeat MRA brain 12/16 revealed absent left vertebral artery. The basilar artery with significant attenuation with stenosis Followed by Dr. Rankin - neurology. Dr. Rankin trying to find out if patient can have any intervention performed at [place] or [facility] Dr. Zacarias has seen. No intervention Holding Seroquel 50 mg prn/home medication Neurontin decreased to 400 mg 3 times daily for neuropathy pain on 12/20 (home med at higher dose), adequately controlling neuropathy. Currently on Handy-Synephrine to maintain cerebral perfusion pressures, patient is symptomatic at SBP < 120-130 see below. On Midodrine. I have explained to the patient that we are going over maximum recommended dose for Midodrin since we are unable to titrate off Handy-Synephrine at this time and he voiced understanding and was agreeable. Acetaminophen/[place] as needed for pain Continue with aspirin 325 mg daily EEG 12/10 no seizure CV: Elevated LDL Elevated triglycerides Atrial fibrillation - currently in sinus tachycardia Currently on Handy-Synephrine to keep systolic blood pressure greater than 130 as long as patient is asymptomatic. On Midodrine 15 mg every 6 hourly on 12/23. Continue Florinef Decrease Solu-Cortef to 50 mg IV every 6 hours on 12/23 with initial abnormal cortisol see below Continue Lipitor 80 mg daily for dyslipidemia/elevated LDL Echocardiogram 12/06 revealed EF 55-60%. Mild TR. Off amiodarone. Likely outpatient evaluation once clinically stabilized Resp: Atelectasis Nasal cannula to maintain saturations greater than equal to 92% Incentive spirometry while awake GI: Heart healthy diet Protonix for GI prophylaxis Libby-Colace for bowel regimen : voiding without peace catheter. strict i/o's. Endo: Hyperglycemia of critical illness Relative Adrenal insufficiency: inappropriately low cortisol Sliding-scale insulin if indicated to maintain euglycemia Noted cortisol 12/13 was 2.6. Cosyntropin test 8-40 response. Hydrocortisone to 50 mg IV every 6 hourly. ACTH and aldosterone will be altered result secondary to hydrocortisone use Appears to be relative adrenal insufficiency. Pituitary shows no signs of ischemia or abnormality on MRI. Renal: Monitor urine output Accurate I's and O's Heme: Leukocytosis Anticoagulation Follow CBC daily. Monitor trends. Leukocytosis possibly secondary to steroids now currently versus reactive. No signs infectious etiology Started coumadin for anticoagulation on 12/20. Pharmacy adjusting Coumadin dosing. Heparin stopped 12/24. INR currently stable. would not recommend modification at this time. ID: Monitor for infection FEN: Hypokalemia Replace electrolytes as clinically indicated MSK: Physical therapy evaluate and treat Access -Left antecubital PICC placed 12/12 Prophylaxis - GI - Protonix - DVT - coumadin Will again discuss with neurology re:transfer to facility for posterior circulation stenting. He is going to see if any center does intervention on basilar artery in order to attempt getting patient transferred to a tertiary care center for basilar artery intervention. Shilo Fan MD Dec 26, 2016 12:05
[2016-12-26] MEDS: WARFARIN SOD 3 MG TAB PO SCH (17:06)
[2016-12-26] MEDS: ATORVASTATIN 80 MG TAB PO SCH (20:21)
[2016-12-27] VITALS (12 sets, daily range): BP systolic 136–181; BP diastolic 86–109; PULSE 61–92; RESP 12–19; TEMP 97.7–98.9; O2SAT 95–96
[2016-12-27] MEDS: ACETAMINOPHEN/HYDROcodone 325 MG/5 MG TAB PO PRN ×3 (03:15→21:18)
[2016-12-27] MEDS: CHLORHEXIDINE GLUCONATE 2 % 1 PACK (2 CLOTHS) TOP SCH (04:56)
[2016-12-27] MEDS: ALPRAZolam 0.5 MG TAB PO PRN ×3 (05:09→23:14)
[2016-12-27] MEDS: CYCLOBENZAPRINE HCL 10 MG TAB PO PRN ×3 (05:09→23:14)
[2016-12-27] MEDS: HYDROCORTISONE SOD SUCCINATE 100 MG VIAL IV PUSH SCH ×3 (05:09→21:18)
[2016-12-27] MEDS: MIDODRINE 5 MG TAB PO SCH ×5 (05:10→23:14)
[2016-12-27] MEDS: INSULIN NovoLIN REGULAR SUPPLEMENTAL SCALE SQ SCH ×4 (05:57→21:28)
[2016-12-27 06:32] LABS: BICARBONATE 30.9 MEQ/L (21.0-32.0)
[2016-12-27] MEDS: POTASSIUM CHLOR 40 MEQ PREMIX 100 ML IV PRN ×3 (06:41→22:30)
[2016-12-27] MEDS: ASPIRIN EC 325 MG TABEC PO SCH (07:43)
[2016-12-27] MEDS: SODIUM CHLORIDE 1 GRAM TAB PO SCH ×2 (07:43→21:18)
[2016-12-27] MEDS: PHENYLEPHRINE INJ 80 MG in SODIUM CHLORID 0.9% 500 ML INJ 492 ML IV SCH (07:43)
[2016-12-27] MEDS: PANTOPRAZOLE SOD 40 MG DELAYED RELEASE TAB PO SCH (07:45)
[2016-12-27] MEDS: GABAPENTIN 400 MG CAP PO SCH ×3 (07:45→18:17)
[2016-12-27] MEDS: DOCUSATE SODIUM 50 MG/SENNA 8.6 MG TAB PO SCH ×2 (07:45→21:18)
[2016-12-27] MEDS: FLUDROCORTISONE ACETATE 0.1 MG TAB PO SCH ×2 (07:45→21:18)
[2016-12-27] MEDS ORDERED: AMIODARONE 150 MG/D5W 97 ML BOLUS 10 MINUTES IV ONE ×2 (09:15)
[2016-12-27] MEDS: AMIODARONE INJ 450 MG in D5W (EXCEL BAG) 241 ML IV SCH ×2 (09:17→15:55)
[2016-12-27 11:44] LABS: INTERNATIONAL NORMALIZED RATIO 1.9 RATIO; PROTHROMBIN TIME - PATIENT 21.5 SEC (9.8-11.6)
[2016-12-27] MEDS: WARFARIN SOD 3 MG TAB PO SCH (15:16)
--- NOTE | 2016-12-27 17:21 | EKG ---
Date Performed: 12/27/2016 Time Performed: 08:36:23 PTAGE: 46 years EKG: ATRIAL FIBRILLATION WITH RAPID VENTRICULAR RESPONSE NONSPECIFIC ST & T-WAVE ABNORMALITY ABN ORMAL RHYTHM ECG PREVIOUS TRACING : 12/24/2016 18.51 Compared to previous tracing, the patient is now in atrial fibrillation with rapid ventricular rate. DOCTOR: Nena Duran Interpretating Date/Time 12/27/2016 17:20:03
--- NOTE | 2016-12-27 18:54 | HHI.CCPN ---
Subjective Remarks/Hospital Course 46 y/o man presents with several day history of stuttering and difficulty finding words. Past admission to [place] in August 2016 for vertigo. MRI brain is normal. MRI spine with C5-6 bulging disc and canal narrowing. Recently started on atypical antipsychotic for outbursts and anger. 12/09: BP nicely elevated for improved cerebral collateral circulation. Neuro workup in progress. 12/10: BP support good - his speech improves with higher SBP. Resistant to heparin, will bolus now. 12/11: Speech still better today. There appears to be an emotional component - if he gets anxious his speech deteriorates. 12/12: Currently on Handy-Synephrine 300 mics grams per minute to maintain systolic blood pressure greater than 160. Very anxious. Tolerating diet. One bowel movement. 12/13: Continues on Handy-Synephrine norepinephrine to maintain systolic greater than 160. Becomes symptomatic when less than this. Tolerating diet. 12/14: Afebrile. Remains on norepinephrine at 8 mics grams per minute Handy- Synephrine 110 mics grams per minute to maintain systolic pressure is 150. Added midodrine 5 mill grams 3 times a day yesterday. Complaining of pain in his inguinal region likely from decreased mobility. 12/15: Afebrile. Remains on norepinephrine at 11 g per min and Handy-Synephrine 40 mu./m to maintain systolic blood pressure greater than 140. MIDODRINE increased to 10 Mg 3 times a day and Florinef 0.1 mg daily added today. Increase strength in right upper extremity. 12/16: Afebrile. Appears comfortable at bedside. Strength in right hand has improved. Remains on norepinephrine 12 g per minute Handy-Synephrine at 110 mg/ m to maintain systolic blood pressure greater than 140. One bowel movement yesterday 12/17: Afebrile. Handy-Synephrine at 100 mcg/m and norepinephrine at 7 mcg/m. Mentating fine. Plan for MRI/MRA brain today. 12/18: Afebrile. Handy-Synephrine currently in 150 g. Epinephrine discontinued. Overnight, brief episode of atrial fibrillation. Started on amiodarone drip due to vasopressor requirements for cerebral perfusion with basal artery stenosis/thrombosis. Potassium is noted to be low and continues to be low. This will be aggressively replaced. EKG with questionable delta wave 12/19: Awake and alert. On Handy-Synephrine 175 mics per minute. Potassium being replaced. Tolerating by mouth diet. Remained on heparin for anticoagulation. 12/20: Awake, alert, following commands. Remains on Handy-Synephrine and 150 mics per minute. Symptomatic on attempting to titrate down on Handy-Synephrine if his systolic blood pressure drops below 140. 12/21: Awake and alert. Having anxiety episodes. Remains on Handy-Synephrine. 12/22: Awake and alert. Still remains on Handy-Synephrine and 80 mics per minute. Gets symptomatic on attempting to titrate down if his systolic blood pressure drops below 120. 12/23: Awake and alert. Still requiring Handy-Synephrine at 80 mics per minute. On heparin and Coumadin for anticoagulation. Unable to titrate off Handy- Synephrine as he becomes symptomatic with lowering of his systolic blood pressure below 130-140 12/24: Awake and alert. On Handy-Synephrine 50 mics per minute this morning. Remains on heparin and Coumadin for anticoagulation. 12/25: Awake and alert. On Handy-Synephrine 50 mics per minute. Off heparin. Continue Coumadin. Complained of some left-sided facial numbness and left leg numbness off and on. 12/26: awake and alert. remains on phenylephrine. off heparin and on coumadin. INR 2.5. no complaints this morning. will discuss with neuro plan for possible send-out stent. all other review of systems and daily complaints negative. Subjective 12/27: no significant change. handy remains at 80 mcg/min currently. case management working on transfer to facility that can place high risk basilar artery stent. patient went back into afib RVR this morning. re-loaded with amiodarone, and now back in NSR. Objective Vital Signs Date Time Temp Pulse Resp B/P Pulse Ox O2 Delivery O2 Flow Rate FiO2 12/27/16 16:00 98.5 64 12 181/109 95 12/26/16 07:32 21 12/25/16 19:20 Nasal Cannula 2.00 Intake and Output 12/26/16 12/26/16 12/27/16 08:00 16:00 00:00 Intake Total 655 ml 1461 ml 1086 ml Output Total 800 ml 1995 ml 550 ml Balance -145 ml -534 ml 536 ml Result Diagram: 12/24/16 1255 12/27/16 0527 Imaging Last Impressions Head Magnetic Resonance Angiography 12/17/16 0000 Signed Impressions: Service Date/Time: Saturday, December 17, 2016 15:19 - CONCLUSION: 1. Stable MRA of brain since December 08. Left vertebral artery not visualized. Basilar artery is very attenuated and possibly stenotic. Anterior, middle and posterior cerebral arteries are patent. Chito Roldan MD Brain MRI 12/17/16 Signed Impressions: Service Date/Time: Saturday, December 17, 2016 15:19 - CONCLUSION: 1. No acute intracranial abnormalities. 2. Resolution of previous fluid in the maxillary sinuses with mild residual mucosal thickening. Chito Roldan MD Head CT 12/16/16 0000 Signed Impressions: Service Date/Time: Friday, December 16, 2016 10:00 - CONCLUSION: 1. No intracranial abnormality 2. Right paranasal sinusitis. Stuart Vieyra MD Chest X-Ray 12/12/16 Signed Impressions: Service Date/Time: Monday, December 12, 2016 10:49 - CONCLUSION: 1. Left PICC line tip in good position near the atriocaval junction. Stuart Vieyra MD Head CTA 12/08/16 Signed Impressions: Service Date/Time: December 15:56 - CONCLUSION: 1. 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 There is progressive atresia/narrowing of the basilar when compared to the prior exam, however. 2. The left posterior commuting artery is supplied solely from the anterior circulation via the left posterior to indicating artery. 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 3. 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 Anterior circulation is otherwise patent without aneurysmal disease. Aashish Calderón MD Carotid Artery Ultrasound 12/08/16 0000 Signed Impressions: Service Date/Time: December 09:51 - CONCLUSION: 1. Normal appearance of the internal carotid arteries any significant atherosclerotic disease or stenosis. 2. The left vertebral artery is not visualized. However, it had a normal appearance on the 08/21/2016 carotid CTA examination. Ankit Gutiérrez MD Cervical Spine MRI 12/07/16 0000 Signed Impressions: Service Date/Time: Wednesday, December 07, 2016 17:34 - CONCLUSION: Multilevel degenerative findings of the cervical spine. Broad-based disc bulge at C5-6 results in moderate severity central canal narrowing. Harjeet Greene MD Objective Remarks GENERAL: 46 year old male, currently resting in bed in no acute distress SKIN: Warm and dry. Multiple tattoos right upper extremity, left upper extremity HEAD: Atraumatic. Normocephalic. EYES: Pupils equal and round about 3 mm bilaterally and reactive. ENT: No nasal bleeding or discharge. Mucous membranes pink and moist. Oropharynx without erythema or exudates NECK: Trachea midline. No JVD. CARDIOVASCULAR: RRR. sinus by tele. (prior afib this morning on my first exam). RESPIRATORY: unlabored. equal chest rise. GASTROINTESTINAL: Abdomen soft, non-tender, nondistended. MUSCULOSKELETAL: Extremities without peripheral edema. No obvious deformities. NEUROLOGICAL: Awake and alert. No obvious cranial nerve deficits. Motor grossly within normal limits. IZABEL 5/5 all 4 extremities. Date of Insertion: Dec 12, 2016 Line: PICC Side: Left A/P Assessment and Plan Assessment: 46yM with severe symptomatic vertebral-basilar insufficiency. Clearly, we have demonstrated that weaning of vasopressors results in symptomatic cerebral ischemia. we cannot pull these off or he would . He remains critically ill in need of close monitoring and ongoing vasopressor support. Ongoing discussion and attempts to find facility that can perform high- risk posterior circulation stenting. Neuro/Psych: Vertebral-Basilar insufficiency Posterior circulation insufficiency intra-and extracranial Basilar artery thrombosis/stenosis Anxiety disorder NOS Peripheral neuropathy- chronic, stable. MRA brain revealed very small basilar artery, small left vertebral artery. Absent L A1 SARAH and MRI brain 12/09 revealed no acute intracranial findings Repeat MRI brain 12/16 no intrarenal findings and resolution of sinusitis. Repeat MRA brain 12/16 revealed absent left vertebral artery. The basilar artery with significant attenuation with stenosis Followed by Dr. Rankin - neurology. Dr. Rankin trying to find out if patient can have any intervention performed at [place] or [facility] Dr. Zacarias has seen. No intervention Holding Seroquel 50 mg prn/home medication Neurontin decreased to 400 mg 3 times daily for neuropathy pain on 12/20 (home med at higher dose), adequately controlling neuropathy. Currently on Handy-Synephrine to maintain cerebral perfusion pressures, patient is symptomatic at SBP < 120-130 see below. On Midodrine. I have explained to the patient that we are going over maximum recommended dose for Midodrin since we are unable to titrate off Handy-Synephrine at this time and he voiced understanding and was agreeable. Acetaminophen/[place] as needed for pain Continue with aspirin 325 mg daily EEG 12/10 no seizure CV: Elevated LDL Elevated triglycerides Atrial fibrillation - currently in sinus tachycardia Currently on Handy-Synephrine to keep systolic blood pressure greater than 130 as long as patient is asymptomatic. On Midodrine 15 mg every 6 hourly on 12/23. Continue Florinef Decrease Solu-Cortef to 50 mg IV every 6 hours on 12/23 with initial abnormal cortisol see below Continue Lipitor 80 mg daily for dyslipidemia/elevated LDL Echocardiogram 12/06 revealed EF 55-60%. Mild TR. restart amiodarone. will transition to PO amio tomorrow. Likely outpatient evaluation once clinically stabilized Resp: Atelectasis Nasal cannula to maintain saturations greater than equal to 92% Incentive spirometry while awake GI: Heart healthy diet Protonix for GI prophylaxis Libby-Colace for bowel regimen : voiding without peace catheter. strict i/o's. Endo: Hyperglycemia of critical illness Relative Adrenal insufficiency: inappropriately low cortisol Sliding-scale insulin if indicated to maintain euglycemia Noted cortisol 12/13 was 2.6. Cosyntropin test 8-40 response. Hydrocortisone to 50 mg IV every 6 hourly. ACTH and aldosterone will be altered result secondary to hydrocortisone use Appears to be relative adrenal insufficiency. Pituitary shows no signs of ischemia or abnormality on MRI. Renal: Monitor urine output Accurate I's and O's Heme: Leukocytosis Anticoagulation Follow CBC daily. Monitor trends. Leukocytosis possibly secondary to steroids now currently versus reactive. No signs infectious etiology Started coumadin for anticoagulation on 12/20. Pharmacy adjusting Coumadin dosing. Heparin stopped 12/24. INR currently stable. would not recommend modification at this time. ID: Monitor for infection FEN: Hypokalemia Replace electrolytes as clinically indicated MSK: Physical therapy evaluate and treat Access -Left antecubital PICC placed 12/12 Prophylaxis - GI - Protonix - DVT - coumadin Will again discuss with neurology re:transfer to facility for posterior circulation stenting. He is going to see if any center does intervention on basilar artery in order to attempt getting patient transferred to a tertiary care center for basilar artery intervention. Shilo Fan MD Dec 27, 2016 18:54
[2016-12-27] MEDS: ATORVASTATIN 80 MG TAB PO SCH (21:18)
[2016-12-28] VITALS (12 sets, daily range): BP systolic 137–168; BP diastolic 81–112; PULSE 68–85; RESP 12–23; TEMP 97.9–99.1; O2SAT 95–100
[2016-12-28] MEDS: CHLORHEXIDINE GLUCONATE 2 % 1 PACK (2 CLOTHS) TOP SCH (04:00)
[2016-12-28] MEDS: ACETAMINOPHEN/HYDROcodone 325 MG/5 MG TAB PO PRN (04:41)
[2016-12-28] MEDS: MIDODRINE 5 MG TAB PO SCH ×3 (05:34→17:02)
[2016-12-28] MEDS: HYDROCORTISONE SOD SUCCINATE 100 MG VIAL IV PUSH SCH ×2 (05:34→14:07)
[2016-12-28 06:16] LABS: HEMATOCRIT 37.4 % (39.0-51.0); MEAN CELL VOLUME 95.3 FL (80.0-100.0); MEAN CORPUSCULAR HEMOGLOBIN 31.3 PG (27.0-34.0); MEAN CORPUSCULAR HGB CONC 32.8 % (32.0-36.0); PLATELET COUNT 305 TH/MM3 (150-450); RED BLOOD COUNT 3.92 MIL/MM3 (4.50-5.90); RED CELL DISTRIBUTION WIDTH 15.4 % (11.6-17.2); REVIEW FLAG FINAL; WHITE BLOOD COUNT 22.2 TH/MM3 (4.0-11.0)
[2016-12-28] MEDS: INSULIN NovoLIN REGULAR SUPPLEMENTAL SCALE SQ SCH ×4 (06:20→19:40)
[2016-12-28 06:21] LABS: INTERNATIONAL NORMALIZED RATIO 2.4 RATIO; PROTHROMBIN TIME - PATIENT 27.4 SEC (9.8-11.6)
[2016-12-28] MEDS: POTASSIUM CHLOR 40 MEQ PREMIX 100 ML IV PRN (06:49)
[2016-12-28] MEDS: ALPRAZolam 0.5 MG TAB PO PRN ×2 (08:00→15:19)
[2016-12-28] MEDS: FLUDROCORTISONE ACETATE 0.1 MG TAB PO SCH ×2 (08:00→19:28)
[2016-12-28] MEDS: SODIUM CHLORIDE 1 GRAM TAB PO SCH ×2 (08:00→19:28)
[2016-12-28] MEDS: CYCLOBENZAPRINE HCL 10 MG TAB PO PRN ×2 (08:00→15:19)
[2016-12-28] MEDS: PANTOPRAZOLE SOD 40 MG DELAYED RELEASE TAB PO SCH (08:01)
[2016-12-28] MEDS: DOCUSATE SODIUM 50 MG/SENNA 8.6 MG TAB PO SCH ×2 (08:01→19:29)
[2016-12-28] MEDS: ASPIRIN EC 325 MG TABEC PO SCH (08:01)
[2016-12-28] MEDS: GABAPENTIN 400 MG CAP PO SCH ×3 (08:01→17:02)
--- NOTE | 2016-12-28 11:41 | HHI.CCPN ---
Subjective Remarks/Hospital Course 46 y/o man presents with several day history of stuttering and difficulty finding words. Past admission to [facility] in August 2016 for vertigo. MRI brain is normal. MRI spine with C5-6 bulging disc and canal narrowing. Recently started on atypical antipsychotic for outbursts and anger. 12/09: BP nicely elevated for improved cerebral collateral circulation. Neuro workup in progress. 12/10: BP support good - his speech improves with higher SBP. Resistant to heparin, will bolus now. 12/11: Speech still better today. There appears to be an emotional component - if he gets anxious his speech deteriorates. 12/12: Currently on Handy-Synephrine 300 mics grams per minute to maintain systolic blood pressure greater than 160. Very anxious. Tolerating diet. One bowel movement. 12/13: Continues on Handy-Synephrine norepinephrine to maintain systolic greater than 160. Becomes symptomatic when less than this. Tolerating diet. 12/14: Afebrile. Remains on norepinephrine at 8 mics grams per minute Handy- Synephrine 110 mics grams per minute to maintain systolic pressure is 150. Added midodrine 5 mill grams 3 times a day yesterday. Complaining of pain in his inguinal region likely from decreased mobility. 12/15: Afebrile. Remains on norepinephrine at 11 g per min and Handy-Synephrine 40 mu./m to maintain systolic blood pressure greater than 140. MIDODRINE increased to 10 Mg 3 times a day and Florinef 0.1 mg daily added today. Increase strength in right upper extremity. 12/16: Afebrile. Appears comfortable at bedside. Strength in right hand has improved. Remains on norepinephrine 12 g per minute Handy-Synephrine at 110 mg/ m to maintain systolic blood pressure greater than 140. One bowel movement yesterday 12/17: Afebrile. Handy-Synephrine at 100 mcg/m and norepinephrine at 7 mcg/m. Mentating fine. Plan for MRI/MRA brain today. 12/18: Afebrile. Handy-Synephrine currently in 150 g. Epinephrine discontinued. Overnight, brief episode of atrial fibrillation. Started on amiodarone drip due to vasopressor requirements for cerebral perfusion with basal artery stenosis/thrombosis. Potassium is noted to be low and continues to be low. This will be aggressively replaced. EKG with questionable delta wave 12/19: Awake and alert. On Handy-Synephrine 175 mics per minute. Potassium being replaced. Tolerating by mouth diet. Remained on heparin for anticoagulation. 12/20: Awake, alert, following commands. Remains on Handy-Synephrine and 150 mics per minute. Symptomatic on attempting to titrate down on Handy-Synephrine if his systolic blood pressure drops below 140. 12/21: Awake and alert. Having anxiety episodes. Remains on Handy-Synephrine. 12/22: Awake and alert. Still remains on Handy-Synephrine and 80 mics per minute. Gets symptomatic on attempting to titrate down if his systolic blood pressure drops below 120. 12/23: Awake and alert. Still requiring Handy-Synephrine at 80 mics per minute. On heparin and Coumadin for anticoagulation. Unable to titrate off Handy- Synephrine as he becomes symptomatic with lowering of his systolic blood pressure below 130-140 12/24: Awake and alert. On Handy-Synephrine 50 mics per minute this morning. Remains on heparin and Coumadin for anticoagulation. 12/25: Awake and alert. On Handy-Synephrine 50 mics per minute. Off heparin. Continue Coumadin. Complained of some left-sided facial numbness and left leg numbness off and on. 12/26: awake and alert. remains on phenylephrine. off heparin and on coumadin. INR 2.5. no complaints this morning. will discuss with neuro plan for possible send-out stent. all other review of systems and daily complaints negative. 12/27: no significant change. handy remains at 80 mcg/min currently. case management working on transfer to facility that can place high risk basilar artery stent. patient went back into afib RVR this morning. re-loaded with amiodarone, and now back in NSR. Subjective 12/28: remains in NSR. [id number] between neuro and accepting facility planned for today. remains on phenylephrine. asked specifically for a Big Mac today. he feels very anxious and lonely in his hospital room. Objective Vital Signs Date Time Temp Pulse Resp B/P Pulse Ox O2 Delivery O2 Flow Rate FiO2 12/28/16 10:00 80 12/28/16 08:30 96 21 12/28/16 08:00 99.1 21 168/112 12/25/16 19:20 Nasal Cannula 2.00 Intake and Output 12/27/16 12/27/16 12/28/16 08:00 16:00 00:00 Intake Total 750 ml 1596 ml 670 ml Output Total 1100 ml 900 ml 1200 ml Balance -350 ml 696 ml -530 ml Result Diagram: 12/28/16 0555 12/28/16 0555 Imaging Last Impressions Head Magnetic Resonance Angiography 12/17/16 0000 Signed Impressions: Service Date/Time: Saturday, December 17, 2016 15:19 - CONCLUSION: 1. Stable MRA of brain since December 08. Left vertebral artery not visualized. Basilar artery is very attenuated and possibly stenotic. Anterior, middle and posterior cerebral arteries are patent. Chito Roldan MD Brain MRI 12/17/16 0000 Signed Impressions: Service Date/Time: Saturday, December 17, 2016 15:19 - CONCLUSION: 1. No acute intracranial abnormalities. 2. Resolution of previous fluid in the maxillary sinuses with mild residual mucosal thickening. Chito Rlodan MD Head CT 12/16/16 0000 Signed Impressions: Service Date/Time: Friday, December 16, 2016 10:00 - CONCLUSION: 1. No intracranial abnormality 2. Right paranasal sinusitis. Stuart Vieyra MD Chest X-Ray 12/12/16 Signed Impressions: Service Date/Time: Monday, December 12, 2016 10:49 - CONCLUSION: 1. Left PICC line tip in good position near the atriocaval junction. Stuart Vieyra MD Head CTA 12/08/16 Signed Impressions: Service Date/Time: December 15:56 - CONCLUSION: 1. 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 There is progressive atresia/narrowing of the basilar when compared to the prior exam, however. 2. The left posterior commuting artery is supplied solely from the anterior circulation via the left posterior to indicating artery. 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 3. 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 Anterior circulation is otherwise patent without aneurysmal disease. Aashish Calderón MD Carotid Artery Ultrasound 12/08/16 0000 Signed Impressions: Service Date/Time: December 09:51 - CONCLUSION: 1. Normal appearance of the internal carotid arteries any significant atherosclerotic disease or stenosis. 2. The left vertebral artery is not visualized. However, it had a normal appearance on the 08/21/2016 carotid CTA examination. Ankit Gutiérrez MD Cervical Spine MRI 12/07/16 0000 Signed Impressions: Service Date/Time: Wednesday, December 07, 2016 17:34 - CONCLUSION: Multilevel degenerative findings of the cervical spine. Broad-based disc bulge at C5-6 results in moderate severity central canal narrowing. Harjeet Greene MD Objective Remarks GENERAL: 46 year old male, currently resting in bed in no acute distress SKIN: Warm and dry. Multiple tattoos right upper extremity, left upper extremity HEAD: Atraumatic. Normocephalic. EYES: Pupils equal and round about 3 mm bilaterally and reactive. ENT: No nasal bleeding or discharge. Mucous membranes pink and moist. Oropharynx without erythema or exudates NECK: Trachea midline. No JVD. CARDIOVASCULAR: RRR. sinus by tele. (prior afib this morning on my first exam). RESPIRATORY: unlabored. equal chest rise. GASTROINTESTINAL: Abdomen soft, non-tender, nondistended. MUSCULOSKELETAL: Extremities without peripheral edema. No obvious deformities. NEUROLOGICAL: Awake and alert. No obvious cranial nerve deficits. Motor grossly within normal limits. IZABEL 5/5 all 4 extremities. Date of Insertion: Dec 12, 2016 Line: PICC Side: Left A/P Assessment and Plan Assessment: 46yM with severe symptomatic vertebral-basilar insufficiency. Clearly, we have demonstrated that weaning of vasopressors results in symptomatic cerebral ischemia. we cannot pull these off or he would . He remains critically ill in need of close monitoring and ongoing vasopressor support. Ongoing discussion and attempts to find facility that can perform high- risk posterior circulation stenting. will transition him to PO amiodarone to maintain NSR. Neuro/Psych: Vertebral-Basilar insufficiency Posterior circulation insufficiency intra-and extracranial Basilar artery thrombosis/stenosis Anxiety disorder NOS Peripheral neuropathy- chronic, stable. MRA brain revealed very small basilar artery, small left vertebral artery. Absent L A1 SARAH and MRI brain 12/09 revealed no acute intracranial findings Repeat MRI brain 12/16 no intrarenal findings and resolution of sinusitis. Repeat MRA brain 6/9 revealed absent left vertebral artery. The basilar artery with significant attenuation with stenosis Followed by Dr. Rankin - neurology. Dr. Rankin trying to find out if patient can have any intervention performed at [facility] or [facility] Dr. Zacarias has seen. No intervention Holding Seroquel 50 mg prn/home medication Neurontin decreased to 400 mg 3 times daily for neuropathy pain on 12/20 (home med at higher dose), adequately controlling neuropathy. Currently on Handy-Synephrine to maintain cerebral perfusion pressures, patient is symptomatic at SBP < 120-130 see below. On Midodrine. We have previously explained to the patient that we are going over maximum recommended dose for Midodrine since we are unable to titrate off Handy-Synephrine. Acetaminophen/Marshall as needed for pain Continue with aspirin 325 mg daily EEG 12/10 no seizure CV: Elevated LDL Elevated triglycerides Atrial fibrillation - currently in sinus rhythm Currently on Handy-Synephrine to keep systolic blood pressure greater than 130 as long as patient is asymptomatic. On Midodrine 15 mg every 6 hourly on 12/23. Continue Florinef Decrease Solu-Cortef to 50 mg IV every 6 hours on 12/23 with initial abnormal cortisol see below Continue Lipitor 80 mg daily for dyslipidemia/elevated LDL Echocardiogram 12/06 revealed EF 55-60%. Mild TR. transition to PO amio 400mg po BID d/c amio drip. Likely outpatient evaluation once clinically stabilized Resp: Atelectasis Nasal cannula to maintain saturations greater than equal to 92% Incentive spirometry while awake GI: Heart healthy diet Protonix for GI prophylaxis Libby-Colace for bowel regimen : voiding without peace catheter. strict i/o's. Endo: Hyperglycemia of critical illness Relative Adrenal insufficiency: inappropriately low cortisol Sliding-scale insulin if indicated to maintain euglycemia Noted cortisol 12/13 was 2.6. Cosyntropin test 8-40 response. Hydrocortisone to 50 mg IV every 6 hourly. ACTH and aldosterone will be altered result secondary to hydrocortisone use Appears to be relative adrenal insufficiency. Pituitary shows no signs of ischemia or abnormality on MRI. Renal: Monitor urine output Accurate I's and O's Heme: Leukocytosis Anticoagulation Follow CBC daily. Monitor trends. Leukocytosis possibly secondary to steroids now currently versus reactive. No signs infectious etiology Started coumadin for anticoagulation on 12/20. Pharmacy adjusting Coumadin dosing. Heparin stopped 12/24. INR currently stable. would not recommend modification at this time. ID: Monitor for infection FEN: Hypokalemia Replace electrolytes as clinically indicated MSK: Physical therapy evaluate and treat Access -Left antecubital PICC placed 12/12 Prophylaxis - GI - Protonix - DVT - coumadin Dispo: still awaiting transfer to OS facility for basilar artery stenting. neuro planning [id number] today. Shilo Fan MD Dec 28, 2016 11:41
[2016-12-28] MEDS: AMIODARONE 200 MG TAB PO SCH ×2 (12:04→19:29)
[2016-12-28] MEDS ORDERED: WARFARIN SOD 3 MG TAB PO SCH (16:00)
[2016-12-28] MEDS: ATORVASTATIN 80 MG TAB PO SCH (19:28)
[2017-01-09] MEDS ORDERED: SERT25TA83 PO (09:49)
[2017-01-09] MEDS ORDERED: LISI-519 PO (10:11)
== END 2016-12-28 19:52 | disposition short-term general hospital (02) | DRG 69 ==
LOC: NEPC 09:46 → NEDA 14:05 → NEPGCP 16:57 → OBSVTOIN 12-08 13:41 → N03B 12-08 16:25
PROVIDERS: ADMIT Surgery Surgical Critical Care; ATTEND Surgery Surgical Critical Care
PROC: 02HV33Z Insertion of Infusion Device into Superior Vena Cava, Percutaneous Approach (ICD-10-PCS; principal; 2016-12-12)
PROC: 02PYX3Z Removal of Infusion Device from Great Vessel, External Approach (ICD-10-PCS; 2016-12-23)
PROC: 02HV33Z Insertion of Infusion Device into Superior Vena Cava, Percutaneous Approach (ICD-10-PCS; 2016-12-23)
DX: G45.0 Vertebro-basilar artery syndrome (principal); G62.9 Polyneuropathy, unspecified; I48.91 Unspecified atrial fibrillation; E27.40 Unspecified adrenocortical insufficiency; M50.222 Other cervical disc displacement at C5-C6 level; J98.11 Atelectasis; M48.02 Spinal stenosis, cervical region; F17.210 Nicotine dependence, cigarettes, uncomplicated; E78.5 Hyperlipidemia, unspecified; F80.81 Childhood onset fluency disorder; K59.00 Constipation, unspecified; F41.9 Anxiety disorder, unspecified; D72.829 Elevated white blood cell count, unspecified; F43.21 Adjustment disorder with depressed mood; E87.6 Hypokalemia; D64.9 Anemia, unspecified; R73.9 Hyperglycemia, unspecified; R79.1 Abnormal coagulation profile; Z79.899 Other long term (current) drug therapy; Z91.81 History of falling
CPT/HCPCS: 36556; 36569; 70450; 70496; 70544; 70551; 70553; 71010; 72141; 76937; 80048; 80053; 80061; 80307; 81001; 82024; 82140; 82533; 82607; 82948; 83036; 83735; 84100; 84132; 84155; 84443; 84484; 85007; 85025; 85027; 85610; 85652; 85730; 87641; 93005; 93306; 93880; 93971; 95819; 96361; 96374; A9579; C9113; G0378; G8987-GP; G8988-GP; J0282; J0834; J1644; J1720; J1940; J2270; J2370; J2405; J3480; J7030; J7040; J7050; J7060; Q9967

== ENCOUNTER 2017-01-01 05:10 | Inpatient (IN) | payer OTHER ==
[~2017-01-01] VITALS: Ht 170.2 cm; Wt 88.3 kg
[2017-01-01] VITALS (10 sets, daily range): BP systolic 96–158; BP diastolic 56–96; PULSE 77–96; RESP 10–20; TEMP 97.6–98.4; O2SAT 96–100
[~2017-01-01 05:10] MED LIST changes: -DOXY100C PO; -GABA300C5 PO; +GABA600T PO; +QUET5TAB PO
[2017-01-01 05:28] LABS: AUTOMATED NEUTROPHIL # 14.7 TH/MM3 (1.8-7.7); BASOPHIL # 0.1 TH/MM3 (0-0.2); BASOPHIL % 0.3 % (0.0-2.0); EOSINOPHIL % 0.1 % (0.0-4.0); HEMATOCRIT 38.1 % (39.0-51.0); LYMPH % 12.2 % (9.0-44.0); LYMPHOCYTE # 2.2 TH/MM3 (1.0-4.8); MEAN CELL VOLUME 94.5 FL (80.0-100.0); MEAN CORPUSCULAR HEMOGLOBIN 31.6 PG (27.0-34.0); MEAN CORPUSCULAR HGB CONC 33.5 % (32.0-36.0); MONO % 7.6 % (0.0-8.0); NEUT % 79.8 % (16.0-70.0); PLATELET COUNT 362 TH/MM3 (150-450); RED BLOOD COUNT 4.03 MIL/MM3 (4.50-5.90); WHITE BLOOD COUNT 18.4 TH/MM3 (4.0-11.0)
[2017-01-01 05:29] LABS: I-STAT SODIUM 139 MMOL/L (138-146)
[2017-01-01 05:32] LABS: HEMO FLAGS AUTO DIFF
--- NOTE | 2017-01-01 05:32 | RADRPT ---
EXAM DATE/TIME: 01/01/2017 05:19 [facility] COMPARISON: CT BRAIN W/O CONTRAST, December 16, 2016, 10:00. INDICATIONS : Stroke alert; dysphasia. RADIATION DOSE: 47.07 CTDIvol (mGy) This report was called by Dr Sierra to Dr Rapp at 5: 30am MEDICAL HISTORY : Non-responsive. SURGICAL HISTORY : Non-responsive. ENCOUNTER: Initial ACUITY: 1 day PAIN SCALE: Non-responsive LOCATION: cranial TECHNIQUE: Multiple contiguous axial images were obtained of the head. Using automated exposure control and adj ustment of the mA and/or kV according to patient size, radiation dose was kept as low as reasonably a chievable to obtain optimal diagnostic quality images. DICOM format image data is available electro nically for review and comparison. FINDINGS: CEREBRUM: The ventricles are normal for age. No evidence of midline shift, mass lesion, hemorrhage or acute in farction. No extra-axial fluid collections are seen. POSTERIOR FOSSA: The cerebellum and brainstem are intact. The 4th ventricle is midline. The cerebellopontine angle i s unremarkable. EXTRACRANIAL: The visualized portion of the orbits is intact. SKULL: The calvaria is intact. No evidence of skull fracture. CONCLUSION: Normal examination. Suhas Sierra MD on January 01, 2017 at 5:28 Board Certified Radiologist. This report was verified electronically.
[2017-01-01 05:33] LABS: I-STAT POTASSIUM 6.8 MMOL/L (3.5-4.9)
[2017-01-01] MEDS ORDERED: IOHEXOL 350 MG/ML 10 ML VIAL (for RAD DIAG) IV ONE (05:34)
[2017-01-01] MEDS ORDERED: ASPI81CH CHEW (05:52)
[2017-01-01] MEDS ORDERED: ATOR40TA16 PO (05:52)
[2017-01-01] MEDS ORDERED: PRED20 PO (05:52)
[2017-01-01 05:53] LABS: PLATELET ESTIMATE SMEAR HIGH (NORMAL); PLATELET MORPHOLOGY NORMAL (NORMAL); SCAN/DIFF AUTO DIFF CONFIRMED
[2017-01-01 05:54] LABS: CREATINE KINASE 396 U/L (39-308)
[2017-01-01 05:57] LABS: APTT (PATIENT) 21.6 SEC (24.3-30.1); INTERNATIONAL NORMALIZED RATIO 0.9 RATIO; PROTHROMBIN TIME - PATIENT 9.7 SEC (9.8-11.6)
--- NOTE | 2017-01-01 06:01 | RADRPT ---
EXAM DATE/TIME: 01/01/2017 05:50 [facility] COMPARISON: CHEST SINGLE AP, December 23, 2016, 11:21. INDICATIONS : Stroke Alert MEDICAL HISTORY : Unobtainable SURGICAL HISTORY : Unobtainable ENCOUNTER: Initial ACUITY: 1 day PAIN SCORE: 6/10 LOCATION: Bilateral chest FINDINGS: A single view of the chest demonstrates minimal left basilar atelectasis. Right lung clear. Heart nor mal in size. Osseous structures are intact. CONCLUSION: Left basilar atelectasis. Suhas Sierra MD on January 01, 2017 at 5:59 Board Certified Radiologist. This report was verified electronically.
[2017-01-01 06:06] LABS: CKMB 1.6 NG/ML (0.5-3.6)
--- NOTE | 2017-01-01 06:07 | RADRPT ---
EXAM DATE/TIME: 01/01/2017 05:19 [facility] COMPARISON: CTA BRAIN W 3D RECON, December 25, 2016, 20:42. INDICATIONS : Stroke alert; dysphasia. IV CONTRAST: 98 cc Omnipaque 350 (iohexol) IV ; Cumulative dose for multiple exams. RADIATION DOSE: 28.48 CTDIvol (mGy) ; Combined studies MEDICAL HISTORY : Non-responsive. SURGICAL HISTORY : Non-responsive. ENCOUNTER: Initial ACUITY: 1 day PAIN SCALE: Non-responsive LOCATION: cranial TECHNIQUE: Volumetric scanning was performed using a multi-row detector CT scanner. The data was post processed with a variety of visualization algorithms including full volume maximum intensity projection, multi -planar sliding thin slab reformation, curved planar reformation, and surface rendering techniques. Using automated exposure control and adjustment of the mA and/or kV according to patient size, radiat ion dose was kept as low as reasonably achievable to obtain optimal diagnostic quality images. DICO M format image data is available electronically for review and comparison. FINDINGS: Hypoplastic left A1 segment. Left intercerebral artery is supplied by anterior commuting artery from the right anterior circulation. Hypoplastic posterior mmunicating arteries. Mild narrowing of the rig ht M1 and M2 segments of the middle cerebral artery. The anterior and left middle cerebral artery are patent. Posterior cerebral arteries demonstrates an intraluminal irregularities. No significant sten osis. Left vertebral artery is occluded. CONCLUSION: 1. No large vessel stenosis. 2. There is occlusion of left vertebral artery. 3. No significant change. Suhas Sierra MD on January 01, 2017 at 6:02 Board Certified Radiologist. This report was verified electronically.
--- NOTE | 2017-01-01 06:16 | RADRPT ---
EXAM DATE/TIME: 01/01/2017 05:19 [facility] COMPARISON: CTA BRAIN W 3D RECON, December 25, 2016, 20:42. CTA CAROTID ARTERIES W 3D RECON, August 21, 2016, 7:25 . INDICATIONS : Stroke alert; dysphasia. IV CONTRAST: 98 cc Omnipaque 350 (iohexol) IV ; Cumulative dose for multiple exams. RADIATION DOSE: 28.48 CTDIvol (mGy) ; Combined studies MEDICAL HISTORY : Non-responsive. SURGICAL HISTORY : Non-responsive. ENCOUNTER: Initial ACUITY: 1 day PAIN SCALE: Non-responsive LOCATION: neck Elevated flow velocities and ICA/CCA ratios have been found to correlate with increased degrees of vessel stenosis, calculated as percentage of diameter relative to a normal segment of distal ICA/CCA. TECHNIQUE: Volumetric scanning was performed using a multirow detector CT scanner. The data was post processed with a variety of visualization algorithms including full-volume maximum intensity projection, multip lanar sliding thin-slab reformation, curved-planar reformation, and surface-rendering techniques. Us ing automated exposure control and adjustment of the mA and/or kV according to patient size, radiatio n dose was kept as low as reasonably achievable to obtain optimal diagnostic quality images. DICOM f ormat image data is available electronically for review and comparison. FINDINGS: AORTIC ARCH: There is a three-vessel origin of the great vessels from the aorta. No evidence of ostial narrowing. RIGHT CAROTID: The common carotid artery is intact. The carotid bulb has a normal configuration without ulceration o r narrowing. The internal carotid artery lumen is smooth without stenosis. The external carotid jai ry is intact. LEFT CAROTID: The common carotid artery is intact. The carotid bulb has a normal configuration without ulceration or narrowing. The internal carotid artery lumen is smooth without stenosis. The external carotid ar malka is intact. VERTEBRALS: Right vertebral artery is patent. No stenotic lesions are seen. There is occlusion of the left verteb ral artery. CONCLUSION: 1. Normal carotid arteries. 2. Occlusion of the left vertebral artery. Suhas Sierra MD on January 01, 2017 at 6:06 Board Certified Radiologist. This report was verified electronically.
[2017-01-01] MEDS ORDERED: MISCELLANEOUS NURSING INFORMATION XX PRN (06:30)
[2017-01-01] MEDS ORDERED: ALTEPLASE DRIP IV ONE (06:30)
[2017-01-01] MEDS ORDERED: ALTEPLASE BOLUS 9 MG/9 ML SYR IV ONE (06:30)
[2017-01-01] MEDS ORDERED: SODIUM CHLORIDE 0.9% 50 ML BAG IVF ONE (06:30)
--- NOTE | 2017-01-01 06:33 | PD.CONS ---
History of Present Illness Service Neurology Consult Requested By er Reason for Consult stroke alert Primary Care Physician Kalpana Valdes MD History of Present Illness 46-year-old male was brought to the emergency room by EMS as a stroke alert. As per the parking technician patient was last seen normal by his at 3 in the morning. At around 4:15 AM she noticed that he was having difficulty speaking and called 911. his speech began to stutter again and felt a weakness/numbness to rt side. glucose 114, ct brain nml. he was at [facility] icu for weeks for BP augmentation for suspected basilar artery narrowing. however, despite recurrent symptoms during that admission all of his mri brain scans failed to show any acute stroke. ultimately, he was transferred to for possible intervention and was recently released from there. records not available but it does not sound like he had any neurovascular intervention. he c/o persistent rt vision loss, rt sided weakness, numbness and speech changes. he was placed on coumadin at [facility] and left with an INR of 2.4 on 12/28/2016. tpa delayed due to complicated recent hx and return of INR results. he understood the r/b of tpa including ich, systemic bleeding. he understood the medication may not help him and he may have another process occurring but concern was for a stroke based on recent events and ICU admission for tia. although the er md found some possible inconsistencies on exam but could not exclude stroke. he does have a hx of bipolar d/o and was at [facility] recently. he is currently unemployed and looking at obtaining disability. PFSH Past Medical History depression, anxiety, bipolar d/o Past Surgical History Tonsillectomy: Yes Other Surgery: Yes (tonselectomy) Social History Alcohol Use: No Tobacco Use: No Substance Use: No Allergies-Medications (Allergen,Severity, Reaction): Coded Allergies: Penicillin (Verified Allergy, Severe, rash, 01/01/17) Comments List of his allergies reviewed from the nursing note. Reported Meds & Prescriptions Reported Meds & Active Scripts Active Reported Aspirin 81 Mg Chew 81 Mg CHEW DAILY Atorvastatin (Atorvastatin Calcium) 40 Mg Tab 40 Mg PO HS Prednisone 20 Mg Tab 20 Mg PO DAILY Quetiapine (Quetiapine Fumarate) 50 Mg Tab 50 Mg PO DIRECTED Gabapentin 600 Mg Tab 600 Mg PO TID Review of Systems Except as stated in HPI: all other systems reviewed are Neg Review of Systems All other ROS: ROS reviewed as documented in chart Past Family Social History Allergies: Coded Allergies: Penicillin (Verified Allergy, Severe, rash, 01/01/17) Active Ordered Medications Current Medications Medications (Trade) Dose Ordered Sig/Ligia Route Start Time Stop Time Status Last Admin Alteplase, Recombinant 7.5 mg 7.5 mg ONCE ONCE IV 01/01/17 06:30 01/01/17 06:31 (Activase Drip/ Syringe/Bag) 68 ml @ 68 mls/hr ONCE ONCE IV 01/01/17 06:30 01/01/17 07:29 (NS Inj) 30 ml ONCE ONCE IVF 01/01/17 06:30 01/01/17 06:31 Miscellaneous Information No Heparin, Warfarin, Aspir... UNSCH PRN XX 01/01/17 06:30 01/02/17 06:29 Exam I&O / VS Vital Signs Date Time Temp Pulse Resp B/P Pulse Ox O2 Delivery O2 Flow Rate FiO2 01/01/17 06:06 83 18 145/96 100 Room Air 01/01/17 05:26 97.6 96 16 142/88 99 01/01/17 03:11 99 01/01/17 03:11 99 21 General: Alert and Oriented, No acute distress Eye: PERRL, Normal conjuctiva Respiratory: Non-labored respirations Cardiology: Normal rate Musculoskeletal: ROM Neurologic: Alert, Oriented, Other Psychiatric: Cooperative, Appropriate mood & affect Exam Comments was using both hands holding his phone upright and surfing on the internet when i walker in. o x 3, variable stuttering speech that changes during the interview. speaks clearly at times. 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 normal flow in basilar artery has had numerous cta's brain and carotids recs repeat mri brain- if normal- this would prove he has not had a stroke records from [facility]. monitor BP ok for floor in am psych eval (2) Depression Plan: seen at [facility] (3) Anxiety Plan: seen at [facility] Problem Qualifiers (1) Depression: Qualified Code: F32.9 - Depression, unspecified depression type Dc Robbins MD Jan 01, 2017 06:33
[2017-01-01 06:57] LABS: BICARBONATE 27.1 MEQ/L (21.0-32.0); POTASSIUM 4.1 MEQ/L (3.5-5.1)
--- NOTE | 2017-01-01 07:11 | HHI.HP ---
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 At that time his insufficiency was severe enough that he required vasopressors. He was transferred to [facility] for evaluation of possible high risk posterior circulation stenting. Is unclear to me at this time what transpired at [facility], but they discharged him home. He re-presents today after calling 911 when his noticed at proximally 4:15 AM he had difficulty speaking and had right-sided numbness and weakness. When he left our institution, he was on chronic Coumadin therapy with an INR of 2.4, however today he has an INR 0.9. His states that he is taking all his medicines as directed. Patient had a negative CT, CTA of the head and neck. Patient was given TPA by the neurology team for persistent neurologic symptoms. He presents to the ICU for empiric therapy of presumed acute stroke. I evaluated the patient emergency department on arrival to the intensive care unit. He was awake, alert. He denied chest pain, shortness of breath, fever, chills. Remainder of the review systems is negative unless otherwise document. Review of Systems ROS Limitations: Clinical Condition Constitutional: DENIES: Fever, Chills Respiratory: DENIES: Cough, Shortness of breath Cardiovascular: DENIES: Chest pain, Palpitations, Lower Extremity Edema Gastrointestinal: DENIES: Abdominal pain Neurologic: COMPLAINS OF: Localized weakness, DENIES: Abnormal gait, Headache , Paresthesias, Seizures, Tremor, Poor Balance Past Family Social History Allergies: Coded Allergies: Penicillin (Verified Allergy, Severe, rash, 01/01/17) Past Medical History Bipolar disorder Anxiety Vertebrobasilar insufficiency Past Surgical History None Reported Medications Patient is unable to provide a complete home medication list. This was reviewed in the chart and on prior records. Of note, his records note that he is supposed to be taking Coumadin for echo urination but has a normal INR today. Active Ordered Medications See MAR Family History Reviewed in the chart with the patient found to be noncontributory to his acute illness Social History Denies tobacco, EtOH, drugs of abuse Physical Exam Vital Signs Vital Signs Date Time Temp Pulse Resp B/P Pulse Ox O2 Delivery O2 Flow Rate FiO2 01/01/17 06:06 83 18 145/96 100 Room Air 01/01/17 05:26 97.6 96 16 142/88 99 01/01/17 03:11 99 01/01/17 03:11 99 21 Physical Exam GENERAL: Middle-aged male, lying in bed, distress due to his neurologic symptoms HEENT: Normocephalic. Atraumatic. Pupils equal, round, reactive, conjugate. Mucous membranes are moist NECK: Trachea is midline. There is no JVD. CHEST: Equal chest rise. Clear to auscultation CARDIOVASCULAR: Normal rate, regular rhythm. Sinus by telemetry ABDOMEN: Soft, nontender, nondistended. No guarding. MUSCULOSKELETAL: Pulses 2+. No peripheral edema. NEUROLOGICAL: Cranial nerves II through 12 grossly intact. Patient has musculoskeletal strength of 4+/5 in right upper and right lower extremities. 5/ 5 in left upper and lower extremities. The patient has a subjective gross deficit in sensation over the right arm and leg when compared to the left. GCS of 15. RASS 0. CAM -. Laboratory Laboratory Tests Test 01/01/17 01/01/17 05:07 06:29 White Blood Count 18.4 Red Blood Count 4.03 Hemoglobin 12.8 Bedside Hemoglobin 13.6 Hematocrit 38.1 Bedside Hematocrit 40.0 Mean Corpuscular Volume 94.5 Mean Corpuscular Hemoglobin 31.6 Mean Corpuscular Hemoglobin 33.5 Concent Red Cell Distribution Width 16.0 Platelet Count 362 Mean Platelet Volume 8.3 Neutrophils (%) (Auto) 79.8 Lymphocytes (%) (Auto) 12.2 Monocytes (%) (Auto) 7.6 Eosinophils (%) (Auto) 0.1 Basophils (%) (Auto) 0.3 Neutrophils # (Auto) 14.7 Lymphocytes # (Auto) 2.2 Monocytes # (Auto) 1.4 Eosinophils # (Auto) 0.0 Basophils # (Auto) 0.1 CBC Comment AUTO DIFF Differential Comment AUTO DIFF CONFIRMED Platelet Estimate HIGH Platelet Morphology Comment NORMAL Red Cell Morphology Comment NORMAL Prothrombin Time 9.7 Prothromb Time International 0.9 Ratio Activated Partial 21.6 Thromboplast Time Fibrinogen 403 Bedside Sodium 139 Bedside Potassium 6.8 Bedside Chloride 103 Bedside Blood Urea Nitrogen 33 Bedside Creatinine 1.1 Bedside Glucose 114 Total Creatine Kinase 396 Creatine Kinase MB 1.6 Creatine Kinase MB % 0.4 Troponin I LESS THAN 0.02 Blood Type A NEGATIVE Antibody Screen NEGATIVE Blood Bank Comment Sodium Level 141 Potassium Level 4.1 Chloride Level 106 Carbon Dioxide Level 27.1 Anion Gap 8 Blood Urea Nitrogen 22 Creatinine 1.07 Estimat Glomerular Filtration 74 Rate Random Glucose 136 Calcium Level 8.8 Result Diagram: 01/01/17 0507 01/01/1729 Imaging Last Impressions Head Magnetic Resonance Angiography 01/01/1736 Signed Impressions: Service Date/Time: Sunday, January 01, 2017 06:52 - CONCLUSION: 1. Good visualization of the basilar artery which is patent. 2. Otherwise, stable MRA of the [place] of [place] compared to the prior examination. Jomar Heredia MD Brain MRI 01/01/1736 Signed Impressions: Service Date/Time: Sunday, January 01, 2017 06:52 - CONCLUSION: Stable and unremarkable MRI of the brain for patient's age compared to the prior exams. Jomar Heredia MD Neck CTA 01/01/1728 Signed Impressions: Service Date/Time: Sunday, January 01, 2017 05:19 - CONCLUSION: 1. Normal carotid arteries. 2. Occlusion of the left vertebral artery. Suhas Sierra MD Head CTA 01/01/17 0528 Signed Impressions: Service Date/Time: Sunday, January 01, 2017 05:19 - CONCLUSION: 1. No large vessel stenosis. 2. There is occlusion of left vertebral artery. 3. No significant change. Suhas Sierra MD Head CT 01/01/17 Signed Impressions: Service Date/Time: Sunday, January 01, 2017 05:19 - CONCLUSION: Normal examination. Suhas Sierra MD Chest X-Ray 01/01/17 Signed Impressions: Service Date/Time: Sunday, January 01, 2017 05:50 - CONCLUSION: Left basilar atelectasis. Suhas Sierra MD Assessment and Plan Assessment and Plan Assessment: 46yM with vertebrobasilar insufficiency and now what appears clinically to be a new acute stroke now s/p TPA. His stroke is life- threatening and given his comorbid VBI, he remains critically ill. I am not exactly sure what happened at [facility], and we will request OSH records to attempt to fill the gap in clinical work-up over the last week. For now we will monitor him with frequent neuro checks. We will hold off on therapeutic anticoagulation until we have more information. repeat head CT at 24h. If these new strokes are secondary to his VBI and he is unable to have any intervention, then we may need to get palliative care involved. Active Problems: VertebroBasilar Insufficiency New acute ischemic CVA Right Sided hemiparesis Anxiety d/o NOS s/p systemic TPA Plan: -- admit to ICU -- frequent neuro checks -- repeat interval head CT -- obtain OSH records from [facility] -- permissive hypertension up to 180 sbp -- nursing bedside swallow evaluation, if he passes, advance diet -- neuro consult. This patient remains critically ill with one or more organ systems which are or may become a threat to life. I have spent in excess of 33 minutes discontinuously in the care and management of this patient. This time is exclusive of procedures, and includes, but is not limited to, evaluation of the patient, review of the medical record, discussions with family, consultants, nursing staff, or respiratory therapy, and documentation in the medical record. Shilo Fan MD Jan 01, 2017 07:11
[2017-01-01] MEDS ORDERED: MISCELLANEOUS NURSING INFORMATION XX SCH (07:15)
[2017-01-01] MEDS ORDERED: POTASSIUM PHOSPHATE INJ 30 MMOL in SODIUM CHLOR 0.9% 250 ML INJ 250 ML IV PRN (07:15)
[2017-01-01] MEDS ORDERED: DEXTROSE 50% IN WATER 50 ML VIAL(D50) IV PUSH PRN (07:15)
[2017-01-01] MEDS ORDERED: ONDANSETRON HCL 4 MG/2 ML VIAL IV PRN (07:15)
[2017-01-01] MEDS ORDERED: POTASSIUM PHOSPHATE MONOBASIC 500 MG TAB PO/TUBE PRN (07:15)
[2017-01-01] MEDS ORDERED: POTASSIUM CHLOR 20 MEQ PREMIX 100 ML IV PRN (07:15)
[2017-01-01] MEDS ORDERED: SODIUM PHOSPHATE INJ 30 MMOL in SODIUM CHLOR 0.9% 250 ML INJ 240 ML IV PRN (07:15)
[2017-01-01] MEDS ORDERED: POTASSIUM CHLOR 40 MEQ PREMIX 100 ML IV PRN ×2 (07:15)
[2017-01-01] MEDS ORDERED: MAGNESIUM SULFATE INJ 2 GM in SODIUM CHLORIDE 0.9% INJ 96 ML IV PRN (07:15)
[2017-01-01] MEDS ORDERED: POTASSIUM PHOSPHATE MONOBASIC 500 MG TAB PO PRN (07:15)
[2017-01-01] MEDS ORDERED: CHLORHEXIDINE GLUCONATE 2 % 1 PACK (2 CLOTHS) TOP PRN (07:15)
[2017-01-01] MEDS ORDERED: MAGNESIUM SULFATE INJ 4 GM in SODIUM CHLORIDE 0.9% INJ 92 ML IV PRN (07:15)
[2017-01-01] MEDS ORDERED: MAGNESIUM OXIDE 400 MG TAB PO PRN (07:15)
[2017-01-01] MEDS ORDERED: RESP: ALBUTEROL 2.5 MG/IPRATROPIUM 0.5 MG NEB (PRN) INH (07:15)
--- NOTE | 2017-01-01 07:23 | PD ---
HPI Chief Complaint: Stroke Alert Time Seen by Provider: 05:14 Travel History International Travel<30 days: No Contact w/Intl Traveler<30days: No Traveled to known affect area: No History of Present Illness HPI 46-year-old male was brought to the emergency room by EMS as a stroke alert. As per the pre sales network engineer patient was last seen normal by his at 3 in the morning. At around 4:15 AM she noticed that he was having difficulty speaking and called 911. Patient has history of previous stroke and right-sided hemiparesis from it. However at the speech issue was new as per the paramedics. Vital signs were stable. Patient was unable to give much history since he was stuttering and seemed anxious. Vital signs were stable. There was no family member initially when patient caught in to give additional history. PFS Past Medical History Narrative Medical List of his past medical, surgical, social and family history was reviewed from the nursing note. Blood Disorders: No Anxiety: Yes Depression: Yes Cancer: No Cardiovascular Problems: No Cerebrovascular Accident: Yes (right sided deficits) Diminished Hearing: No Endocrine: No Genitourinary: No Medical other: Yes (blood clot in back of brain) Musculoskeletal: No Neurologic: Yes (neuropathy) Psychiatric: Yes Reproductive: No Respiratory: No Immunizations Current: Yes Past Surgical History Tonsillectomy: Yes Other Surgery: Yes (tonselectomy) Social History Alcohol Use: No Tobacco Use: No Substance Use: No Allergies-Medications (Allergen,Severity, Reaction): Coded Allergies: Penicillin (Verified Allergy, Severe, rash, 01/01/17) Comments List of his allergies reviewed from the nursing note. Reported Meds & Prescriptions Reported Meds & Active Scripts Active Reported Xanax (Alprazolam) 0.5 Mg Tab 0.5 Mg PO Q4H PRN Aspirin 81 Mg Chew 81 Mg CHEW DAILY Atorvastatin (Atorvastatin Calcium) 40 Mg Tab 40 Mg PO HS Quetiapine (Quetiapine Fumarate) 50 Mg Tab 50 Mg PO DIRECTED Gabapentin 600 Mg Tab 600 Mg PO TID Narrative Medication List of his home medications reviewed from the nursing note. Review of Systems Except as stated in HPI: all other systems reviewed are Neg Physical Exam Narrative GENERAL: Awake, alert, anxious, moderate distress SKIN: Focused skin assessment warm/dry. HEAD: Atraumatic. Normocephalic. EYES: Pupils equal and round. No scleral icterus. No injection or drainage. ENT: No nasal bleeding or discharge. Mucous membranes pink and moist. NECK: Trachea midline. No JVD. CARDIOVASCULAR: Regular rate and rhythm. No murmur appreciated. RESPIRATORY: No accessory muscle use. Clear to auscultation. Breath sounds equal bilaterally. GASTROINTESTINAL: Abdomen soft, non-tender, nondistended. Hepatic and splenic margins not palpable. MUSCULOSKELETAL: No obvious deformities. No clubbing. No cyanosis. No edema. NEUROLOGICAL: Awake and alert. Patient is unable to lift his right upper or lower extremity. He is able to move his left upper and lower extremity. Significant stuttering and he does not remember the month but remembers his age. Patient also had some decreased sensation on the right side of his face, upper extremity and lower extremity. NIH stroke score was difficult to be assessed given his previous deficit PSYCHIATRIC: Appropriate mood and affect; insight and judgment normal. Data Data Last Documented VS Orders Diet Npo (01/01/17 Breakfast) Activity Bed Rest (01/01/17 ) Electrocardiogram (01/01/17 ) I-Stat Creatinine (01/01/17 05:22) I-Stat Profile (01/01/17 05:22) Prothrombin Time / Inr (Pt) (01/01/17 05:22) Act Partial Throm Time (Ptt) (01/01/17 05:22) Complete Blood Count With Diff (01/01/17 05:22) Fibrinogen (01/01/17 05:22) Creatine Kinase (Cpk) (01/01/17 05:22) Troponin I (01/01/17 05:22) Type And Screen (01/01/17 05:22) Ct Brain W/O Iv Contrast(Rout) (01/01/17 ) Blood Glucose (01/01/17 05:22) Ecg Monitoring (01/01/17 05:22) Neuro Checks Q2HX12,Q4H (01/01/17 05:22) Nursing Bedside Swallow Assess .ONCE (01/01/17 05:22) Iv Access Insert/Monitor (01/01/17 05:22) NPO (01/01/17 05:22) Oximetry (01/01/17 05:22) Oxygen Administration (01/01/17 05:22) Resp Oxygen Vish C Titrat 1-4 L (01/01/17 05:22) Cath For Specimen (01/01/17 05:22) Cta Brain W Iv Contrast W 3d (01/01/17 05:28) Cta Neck W Iv Contrast W 3d (01/01/17 05:28) Basic Metabolic Panel (Bmp) (01/01/17 05:34) Iohexol 350 Inj (Omnipaque 350 Inj) (01/01/17 05:34) Chest, Single Ap (01/01/17 ) Mra Brain W/O Contrast (Cow) (01/01/17 05:36) Mri Brain W/O Contrast (01/01/17 05:36) CKMB (01/01/17 05:07) CKMB% (01/01/17 05:07) ^ Call Pharmacy (01/01/17 06:19) Nih Stroke Scale - Nihss .ONCE (01/01/17 06:19) Urinary Catheter Management LYNNE.Q8H (01/01/17 06:19) Urinary Catheter Insert/Apply (01/01/17 06:19) Anticoagulant Alert (01/01/17 06:19) ^ Post Infusion Restrictions (01/01/17 06:19) ^ Medication Alert (01/01/17 06:19) Vital Signs (Adult) .As directed (01/01/17 06:19) Notify Dr: Blood Pressure (01/01/17 06:19) ^ Medication Alert (01/01/17 06:19) Alteplase Bolus (Activase Bolus) (01/01/17 06:30) Alteplase Drip (Activase Drip) (01/01/17 06:30) Sodium Chloride 0.9% Inj (Ns Inj) (01/01/17 06:30) [facility] Nursing Information (01/01/17 06:30) Resp Oxygen Vish C Titrat 1-4 L (01/01/17 ) Ct Brain W/O Iv Contrast(Rout) (01/02/17 ) Cbc No Diff, Includes Plts (01/02/17 05:00) Cbc No Diff, Includes Plts (01/03/17 05:00) Cbc No Diff, Includes Plts (01/04/17 05:00) Basic Metabolic Panel (Bmp) (01/02/17 05:00) Basic Metabolic Panel (Bmp) (01/03/17 05:00) Basic Metabolic Panel (Bmp) (01/04/17 05:00) Magnesium Oxide (Mag-Ox) (01/01/17 07:15) Magnesium Sulfate Inj (Magnesium Sulfate (01/01/17 07:15) Magnesium Sulfate Inj (Magnesium Sulfate (01/01/17 07:15) Potassium Chlor 20 Meq Premix (Kcl 20 Me (01/01/17 07:15) Potassium Chlor 20 Meq Premix (Kcl 20 Me (01/01/17 07:15) Potassium Chlor 40 Meq Premix (Kcl 40 Me (01/01/17 07:15) Potassium Chlor 40 Meq Premix (Kcl 40 Me (01/01/17 07:15) Potassium Phosphate (K-Phos) (01/01/17 07:15) Potassium Phosphate (K-Phos) (01/01/17 07:15) Potassium Phosphate Inj (Potassium Phosp (01/01/17 07:15) Sodium Phosphate Inj (Sodium Phosphate I (01/01/17 07:15) ^ Medication Admin Instruction (01/01/17 07:08) Notify Dr: Other (01/01/17 07:08) Inpatient Certification (01/01/17 07:08) Resp Ezpap/Pep Therapy (01/01/17 07:08) Resp Acapella/Pep/Chest Vibra (01/01/17 07:08) Resp Incentive Spirometry (01/01/17 07:08) Nursing Bedside Swallow Assess .ONCE (01/01/17 07:08) ^ Other Nursing Orders (01/01/17 07:08) ^ Other Nursing Orders (01/01/17 07:08) ^ Other Nursing Orders (01/01/17 07:08) Blood Glucose Goal (Criteria) (01/01/17 07:08) Hypoglycemia 51 - 69 Mg/Dl (01/01/17 07:08) Hypoglycemia 50 Mg/Dl Or < (01/01/17 07:08) Notify Dr: Other (01/01/17 07:08) Dextrose 50% In Kamran (Vial) Inj (D50w (Vi (01/01/17 07:15) Insulin Human Reg Supp Scale (Novolin R (01/01/17 11:00) Neuro Checks LYNNE.Q1H (01/01/17 07:08) Code Status (01/01/17 07:08) Vital Signs (Adult) LYNNE.Q1H (01/01/17 07:08) Activity Bed Rest (01/01/17 07:08) Elevate Head Of Bed (01/01/17 07:08) Intake + Output Q1H (01/01/17 07:08) Sodium Chlor 0.9% 1000 Ml Inj (Ns 1000 M (01/01/17 07:08) Ondansetron Inj (Zofran Inj) (01/01/17 07:15) Albuterol-Ipratropium Neb (Duoneb Neb) (01/01/17 07:15) Manager Inspection / Telemetry LYNNE.Q8H (01/01/17 07:08) Scd Bilateral/Knee High LYNNE.BID (01/01/17 07:08) ^ Initiate Protocol (01/01/17 07:08) Instruction (01/01/17 07:08) [facility] Nursing Information (01/01/17 07:15) Chlorhexidine 2% Cloth (Chlorhexidine 2% (01/02/17 04:00) Chlorhexidine 2% Cloth (Chlorhexidine 2% (01/01/17 07:15) Docusate Sodium-Senna (Libby-Colace) (01/01/17 09:00) Admit Order (Ed Use Only) (01/01/17 07:14) Labs Laboratory Tests Test 01/01/17 01/01/17 05:07 06:29 Bedside Hemoglobin 13.6 G/DL Bedside Hematocrit 40.0 % Prothrombin Time 9.7 SEC Prothromb Time International 0.9 RATIO Ratio Activated Partial 21.6 SEC Thromboplast Time Fibrinogen 403 mg/dL Bedside Sodium 139 MMOL/L Bedside Potassium 6.8 MMOL/L Bedside Chloride 103 MMOL/L Bedside Blood Urea Nitrogen 33 MG/DL Bedside Creatinine 1.1 MG/DL Bedside Glucose 114 MG/DL Total Creatine Kinase 396 U/L Creatine Kinase MB 1.6 NG/ML Creatine Kinase MB % 0.4 % Troponin I LESS THAN 0.02 NG/ML Blood Type A NEGATIVE Antibody Screen NEGATIVE Blood Bank Comment White Blood Count 18.4 TH/MM3 Red Blood Count 4.03 MIL/MM3 Hemoglobin 12.8 GM/DL Hematocrit 38.1 % Mean Corpuscular Volume 94.5 FL Mean Corpuscular Hemoglobin 31.6 PG Mean Corpuscular Hemoglobin 33.5 % Concent Red Cell Distribution Width 16.0 % Platelet Count 362 TH/MM3 Mean Platelet Volume 8.3 FL Neutrophils (%) (Auto) 79.8 % Lymphocytes (%) (Auto) 12.2 % Monocytes (%) (Auto) 7.6 % Eosinophils (%) (Auto) 0.1 % Basophils (%) (Auto) 0.3 % Neutrophils # (Auto) 14.7 TH/MM3 Lymphocytes # (Auto) 2.2 TH/MM3 Monocytes # (Auto) 1.4 TH/MM3 Eosinophils # (Auto) 0.0 TH/MM3 Basophils # (Auto) 0.1 TH/MM3 CBC Comment AUTO DIFF Differential Comment AUTO DIFF CONFIRMED Platelet Estimate HIGH Platelet Morphology Comment NORMAL Red Cell Morphology Comment NORMAL Sodium Level 141 MEQ/L Potassium Level 4.1 MEQ/L Chloride Level 106 MEQ/L Carbon Dioxide Level 27.1 MEQ/L Anion Gap 8 MEQ/L Blood Urea Nitrogen 22 MG/DL Creatinine 1.07 MG/DL Estimat Glomerular Filtration 74 ML/MIN Rate Random Glucose 136 MG/DL Calcium Level 8.8 MG/DL MDM Medical Decision Making Medical Screen Exam Complete: Yes Emergency Medical Condition: Yes Medical Record Reviewed: Yes Interpretation(s) Twelve-lead EKG was reviewed by me. Normal sinus rhythm, normal axis, nonspecific ST-T wave changes. Heart rate of 94 bpm. Differential Diagnosis CVA, TIA, psychosomatic disorder Narrative Course 7 AM stroke alert was called prior to patient's arrival based on the EMS call. Once patient was quickly assessed by me I spoke with the neurologist Dr. Robbins. CT scan of the head was negative. His previous recent hospitalization was reviewed. He was in the ICU for 3 weeks and was just discharged 4 days ago. That time he was diagnosed with vertebrobasilar insufficiency. However, there was no signs of stroke either an MRI or CT. Dr. Robbins wanted the patient to get an MRI stat. Also the patient was started on Coumadin and his last INR prior to leaving was 2.5. He wanted to wait and see what the INR would be. If patient was subtherapeutic he would become a TPA candidate. The INR came back as 0.9 in spite of the fact that the said he takes all his medications. At this point also his showed up and said that he walked to the bathroom at 3 in the morning and that's when she saw him last be normal. At 4:15 he was sitting on the edge of the bed and when she asked him if he was okay he started stammering and said he doesn't know what was wrong with him. This made her call 911. However, I asked her if he was hemiparetic on the right side how was he able to walk and she said "well he can somehow manage". Also when I went back and reassessed the patient at this point he was moving his right upper extremity and he told me that occasionally he can move his right upper extremity. There were multiple things that were not adding up. However, the decision was by the neurologist to go ahead and give TPA which was started. I discussed the risks and benefits with the patient about the TPA and he vehemently agreed to receive TPA. Patient was admitted to the ICU. I spoke with the business mgr who accepted the case. Currently patient is an MRI and the plan is to take him straight to the ICU from there. Critical Care Narrative Aggregate critical care time was 45 minutes. Time to perform other separately billable procedures was not included in the critical care time. My time did not include minutes spent treating any other patients simultaneously or on activities that did not directly contribute to the patient's treatment. The services I provided to this patient were to treat and/or prevent clinically significant deterioration that could result in: Stroke alert, TPA administration I provided critical care services requiring my management, as noted below: Chart data review, documentation time, medication orders and management, vital sign assessments/reviewing monitor data, ordering and reviewing lab tests, ordering and interpreting/reviewing x-rays and diagnostic studies, care of the patient and discussion of the patient with the admitting physicians. Procedures EKG Prior to Arrival: No Physician Communication Physician Communication Dr. Rosendo Jones Diagnosis Primary Impression: CVA (cerebral vascular accident) Qualified Code: I63.9 - Cerebrovascular accident (CVA), unspecified mechanism Admitting Information Admitting Physician Requests: Admit Scripts Prednisone 20 Mg Tab20 Mg PO DAILY #5 TAB Ref 0 Take 1 pill daily for 3 days then one half pill daily for 4 days Prov:Brad Bray MD 01/04/17 Bedside Commode 1 Mis Mis #1 Ea .route As Directed Prov:Brad Bray MD 01/03/17 Sertraline (Zoloft)25 Mg Tab25 Mg PO DAILY #30 TAB Ref 0 Prov:Brad Bray MD 01/03/17 Clonazepam (Klonopin)0.5 Mg Tab0.5 Mg PO Q12HR #14 TAB Prov:Brad Bray MD 01/03/17 Oxygen (O2) Inha #1 Liter Vish.canula Continuous Oxygen Concentrator Portable Gaseous 2 L/min via Nasal Canula Continuous For 99 months Prov:Brad Bray MD 01/02/17 Walker with Front Wheels 1 Mis Mis #1 EA .ROUTE DIRECTED Ref 0 Prov:Brad Bray MD 01/02/17 Rajan Rapp MD Jan 01, 2017 07:23 Admitting Information Admitting Physician Requests: Admit Rajan Rapp MD Jan 01, 2017 07:23
--- NOTE | 2017-01-01 07:39 | RADRPT ---
EXAM DATE/TIME: 01/01/2017 06:52 [facility] COMPARISON: MRI BRAIN W & W/O CONTRAST, December 17, 2016, 15:19. MRI BRAIN W/O CONTRAST, December 09, 2016, 20:19. INDICATIONS : Stroke alert. Right sided weakness. MEDICAL HISTORY : Stroke SURGICAL HISTORY : Tonsillectomy. Hand sx. ENCOUNTER: Initial ACUITY: 1 day PAIN SCORE: 3/10 LOCATION: Bilateral cranial TECHNIQUE: Multiplanar, multisequence MRI of the brain was performed without contrast. FINDINGS: CEREBRUM: The ventricles are normal for age. No evidence of midline shift, mass lesion, hemorrhage or acute in farction. No extraaxial fluid collections are seen. The pituitary gland and suprasellar cistern are normal in configuration. WHITE MATTER: No significant signal abnormalities are seen in the white matter. A few tiny high signal spots are ag ain noted in the white matter tracts bilaterally. These are stable compared to the prior studies. POSTERIOR FOSSA: The cerebellum and brainstem are intact. The 4th ventricle is midline. The cerebellopontine angle is unremarkable. The cerebellar tonsils are normal in position. DIFFUSION IMAGING: No focal areas of restricted diffusion are seen. No evidence of acute infarction. EXTRACRANIAL: The visualized portions of the orbits and paranasal sinuses are unremarkable. CONCLUSION: Stable and unremarkable MRI of the brain for patient's age compared to the prior exams. Jomar Heredia MD on January 01, 2017 at 7:34 Board Certified Radiologist. This report was verified electronically.
--- NOTE | 2017-01-01 07:43 | RADRPT ---
EXAM DATE/TIME: 01/01/2017 06:52 [facility] COMPARISON: MRA BRAIN W/O CONTRAST, December 17, 2016, 15:19. INDICATIONS : Stroke alert. Right side numbness. MEDICAL HISTORY : Stroke SURGICAL HISTORY : Tonsillectomy. Hand surgery. ENCOUNTER: Initial ACUITY: 1 day PAIN SCORE: 3/10 LOCATION: Right Paraspinal Please note a normal MRA of the brain does not entirely exclude the possibility of a small aneurysm, nor the possibility of distal intracranial vessel disease. TECHNIQUE: 3D time of flight MRA was performed. Source images, multiplanar STS MIP, and 3D volume MIP reconstru ctions were reviewed. FINDINGS: There is excellent visualization of the major intracranial arteries out to the second-order branch ve ssels. The exam is compared to the prior study. On today's exam there is good visualization of the ba silar artery which is patent. The distal right vertebral artery is patent. The distal left vertebral artery is not visualized. This is stable compared to the prior exam. The left A1 segment is absent. O therwise, the rest of vessels surrounding the [place] are patent. There are bilaterally poole nt posterior communicating arteries. These findings are all stable and unchanged compared to the prio r examination. CONCLUSION: 1. Good visualization of the basilar artery which is patent. 2. Otherwise, stable MRA of the [place] compared to the prior examination. Jomar Heredia MD on January 01, 2017 at 7:37 Board Certified Radiologist. This report was verified electronically.
[2017-01-01] MEDS: SODIUM CHLOR 0.9% 1000 ML INJ 1,000 ML IV SCH ×2 (08:15→19:03)
--- NOTE | 2017-01-01 11:50 | EKG ---
Date Performed: 01/01/2017 Time Performed: 05:33:32 PTAGE: 46 years EKG: Sinus rhythm Compared to previous tracing, sinus rhythm has replaced atrial fibrillation and nonspecific ST-T anna marie nges have resolved. NORMAL ECG PREVIOUS TRACING : 12/27/2016 08.36 DOCTOR: Geovanni Lopez Interpretating Date/Time 01/01/2017 11:48:01
[2017-01-01] MEDS: INSULIN NovoLIN REGULAR SUPPLEMENTAL SCALE SQ SCH ×3 (12:00→21:00)
[2017-01-01] MEDS: DOCUSATE SODIUM 50 MG/SENNA 8.6 MG TAB PO SCH ×2 (13:35→21:18)
[2017-01-01] MEDS: ALPRAZolam 0.5 MG TAB PO PRN ×2 (13:35→18:12)
[2017-01-01] MEDS: GABAPENTIN 300 MG CAP PO SCH ×2 (13:35→17:46)
[2017-01-01] MEDS ORDERED: ALPR.5 PO (17:48)
[2017-01-02] VITALS (15 sets, daily range): BP systolic 95–129; BP diastolic 60–83; PULSE 62–118; RESP 12–18; TEMP 97.8–98.9; O2SAT 96–100
[2017-01-02] MEDS: INSULIN NovoLIN REGULAR SUPPLEMENTAL SCALE SQ SCH ×2 (03:00→07:00)
[2017-01-02] MEDS: CHLORHEXIDINE GLUCONATE 2 % 1 PACK (2 CLOTHS) TOP SCH (04:00)
[2017-01-02] MEDS: SODIUM CHLOR 0.9% 1000 ML INJ 1,000 ML IV SCH (06:58)
[2017-01-02] MEDS: ALPRAZolam 0.5 MG TAB PO PRN ×2 (08:03→13:13)
[2017-01-02] MEDS: GABAPENTIN 300 MG CAP PO SCH ×3 (08:03→16:50)
[2017-01-02] MEDS: DOCUSATE SODIUM 50 MG/SENNA 8.6 MG TAB PO SCH ×2 (08:03→20:16)
--- NOTE | 2017-01-02 08:44 | HHI.PR ---
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 normal flow in basilar artery has had numerous cta's brain and carotids recs repeat mri brain-normal f/u ct brain; if no ich can take aspirin 81mg qd records from arrived and reviewed this am- suspected to have FUNCTIONAL WEAKNESS p.t. monitor BP ok for floor/ discharge today; needs outpatient neuro f/u with Dr. 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 ate dinner x 2 last night c/o mild headache No chest pain No dyspnea Active Medications Current Medications Medications (Trade) Dose Ordered Sig/Ligia Route Start Time Stop Time Status Last Admin Magnesium Oxide 800 mg 800 mg UNSCH PRN PO 01/01/17 07:15 Magnesium Sulfate 4 gm/Sodium Chloride 100 ml @ 50 mls/hr UNSCH PRN IV 01/01/17 07:15 Magnesium Sulfate 2 gm/Sodium Chloride 100 ml @ 50 mls/hr UNSCH PRN IV 01/01/17 07:15 Potassium Chloride 100 ml @ 50 mls/hr Q2H PRN IV 01/01/17 07:15 Potassium Chloride 100 ml @ 50 mls/hr Q2H PRN IV 01/01/17 07:15 Potassium Chloride 100 ml @ 50 mls/hr Q2H PRN IV 01/01/17 07:15 (KCl 40 Meq Premix Inj) 100 ml @ 25 mls/hr UNSCH PRN IV 01/01/17 07:15 (K-Phos) 2,000 mg Q4H PRN PO 01/01/17 07:15 Potassium Phosphate 2000 mg 2,000 mg UNSCH PRN PO/TUBE 01/01/17 07:15 Potassium Phosphate 30 mmol/ Sodium Chloride 260 ml @ 42 mls/hr UNSCH PRN IV 01/01/17 07:15 (Sodium Phosphate Inj/NS 250 ml Inj) 250 ml @ 42 mls/hr UNSCH PRN IV 01/01/17 07:15 Dextrose 25 ml 25 ml UNSCH PRN IV PUSH 01/01/17 07:15 (NS 1000 ml Inj) 1,000 ml @ 84 mls/hr [id number] IV 01/01/17 07:08 01/02/17 06:58 (Zofran Inj) 4 mg Q6H PRN IV 01/01/17 07:15 Miscellaneous Information 1 Q361D XX 01/01/17 07:15 (Chlorhexidine 2% Cloth) 3 pack Taper DAILY@04 TOP 01/02/17 04:00 12/29/17 03:59 (Chlorhexidine 2% Cloth) 3 pack UNSCH PRN TOP 01/01/17 07:15 (Libby-Colace) 1 tab BID PO 01/01/17 09:00 01/02/17 08:03 (Xanax) 0.5 mg TID PRN PO 01/01/17 13:00 01/02/17 08:03 (Neurontin) 600 mg TID PO 01/01/17 13:00 01/02/17 08:03 Allergies Allergies Coded Allergies Penicillin (Verified Allergy, Severe, rash, 01/01/17) Review of Systems All other ROS: ROS reviewed as documented in chart Exam I&O / VS 01/01/17 01/01/17 01/02/17 15:00 23:00 07:00 Intake Total 1111 ml 1537 ml 900 ml Output Total 2000 ml 1200 ml 1300 ml Balance -889 ml 337 ml -400 ml Intake Oral 720 ml 1160 ml 80 ml IV Total 391 ml 377 ml 820 ml Output Urine Total 2000 ml 1200 ml 1300 ml # Bowel Movements 0 1 Vital Signs Date Time Temp Pulse Resp B/P Pulse Ox O2 Delivery O2 Flow Rate FiO2 01/02/17 08:02 100 Nasal Cannula 2.00 01/02/17 08:00 76 01/02/17 08:00 97.8 76 16 115/73 96 01/02/17 07:00 100 Nasal Cannula 2.00 01/02/17 07:00 76 01/02/17 04:00 98.8 62 18 108/63 98 01/02/17 04:00 76 01/02/17 02:00 74 01/02/17 00:00 98.3 78 18 112/65 97 01/02/17 00:00 78 01/01/17 22:00 78 01/01/17 20:27 98 21 6/25/17 20:00 88 01/01/17 20:00 97 Room Air 01/01/17 20:00 98.4 88 20 96/56 97 01/01/17 16:00 98.4 85 14 118/70 98 01/01/17 16:00 85 01/01/17 12:00 77 01/01/17 12:00 98.4 77 10 123/59 96 01/01/17 09:07 98 21 General: Alert and Oriented, No acute distress Eye: PERRL, Normal conjuctiva Respiratory: Non-labored respirations Cardiology: Normal rate Musculoskeletal: ROM Neurologic: Alert, Oriented, Other Psychiatric: Cooperative, Appropriate mood & affect Exam Comments alert, crying at times, o x 3, variable stuttering speech that changes during the interview. speaks clearly at times. follows, mosquera to gravity Problem Qualifiers (1) Depression: Qualified Code: F32.9 - Depression, unspecified depression type Dc Robbins MD Jan 02, 2017 08:44
--- NOTE | 2017-01-02 08:58 | HHI.PR ---
Subjective Remarks Follow-up right sided weakness status post TPA history of vertebral basilar insufficiency. Outside records from [facility] reviewed. Discharged home on aspirin, Lipitor and tapering prednisone. Patient planes of chronic right sided headache since August 2016. States he is still weak on the right side though I found him moving his right upper extremity without apparent weakness but on exam he is. Discussed with RN Objective Vitals Vital Signs Date Time Temp Pulse Resp B/P Pulse Ox O2 Delivery O2 Flow Rate FiO2 01/02/17 08:02 100 Nasal Cannula 2.00 01/02/17 08:00 76 01/02/17 08:00 97.8 76 16 115/73 96 01/02/17 07:00 100 Nasal Cannula 2.00 01/02/17 07:00 76 01/02/17 04:00 98.8 62 18 108/63 98 01/02/17 04:00 76 01/02/17 02:00 74 01/02/17 00:00 98.3 78 18 112/65 97 01/02/17 00:00 78 01/01/17 22:00 78 01/01/17 20:27 98 21 01/01/17 20:00 88 01/01/17 20:00 97 Room Air 01/01/17 20:00 98.4 88 20 96/56 97 01/01/17 16:00 98.4 85 14 118/70 98 01/01/17 16:00 85 01/01/17 12:00 77 01/01/17 12:00 98.4 77 10 123/59 96 01/01/17 09:07 98 21 I/O 01/01/17 01/01/17 01/01/17 01/02/17 01/02/17 01/02/17 07:00 15:00 23:00 07:00 15:00 23:00 Intake Total 1111 ml 1537 ml 900 ml Output Total 2000 ml 1200 ml 1300 ml Balance -889 ml 337 ml -400 ml Intake Oral 720 ml 1160 ml 80 ml IV Total 391 ml 377 ml 820 ml Output Urine Total 2000 ml 1200 ml 1300 ml # Bowel Movements 0 1 Result Diagram: 01/01/17 0507 01/01/17 0629 Imaging Last Impressions Head Magnetic Resonance Angiography 01/01/17 0536 Signed Impressions: Service Date/Time: Sunday, January 01, 2017 06:52 - CONCLUSION: 1. Good visualization of the basilar artery which is patent. 2. Otherwise, stable MRA of the [place] compared to the prior examination. Jomar Heredia MD Brain MRI 01/01/1736 Signed Impressions: Service Date/Time: Sunday, January 01, 2017 06:52 - CONCLUSION: Stable and unremarkable MRI of the brain for patient's age compared to the prior exams. Jomar Heredia MD Neck CTA 01/01/1728 Signed Impressions: Service Date/Time: Sunday, January 01, 2017 05:19 - CONCLUSION: 1. Normal carotid arteries. 2. Occlusion of the left vertebral artery. Suhas Sierra MD Head CTA 01/01/17527 Signed Impressions: Service Date/Time: Sunday, January 01, 2017 05:19 - CONCLUSION: 1. No large vessel stenosis. 2. There is occlusion of left vertebral artery. 3. No significant change. Suhas Sierra MD Head CT 01/01/17 0000 Signed Impressions: Service Date/Time: Sunday, January 01, 2017 05:19 - CONCLUSION: Normal examination. Suhas Sierra MD Chest X-Ray 01/01/17 0000 Signed Impressions: Service Date/Time: Sunday, January 01, 2017 05:50 - CONCLUSION: Left basilar atelectasis. Suhas Sierra MD Objective Remarks GENERAL: Middle-aged male, lying in bed HEENT: Normocephalic. Atraumatic. Pupils equal, round, reactive, conjugate. Mucous membranes are moist NECK: Trachea is midline. There is no JVD. CHEST: Equal chest rise. Clear to auscultation CARDIOVASCULAR: Normal rate, regular rhythm. Sinus by telemetry ABDOMEN: Soft, nontender, nondistended. No guarding. MUSCULOSKELETAL: Pulses 2+. No peripheral edema. NEUROLOGICAL: Cranial nerves II through 12 grossly intact. Patient has musculoskeletal strength of 4+/5 in right upper and right lower extremities. 5/ 5 in left upper and lower extremities. The patient has a subjective gross deficit in sensation over the right arm and leg when compared to the left. He is stuttering at times but not when he was talking on the phone Procedures none A/P Problem List: (1) Neurological abnormality ICD Code: R29.818 Status: Acute (2) Speaking difficulty ICD Code: R47.9 Status: Acute (3) Anxiety ICD Code: F41.9 Status: Chronic Assessment and Plan 46yM with vertebrobasilar insufficiency who initially presented to be a new acute stroke now s/p TPA. Right Sided hemiparesis s/p systemic TPA. History of vertebrobasilar Insufficiency. LDL 85. Evaluated by [facility] for same complaints felt to be functional weakness. Repeat MRI within normal limits. Neurology feels this is conversion disorder. Follow-up head CT if no bleeding start aspirin. Psychiatry has been consulted. Physical therapy evaluation Taper steroids. Oxygen walk test in the morning Anxiety d/o NOS. Per psychiatry Chronic leukocytosis. We'll monitor off steroids Discontinue Mulligan catheter Discharge Planning Transfer to floor and hopefully discharge in the next few days. Consult case management Brad Bray MD Jan 02, 2017 08:58 -- neuro consult. I received and reviewed all the outside hospital records from [facility] stay last week. Jovanis to the thorough complete workup which included MRI of the spine as well as repeat MRI of brain. They came to the conclusion that the patient had a significant volitional component to his weakness and likely his symptoms were not related to his vertebrobasilar insufficiency, but had a large psychogenic and volitional component. The neurologic exam as documented by the neurologist on discharge from [facility] matches exactly with the neurologic exam I have today. I do not think this represents an acute stroke as previously thought, but now given these new outside hospital records, I believe that this is his baseline neurologic exam which may have a large Volitional and psychogenic component to it. We will continue to evaluate him in ICU overnight and repeat head imaging in the morning to confirm that he has not had hemorrhagic conversion or complication from TPA. However, I do not think we should aggressively pursue workup of these neurologic symptoms as new and or worsening, but consider these to be stable from his prior discharge given that they fit nearly identically from his discharge neurologic exam from [facility]. In terms of medication at home medication list, Suzi discontinued his anticoagulation in order to pursue lumbar puncture testing, and did not restart it given that they felt that his symptoms were not related to VBI. [facility], Florinef, hydrocortisone, again as they felt the patient did not need this. Leukocytosis Brad Bray MD Jan 02, 2017 08:58
[2017-01-02] MEDS ORDERED: MAGNESIUM HYDROXIDE SUSP 30 ML CUP PO PRN (09:15)
[2017-01-02] MEDS ORDERED: DOCUSATE SODIUM 100 MG CAP PO PRN (09:15)
[2017-01-02] MEDS ORDERED: CALCIUM CARBONATE 500 MG CHEWABLE TAB CHEW PRN (09:15)
--- NOTE | 2017-01-02 09:20 | RADRPT ---
EXAM DATE/TIME: 01/02/2017 08:41 [facility] COMPARISON: MRI BRAIN W/O CONTRAST, January 01, 2017, 6:52. CT BRAIN W/O CONTRAST, January 01, 2017, 5:19. INDICATIONS : Follow up stroke. Post TPA. RADIATION DOSE: 38.59 CTDIvol (mGy) MEDICAL HISTORY : Cerebrovascular disease. SURGICAL HISTORY : Tonsillectomy. ENCOUNTER: Subsequent ACUITY: 2 weeks PAIN SCALE: 0/10 LOCATION: cranial TECHNIQUE: Multiple contiguous axial images were obtained of the head. Using automated exposure control and adj ustment of the mA and/or kV according to patient size, radiation dose was kept as low as reasonably a chievable to obtain optimal diagnostic quality images. DICOM format image data is available electro nically for review and comparison. FINDINGS: Very minimal increased signal is seen in the left thalamus at the genu of the internal capsule. This is nonspecific. The right hemisphere is unremarkable. The posterior fossa is normal. There are no extra-axial fluid collections appreciated. CONCLUSION: Subtle increased signal thalamus on the left. Repeat MRI is suggested. Miguel Gamble MD FACR on January 02, 2017 at 9:11 Board Certified Radiologist. This report was verified electronically.
[2017-01-02] MEDS ORDERED: GADODIAMIDE PF 287 MG/ML 20 ML VIAL (for RAD MRI) IV ONE (11:36)
--- NOTE | 2017-01-02 12:25 | RADRPT ---
EXAM DATE/TIME: 01/02/2017 11:21 [facility] COMPARISON: MRI BRAIN W & W/O CONTRAST, December 17, 2016, 15:19. INDICATIONS : Right sided weakness that started in August with an abnormal CT. TPA used yesterday. CONTRAST: 17 cc Omniscan (gadodiamide) IV MEDICAL HISTORY : Vertebrovascular insufficiency, depression, anxiety SURGICAL HISTORY : Tonsillectomy. Rt hand tendon repair ENCOUNTER: Subsequent ACUITY: 4-6 months PAIN SCORE: 0/10 LOCATION: Cranial TECHNIQUE: Multiplanar, multisequence MRI of the brain was performed both prior to and following the administrat ion of paramagnetic contrast. FINDINGS: There is no restricted diffusion evident. There is no hemorrhage identified on the susceptibility we ighted images. Scattered periventricular white matter changes are evident. There are no extraaxial fluid collection s appreciated. Sinuses are clear. Posterior fossa is unremarkable. CONCLUSION: Negative MRI of the brain for an acute hemorrhage. There is abnormal contrast enhancement. Miguel Gamble MD FACR on January 02, 2017 at 12:18 Board Certified Radiologist. This report was verified electronically.
[2017-01-02 13:59] LABS: HEMATOCRIT 36.8 % (39.0-51.0); MEAN CORPUSCULAR HEMOGLOBIN 31.6 PG (27.0-34.0); MEAN CORPUSCULAR HGB CONC 32.6 % (32.0-36.0); PLATELET COUNT 328 TH/MM3 (150-450); RED CELL DISTRIBUTION WIDTH 15.9 % (11.6-17.2); REVIEW FLAG FINAL; WHITE BLOOD COUNT 20.1 TH/MM3 (4.0-11.0)
[2017-01-02 14:33] LABS: BICARBONATE 28.5 MEQ/L (21.0-32.0); POTASSIUM 3.5 MEQ/L (3.5-5.1)
[2017-01-02] MEDS: POTASSIUM CHLOR 20 MEQ PREMIX 100 ML IV PRN (14:42)
--- NOTE | 2017-01-02 15:11 | HHI.DCPOC ---
Discharge Care Plan Diagnosis: (1) Anxiety (2) Neurological abnormality Your Health Problems Are: Difficulty with ADL Exercise Tolerance Goals to Promote Your Health * To prevent worsening of your condition and complications * To maintain your health at the optimal level Directions to Meet Your Goals Take your medications as prescribed Follow your dietary instruction Follow activity as directed Keep your appointments as scheduled Take your immunizations and boosters as scheduled If your symptoms worsen call your PCP, if no PCP go to Urgent Care Center or Emergency Room Smoking is Dangerous to Your Health. Avoid second hand smoke Call the 24-hour hour crisis hotline for domestic abuse at Brad Bray MD Jan 02, 2017 15:11
[2017-01-02] MEDS ORDERED: WALKER WHEELS/F1 MIS (15:14)
[2017-01-02] MEDS ORDERED: OXYGEN NAS.CANULA (15:14)
--- NOTE | 2017-01-02 15:40 | PD.CONS ---
Provisional Diagnosis Admission Date Jan 01, 2017 at 07:15 [place] I. Adjustment disorder with depressed mood, history of bipolar disorder, anxiety, R /O conversion disorder, r/o factitious disorder, r/O conscious simulation [place] II. Deferred [place] III. History of stroke [place] IV. Unemployed, acute medical illness [place] V. 55 History of Present Illness Service Psychiatry Consult Requested By Primary Care Physician Kalpana Valdes MD HPI The patient is a 46-year-old man, domicile with his in [place], no kids, unemployed at this moment, with psychiatric history of bipolar disorder, anxiety, no psychiatric admissions, no suicidal attempts, patient is not in any psychotropics, was brought to the emergency room by EMS as a stroke alert. He speech began to stutter again and felt a weakness/numbness to rt side. HE was at [facility] for weeks for BP augmentation for suspected basilar artery narrowing. however, despite recurrent symptoms during that admission all of his MRI brain scans failed to show any acute stroke. Ultimately, he was transferred to for possible intervention and was recently released from there. records not available but it does not sound like he had any neurovascular intervention. He complains of persistent right vision loss, right sided weakness, numbness and speech changes. No acute findings her pain showing and CT/MRI, patient is consulted to psychiatry to explored possibility of malingering versus factitious disorder, versus conversion disorder. On psychiatric evaluation today patient is found in his bed, his superficially cooperative, with difficulty expressing himself due to speech impairment, with marked mood lability, and tearful throughout the evaluation. Patient says that he feels that he is no coping very well with his current medical situation. He says that he feels that he is going to "and nobody really able to help me". Patient says that he seems her lost his job last August his health and personal situation is been going downhill. Patient reports depressed mood, frequent sadness, low level of energy, poor concentration, memory problems, low self-esteem but he denies hopelessness, helplessness, suicidal or homicidal ideation. Patient is future oriented, and he can't identify reasons to live and several protective factors. Other than the loss of his job in August patient cannot identify a recent acute stressor. He does report that at the age of [age] years old he had a traumatic experience in which he became aware that he was adopted, but after that he was able to cope fine with that but news. Patient is oriented 3, however his concentration, recent memory, immediate recall seems to be impaired. As that MMS is performed, patient started crying uncombably and memory test was stopped. Patient denies the use of alcohol and illicit drugs. Review of Systems ROS Limitations: Speech Impaired Constitutional: DENIES: Diaphoretic episodes, Fatigue, Fever, Weight gain, Weight loss, Chills, Dizziness, Change in appetite, Night Sweats Endocrine: DENIES: Heat/cold intolerance, Polydipsia, Polyuria, Polyphagia Eyes: DENIES: Blurred vision, Diplopia, Eye inflammation, Eye pain, Vision loss , Photosensitivity, Double Vision Ears, nose, mouth, throat: DENIES: Tinnitus, Hearing loss, Vertigo, Nasal discharge, Oral lesions, Throat pain, Hoarseness, Ear Pain, Running Nose, Epistaxis, Sinus Pain, Toothache, Odynophagia Respiratory: DENIES: Apneas, Cough, Snoring, Wheezing, Hemoptysis, Sputum production, Shortness of breath Cardiovascular: DENIES: Chest pain, Palpitations, Syncope, Dyspnea on Exertion , PND, Lower Extremity Edema, Orthopnea, Claudication Musculoskeletal: DENIES: Joint pain, Muscle aches, Stiffness, Joint Swelling, Back pain, Neck pain Integumentary: DENIES: Abnormal pigmentation, Nail changes, Pruritus, Rash Neurologic: COMPLAINS OF: Localized weakness, Poor Balance Psychiatric: COMPLAINS OF: Anxiety, Depression Past Family Social History Coded Allergies: Penicillin (Verified Allergy, Severe, rash, 01/01/17) Reported Medications Alprazolam (Xanax)0.5 Mg Tab0.5 Mg PO Q4H PRN (ANXIETY) Ref 0 01/01/17 Aspirin 81 Mg Chew81 Mg CHEW DAILY Ref 0 01/01/17 Atorvastatin 40 Mg Tab40 Mg PO HS #30 TAB Ref 0 01/01/17 Prednisone 20 Mg Tab20 Mg PO DAILY Ref 0 01/01/17 Quetiapine 50 Mg Tab50 Mg PO DIRECTED #60 TAB Ref 0 12/07/16 Gabapentin 600 Mg [id number] Mg PO TID #90 TAB Ref 0 12/07/16 Current Medications Medications (Trade) Dose Ordered Sig/Ligia Route Start Time Stop Time Status Last Admin Magnesium Oxide 800 mg 800 mg UNSCH PRN PO 01/01/17 07:15 Magnesium Sulfate 4 gm/Sodium Chloride 100 ml @ 50 mls/hr UNSCH PRN IV 01/01/17 07:15 Magnesium Sulfate 2 gm/Sodium Chloride 100 ml @ 50 mls/hr UNSCH PRN IV 01/01/17 07:15 Potassium Chloride 100 ml @ 50 mls/hr Q2H PRN IV 01/01/17 07:15 Potassium Chloride 100 ml @ 50 mls/hr Q2H PRN IV 01/01/17 07:15 01/02/17 14:42 Potassium Chloride 100 ml @ 50 mls/hr Q2H PRN IV 01/01/17 07:15 (KCl 40 Meq Premix Inj) 100 ml @ 25 mls/hr UNSCH PRN IV 01/01/17 07:15 (K-Phos) 2,000 mg Q4H PRN PO 01/01/17 07:15 Potassium Phosphate 2000 mg 2,000 mg UNSCH PRN PO/TUBE 01/01/17 07:15 Potassium Phosphate 30 mmol/ Sodium Chloride 260 ml @ 42 mls/hr UNSCH PRN IV 01/01/17 07:15 (Sodium Phosphate Inj/NS 250 ml Inj) 250 ml @ 42 mls/hr UNSCH PRN IV 01/01/17 07:15 Dextrose 25 ml 25 ml UNSCH PRN IV PUSH 01/01/17 07:15 (NS 1000 ml Inj) 1,000 ml @ 84 mls/hr [id number] IV 01/01/17 07:08 01/02/17 06:58 (Zofran Inj) 4 mg Q6H PRN IV 01/01/17 07:15 Miscellaneous Information 1 [id number] XX 01/01/17 07:15 (Chlorhexidine 2% Cloth) 3 pack Taper DAILY@04 TOP 01/02/17 04:00 12/29/17 03:59 (Chlorhexidine 2% Cloth) 3 pack UNSCH PRN TOP 01/01/17 07:15 (Libby-Colace) 1 tab BID PO 01/01/17 09:00 01/02/17 08:03 (Xanax) 0.5 mg TID PRN PO 01/01/17 13:00 01/02/17 13:13 (Neurontin) 600 mg TID PO 01/01/17 13:00 01/02/17 13:09 (Tylenol) 650 mg Q4H PRN PO 01/02/17 09:15 (Colace) 100 mg BID PRN PO 01/02/17 09:15 (Milk Of Magnesia Liq) 30 ml DAILY PRN PO 01/02/17 09:15 (Tums Chew) 1,000 mg TID PRN CHEW 01/02/17 09:15 (Ecotrin Ec) 81 mg DAILY PO 01/03/17 09:00 (Lipitor) 40 mg HS PO 01/02/17 21:00 (Deltasone) 20 mg DAILY PO 01/02/17 15:15 01/07/17 15:14 (Deltasone) 10 mg DAILY PO 01/07/17 09:00 01/12/17 08:59 UNV Family History Patient is adopted, he did not meet his biological family Social History Patient was born and raised in [place], he has been living in [place] for 8 years, he lives with his in [place], he has no kids, he is unemployed right now, 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 2) Family support, future oriented Physical Exam Vital Signs Vital Signs Date Time Temp Pulse Resp B/P Pulse Ox O2 Delivery O2 Flow Rate FiO2 01/02/17 14:00 83 01/02/17 12:00 97 Nasal Cannula 2.00 01/02/17 12:00 97.8 12 129/83 01/01/17 20:27 21 I/O 01/01/17 01/01/17 01/02/17 08:00 16:00 00:00 Intake Total 1111 ml 1537 ml Output Total 2000 ml 1200 ml Balance -889 ml 337 ml Lab Results Imaging Last Impressions Head Magnetic Resonance Angiography 01/01/17 0536 Signed Impressions: Service Date/Time: Sunday, January 01, 2017 06:52 - CONCLUSION: 1. Good visualization of the basilar artery which is patent. 2. Otherwise, stable MRA of the [place] compared to the prior examination. Jomar Heredia MD Brain MRI 01/01/17 0536 Signed Impressions: Service Date/Time: Sunday, January 01, 2017 06:52 - CONCLUSION: Stable and unremarkable MRI of the brain for patient's age compared to the prior exams. Jomar Heredia MD Neck CTA 01/01/17 0528 Signed Impressions: Service Date/Time: Sunday, January 01, 2017 05:19 - CONCLUSION: 1. Normal carotid arteries. 2. Occlusion of the left vertebral artery. Suhas Sierra MD Head CTA 01/01/17 0528 Signed Impressions: Service Date/Time: Sunday, January 01, 2017 05:19 - CONCLUSION: 1. No large vessel stenosis. 2. There is occlusion of left vertebral artery. 3. No significant change. Suhas Sierra MD Head CT 01/01/17 0000 Signed Impressions: Service Date/Time: Sunday, January 01, 2017 05:19 - CONCLUSION: Normal examination. Suhas Sierra MD Chest X-Ray 01/01/17 0000 Signed Impressions: Service Date/Time: Sunday, January 01, 2017 05:50 - CONCLUSION: Left basilar atelectasis. Suhas Sierra MD Mental Status Examination Speech: Stuttering, Incoherent Orientation: x3 Memory: Impaired (describe) Thought Process: Logical, Goal Directed Thought Content: Unremarkable Hallucination Type: None Suicidal Ideation: No Previous Suicide Attempts: No Homicidal Ideation: No Judgment: WNL Mood: Appropriate, Sad Motor Activity: Abnormal gait-specify Assessment & Plan Problem List: (1) Adjustment disorder with depressed mood Assessment & Plan: At moment of this evaluation the patient presents mild to moderate symptomatology of depression, consistent on poor level of energy, poor concentration, frequent sadness, frequent crying spells, generalized pessimism, difficulty sleeping at night, low self-esteem, but mostly related with his acute medical condition. He also reports anxiety related with his preoccupations about his medical and also social situation. However, he denies hopelessness, he denies helplessness, he is future oriented, with identified protective factors suicidality, he denies suicidal and homicidal ideation, he denies visual and auditory hallucinations. Patient is logical, coherent and relevant. Oriented 3, but recent and intermediate recall, concentration, language, executive functioning and abstract thought seems to be impaired. Cognitive impairment could be related with residual symptomatology post stroke. Based on this first evaluation we could not find enough elements, psychological acute and chronic stress, identifiable primary or secondary gain, in order to determined if patient has conversation disorder, factitious disorder or is malingering. More collateral information, further psychosocial assessment, and previous medical records are needed in order to complete secondary assessment. He does not meet criteria for psychiatric admission at this moment. We'll start Zoloft 25 mg for depression, clonazepam 2.5 mg twice a day for anxiety. We will continue follow-up. ICD Code: F43.21 Assessment & Plan Estimated LOS: days Gee Willett MD Jan 02, 2017 15:40
[2017-01-02] MEDS: predniSONE 20 MG TAB PO SCH (16:00)
[2017-01-02] MEDS ORDERED: SERTRALINE HCL 50 MG TAB PO ONE (17:00)
[2017-01-02] MEDS: ATORVASTATIN 40 MG TAB PO SCH (20:16)
[2017-01-02] MEDS: clonazePAM 0.5 MG TAB PO SCH (20:16)
[2017-01-02] MEDS: ACETAMINOPHEN 325 MG TAB PO PRN (21:02)
[2017-01-03] VITALS (12 sets, daily range): BP systolic 101–115; BP diastolic 50–71; PULSE 68–118; RESP 10–19; TEMP 95.8–98.8; O2SAT 96–100
[2017-01-03] MEDS: CHLORHEXIDINE GLUCONATE 2 % 1 PACK (2 CLOTHS) TOP SCH (03:16)
[2017-01-03 04:50] LABS: HEMATOCRIT 39.4 % (39.0-51.0); MEAN CELL VOLUME 96.7 FL (80.0-100.0); MEAN CORPUSCULAR HEMOGLOBIN 31.2 PG (27.0-34.0); MEAN CORPUSCULAR HGB CONC 32.2 % (32.0-36.0); PLATELET COUNT 368 TH/MM3 (150-450); RED BLOOD COUNT 4.08 MIL/MM3 (4.50-5.90); RED CELL DISTRIBUTION WIDTH 15.8 % (11.6-17.2); REVIEW FLAG FINAL; WHITE BLOOD COUNT 21.6 TH/MM3 (4.0-11.0)
[2017-01-03 05:17] LABS: BICARBONATE 30.9 MEQ/L (21.0-32.0)
[2017-01-03] MEDS: GABAPENTIN 300 MG CAP PO SCH ×2 (08:30→17:19)
[2017-01-03] MEDS: predniSONE 20 MG TAB PO SCH (08:30)
[2017-01-03] MEDS: ASPIRIN EC 325 MG TABEC PO SCH (08:30)
[2017-01-03] MEDS: ACETAMINOPHEN 325 MG TAB PO PRN ×2 (08:31→23:12)
[2017-01-03] MEDS: clonazePAM 0.5 MG TAB PO SCH ×2 (08:31→21:28)
[2017-01-03] MEDS: DOCUSATE SODIUM 50 MG/SENNA 8.6 MG TAB PO SCH ×2 (08:31→21:00)
[2017-01-03] MEDS ORDERED: CLON.5 PO (10:46)
[2017-01-03] MEDS ORDERED: ZOLO25TA PO (10:47)
--- NOTE | 2017-01-03 12:33 | HHI.PR ---
Subjective Remarks Follow-up speech impediment and right sided weakness. States he cannot walk though he was able to move his extremities when he was not aware that he is being watched. Discussed with psychiatry, likely patient is malingering. Discussed with his management, RN and physical therapy, patient has been discharged pending walk test, outpatient PT and DME's Objective Vitals Vital Signs Date Time Temp Pulse Resp B/P Pulse Ox O2 Delivery O2 Flow Rate FiO2 01/03/17 12:00 97.0 85 18 115/68 99 01/03/17 08:30 98 Nasal Cannula 2.00 01/03/17 08:00 97.8 72 10 106/50 98 01/03/17 08:00 72 01/03/17 08:00 98 Nasal Cannula 2.00 01/03/17 06:00 71 01/03/17 04:00 98.0 68 12 103/71 96 01/03/17 04:00 69 01/03/17 04:00 97 Nasal Cannula 2.00 01/03/17 02:00 72 01/03/17 00:00 98.8 68 19 101/63 96 01/03/17 00:00 92 Nasal Cannula 2.00 01/03/17 00:00 118 01/02/17 22:02 23 01/02/17 22:00 118 01/02/17 20:23 96 Nasal Cannula 2.00 01/02/17 20:00 75 01/02/17 20:00 98.9 89 15 95/60 96 01/02/17 20:00 96 Nasal Cannula 2.00 01/02/17 18:00 84 01/02/17 16:00 98 Nasal Cannula 2.00 01/02/17 16:00 79 01/02/17 16:00 98.4 78 14 108/70 98 01/02/17 14:00 83 I/O 01/02/17 01/02/17 01/02/17 01/03/17 01/03/17 01/03/17 07:00 15:00 23:00 07:00 15:00 23:00 Intake Total 900 ml 890 ml 1297 ml 814 ml Output Total 1300 ml 600 ml 3000 ml 1950 ml Balance -400 ml 290 ml -1703 ml -1136 ml Intake Oral 80 ml 720 ml 720 ml 480 ml IV Total 820 ml 170 ml 577 ml 334 ml Output Urine Total 1300 ml 600 ml 3000 ml 1950 ml # Voids 1 # Bowel Movements 1 Result Diagram: 01/03/1742001/03/17420 Imaging Last Impressions Head CT 01/02/17 0000 Signed Impressions: Service Date/Time: Monday, January 02, 2017 08:41 - CONCLUSION: Subtle increased signal thalamus on the left. Repeat MRI is suggested. Miguel Gamble MD FACR Brain MRI 01/02/17 0000 Signed Impressions: Service Date/Time: Monday, January 02, 2017 11:21 - CONCLUSION: Negative MRI of the brain for an acute hemorrhage. There is abnormal contrast enhancement. Miguel Gamble MD FACR Head Magnetic Resonance Angiography 01/01/17 0536 Signed Impressions: Service Date/Time: Sunday, January 01, 2017 06:52 - CONCLUSION: 1. Good visualization of the basilar artery which is patent. 2. Otherwise, stable MRA of the [place] compared to the prior examination. Jomar Heredia MD Neck CTA 01/01/17 0528 Signed Impressions: Service Date/Time: Sunday, January 01, 2017 05:19 - CONCLUSION: 1. Normal carotid arteries. 2. Occlusion of the left vertebral artery. Suhas Sierra MD Head CTA 01/01/17 0528 Signed Impressions: Service Date/Time: Sunday, January 01, 2017 05:19 - CONCLUSION: 1. No large vessel stenosis. 2. There is occlusion of left vertebral artery. 3. No significant change. Suhas Sierra MD Chest X-Ray 01/01/17 0000 Signed Impressions: Service Date/Time: Sunday, January 01, 2017 05:50 - CONCLUSION: Left basilar atelectasis. Suhas Sierra MD Objective Remarks GENERAL: Middle-aged male, lying in bed HEENT: Normocephalic. Atraumatic. Pupils equal, round, reactive, conjugate. Mucous membranes are moist NECK: Trachea is midline. There is no JVD. CHEST: Equal chest rise. Clear to auscultation CARDIOVASCULAR: Normal rate, regular rhythm. Sinus by telemetry ABDOMEN: Soft, nontender, nondistended. No guarding. MUSCULOSKELETAL: Pulses 2+. No peripheral edema. NEUROLOGICAL: Cranial nerves II through 12 grossly intact. Patient has musculoskeletal strength of 4+/5 in right upper and right lower extremities. 5/ 5 in left upper and lower extremities. The patient has a subjective gross deficit in sensation over the right arm and leg when compared to the left. He is stuttering at times but not when he was talking on the phone Procedures none A/P Problem List: (1) Neurological abnormality ICD Code: R29.818 Status: Acute (2) Speaking difficulty ICD Code: R47.9 Status: Acute (3) Anxiety ICD Code: F41.9 Status: Chronic Assessment and Plan 46yM with vertebrobasilar insufficiency who initially presented to be a new acute stroke now s/p TPA. Right Sided hemiparesis s/p systemic TPA. History of vertebrobasilar Insufficiency. LDL 85. Evaluated by Suzi for same complaints felt to be functional weakness. Repeat MRI within normal limits. Neurology feels this is conversion disorder. Follow-up head CT no bleeding aspirin to be continued. Discussed with psychiatry, patient likely is malingering. Physical therapy follow-up, yesterday recommended rehabilitation versus outpatient PT and DME's. Patient evaluated by neurosurgery during previous visit because of C5-6 disc protrusion with moderate spinal stenosis, although no significant cord compression is noted. This is an incidental finding and does not correlate with current neurologic presentation. Taper steroids. Oxygen walk test pending Anxiety d/o NOS. Per psychiatry start Zoloft and Klonopin Chronic leukocytosis. We'll monitor off steroids Discontinue Mulligan catheter Discharge Planning Stable for discharge pending walk test, outpatient PT and DME Brad Bray MD Jan 03, 2017 12:33
--- NOTE | 2017-01-03 12:37 | HHI.DS ---
Discharge Summary Admission Date Jan 01, 2017 at 07:15 Discharge Date: Jan 04, 2017 Admitting Diagnosis Right-sided weakness (1) Neurological abnormality ICD Code: R29.818 Diagnosis: Principal (2) Speaking difficulty ICD Code: R47.9 Diagnosis: Principal (3) Anxiety ICD Code: F41.9 Diagnosis: Principal Procedures none Brief History - From Admission This is a 46-year-old male who is well-known to the [facility] who was recently with us for a few weeks for vertebral basilar insufficiency. At that time his insufficiency was severe enough that he required vasopressors. He was transferred to [facility] for evaluation of possible high risk posterior circulation stenting. Is unclear to me at this time what transpired at [facility], but they discharged him home. He re-presents today after calling 911 when his noticed at proximally 4:15 AM he had difficulty speaking and had right-sided numbness and weakness. When he left our institution, he was on chronic Coumadin therapy with an INR of 2.4, however today he has an INR 0.9. His states that he is taking all his medicines as directed. Patient had a negative CT, CTA of the head and neck. Patient was given TPA by the neurology team for persistent neurologic symptoms. He presents to the ICU for empiric therapy of presumed acute stroke. I evaluated the patient emergency department on arrival to the intensive care unit. He was awake, alert. He denied chest pain, shortness of breath, fever, chills. Remainder of the review systems is negative unless otherwise document. CBC/BMP: 01/03/17 0421 01/03/17 0421 Significant Findings Laboratory Tests Test 01/01/17 01/01/17 01/02/17 01/03/17 05:07 06:29 13:48 04:21 White Blood Count 18.4 TH/MM3 20.1 TH/MM3 21.6 TH/MM3 (4.0-11.0) (4.0-11.0) (4.0-11.0) Red Blood Count 4.03 MIL/MM3 3.80 MIL/MM3 4.08 MIL/MM3 (4.50-5.90) (4.50-5.90) (4.50-5.90) Hemoglobin 12.8 GM/DL 12.0 GM/DL 12.7 GM/DL (13.0-17.0) (13.0-17.0) (13.0-17.0) Hematocrit 38.1 % 36.8 % (39.0-51.0) (39.0-51.0) Neutrophils (%) (Auto) 79.8 % (16.0-70.0) Neutrophils # (Auto) 14.7 TH/MM3 (1.8-7.7) Monocytes # (Auto) 1.4 TH/MM3 (0-0.9) Platelet Estimate HIGH (NORMAL) Prothrombin Time 9.7 SEC (9.8-11.6) Activated Partial 21.6 SEC Thromboplast Time (24.3-30.1) Fibrinogen 403 mg/dL (227-377) Bedside Potassium 6.8 MMOL/L (3.5-4.9) Bedside Blood Urea Nitrogen 33 MG/DL (8-26) Bedside Glucose 114 MG/DL (60-95) Total Creatine Kinase 396 U/L (39-308) Troponin I LESS THAN 0.02 NG/ML (0.02-0.05) Blood Urea Nitrogen 22 MG/DL (7-18) 19 MG/DL (7-18) Estimat Glomerular Filtration 74 ML/MIN (>89) 74 ML/MIN (>89) 80 ML/MIN (>89) Rate Random Glucose 136 MG/DL 171 MG/DL 107 MG/DL (74-106) (74-106) (74-106) Calcium Level 8.4 MG/DL (8.5-10.1) Imaging Last Impressions Head CT 01/02/17 0000 Signed Impressions: Service Date/Time: Monday, January 02, 2017 08:41 - CONCLUSION: Subtle increased signal thalamus on the left. Repeat MRI is suggested. Miguel Gamble MD FACR Brain MRI 01/02/17 0000 Signed Impressions: Service Date/Time: Monday, January 02, 2017 11:21 - CONCLUSION: Negative MRI of the brain for an acute hemorrhage. There is abnormal contrast enhancement. Miguel Gamble MD FACR Head Magnetic Resonance Angiography 01/01/17 0536 Signed Impressions: Service Date/Time: Sunday, January 01, 2017 06:52 - CONCLUSION: 1. Good visualization of the basilar artery which is patent. 2. Otherwise, stable MRA of the [place] of [place] compared to the prior examination. Jomar Heredia MD Neck CTA 01/01/17 0528 Signed Impressions: Service Date/Time: Sunday, January 01, 2017 05:19 - CONCLUSION: 1. Normal carotid arteries. 2. Occlusion of the left vertebral artery. Suhas Sierra MD Head CTA 01/01/17 0528 Signed Impressions: Service Date/Time: Sunday, January 01, 2017 05:19 - CONCLUSION: 1. No large vessel stenosis. 2. There is occlusion of left vertebral artery. 3. No significant change. Suhas Sierra MD Chest X-Ray 01/01/17 0000 Signed Impressions: Service Date/Time: Sunday, January 01, 2017 05:50 - CONCLUSION: Left basilar atelectasis. Suhas Sierra MD PE at Discharge GENERAL: Middle-aged male, lying in bed HEENT: Normocephalic. Atraumatic. Pupils equal, round, reactive, conjugate. Mucous membranes are moist NECK: Trachea is midline. There is no JVD. CHEST: Equal chest rise. Clear to auscultation CARDIOVASCULAR: Normal rate, regular rhythm. Sinus by telemetry ABDOMEN: Soft, nontender, nondistended. No guarding. MUSCULOSKELETAL: Pulses 2+. No peripheral edema. NEUROLOGICAL: Cranial nerves II through 12 grossly intact. Patient has musculoskeletal strength of 4+/5 in right upper and right lower extremities. 5/ 5 in left upper and lower extremities. The patient has a subjective gross deficit in sensation over the right arm and leg when compared to the left. He is stuttering at times but not when he was talking on the phone Hospital Course 46yM with vertebrobasilar insufficiency who initially presented to be a new acute stroke now s/p TPA. Right Sided hemiparesis s/p systemic TPA. History of vertebrobasilar Insufficiency. LDL 85. Evaluated by Suzi for same complaints felt to be functional weakness. Repeat MRI within normal limits. Neurology feels this is conversion disorder. Follow-up head CT no bleeding aspirin to be continued. Discussed with psychiatry, patient likely is malingering dw pt pt and . Physical therapy recommended supervision at home which the will provide, outpatient PT and DME's. Fall precautions. Patient evaluated by neurosurgery during previous visit because of C5-6 disc protrusion with moderate spinal stenosis, although no significant cord compression is noted. This is an incidental finding and does not correlate with current neurologic presentation. Taper steroids. Passed Oxygen walk test Anxiety d/o NOS. Per psychiatry ct Zoloft and Klonopin Chronic leukocytosis. We'll monitor off steroids. Repeat CBC 2 weeks after last dose DVT prophylaxis with SCD and subcutaneous heparin Pt Condition on Discharge: Stable Discharge Disposition: Discharge Home Discharge Time: > 30 minutes Discharge Instructions DIET: Follow Instructions for: Heart Healthy Diet, Soft Diet Activities you can perform: Regular-No Restrictions Activities to Avoid: Driving Follow up Referrals: PCP Follow-up - 1 Week Psychiatry Adult - 1 Week New Medications: Oxygen (O2) (Oxygen (O2)) Inha 2 LITER SANIA.CANULA CONTINUOUS Oxygen Concentrator Portable Gaseous 2 L/min via Nasal Canula Continuous For 99 months Prevent Hypoxemia #1 CYLINDER Sertraline (Zoloft) 25 Mg Tab 25 MG PO DAILY Control Depression #30 Ref 0 TAB Walker with Front Wheels (Walker with Front Wheels) 1 Mis Mis 1 EA .ROUTE DIRECTED #1 Ref 0 EA Walker/Folding Devan (Walker/Folding Devan) 1 Mis Mis 1 EA .ROUTE DIRECTED #1 EA Clonazepam (Klonopin) 0.5 Mg Tab 0.5 MG PO Q12HR Anxiety and/or Insomnia #14 TAB Changed Medications: Prednisone (Prednisone) 20 Mg Tab 20 MG PO DAILY Take 1 pill daily for 3 days then one half pill daily for 4 days Inflammation #5 Ref 0 TAB (Medication details modified) Continued Medications: Aspirin (Aspirin) 81 Mg Chew 81 MG CHEW DAILY Ref 0 TAB Atorvastatin (Atorvastatin) 40 Mg Tab 40 MG PO HS Cholesterol Management #30 Ref 0 TAB Gabapentin (Gabapentin) 600 Mg Tab 600 MG PO TID #90 Ref 0 TAB Additional Information I spent 35 minutes [id number] with the patient or on the mg discussing the patient's disposition, prognosis, and plan of care with patient's caregivers. Over half the time spent was devoted to counseling the patient regarding placement in coordinating care with caregivers and case management. Brad Bray MD Jan 03, 2017 12:37
--- NOTE | 2017-01-03 13:21 | HHI.PYPN ---
Subjective Remarks On psychiatric evaluation today patient is found calm, cooperative, inattentive good spirit, surprisingly moving freely without any limitations his to Arms. Patient reports improved mood, denies suicidal or homicidal ideation, he denies visual and auditory hallucinations. She is unable to to recall recent to his consciousness any acute distress ordered and unemployment, which she has been for 5 months now. His as patient impairment is also unconsistent, at times he is able to speak with no problems. Patient is oriented 3, he doesn't seem to be delirious or doesn't seem to have any cognitive impairment. Review of Systems Neurologic: COMPLAINS OF: Localized weakness Psychiatric: COMPLAINS OF: Anxiety Objective Alert: Yes [place]: Person, Place, Date, Situation Mood: Calm Affect: Appropriate Memory Intact: Immediate, Recent Hallucinations: Other (he denies) Delusions: No Delusion Type: Other (not elicited) Suicidal: Ideation (no SI) Homicidal: Ideation (no HI) Insight/Judgment Fair Labs Test 01/02/17 01/03/17 13:48 04:21 White Blood Count 20.1 TH/MM3 21.6 TH/MM3 Red Blood Count 3.80 MIL/MM3 4.08 MIL/MM3 Hemoglobin 12.0 GM/DL 12.7 GM/DL Hematocrit 36.8 % 39.4 % Mean Corpuscular Volume 97.0 FL 96.7 FL Mean Corpuscular Hemoglobin 31.6 PG 31.2 PG Mean Corpuscular Hemoglobin 32.6 % 32.2 % Concent Red Cell Distribution Width 15.9 % 15.8 % Platelet Count 328 TH/MM3 368 TH/MM3 Mean Platelet Volume 8.0 FL 8.4 FL Sodium Level 142 MEQ/L 140 MEQ/L Potassium Level 3.5 MEQ/L 4.0 MEQ/L Chloride Level 105 MEQ/L 104 MEQ/L Carbon Dioxide Level 28.5 MEQ/L 30.9 MEQ/L Anion Gap 9 MEQ/L 5 MEQ/L Blood Urea Nitrogen 19 MG/DL 16 MG/DL Creatinine 1.07 MG/DL 1.01 MG/DL Estimat Glomerular Filtration 74 ML/MIN 80 ML/MIN Rate Random Glucose 171 MG/DL 107 MG/DL Calcium Level 8.4 MG/DL 8.8 MG/DL Vitals/IOs Vital Signs Date Time Temp Pulse Resp B/P Pulse Ox O2 Delivery O2 Flow Rate FiO2 01/03/17 12:00 97.0 85 18 115/68 99 01/03/17 08:30 Nasal Cannula 2.00 01/01/17 20:27 21 Intake and Output 01/02/17 01/02/17 01/03/17 08:00 16:00 00:00 Intake Total 900 ml 890 ml 1297 ml Output Total 1300 ml 600 ml 3000 ml Balance -400 ml 290 ml -1703 ml Assessment & Plan Problem List: (1) Adjustment disorder with depressed mood Assessment & Plan: Patient reports improved mood, improved anxiety. Denies suicidal or homicidal ideation. Current neurological neurological deficits seems to be unconsistent, no supported by significant medical findings, conversion disorder seems to be unlikely due to did not identified acute stressor. Based on the observations of primary medical team, nurses and myself , malingering is possible. He does not meet criteria for psychiatric admission at this moment. ICD Code: F43.21 Assessment & Plan Estimated LOS: days Justification for Cont. Inpt. Patient does not meet criteria for psychiatric admission at this moment Gee Willett MD Jan 03, 2017 13:21
[2017-01-03] MEDS ORDERED: BEDSIDE COMMODE1 MI1 (14:44)
[2017-01-03] MEDS: ATORVASTATIN 40 MG TAB PO SCH (21:28)
[2017-01-03] MEDS: HEPARIN SODIUM - SQ 10,000 UNITS/ML VIAL SQ SCH (21:29)
[2017-01-04 01:00] VITALS: BP 132/71; PULSE 62; RESP 18; TEMP 97.3; O2SAT 94
[2017-01-04 04:00] VITALS: BP 124/73; PULSE 58; RESP 18; TEMP 97.8; O2SAT 97
[2017-01-04] MEDS: CHLORHEXIDINE GLUCONATE 2 % 1 PACK (2 CLOTHS) TOP SCH (04:00)
[2017-01-04] MEDS: ACETAMINOPHEN 325 MG TAB PO PRN (06:01)
[2017-01-04 08:00] VITALS: BP 112/70; PULSE 76; RESP 16; TEMP 97.3; O2SAT 96
[2017-01-04] MEDS: predniSONE 20 MG TAB PO SCH (08:31)
[2017-01-04] MEDS: ASPIRIN EC 325 MG TABEC PO SCH (08:32)
[2017-01-04] MEDS: DOCUSATE SODIUM 50 MG/SENNA 8.6 MG TAB PO SCH (08:32)
[2017-01-04] MEDS: clonazePAM 0.5 MG TAB PO SCH (08:32)
[2017-01-04] MEDS: GABAPENTIN 300 MG CAP PO SCH ×2 (08:33→08:43)
[2017-01-04] MEDS: HEPARIN SODIUM - SQ 10,000 UNITS/ML VIAL SQ SCH (08:33)
[2017-01-04 08:50] VITALS: PULSE 77
[2017-01-04 08:59] VITALS: O2SAT 97
[2017-01-04 09:05] LABS: HEMATOCRIT 41.6 % (39.0-51.0); MEAN CELL VOLUME 96.7 FL (80.0-100.0); MEAN CORPUSCULAR HEMOGLOBIN 31.4 PG (27.0-34.0); MEAN CORPUSCULAR HGB CONC 32.5 % (32.0-36.0); PLATELET COUNT 404 TH/MM3 (150-450); RED CELL DISTRIBUTION WIDTH 15.5 % (11.6-17.2); REVIEW FLAG FINAL; WHITE BLOOD COUNT 24.6 TH/MM3 (4.0-11.0)
[2017-01-04 09:56] LABS: BICARBONATE 30.9 MEQ/L (21.0-32.0)
[2017-01-04] MEDS ORDERED: PRED20 PO (11:21)
[2017-01-07] MEDS ORDERED: predniSONE 10 MG TAB PO SCH (09:00)
== END 2017-01-04 11:54 | disposition home or self-care (01) | DRG 880 ==
LOC: NEPE 05:10 → NEDA 07:15 → N03B 07:34 → N05B 01-03 09:49
PROVIDERS: ADMIT Internal Medicine; ATTEND Internal Medicine
PROC: 3E05317 Introduction of Other Thrombolytic into Peripheral Artery, Percutaneous Approach (ICD-10-PCS; principal; 2017-01-01)
PROC: 0T9B70Z Drainage of Bladder with Drainage Device, Via Natural or Artificial Opening (ICD-10-PCS; 2017-01-01)
PROC: 3E0F7GC Introduction of Other Therapeutic Substance into Respiratory Tract, Via Natural or Artificial Opening (ICD-10-PCS; 2017-01-01)
DX: F41.9 Anxiety disorder, unspecified (principal); R29.818 Other symptoms and signs involving the nervous system; F43.21 Adjustment disorder with depressed mood; I69.351 Hemiplegia and hemiparesis following cerebral infarction affecting right dominant side; G62.9 Polyneuropathy, unspecified; M50.20 Other cervical disc displacement, unspecified cervical region; I65.02 Occlusion and stenosis of left vertebral artery; M48.02 Spinal stenosis, cervical region; Z76.5 Malingerer [conscious simulation]; F31.9 Bipolar disorder, unspecified; H54.61 Unqualified visual loss, right eye, normal vision left eye; R47.9 Unspecified speech disturbances; Z88.0 Allergy status to penicillin
CPT/HCPCS: 51702; 70450; 70496; 70498; 70544; 70551; 70553; 71010; 80048; 82435; 82550; 82552; 82565; 82947; 82948; 84132; 84295; 84484; 84520; 85025; 85027; 85384; 85610; 85730; 86850; 86900; 86901; 93005; 94150; 94620; 94640; 94667; 94668; 96374; 96375; A9579; J1644; J2997; J3480; J7030; J7512; Q9967